=== PATIENT | female | born 1975 | race Caucasian/White ===

== ENCOUNTER 2017-11-24 06:43 | Inpatient (IN) | payer BC, SELFPAY ==
[2017-11-24] MEDS ORDERED: Sodium Chloride 0.9% 10 ML Syringe FLUSH PRN (07:05)
[2017-11-24] MEDS ORDERED: HYDROmorphone 0.5 MG/0.5 ML SYRINGE IVPUSH ONE ×4 (07:07→11:04)
[2017-11-24] MEDS ORDERED: Ondansetron 4 MG/2 ML SDV IVPUSH ONE ×2 (07:07→10:43)
[2017-11-24] MEDS ORDERED: Sodium Chloride 0.9% 1,000 ML IV SCH ×2 (07:15→08:45)
--- NOTE | 2017-11-24 08:14 | EDM.PDOC ---
ED HPI GENERAL MEDICAL PROBLEM - General Chief Complaint: Back Pain or Injury Stated Complaint: VOMITING Time Seen by Provider: 11/24/17 06:57 Source of Information: Reports: Patient, Family (Spouse), RN Notes Reviewed - History of Present Illness INITIAL COMMENTS - FREE TEXT/NARRATIVE: 6-year-old female comes in with abdominal pain nausea vomiting low back discomfort. She states she had onset is severe repetitive vomiting during the night quite a few hours ago. Continues to have severe nausea vomiting on arrival to ED. Was having bilateral low back discomfort. There has been voiding dysuria for "10 days". No diarrhea. She does feel mildly short of breath. Chest pain at this time. She does not give history of fever or chills. Also denies cough sore throat, nasal or sinus congestion. Left Lower Back Pain Score (Numeric/FACES): 10 - Related Data Allergies Allergy/AdvReac Type Severity Reaction Status Date / Time Penicillins Allergy Cannot Verified 11/24/17 07:12 Remember Past Medical History - Past Health History Medical/Surgical History: Denies Medical/Surgical History - Past Surgical History GI Surgical History: Reports: Cholecystectomy Social & Family History - Family History Family Medical History: Noncontributory - Tobacco Use Smoking Status *Q: Current Every Day Smoker Years of Tobacco use: 3 Packs/Tins Daily: 0.2 - Recreational Drug Use Recreational Drug Use: No ED ROS GENERAL - Review of Systems Review Of Systems: See Below Constitutional: Reports: Diaphoresis (This morning). Denies: Fever, Chills HEENT: Denies: Sinus Problem, Throat Pain Respiratory: Reports: Shortness of Breath (Mild). Denies: Cough Cardiovascular: Denies: Chest Pain GI/Abdominal: Reports: Abdominal Pain (Generalized achiness with intermittent cramping), Decreased Appetite, Nausea, Vomiting. Denies: Diarrhea (Repetitive) Musculoskeletal: Reports: Back Pain (Bilateral low back) Skin: Denies: Rash Neurological: Reports: Dizziness Psychiatric: Reports: Anxiety ED EXAM, GI/ABD - Physical Exam Exam: See Below General Appearance: Alert, Anxious, Moderate Distress Eyes: Bilateral: Normal Appearance Ears: Normal External Exam Nose: Normal Inspection Throat/Mouth: Normal Inspection Head: Atraumatic. No: Facial Swelling Neck: Supple, Full Range of Motion Respiratory/Chest: Lungs Clear, Respiratory Distress (Moderate tachypnea at time of initial exam) Cardiovascular: Regular Rate, Rhythm GI/Abdominal Exam: Tender (Mild diffuse tenderness) Back Exam: Paraspinal Tenderness. No: CVA Tenderness (L), CVA Tenderness (R) Extremities: Normal Inspection, Normal Range of Motion. No: Pedal Edema, Leg Pain EKG INTERPRETATION EKG Date: 11/24/17 Rhythm: Other (sinus courtney) Rate (Beats/Min): 55 [place]: Normal P-Wave: Present QRS: Other (borderline q waves V2 and V3.) Course - Vital Signs Last Recorded V/S: Last Vital Signs Temp 95.5 F 11/24/17 06:55 Pulse 76 11/24/17 06:55 Resp 24 H 11/24/17 06:55 BP 136/107 H 11/24/17 06:55 Pulse Ox 55 L 11/24/17 08:23 - Orders/Labs/Meds Orders: Active Orders 24 hr Category Date Time Status EKG 12 Lead [EKG Documentation Completion] [RC] STAT Care 11/24/17 11:34 Active CULTURE BLOOD [BC] Stat Lab 11/24/17 07:24 Received Levofloxacin/Dextrose 5%-Water [Levaquin in D5W 750 MG/ Med 11/24/17 12:09 Active 150 ML] 750 mg Premix Bag 1 bag IV ONETIME Sodium Chloride 0.9% [Normal Saline] 1,000 ml Med 11/24/17 07:15 Active IV ONETIME Sodium Chloride 0.9% [Normal Saline] 1,000 ml Med 11/24/17 08:45 Active IV ONETIME Sodium Chloride 0.9% [Saline Flush] Med 11/24/17 07:05 Active 10 ml FLUSH ASDIRECTED PRN Sodium Chloride 0.9% [Saline Flush] Med 11/24/17 09:12 Active 10 ml FLUSH ONETIME PRN Peripheral IV Insertion Adult [OM.PC] Stat Oth 11/24/17 07:06 Ordered Medication Orders Sodium Chloride (Normal Saline) 1,000 mls @ 999 mls/hr IV ONETIME JOHN Last Admin: 11/24/17 07:14 Dose: 999 mls/hr Sodium Chloride (Normal Saline) 1,000 mls @ 999 mls/hr IV ONETIME JOHN Last Admin: 11/24/17 08:48 Dose: 999 mls/hr Levofloxacin/Dextrose 750 mg/ (Premix) 150 mls @ 100 mls/hr IV ONETIME ONE Stop: 11/24/17 13:38 Last Admin: 11/24/17 12:18 Dose: 100 mls/hr Sodium Chloride (Saline Flush) 10 ml FLUSH ASDIRECTED PRN PRN Reason: Keep Vein Open Last Admin: 11/24/17 07:41 Dose: 10 ml Sodium Chloride (Saline Flush) 10 ml FLUSH ONETIME PRN PRN Reason: IV FLUSH Last Admin: 11/24/17 09:48 Dose: 10 ml Labs: Laboratory Tests 11/24/17 11/24/17 11/24/17 Range/Units 07:24 07:24 07:24 WBC 8.32 (3.98-10.04) K/mm3 RBC 4.99 (3.98-5.22) M/mm3 Hgb 15.1 (11.2-15.7) gm/L Hct 45.0 H (34.1-44.9) % MCV 90.2 (79.4-94.8) fl MCH 30.3 (25.6-32.2) pg MCHC 33.6 (32.2-35.5) g/dl RDW Std Deviation 40.2 (36.4-46.3) fL Plt Count 238 (182-369) K/mm3 MPV 10.7 (9.4-12.3) fl Neutrophils % (Manual) 63 H (40-60) % Band Neutrophils % 0 (0-10) % Lymphocytes % (Manual) 28 (20-40) % Atypical Lymphs % 0 % Monocytes % (Manual) 4 (2-10) % Eosinophils % (Manual) 5 (0.7-5.8) % Basophils % (Manual) 0 L (0.1-1.2) Platelet Estimate Adequate RBC Morph Comment Normal Sodium 139 (136-145) mEq/L Potassium 3.5 (3.5-5.1) mEq/L Chloride 105 (98-107) mEq/L Carbon Dioxide 22 (21-32) mEq/L Anion Gap 15.5 H (5-15) BUN 14 (7-18) mg/dL Creatinine 1.0 (0.55-1.02) mg/dL Est Cr Clr Drug Dosing 83.58 mL/min Estimated GFR (MDRD) > 60 (>60) mL/min BUN/Creatinine Ratio 14.0 (14-18) Glucose 118 H (74-106) mg/dL Lactic Acid (0.4-2.0) mmol/L Calcium 9.3 (8.5-10.1) mg/dL Total Bilirubin 0.5 (0.2-1.0) mg/dL AST 21 (15-37) U/L ALT 55 (14-59) U/L Alkaline Phosphatase 58 (46-116) U/L C-Reactive Protein < 0.2 (<1.0) mg/dL Total Protein 7.3 (6.4-8.2) g/dl Albumin 4.2 (3.4-5.0) g/dl Globulin 3.1 gm/dL Albumin/Globulin Ratio 1.4 (1-2) Lipase 1706 H (73-393) U/L Urine Color (Yellow) Urine Appearance (Clear) Urine pH (5.0-8.0) Ur Specific [place] (1.005-1.030) Urine Protein (Negative) Urine Glucose (UA) (Negative) Urine Ketones (Negative) Urine Occult Blood (Negative) Urine Nitrite (Negative) Urine Bilirubin (Negative) Urine Urobilinogen (0.2-1.0) Ur Leukocyte Esterase (Negative) Urine RBC (0-5) /hpf Urine WBC (0-5) /hpf Ur Epithelial Cells (0-5) /hpf Amorphous Sediment (NOT SEEN) /hpf Urine Bacteria (FEW) /hpf Urine Mucus (FEW) /hpf Urine Opiates Screen (NEGATIVE) Ur Buprenorphine Scrn (NEGATIVE) Ur Oxycodone Screen (NEGATIVE) Urine Methadone Screen (NEGATIVE) Ur Propoxyphene Screen (NEGATIVE) Ur Barbiturates Screen (NEGATIVE) Ur Tricyclics Screen (NEGATIVE) Ur Phencyclidine Scrn (NEGATIVE) Ur Amphetamine Screen (NEGATIVE) U Methamphetamines Scrn (NEGATIVE) U Benzodiazepines Scrn (NEGATIVE) U Cocaine Metab Screen (NEGATIVE) U Marijuana (THC) Screen (NEGATIVE) Ethyl Alcohol (0.00) gm% 11/24/17 11/24/17 11/24/17 Range/Units 07:24 07:24 08:40 WBC (3.98-10.04) K/mm3 RBC (3.98-5.22) M/mm3 Hgb (11.2-15.7) gm/L Hct (34.1-44.9) % MCV (79.4-94.8) fl MCH (25.6-32.2) pg MCHC (32.2-35.5) g/dl RDW Std Deviation (36.4-46.3) fL Plt Count (182-369) K/mm3 MPV (9.4-12.3) fl Neutrophils % (Manual) (40-60) % Band Neutrophils % (0-10) % Lymphocytes % (Manual) (20-40) % Atypical Lymphs % % Monocytes % (Manual) (2-10) % Eosinophils % (Manual) (0.7-5.8) % Basophils % (Manual) (0.1-1.2) Platelet Estimate RBC Morph Comment Sodium (136-145) mEq/L Potassium (3.5-5.1) mEq/L Chloride (98-107) mEq/L Carbon Dioxide (21-32) mEq/L Anion Gap (5-15) BUN (7-18) mg/dL Creatinine (0.55-1.02) mg/dL Est Cr Clr Drug Dosing mL/min Estimated GFR (MDRD) (>60) mL/min BUN/Creatinine Ratio (14-18) Glucose (74-106) mg/dL Lactic Acid 2.8 H (0.4-2.0) mmol/L Calcium (8.5-10.1) mg/dL Total Bilirubin (0.2-1.0) mg/dL AST (15-37) U/L ALT (14-59) U/L Alkaline Phosphatase (46-116) U/L C-Reactive Protein (<1.0) mg/dL Total Protein (6.4-8.2) g/dl Albumin (3.4-5.0) g/dl Globulin gm/dL Albumin/Globulin Ratio (1-2) Lipase (73-393) U/L Urine Color Yellow (Yellow) Urine Appearance Slt cloudy H (Clear) Urine pH 8.5 H (5.0-8.0) Ur Specific [place] 1.020 (1.005-1.030) Urine Protein Trace H (Negative) Urine Glucose (UA) Negative (Negative) Urine Ketones 1+ H (Negative) Urine Occult Blood Negative (Negative) Urine Nitrite Negative (Negative) Urine Bilirubin Negative (Negative) Urine Urobilinogen 0.2 (0.2-1.0) Ur Leukocyte Esterase Trace H (Negative) Urine RBC Not seen (0-5) /hpf Urine WBC 0-5 (0-5) /hpf Ur Epithelial Cells 0-5 (0-5) /hpf Amorphous Sediment Few H (NOT SEEN) /hpf Urine Bacteria Rare (FEW) /hpf Urine Mucus Few (FEW) /hpf Urine Opiates Screen (NEGATIVE) Ur Buprenorphine Scrn (NEGATIVE) Ur Oxycodone Screen (NEGATIVE) Urine Methadone Screen (NEGATIVE) Ur Propoxyphene Screen (NEGATIVE) Ur Barbiturates Screen (NEGATIVE) Ur Tricyclics Screen (NEGATIVE) Ur Phencyclidine Scrn (NEGATIVE) Ur Amphetamine Screen (NEGATIVE) U Methamphetamines Scrn (NEGATIVE) U Benzodiazepines Scrn (NEGATIVE) U Cocaine Metab Screen (NEGATIVE) U Marijuana (THC) Screen (NEGATIVE) Ethyl Alcohol 0.00 (0.00) gm% 11/24/17 Range/Units 08:42 WBC (3.98-10.04) K/mm3 RBC (3.98-5.22) M/mm3 Hgb (11.2-15.7) gm/L Hct (34.1-44.9) % MCV (79.4-94.8) fl MCH (25.6-32.2) pg MCHC (32.2-35.5) g/dl RDW Std Deviation (36.4-46.3) fL Plt Count (182-369) K/mm3 MPV (9.4-12.3) fl Neutrophils % (Manual) (40-60) % Band Neutrophils % (0-10) % Lymphocytes % (Manual) (20-40) % Atypical Lymphs % % Monocytes % (Manual) (2-10) % Eosinophils % (Manual) (0.7-5.8) % Basophils % (Manual) (0.1-1.2) Platelet Estimate RBC Morph Comment Sodium (136-145) mEq/L Potassium (3.5-5.1) mEq/L Chloride (98-107) mEq/L Carbon Dioxide (21-32) mEq/L Anion Gap (5-15) BUN (7-18) mg/dL Creatinine (0.55-1.02) mg/dL Est Cr Clr Drug Dosing mL/min Estimated GFR (MDRD) (>60) mL/min BUN/Creatinine Ratio (14-18) Glucose (74-106) mg/dL Lactic Acid (0.4-2.0) mmol/L Calcium (8.5-10.1) mg/dL Total Bilirubin (0.2-1.0) mg/dL AST (15-37) U/L ALT (14-59) U/L Alkaline Phosphatase (46-116) U/L C-Reactive Protein (<1.0) mg/dL Total Protein (6.4-8.2) g/dl Albumin (3.4-5.0) g/dl Globulin gm/dL Albumin/Globulin Ratio (1-2) Lipase (73-393) U/L Urine Color (Yellow) Urine Appearance (Clear) Urine pH (5.0-8.0) Ur Specific [place] (1.005-1.030) Urine Protein (Negative) Urine Glucose (UA) (Negative) Urine Ketones (Negative) Urine Occult Blood (Negative) Urine Nitrite (Negative) Urine Bilirubin (Negative) Urine Urobilinogen (0.2-1.0) Ur Leukocyte Esterase (Negative) Urine RBC (0-5) /hpf Urine WBC (0-5) /hpf Ur Epithelial Cells (0-5) /hpf Amorphous Sediment (NOT SEEN) /hpf Urine Bacteria (FEW) /hpf Urine Mucus (FEW) /hpf Urine Opiates Screen Negative (NEGATIVE) Ur Buprenorphine Scrn Negative (NEGATIVE) Ur Oxycodone Screen Negative (NEGATIVE) Urine Methadone Screen Negative (NEGATIVE) Ur Propoxyphene Screen Negative (NEGATIVE) Ur Barbiturates Screen Negative (NEGATIVE) Ur Tricyclics Screen Negative (NEGATIVE) Ur Phencyclidine Scrn Negative (NEGATIVE) Ur Amphetamine Screen Negative (NEGATIVE) U Methamphetamines Scrn Negative (NEGATIVE) U Benzodiazepines Scrn Negative (NEGATIVE) U Cocaine Metab Screen Negative (NEGATIVE) U Marijuana (THC) Screen Presumptive positive H (NEGATIVE) Ethyl Alcohol (0.00) gm% Meds: Medications Generic Name Dose Route Start Last Admin Trade Name Freq PRN Reason Stop Dose Admin Sodium Chloride 1,000 mls @ 999 mls/hr 11/24/17 07:15 11/24/17 07:14 Normal Saline IV 999 mls/hr ONETIME JOHN Administration Sodium Chloride 1,000 mls @ 999 mls/hr 11/24/17 08:45 11/24/17 08:48 Normal Saline IV 999 mls/hr ONETIME JOHN Administration Levofloxacin/Dextrose 750 mg/ 150 mls @ 100 mls/hr 11/24/17 12:09 11/24/17 12 :18 Premix IV 11/24/17 13:38 100 mls/hr ONETIME ONE Administration Sodium Chloride 10 ml 11/24/17 07:05 11/24/17 07:41 Saline Flush FLUSH 10 ml ASDIRECTED PRN Administration Keep Vein Open Sodium Chloride 10 ml 11/24/17 09:12 11/24/17 09:48 Saline Flush FLUSH 10 ml ONETIME PRN Administration IV FLUSH Discontinued Medications Generic Name Dose Route Start Last Admin Trade Name Freq PRN Reason Stop Dose Admin Diatrizoate Meglum/Diatrizoate Sod 120 ml 11/24/17 09:12 11/24/17 09:49 Gastrografin 37% PO 11/24/17 09:13 90 ml ONETIME ONE Administration Hydromorphone HCl 0.5 mg 11/24/17 07:07 11/24/17 07:15 Dilaudid IVPUSH 11/24/17 07:08 0.5 mg ONETIME ONE Administration Hydromorphone HCl 0.5 mg 11/24/17 07:51 11/24/17 08:07 Dilaudid IVPUSH 11/24/17 07:52 0.5 mg ONETIME ONE Administration Hydromorphone HCl 0.5 mg 11/24/17 09:22 11/24/17 09:23 Dilaudid IVPUSH 11/24/17 09:23 0.5 mg ONETIME ONE Administration Hydromorphone HCl Confirm 11/24/17 09:20 11/24/17 09:35 Dilaudid Administered 11/24/17 09:21 Not Given Dose 0.5 mg .ROUTE .STK-MED ONE Hydromorphone HCl 0.5 mg 11/24/17 11:04 11/24/17 11:05 Dilaudid IVPUSH 11/24/17 11:05 0.5 mg ONETIME ONE Administration Sodium Chloride 1,000 mls @ 999 mls/hr 11/24/17 12:01 11/24/17 12:13 Normal Saline IV 11/24/17 13:01 999 mls/hr ONETIME ONE Administration Iopamidol 100 ml 09/24/18 09:12 11/24/17 09:48 Isovue-300 (61%) IVPUSH 11/24/17 09:13 100 ml ONETIME ONE Administration Ketorolac Tromethamine 30 mg 11/24/17 12:01 11/24/17 12:12 Toradol IVPUSH 11/24/17 12:02 30 mg ONETIME ONE Administration Metoclopramide HCl 5 mg 11/24/17 08:44 11/24/17 08:48 Reglan IVPUSH 11/24/17 08:45 5 mg ONETIME ONE Administration Ondansetron HCl 4 mg 11/24/17 07:07 11/24/17 07:14 Zofran IVPUSH 11/24/17 07:08 4 mg ONETIME ONE Administration Ondansetron HCl 4 mg 11/24/17 10:43 11/24/17 11:00 Zofran IVPUSH 11/24/17 10:44 4 mg ONETIME ONE Administration - Re-Assessments/Exams Free Text/Narrative Re-Assessment/Exam: 11/24/17 10:44. Lipase did come back elevated, CT of abdomen and pelvis ordered , currently giving second liter of normal saline given Zofran 5 mg IV and also Reglan 5 mg IV. She is still nauseated but no longer vomiting. Have also given multiple doses of Dilaudid 0.5 mg IV for pain. 11/24/17 11:33. CT of abdomen did show mild intrahepatic biliary duct dilatation with common bile duct considered normal, see Radiology report for details. Radiologist did comment about patchy parenchymal density right lung base. Her chest x-ray has been done. There is slight parenchymal density left midlung, possible pneumonia. Patient will be admitted for further treatment. 11/24/17 11;40. Dr Orona did ask for surgical consult due to patient still looking very ill, diaphoretic when she went ot see patient which she has had all morning. Dr Fuentes has seen patient, does believe she has a surgical abdomen at this time. Departure - Departure Time of Disposition: 11:30 Disposition: Admitted As Inpatient 68 Condition: Serious Clinical Impression: Pancreatitis Qualifiers: Chronicity: acute Pancreatitis type: unspecified pancreatitis type Acute pancreatitis complication: unspecified Qualified Code(s): K85.90 - Acute pancreatitis without necrosis or infection, unspecified Pneumonia Qualifiers: Pneumonia type: due to unspecified organism Laterality: left Lung location: unspecified part of lung Qualified Code(s): J18.9 - Pneumonia, unspecified organism - Discharge Information ED Communication - Discussed Case With (1) Discussed Case With (1): Admitting Provider (Dr. Orona, decision to admit at about 11:30.) - My Orders Last 24 Hours: My Active Orders 11/24/17 07:05 Sodium Chloride 0.9% [Saline Flush] 10 ml FLUSH ASDIRECTED PRN 11/24/17 07:06 Peripheral IV Insertion Adult [OM.PC] Stat 11/24/17 07:15 Sodium Chloride 0.9% [Normal Saline] 1,000 ml IV ONETIME 11/24/17 07:24 CULTURE BLOOD [BC] Stat 11/24/17 08:45 Sodium Chloride 0.9% [Normal Saline] 1,000 ml IV ONETIME 11/24/17 09:12 Sodium Chloride 0.9% [Saline Flush] 10 ml FLUSH ONETIME PRN 11/24/17 11:34 EKG 12 Lead [EKG Documentation Completion] [RC] STAT 11/24/17 12:09 Levofloxacin/Dextrose 5%-Water [Levaquin in D5W 750 MG/150 ML] 750 mg Premix Bag 1 bag IV ONETIME - Assessment/Plan Last 24 Hours: My Active Orders 11/24/17 07:05 Sodium Chloride 0.9% [Saline Flush] 10 ml FLUSH ASDIRECTED PRN 11/24/17 07:06 Peripheral IV Insertion Adult [OM.PC] Stat 11/24/17 07:15 Sodium Chloride 0.9% [Normal Saline] 1,000 ml IV ONETIME 11/24/17 07:24 CULTURE BLOOD [BC] Stat 11/24/17 08:45 Sodium Chloride 0.9% [Normal Saline] 1,000 ml IV ONETIME 11/24/17 09:12 Sodium Chloride 0.9% [Saline Flush] 10 ml FLUSH ONETIME PRN 11/24/17 11:34 EKG 12 Lead [EKG Documentation Completion] [RC] STAT 11/24/17 12:09 Levofloxacin/Dextrose 5%-Water [Levaquin in D5W 750 MG/150 ML] 750 mg Premix Bag 1 bag IV ONETIME
[2017-11-24] MEDS ORDERED: Metoclopramide 10 MG/2 ML SDV IVPUSH ONE (08:44)
[2017-11-24] MEDS ORDERED: Diatrizoate Meglumine/Diatrizoate Sodium 37% 120 ML Bottle PO ONE (09:12)
[2017-11-24] MEDS ORDERED: Iopamidol 612 MG/ML 100 ML Bottle IVPUSH ONE (09:12)
[2017-11-24] MEDS ORDERED: HYDROmorphone 0.5 MG/0.5 ML SYRINGE ONE (09:20)
[2017-11-24] MEDS: Sodium Chloride 0.9% 10 ML Syringe FLUSH PRN (09:48)
--- NOTE | 2017-11-24 10:30 | CT ---
Addendum: Common bile duct measurement in the body of the report is given as 6.3 cm which is incorrect. The correct measurement is 6.3 mm. --- Addendum1 above dictated on [11/24/2017 20:57] by [Kenneth Sauceda, Jayy Nascimento] --- --- Addendum1 above signed on [11/24/2017 20:58] by [Kenneth Sauceda, Jayy Nascimento] --- --- Original report below dictated on [11/24/2017 10:25] by [Kenneth Sauceda, Jayy Nascimento] --- --- Original report below signed on [11/24/2017 10:26] by [Kenneth Sauceda, Jayy Nascimento] --- CT abdomen and pelvis Technique: Multiple axial sections were obtained from above the dome of the diaphragm inferiorly through the pubic symphysis. Intravenous contrast is seen. Oral contrast is seen which remains mostly within the stomach and proximal bowel. Comparison: Prior CT abdomen and pelvis exam of 07/29/12. Patchy parenchymal density seen within the right lung base. Difficult to exclude pneumonia. Left lung base is clear. Small hiatal hernia is seen with gastroesophageal reflux of contrast. Intrahepatic biliary duct dilatation seen within the liver. Previous cholecystectomy is noted. Common bile duct at the level of the pancreatic head measures about 6.3 cm. Spleen appears within normal limits. Adrenal glands show no nodule. No abnormality is seen within the pancreas. Small low density finding measuring 1 cm is noted within the left kidney which is compatible with a cyst. Kidneys otherwise are unremarkable. Aorta shows no aneurysm. No retroperitoneal adenopathy is seen. No free fluid is seen. Mild increased stool is noted throughout the colon. Appendix is felt to be visualized and appears within normal limits in size. Bone window settings were reviewed which shows degenerative change scattered within the spine. Anterior wedge deformity noted of L1 which appears old. Impression: 1. Patchy parenchymal densities within the right lung base. Pneumonia is possible if patient has infectious symptoms. 2. Mild intrahepatic biliary duct dilatation with normal size of CBD at the level of the pancreatic head. This most likely is residual from prior cholecystectomy. 3. Mild increased stool throughout the colon and other incidental findings. Diagnostic code #3 --- Addendum1 signed ---
--- NOTE | 2017-11-24 11:43 | CR ---
Chest: Frontal view of the chest was obtained. Comparison: Prior chest x-ray of 07/04/13. Heart size and mediastinum are normal. Slight parenchymal density noted within left mid lung. Lungs otherwise are clear. Bony structures are unremarkable. Impression: 1. Slight parenchymal density within the left mid lung. Findings could represent ill-defined mass versus pneumonia. Recommend treatment as a pneumonia with follow-up chest x-ray to make sure finding resolves. Diagnostic code #9
[2017-11-24] MEDS ORDERED: Sodium Chloride 0.9% 1,000 ML IV ONE (12:01)
[2017-11-24] MEDS ORDERED: Ketorolac 30 MG/ML SDV IVPUSH ONE (12:01)
[2017-11-24] MEDS ORDERED: Levofloxacin/Dextrose 5%-Water 750 MG in Premix Bag 1 BAG IV ONE (12:09)
[2017-11-24] MEDS ORDERED: Lactated Ringers 1,000 ML IV ONE (13:36)
[2017-11-24] MEDS ORDERED: Ondansetron 4 MG/2 ML SDV IVPUSH PRN (13:41)
[2017-11-24] MEDS ORDERED: Promethazine 25 MG/ML SDV ONE (13:48)
[2017-11-24] MEDS: HYDROmorphone 1 MG/ML Syringe IVPUSH PRN ×2 (13:51→17:54)
[2017-11-24] MEDS: Ketorolac 60 MG/2 ML SDV IVPUSH SCH ×2 (14:53→23:36)
[2017-11-24] MEDS: Lactated Ringers 2,000 ML IV ONE ×2 (14:55→15:54)
[2017-11-24] MEDS: Promethazine 25 MG in Sodium Chloride 0.9% 50 ML IV SCH ×2 (14:55→20:27)
[2017-11-24] MEDS: Pantoprazole 40 MG Vial IVPUSH SCH (15:37)
--- NOTE | 2017-11-24 16:19 | PCM.HP ---
H&P History of Present Illness - General Date of Service: 11/24/17 Admit Problem/Dx: Admission Diagnosis/Problem Admission Diagnosis/Problem Pancreatitis Source of Information: Patient, Old Records, Provider History Limitations: Reports: No Limitations - History of Present Illness Initial Comments - Free Text/Narative: HPI: This is a 42 yo female with past medical hx/o HTN, fibroids, ETOH abuse and SA who comes in for PNA and mild pancreatitis. Pt c/o abdominal pain, N/V, diaphoresis, low back pain, dysuria x 10 days, chest pain, SOB. Patient denies any F/C, cough, Diarrhea, CP, heartburn, bloody urine or stool, or any other / GI complaints. Her symptoms improved after receiving IVF, Dilaudid, antiemetics and Levaquin in the ED. Her initial workup in the ED showed a CBC remarkable for Hct 45, Neut 63%. Her chemistry is remarkable for Anion Gap 15.5, Glucose 118, Lactic Acid 2.8, Lipase 1706. EKG shows sinus bradycardia, borderline Q waves in V2 and V3. CXR shows L mid lung parenchymal density. CT Ab/Pelvis shows mild intrahepatic biliary duct dilatation with normal size of CBD at the level of the pancreatic head, likely residual from prior cholecystectomy. U/A shows slightly cloudy, pH 8.5, trace protein, 1+ ketones, trace leuk esterase, few amorphous sediment. Drug screen positive for THC. ETOH 0. Blood culture pending. She is subsequently admitted to the medical floor. She is a Full Code. Her PCP is Harper Duarte PA-C. Left Lower Back Pain Score (Numeric/FACES): 10 - Related Data Allergies/Adverse Reactions: Allergies Allergy/AdvReac Type Severity Reaction Status Date / Time Penicillins Allergy Cannot Verified 11/24/17 13:25 Remember Home Medications: Home Meds . [No Known Home Meds] 11/24/17 [History] Past Medical History - Past Health History Medical/Surgical History: Denies Medical/Surgical History - Past Surgical History GI Surgical History: Reports: Cholecystectomy Social & Family History - Family History Family Medical History: Noncontributory - Tobacco Use Smoking Status *Q: Current Some Day Smoker Years of Tobacco use: 3 Packs/Tins Daily: 0 Second Hand Smoke Exposure: No - Caffeine Use Caffeine Use: Reports: Coffee, Energy Drinks, Soda - Recreational Drug Use Recreational Drug Use: Yes H&P Review of Systems - Review of Systems: Review Of Systems: See Below General: Reports: Chills, Diaphoresis, Decreased Appetite HEENT: Reports: No Symptoms Pulmonary: Reports: Shortness of Breath. Denies: Wheezing, Cough Cardiovascular: Reports: Blood Pressure Problem. Denies: Chest Pain, Palpitations, Orthopnea, Edema, Lightheadedness Gastrointestinal: Reports: Abdominal Pain, Nausea. Denies: Bloody Stool, Constipation, Diarrhea, Distension, Vomiting Genitourinary: Reports: Dysuria. Denies: Frequency, Burning, Pain, Urgency, Incontinence, Hematuria, Flank Pain Musculoskeletal: Reports: Back Pain (lower back pain, started yesterday per pt) Skin: Reports: Diaphoresis Psychiatric: Reports: Mood Lability, Other (tends to exaggerate symptoms and asks for more pain medication/water, but then can fall asleep without them) Exam - Exam Exam: See Below - Vital Signs Vital Signs: Last Vital Signs Temp 97.7 F 11/24/17 13:10 Pulse 58 L 11/24/17 13:10 Resp 18 11/24/17 13:10 BP 134/70 11/24/17 13:10 Pulse Ox 100 11/24/17 13:10 Weight: 185 lb - Exam Quality Assessment: DVT Prophylaxis General: Alert, Oriented, Moderate Distress, Other (tends to exaggerate symptoms and asks for more pain medication/water, but then can fall asleep without them) HEENT: PERRLA, Hearing Intact, Mucosa Moist & [place], Nares Patent, Normal Nasal Septum, Posterior Pharynx Clear, Conjunctiva Clear, EOMI, EACs Clear, TMs Clear Neck: Supple, Trachea Midline, 2 Lungs: Clear to Auscultation, Normal Respiratory Effort Cardiovascular: Regular Rate, Regular Rhythm GI/Abdominal Exam: Soft, Non-Tender, No Organomegaly, No Distention, No Abnormal Bruit, No Mass, Pelvis Stable, Abnormal Bowel Sounds (hypoactive) (Female) Exam: Deferred Rectal (Female) Exam: Deferred Back Exam: Normal Inspection, Full Range of Motion. No: CVA Tenderness (L), CVA Tenderness (R), Paraspinal Tenderness, Vertebral Tenderness Extremities: Normal Inspection, Normal Range of Motion, Non-Tender, No Pedal Edema, Normal Capillary Refill Peripheral Pulses: 3+: Posterior Tibial (L), Posterior Tibial (R), Dorsalis Pedis (L), Dorsalis Pedis (R) Skin: Warm, Dry, Intact Neurological: Cranial Nerves Intact (grossly) Neuro Extensive - Mental Status: Alert, Oriented x3, Normal Cognition, Memory Intact. No: Normal Mood/Affect (tends to exaggerate symptoms and asks for more pain medication/water, but then can fall asleep without them) Psychiatric: Alert, Labile Mood, Other (tends to exaggerate symptoms and asks for more pain medication/water, but then can fall asleep without them) - Patient Data Lab Results Last 24 hrs: Laboratory Results - last 24 hr 11/24/17 11/24/17 11/24/17 Range/Units 07:24 07:24 07:24 WBC 8.32 (3.98-10.04) K/mm3 RBC 4.99 (3.98-5.22) M/mm3 Hgb 15.1 (11.2-15.7) gm/L Hct 45.0 H (34.1-44.9) % MCV 90.2 (79.4-94.8) fl MCH 30.3 (25.6-32.2) pg MCHC 33.6 (32.2-35.5) g/dl RDW Std Deviation 40.2 (36.4-46.3) fL Plt Count 238 (182-369) K/mm3 MPV 10.7 (9.4-12.3) fl Neutrophils % (Manual) 63 H (40-60) % Band Neutrophils % 0 (0-10) % Lymphocytes % (Manual) 28 (20-40) % Atypical Lymphs % 0 % Monocytes % (Manual) 4 (2-10) % Eosinophils % (Manual) 5 (0.7-5.8) % Basophils % (Manual) 0 L (0.1-1.2) Platelet Estimate Adequate RBC Morph Comment Normal Sodium 139 (136-145) mEq/L Potassium 3.5 (3.5-5.1) mEq/L Chloride 105 (98-107) mEq/L Carbon Dioxide 22 (21-32) mEq/L Anion Gap 15.5 H (5-15) BUN 14 (7-18) mg/dL Creatinine 1.0 (0.55-1.02) mg/dL Est Cr Clr Drug Dosing 83.58 mL/min Estimated GFR (MDRD) > 60 (>60) mL/min BUN/Creatinine Ratio 14.0 (14-18) Glucose 118 H (74-106) mg/dL Lactic Acid (0.4-2.0) mmol/L Calcium 9.3 (8.5-10.1) mg/dL Total Bilirubin 0.5 (0.2-1.0) mg/dL AST 21 (15-37) U/L ALT 55 (14-59) U/L Alkaline Phosphatase 58 (46-116) U/L C-Reactive Protein < 0.2 (<1.0) mg/dL Total Protein 7.3 (6.4-8.2) g/dl Albumin 4.2 (3.4-5.0) g/dl Globulin 3.1 gm/dL Albumin/Globulin Ratio 1.4 (1-2) Lipase 1706 H (73-393) U/L Urine Color (Yellow) Urine Appearance (Clear) Urine pH (5.0-8.0) Ur Specific [place] (1.005-1.030) Urine Protein (Negative) Urine Glucose (UA) (Negative) Urine Ketones (Negative) Urine Occult Blood (Negative) Urine Nitrite (Negative) Urine Bilirubin (Negative) Urine Urobilinogen (0.2-1.0) Ur Leukocyte Esterase (Negative) Urine RBC (0-5) /hpf Urine WBC (0-5) /hpf Ur Epithelial Cells (0-5) /hpf Amorphous Sediment (NOT SEEN) /hpf Urine Bacteria (FEW) /hpf Urine Mucus (FEW) /hpf Urine Opiates Screen (NEGATIVE) Ur Buprenorphine Scrn (NEGATIVE) Ur Oxycodone Screen (NEGATIVE) Urine Methadone Screen (NEGATIVE) Ur Propoxyphene Screen (NEGATIVE) Ur Barbiturates Screen (NEGATIVE) Ur Tricyclics Screen (NEGATIVE) Ur Phencyclidine Scrn (NEGATIVE) Ur Amphetamine Screen (NEGATIVE) U Methamphetamines Scrn (NEGATIVE) U Benzodiazepines Scrn (NEGATIVE) U Cocaine Metab Screen (NEGATIVE) U Marijuana (THC) Screen (NEGATIVE) Ethyl Alcohol (0.00) gm% 11/24/17 11/24/17 11/24/17 Range/Units 07:24 07:24 08:40 WBC (3.98-10.04) K/mm3 RBC (3.98-5.22) M/mm3 Hgb (11.2-15.7) gm/L Hct (34.1-44.9) % MCV (79.4-94.8) fl MCH (25.6-32.2) pg MCHC (32.2-35.5) g/dl RDW Std Deviation (36.4-46.3) fL Plt Count (182-369) K/mm3 MPV (9.4-12.3) fl Neutrophils % (Manual) (40-60) % Band Neutrophils % (0-10) % Lymphocytes % (Manual) (20-40) % Atypical Lymphs % % Monocytes % (Manual) (2-10) % Eosinophils % (Manual) (0.7-5.8) % Basophils % (Manual) (0.1-1.2) Platelet Estimate RBC Morph Comment Sodium (136-145) mEq/L Potassium (3.5-5.1) mEq/L Chloride (98-107) mEq/L Carbon Dioxide (21-32) mEq/L Anion Gap (5-15) BUN (7-18) mg/dL Creatinine (0.55-1.02) mg/dL Est Cr Clr Drug Dosing mL/min Estimated GFR (MDRD) (>60) mL/min BUN/Creatinine Ratio (14-18) Glucose (74-106) mg/dL Lactic Acid 2.8 H (0.4-2.0) mmol/L Calcium (8.5-10.1) mg/dL Total Bilirubin (0.2-1.0) mg/dL AST (15-37) U/L ALT (14-59) U/L Alkaline Phosphatase (46-116) U/L C-Reactive Protein (<1.0) mg/dL Total Protein (6.4-8.2) g/dl Albumin (3.4-5.0) g/dl Globulin gm/dL Albumin/Globulin Ratio (1-2) Lipase (73-393) U/L Urine Color Yellow (Yellow) Urine Appearance Slt cloudy H (Clear) Urine pH 8.5 H (5.0-8.0) Ur Specific [place] 1.020 (1.005-1.030) Urine Protein Trace H (Negative) Urine Glucose (UA) Negative (Negative) Urine Ketones 1+ H (Negative) Urine Occult Blood Negative (Negative) Urine Nitrite Negative (Negative) Urine Bilirubin Negative (Negative) Urine Urobilinogen 0.2 (0.2-1.0) Ur Leukocyte Esterase Trace H (Negative) Urine RBC Not seen (0-5) /hpf Urine WBC 0-5 (0-5) /hpf Ur Epithelial Cells 0-5 (0-5) /hpf Amorphous Sediment Few H (NOT SEEN) /hpf Urine Bacteria Rare (FEW) /hpf Urine Mucus Few (FEW) /hpf Urine Opiates Screen (NEGATIVE) Ur Buprenorphine Scrn (NEGATIVE) Ur Oxycodone Screen (NEGATIVE) Urine Methadone Screen (NEGATIVE) Ur Propoxyphene Screen (NEGATIVE) Ur Barbiturates Screen (NEGATIVE) Ur Tricyclics Screen (NEGATIVE) Ur Phencyclidine Scrn (NEGATIVE) Ur Amphetamine Screen (NEGATIVE) U Methamphetamines Scrn (NEGATIVE) U Benzodiazepines Scrn (NEGATIVE) U Cocaine Metab Screen (NEGATIVE) U Marijuana (THC) Screen (NEGATIVE) Ethyl Alcohol 0.00 (0.00) gm% 11/24/17 Range/Units 08:42 WBC (3.98-10.04) K/mm3 RBC (3.98-5.22) M/mm3 Hgb (11.2-15.7) gm/L Hct (34.1-44.9) % MCV (79.4-94.8) fl MCH (25.6-32.2) pg MCHC (32.2-35.5) g/dl RDW Std Deviation (36.4-46.3) fL Plt Count (182-369) K/mm3 MPV (9.4-12.3) fl Neutrophils % (Manual) (40-60) % Band Neutrophils % (0-10) % Lymphocytes % (Manual) (20-40) % Atypical Lymphs % % Monocytes % (Manual) (2-10) % Eosinophils % (Manual) (0.7-5.8) % Basophils % (Manual) (0.1-1.2) Platelet Estimate RBC Morph Comment Sodium (136-145) mEq/L Potassium (3.5-5.1) mEq/L Chloride (98-107) mEq/L Carbon Dioxide (21-32) mEq/L Anion Gap (5-15) BUN (7-18) mg/dL Creatinine (0.55-1.02) mg/dL Est Cr Clr Drug Dosing mL/min Estimated GFR (MDRD) (>60) mL/min BUN/Creatinine Ratio (14-18) Glucose (74-106) mg/dL Lactic Acid (0.4-2.0) mmol/L Calcium (8.5-10.1) mg/dL Total Bilirubin (0.2-1.0) mg/dL AST (15-37) U/L ALT (14-59) U/L Alkaline Phosphatase (46-116) U/L C-Reactive Protein (<1.0) mg/dL Total Protein (6.4-8.2) g/dl Albumin (3.4-5.0) g/dl Globulin gm/dL Albumin/Globulin Ratio (1-2) Lipase (73-393) U/L Urine Color (Yellow) Urine Appearance (Clear) Urine pH (5.0-8.0) Ur Specific [place] (1.005-1.030) Urine Protein (Negative) Urine Glucose (UA) (Negative) Urine Ketones (Negative) Urine Occult Blood (Negative) Urine Nitrite (Negative) Urine Bilirubin (Negative) Urine Urobilinogen (0.2-1.0) Ur Leukocyte Esterase (Negative) Urine RBC (0-5) /hpf Urine WBC (0-5) /hpf Ur Epithelial Cells (0-5) /hpf Amorphous Sediment (NOT SEEN) /hpf Urine Bacteria (FEW) /hpf Urine Mucus (FEW) /hpf Urine Opiates Screen Negative (NEGATIVE) Ur Buprenorphine Scrn Negative (NEGATIVE) Ur Oxycodone Screen Negative (NEGATIVE) Urine Methadone Screen Negative (NEGATIVE) Ur Propoxyphene Screen Negative (NEGATIVE) Ur Barbiturates Screen Negative (NEGATIVE) Ur Tricyclics Screen Negative (NEGATIVE) Ur Phencyclidine Scrn Negative (NEGATIVE) Ur Amphetamine Screen Negative (NEGATIVE) U Methamphetamines Scrn Negative (NEGATIVE) U Benzodiazepines Scrn Negative (NEGATIVE) U Cocaine Metab Screen Negative (NEGATIVE) U Marijuana (THC) Screen Presumptive positive H (NEGATIVE) Ethyl Alcohol (0.00) gm% Result Diagrams: 11/24/17 07:24 11/24/17 07:24 - Problem List (1) Pancreatitis SNOMED Code(s): 03420204 ICD Code: K85.90 - ACUTE PANCREATITIS WITHOUT NECROSIS OR INFECTION, UNSP Status: Acute Priority: High Current Visit: Yes Qualifiers: Chronicity: acute Pancreatitis type: unspecified pancreatitis type Acute pancreatitis complication: unspecified Qualified Code(s): K85.90 - Acute pancreatitis without necrosis or infection, unspecified (2) Pneumonia SNOMED Code(s): 025546001 ICD Code: J18.9 - PNEUMONIA, UNSPECIFIED ORGANISM Status: Acute Priority : High Current Visit: Yes Qualifiers: Pneumonia type: due to unspecified organism Laterality: left Lung location: unspecified part of lung Qualified Code(s): J18.9 - Pneumonia, unspecified organism (3) Alcohol abuse SNOMED Code(s): 26659560 ICD Code: F10.10 - ALCOHOL ABUSE, UNCOMPLICATED Status: Chronic Priority : Low Current Visit: No (4) Back pain SNOMED Code(s): 509907378 ICD Code: M54.9 - DORSALGIA, UNSPECIFIED Status: Chronic Priority: Medium Current Visit: Yes Qualifiers: Back pain location: low back pain Chronicity: chronic Back pain laterality: unspecified Sciatica presence: unspecified whether sciatica present Qualified Code(s): M54.5 - Low back pain; G89.29 - Other chronic pain Problem List Initiated/Reviewed/Updated: Yes Orders Last 24hrs: Active Orders 24 hr Category Date Time Status Admission Status [Patient Status] [ADT] Routine ADT 11/24/17 12:30 Active EKG 12 Lead [EKG Documentation Completion] [RC] STAT Care 11/24/17 11:34 Active NPO [Nothing Per Oral Diet] [DIET] Diet 11/24/17 Dinner Active CXR [Chest 2V] [CR] DAILY Exams 11/25/17 07:00 Ordered CXR [Chest 2V] [CR] DAILY Exams 11/26/17 07:00 Ordered BASIC METABOLIC PANEL,BMP [CHEM] DAILY Lab 11/25/17 05:00 Ordered BASIC METABOLIC PANEL,BMP [CHEM] DAILY Lab 11/26/17 05:00 Ordered BASIC METABOLIC PANEL,BMP [CHEM] DAILY Lab 11/27/17 05:00 Ordered BASIC METABOLIC PANEL,BMP [CHEM] DAILY Lab 11/28/17 05:00 Ordered CBC WITH AUTO DIFF [HEME] DAILY Lab 11/25/17 05:00 Ordered CBC WITH AUTO DIFF [HEME] DAILY Lab 11/26/17 05:00 Ordered CBC WITH AUTO DIFF [HEME] DAILY Lab 11/27/17 05:00 Ordered CBC WITH AUTO DIFF [HEME] DAILY Lab 11/28/17 05:00 Ordered CULTURE BLOOD [BC] Stat Lab 11/24/17 07:24 Received CULTURE URINE [RM] Routine Lab 11/24/17 08:40 Received MAGNESIUM [CHEM] DAILY Lab 11/25/17 05:00 Ordered MAGNESIUM [CHEM] DAILY Lab 11/26/17 05:00 Ordered MAGNESIUM [CHEM] DAILY Lab 11/27/17 05:00 Ordered MAGNESIUM [CHEM] DAILY Lab 11/28/17 05:00 Ordered MYCOPLASMA PNEUMONIAE IGM AB [CHEM] Routine Lab 11/24/17 16:00 Ordered RESPIRATORY PANEL Routine Lab 11/24/17 16:00 Ordered HYDROmorphone [Dilaudid] Med 11/24/17 13:39 Active 1 mg IVPUSH Q4H PRN Ketorolac [Toradol] Med 11/24/17 14:00 Active 30 mg IVPUSH Q8H Lactated Ringers [Ringers, Lactated] 1,000 ml Med 11/24/17 14:00 Active IV ASDIRECTED Levofloxacin/Dextrose 5%-Water [Levaquin in D5W 750 MG/ Med 11/25/17 12:00 Active 150 ML] 750 mg Premix Bag 1 bag IV Q24H Ondansetron [Zofran] Med 11/24/17 13:41 Active 4 mg IVPUSH Q8H PRN Pantoprazole [ProTONIX IV] Med 11/24/17 15:00 Active 40 mg IVPUSH Q12H Promethazine [Phenergan] 25 mg Med 11/24/17 14:00 Active Sodium Chloride 0.9% [Normal Saline] 50 ml IV Q6H Sodium Chloride 0.9% [Saline Flush] Med 11/24/17 07:05 Active 10 ml FLUSH ASDIRECTED PRN Sodium Chloride 0.9% [Saline Flush] Med 11/24/17 09:12 Active 10 ml FLUSH ONETIME PRN Isolation [COMM] Routine Oth 11/24/17 13:43 Ordered Peripheral IV Insertion Adult [OM.PC] Stat Oth 11/24/17 07:06 Ordered Medication Orders Hydromorphone HCl (Dilaudid) 1 mg IVPUSH Q4H PRN PRN Reason: Pain (moderate 4-6) Last Admin: 11/24/17 13:51 Dose: 1 mg Promethazine HCl 25 mg/ Sodium (Chloride) 51 mls @ 100 mls/hr IV Q6H [facility] Last Admin: 11/24/17 14:55 Dose: 100 mls/hr Levofloxacin/Dextrose 750 mg/ (Premix) 150 mls @ 100 mls/hr IV Q24H [facility] Lactated Ringer's (Ringers, Lactated) 1,000 mls @ 150 mls/hr IV ASDIRECTED [facility] Ketorolac Tromethamine (Toradol) 30 mg IVPUSH Q8H [facility] Stop: 11/26/17 06:01 Last Admin: 11/24/17 14:53 Dose: 30 mg Ondansetron HCl (Zofran) 4 mg IVPUSH Q8H PRN PRN Reason: Nausea/Vomiting Pantoprazole Sodium (Protonix Iv) 40 mg IVPUSH Q12H [facility] Last Admin: 11/24/17 15:37 Dose: 40 mg Sodium Chloride (Saline Flush) 10 ml FLUSH ASDIRECTED PRN PRN Reason: Keep Vein Open Last Admin: 11/24/17 07:41 Dose: 10 ml Sodium Chloride (Saline Flush) 10 ml FLUSH ONETIME PRN PRN Reason: IV FLUSH Last Admin: 11/24/17 09:48 Dose: 10 ml Assessment/Plan Comment:: I/P: Acute: Mild Pancreatitis * Abdominal pain * Lipase elevated at 1706 * h/o of Marijuana use--> query Marijuana precipitated Pancreatitis * CT Ab/Pelvis: * 1. Patchy parenchymal densities within the right lung base. Pneumonia is possible if patient has infectious symptoms. * 2. Mild intrahepatic biliary duct dilatation with normal size of CBD at the level of the pancreatic head. This most likely is residual from prior cholecystectomy. * 3. Mild increased stool throughout the colon and other incidental findings. * IVF, pain management PRN Pneumonia, L mid lung * SOB, Chills/diaphoresis, no cough, no fever * CXR: * 1. Slight parenchymal density within the left mid lung. Findings could represent ill-defined mass versus pneumonia. Recommend treatment as a pneumonia with follow-up chest x-ray to make sure finding resolves. * Repeat CXR * Levaquin started in ED--> continue * RT/Duonebs/IS/Acapella * Sputum culture pending * RVP, Strep pneumo, Mycoplasma pending * Robitussin DM, Tessjacob Perles PRN Dysuria * x 10 days per pt * U/A shows: slightly cloudy, pH 8.5, trace protein, 1+ ketones, trace leuk esterase, few amorphous sediment * Urine culture pending Low back pain * No recent trauma per pt, likely 2/2 above and may have chronic component per * Physical exam unremarkable * Pain management PRN, heating pad PRN * May want to consider MRI in future if pain does not get better Chronic: HTN Fibroids h/o Substance Abuse * THC positive on drug screen in ED * tends to exaggerate symptoms and asks for more pain medication/water, but then can fall asleep without them * Limit amount of opioids given Tobacco Addiction * Current some day smoker; pt's states 1 cigarette every 3-4 days * Smoking cessation counseling given * Nicotine patches offered, does not feel she needs h/o ETOH abuse Plan: Admitted to medical floor Droplet Isolation Precaution She remains stable Other orders as indicated above Routine AM labs NPO DVT Prophylaxis: Lovenox GI Prophylaxis: Protonix Code Status: Full Code; PCP: Harper Duarte PA-C
[2017-11-24] MEDS ORDERED: guaiFENesin/Dextromethorphan 100-10 MG/5 ML Soln 5 ML Cup PO PRN (16:31)
[2017-11-24] MEDS ORDERED: Benzonatate 100 MG Cap PO PRN (16:31)
[2017-11-24] MEDS ORDERED: Aluminum Hydroxide/Magnesium Hydroxide/Simethicone Susp 30 ML Cup PO PRN (16:44)
--- NOTE | 2017-11-24 17:14 | PCM.CONSN ---
- General Info Date of Service: 11/24/17 - Patient Data Vitals - Most Recent: Last Vital Signs Temp 97.7 F 11/24/17 16:17 Pulse 72 11/24/17 16:17 Resp 19 11/24/17 16:17 BP 114/72 11/24/17 16:17 Pulse Ox 100 11/24/17 16:17 Weight - Most Recent: 83.915 kg Lab Results Last 24 Hours: Laboratory Results - last 24 hr 11/24/17 11/24/17 11/24/17 Range/Units 07:24 07:24 07:24 WBC 8.32 (3.98-10.04) K/mm3 RBC 4.99 (3.98-5.22) M/mm3 Hgb 15.1 (11.2-15.7) gm/L Hct 45.0 H (34.1-44.9) % MCV 90.2 (79.4-94.8) fl MCH 30.3 (25.6-32.2) pg MCHC 33.6 (32.2-35.5) g/dl RDW Std Deviation 40.2 (36.4-46.3) fL Plt Count 238 (182-369) K/mm3 MPV 10.7 (9.4-12.3) fl Neutrophils % (Manual) 63 H (40-60) % Band Neutrophils % 0 (0-10) % Lymphocytes % (Manual) 28 (20-40) % Atypical Lymphs % 0 % Monocytes % (Manual) 4 (2-10) % Eosinophils % (Manual) 5 (0.7-5.8) % Basophils % (Manual) 0 L (0.1-1.2) Platelet Estimate Adequate RBC Morph Comment Normal Sodium 139 (136-145) mEq/L Potassium 3.5 (3.5-5.1) mEq/L Chloride 105 (98-107) mEq/L Carbon Dioxide 22 (21-32) mEq/L Anion Gap 15.5 H (5-15) BUN 14 (7-18) mg/dL Creatinine 1.0 (0.55-1.02) mg/dL Est Cr Clr Drug Dosing 83.58 mL/min Estimated GFR (MDRD) > 60 (>60) mL/min BUN/Creatinine Ratio 14.0 (14-18) Glucose 118 H (74-106) mg/dL Lactic Acid (0.4-2.0) mmol/L Calcium 9.3 (8.5-10.1) mg/dL Total Bilirubin 0.5 (0.2-1.0) mg/dL AST 21 (15-37) U/L ALT 55 (14-59) U/L Alkaline Phosphatase 58 (46-116) U/L C-Reactive Protein < 0.2 (<1.0) mg/dL Total Protein 7.3 (6.4-8.2) g/dl Albumin 4.2 (3.4-5.0) g/dl Globulin 3.1 gm/dL Albumin/Globulin Ratio 1.4 (1-2) Lipase 1706 H (73-393) U/L Urine Color (Yellow) Urine Appearance (Clear) Urine pH (5.0-8.0) Ur Specific [place] (1.005-1.030) Urine Protein (Negative) Urine Glucose (UA) (Negative) Urine Ketones (Negative) Urine Occult Blood (Negative) Urine Nitrite (Negative) Urine Bilirubin (Negative) Urine Urobilinogen (0.2-1.0) Ur Leukocyte Esterase (Negative) Urine RBC (0-5) /hpf Urine WBC (0-5) /hpf Ur Epithelial Cells (0-5) /hpf Amorphous Sediment (NOT SEEN) /hpf Urine Bacteria (FEW) /hpf Urine Mucus (FEW) /hpf Urine Opiates Screen (NEGATIVE) Ur Buprenorphine Scrn (NEGATIVE) Ur Oxycodone Screen (NEGATIVE) Urine Methadone Screen (NEGATIVE) Ur Propoxyphene Screen (NEGATIVE) Ur Barbiturates Screen (NEGATIVE) Ur Tricyclics Screen (NEGATIVE) Ur Phencyclidine Scrn (NEGATIVE) Ur Amphetamine Screen (NEGATIVE) U Methamphetamines Scrn (NEGATIVE) U Benzodiazepines Scrn (NEGATIVE) U Cocaine Metab Screen (NEGATIVE) U Marijuana (THC) Screen (NEGATIVE) Ethyl Alcohol (0.00) gm% 11/24/17 11/24/17 11/24/17 Range/Units 07:24 07:24 08:40 WBC (3.98-10.04) K/mm3 RBC (3.98-5.22) M/mm3 Hgb (11.2-15.7) gm/L Hct (34.1-44.9) % MCV (79.4-94.8) fl MCH (25.6-32.2) pg MCHC (32.2-35.5) g/dl RDW Std Deviation (36.4-46.3) fL Plt Count (182-369) K/mm3 MPV (9.4-12.3) fl Neutrophils % (Manual) (40-60) % Band Neutrophils % (0-10) % Lymphocytes % (Manual) (20-40) % Atypical Lymphs % % Monocytes % (Manual) (2-10) % Eosinophils % (Manual) (0.7-5.8) % Basophils % (Manual) (0.1-1.2) Platelet Estimate RBC Morph Comment Sodium (136-145) mEq/L Potassium (3.5-5.1) mEq/L Chloride (98-107) mEq/L Carbon Dioxide (21-32) mEq/L Anion Gap (5-15) BUN (7-18) mg/dL Creatinine (0.55-1.02) mg/dL Est Cr Clr Drug Dosing mL/min Estimated GFR (MDRD) (>60) mL/min BUN/Creatinine Ratio (14-18) Glucose (74-106) mg/dL Lactic Acid 2.8 H (0.4-2.0) mmol/L Calcium (8.5-10.1) mg/dL Total Bilirubin (0.2-1.0) mg/dL AST (15-37) U/L ALT (14-59) U/L Alkaline Phosphatase (46-116) U/L C-Reactive Protein (<1.0) mg/dL Total Protein (6.4-8.2) g/dl Albumin (3.4-5.0) g/dl Globulin gm/dL Albumin/Globulin Ratio (1-2) Lipase (73-393) U/L Urine Color Yellow (Yellow) Urine Appearance Slt cloudy H (Clear) Urine pH 8.5 H (5.0-8.0) Ur Specific [place] 1.020 (1.005-1.030) Urine Protein Trace H (Negative) Urine Glucose (UA) Negative (Negative) Urine Ketones 1+ H (Negative) Urine Occult Blood Negative (Negative) Urine Nitrite Negative (Negative) Urine Bilirubin Negative (Negative) Urine Urobilinogen 0.2 (0.2-1.0) Ur Leukocyte Esterase Trace H (Negative) Urine RBC Not seen (0-5) /hpf Urine WBC 0-5 (0-5) /hpf Ur Epithelial Cells 0-5 (0-5) /hpf Amorphous Sediment Few H (NOT SEEN) /hpf Urine Bacteria Rare (FEW) /hpf Urine Mucus Few (FEW) /hpf Urine Opiates Screen (NEGATIVE) Ur Buprenorphine Scrn (NEGATIVE) Ur Oxycodone Screen (NEGATIVE) Urine Methadone Screen (NEGATIVE) Ur Propoxyphene Screen (NEGATIVE) Ur Barbiturates Screen (NEGATIVE) Ur Tricyclics Screen (NEGATIVE) Ur Phencyclidine Scrn (NEGATIVE) Ur Amphetamine Screen (NEGATIVE) U Methamphetamines Scrn (NEGATIVE) U Benzodiazepines Scrn (NEGATIVE) U Cocaine Metab Screen (NEGATIVE) U Marijuana (THC) Screen (NEGATIVE) Ethyl Alcohol 0.00 (0.00) gm% 11/24/17 Range/Units 08:42 WBC (3.98-10.04) K/mm3 RBC (3.98-5.22) M/mm3 Hgb (11.2-15.7) gm/L Hct (34.1-44.9) % MCV (79.4-94.8) fl MCH (25.6-32.2) pg MCHC (32.2-35.5) g/dl RDW Std Deviation (36.4-46.3) fL Plt Count (182-369) K/mm3 MPV (9.4-12.3) fl Neutrophils % (Manual) (40-60) % Band Neutrophils % (0-10) % Lymphocytes % (Manual) (20-40) % Atypical Lymphs % % Monocytes % (Manual) (2-10) % Eosinophils % (Manual) (0.7-5.8) % Basophils % (Manual) (0.1-1.2) Platelet Estimate RBC Morph Comment Sodium (136-145) mEq/L Potassium (3.5-5.1) mEq/L Chloride (98-107) mEq/L Carbon Dioxide (21-32) mEq/L Anion Gap (5-15) BUN (7-18) mg/dL Creatinine (0.55-1.02) mg/dL Est Cr Clr Drug Dosing mL/min Estimated GFR (MDRD) (>60) mL/min BUN/Creatinine Ratio (14-18) Glucose (74-106) mg/dL Lactic Acid (0.4-2.0) mmol/L Calcium (8.5-10.1) mg/dL Total Bilirubin (0.2-1.0) mg/dL AST (15-37) U/L ALT (14-59) U/L Alkaline Phosphatase (46-116) U/L C-Reactive Protein (<1.0) mg/dL Total Protein (6.4-8.2) g/dl Albumin (3.4-5.0) g/dl Globulin gm/dL Albumin/Globulin Ratio (1-2) Lipase (73-393) U/L Urine Color (Yellow) Urine Appearance (Clear) Urine pH (5.0-8.0) Ur Specific [place] (1.005-1.030) Urine Protein (Negative) Urine Glucose (UA) (Negative) Urine Ketones (Negative) Urine Occult Blood (Negative) Urine Nitrite (Negative) Urine Bilirubin (Negative) Urine Urobilinogen (0.2-1.0) Ur Leukocyte Esterase (Negative) Urine RBC (0-5) /hpf Urine WBC (0-5) /hpf Ur Epithelial Cells (0-5) /hpf Amorphous Sediment (NOT SEEN) /hpf Urine Bacteria (FEW) /hpf Urine Mucus (FEW) /hpf Urine Opiates Screen Negative (NEGATIVE) Ur Buprenorphine Scrn Negative (NEGATIVE) Ur Oxycodone Screen Negative (NEGATIVE) Urine Methadone Screen Negative (NEGATIVE) Ur Propoxyphene Screen Negative (NEGATIVE) Ur Barbiturates Screen Negative (NEGATIVE) Ur Tricyclics Screen Negative (NEGATIVE) Ur Phencyclidine Scrn Negative (NEGATIVE) Ur Amphetamine Screen Negative (NEGATIVE) U Methamphetamines Scrn Negative (NEGATIVE) U Benzodiazepines Scrn Negative (NEGATIVE) U Cocaine Metab Screen Negative (NEGATIVE) U Marijuana (THC) Screen Presumptive positive H (NEGATIVE) Ethyl Alcohol (0.00) gm% Med Orders - Current: Current Medications Al Hydroxide/Mg Hydroxide (Mag-Al Plus) 30 ml PO Q4H PRN PRN Reason: Heartburn Benzonatate (Tessalon Perles) 100 mg PO TID PRN PRN Reason: Cough Guaifenesin/Phenylephrine HCl (Robitussin Dm) 5 ml PO Q4H PRN PRN Reason: Cough Hydromorphone HCl (Dilaudid) 1 mg IVPUSH Q4H PRN PRN Reason: Pain (moderate 4-6) Last Admin: 11/24/17 13:51 Dose: 1 mg Promethazine HCl 25 mg/ Sodium (Chloride) 51 mls @ 100 mls/hr IV Q6H [facility] Last Admin: 11/24/17 14:55 Dose: 100 mls/hr Levofloxacin/Dextrose 750 mg/ (Premix) 150 mls @ 100 mls/hr IV Q24H [facility] Lactated Ringer's (Ringers, Lactated) 1,000 mls @ 150 mls/hr IV ASDIRECTED [facility] Ketorolac Tromethamine (Toradol) 30 mg IVPUSH Q8H [facility] Stop: 11/26/17 06:01 Last Admin: 11/24/17 14:53 Dose: 30 mg Ondansetron HCl (Zofran) 4 mg IVPUSH Q8H PRN PRN Reason: Nausea/Vomiting Pantoprazole Sodium (Protonix Iv) 40 mg IVPUSH Q12H [facility] Last Admin: 11/24/17 15:37 Dose: 40 mg Saccharomyces Boulardii (Florastor) 250 mg PO BID [facility] Sodium Chloride (Saline Flush) 10 ml FLUSH ASDIRECTED PRN PRN Reason: Keep Vein Open Last Admin: 11/24/17 07:41 Dose: 10 ml Sodium Chloride (Saline Flush) 10 ml FLUSH ONETIME PRN PRN Reason: IV FLUSH Last Admin: 11/24/17 09:48 Dose: 10 ml Discontinued Medications Diatrizoate Meglum/Diatrizoate Sod (Gastrografin 37%) 120 ml PO ONETIME ONE Stop: 11/24/17 09:13 Last Admin: 11/24/17 09:49 Dose: 90 ml Hydromorphone HCl (Dilaudid) 0.5 mg IVPUSH ONETIME ONE Stop: 11/24/17 07:08 Last Admin: 11/24/17 07:15 Dose: 0.5 mg Hydromorphone HCl (Dilaudid) 0.5 mg IVPUSH ONETIME ONE Stop: 11/24/17 07:52 Last Admin: 11/24/17 08:07 Dose: 0.5 mg Hydromorphone HCl (Dilaudid) 0.5 mg IVPUSH ONETIME ONE Stop: 11/24/17 09:23 Last Admin: 11/24/17 09:23 Dose: 0.5 mg Hydromorphone HCl (Dilaudid) Confirm Administered Dose 0.5 mg .ROUTE .STK-MED ONE Stop: 11/24/17 09:21 Last Admin: 11/24/17 09:35 Dose: Not Given Hydromorphone HCl (Dilaudid) 0.5 mg IVPUSH ONETIME ONE Stop: 11/24/17 11:05 Last Admin: 11/24/17 11:05 Dose: 0.5 mg Sodium Chloride (Normal Saline) 1,000 mls @ 999 mls/hr IV ONETIME JOHN Last Admin: 11/24/17 07:14 Dose: 999 mls/hr Sodium Chloride (Normal Saline) 1,000 mls @ 999 mls/hr IV ONETIME JOHN Last Admin: 11/24/17 08:48 Dose: 999 mls/hr Sodium Chloride (Normal Saline) 1,000 mls @ 999 mls/hr IV ONETIME ONE Stop: 11/24/17 13:01 Last Admin: 11/24/17 12:13 Dose: 999 mls/hr Levofloxacin/Dextrose 750 mg/ (Premix) 150 mls @ 100 mls/hr IV ONETIME ONE Stop: 11/24/17 13:38 Last Admin: 11/24/17 12:18 Dose: 100 mls/hr Lactated Ringer's (Ringers, Lactated) 1,000 mls @ 999 mls/hr IV .BOLUS ONE Stop: 11/24/17 14:36 Last Admin: 11/24/17 13:54 Dose: 999 mls/hr Lactated Ringer's (Ringers, Lactated) 2,000 mls @ 999 mls/hr IV BOLUS ONE Stop: 11/24/17 16:00 Last Admin: 11/24/17 15:54 Dose: 999 mls/hr Iopamidol (Isovue-300 (61%)) 100 ml IVPUSH ONETIME ONE Stop: 11/24/17 09:13 Last Admin: 11/24/17 09:48 Dose: 100 ml Ketorolac Tromethamine (Toradol) 30 mg IVPUSH ONETIME ONE Stop: 11/24/17 12:02 Last Admin: 11/24/17 12:12 Dose: 30 mg Metoclopramide HCl (Reglan) 5 mg IVPUSH ONETIME ONE Stop: 11/24/17 08:45 Last Admin: 11/24/17 08:48 Dose: 5 mg Ondansetron HCl (Zofran) 4 mg IVPUSH ONETIME ONE Stop: 11/24/17 07:08 Last Admin: 11/24/17 07:14 Dose: 4 mg Ondansetron HCl (Zofran) 4 mg IVPUSH ONETIME ONE Stop: 11/24/17 10:44 Last Admin: 11/24/17 11:00 Dose: 4 mg Promethazine HCl (Phenergan) Confirm Administered Dose 25 mg .ROUTE .STK-MED ONE Stop: 11/24/17 13:49 Last Admin: 11/24/17 15:04 Dose: Not Given Consult PN Assessment/Plan Procedures: Procedures APPLY FOREARM SPLINT (10/16/14) ASSAY OF ETHANOL (07/04/13) ASSAY THYROID STIM HORMONE (08/24/13) BLOOD TYPING SEROLOGIC ABO (08/24/13) BLOOD TYPING SEROLOGIC RH(D) (08/24/13) CHEST X-RAY 1 VIEW FRONTAL (07/04/13) CHORIONIC GONADOTROPIN ASSAY (07/14/15) CHYLMD TRACH DNA AMP PROBE (08/24/13) COMPLETE CBC AUTOMATED (07/04/13) COMPLETE CBC W/AUTO DIFF WBC (07/14/15) COMPREHEN METABOLIC PANEL (07/14/15) CT HEAD/BRAIN W/O DYE (07/04/13) CT NECK SPINE W/O DYE (10/16/14) CULTURE AEROBIC IDENTIFY (11/03/13) ELECTROCARDIOGRAM TRACING (07/04/13) EMERGENCY DEPT VISIT (07/14/15) EMERGENCY DEPT VISIT (07/04/13) EXTREMITY STUDY (09/30/13) NON-STRESS TEST (03/07/14) GLUCOSE TEST (01/06/14) HEMOGLOBIN (01/06/14) HEPATITIS B SURFACE AG IA (08/24/13) HYDRATE IV INFUSION ADD-ON (07/14/15) MEASURE BLOOD OXYGEN LEVEL (07/04/13) MICROBE SUSCEPTIBLE [place] (11/03/13) N.GONORRHOEAE DNA AMP PROB (08/24/13) OB US < 14 WKS SINGLE FETUS (08/24/13) OB US >/= 14 WKS SNGL FETUS (10/22/13) OB US LIMITED FETUS(S) (12/24/13) RBC ANTIBODY SCREEN (08/24/13) ROUTINE VENIPUNCTURE (07/14/15) RUBELLA ANTIBODY (08/24/13) STREP B DNA AMP PROBE (02/02/14) SYPHILIS TEST NON-TREP QUAL (08/24/13) THER/PROPH/DIAG INJ IV PUSH (07/14/15) TX/PRO/DX INJ NEW DRUG ADDON (07/14/15) URINALYSIS AUTO W/O SCOPE (03/08/14) URINALYSIS AUTO W/SCOPE (07/14/15) URINE BACTERIA CULTURE (11/03/13) US EXAM ABDO BACK WALL COMP (11/03/13) X-RAY EXAM OF WRIST (10/16/14) Problem List Initiated/Reviewed/Updated: Yes Plan: surgical consult dictated JARETT
[2017-11-24] MEDS: Lactated Ringers 1,000 ML IV SCH ×2 (17:54→22:30)
[2017-11-24] MEDS ORDERED: Docusate Sodium 100 MG Cap PO PRN (18:28)
[2017-11-24] MEDS ORDERED: Polyethylene Glycol 3350 Powder 17 GM Packet PO PRN (18:28)
[2017-11-24] MEDS ORDERED: Magnesium Hydroxide 400 MG/5 ML Susp 30 ML Cup PO PRN (18:28)
[2017-11-24] MEDS ORDERED: Albuterol/Ipratropium 3.0-0.5 MG/3 ML Neb Soln NEB PRN (18:28)
[2017-11-24] MEDS ORDERED: Bisacodyl 5 MG Tab PO PRN (18:28)
[2017-11-24] MEDS ORDERED: Albuterol 0.083% 2.5 MG/3 ML Neb Soln NEB PRN (18:28)
[2017-11-24] MEDS: Saccharomyces Boulardii (Probiotic) 250 MG Cap PO SCH (20:31)
[2017-11-24] MEDS: LORazepam 2 MG/ML SDV IVPUSH SCH (20:32)
[2017-11-24] MEDS ORDERED: Ketorolac 30 MG/ML SDV IVPUSH SCH (22:15)
[2017-11-24] MEDS: Ketorolac 30 MG/ML SDV IVPUSH SCH (22:30)
[2017-11-25] MEDS: Promethazine 25 MG in Sodium Chloride 0.9% 50 ML IV SCH ×5 (03:05→18:21)
[2017-11-25] MEDS: Pantoprazole 40 MG Vial IVPUSH SCH ×2 (03:25→14:17)
[2017-11-25] MEDS: Ketorolac 30 MG/ML SDV IVPUSH SCH ×3 (06:36→21:36)
[2017-11-25] MEDS: Lactated Ringers 1,000 ML IV SCH ×2 (06:36→16:31)
[2017-11-25] MEDS ORDERED: Promethazine 25 MG/ML SDV ONE (08:15)
[2017-11-25] MEDS: LORazepam 2 MG/ML SDV IVPUSH SCH ×2 (08:26→21:32)
[2017-11-25] MEDS: Enoxaparin 40 MG/0.4 ML Syringe SUBCUT SCH (08:26)
[2017-11-25] MEDS: Saccharomyces Boulardii (Probiotic) 250 MG Cap PO SCH ×2 (08:26→21:31)
--- NOTE | 2017-11-25 09:15 | CONS ---
CONSULTING PHYSICIAN: Christopher Fuentes MD DATE OF CONSULTATION: 11/24/2017 SURGICAL CONSULTATION HISTORY OF PRESENT ILLNESS: A 42-year-old female, who comes in with abdominal pain, nausea and vomiting, and lower back discomfort. This is quite severe and vomiting during the night. The pain started yesterday, and has been gradually increasing in intensity. The states that for the last year she has had about 5 episodes of similar abdominal pain that resolved on their own. She has had a cholecystectomy in the past. Other than drug screen being positive for THC, she denies any alcohol or drug use. PAST MEDICAL HISTORY: Has been relatively good other than use of some narcotics in the past, history of cholecystectomy. FAMILY HISTORY: Negative. SOCIAL HISTORY: She is an everyday smoker. REVIEW OF SYSTEMS: The patient has such pain she cannot give a clear review of systems. LABORATORY DATA: Show a white count of 18,000 and liver enzymes are normal. Creatinine is normal, BUN is normal at 15, CO2 is 22. Lactic acid is 2.8. Her lipase is 1400. A CT scan was done, did not show any perforated viscus or any evidence of small bowel obstruction. There was, however, some absence of the gallbladder as confirmed by history. Small hiatal hernia. Intraductal biliary duct dilatation is consistent with her cholecystectomy. Low-density findings noted in the left kidney. Aorta was normal. No fluid in the abdomen. Bone windows were unremarkable. Some mild increase in stool throughout the colon now and a patchy infiltrate noted in the lung base on the right. MEDICATIONS: Per medication reconciliation form. PHYSICAL EXAMINATION: VITAL SIGNS: Reveal the patient with a temperature of 95, pulse 76, respirations 24, blood pressure 136/107, the pulse oximeter is not decipherable. GENERAL: Reveals the patient in acute pain, diaphoretic. She is complaining of back pain on touching, especially to the lower back. ABDOMEN: Soft, but seems to be tender, most in the epigastrium rather than the lower abdomen. HEART: Tones regular rate. LUNGS: Clear on both sides. EXTREMITIES: Upper and lower extremities; no angulation or deformities; no sensorineural deficit. ASSESSMENT AND PLAN: Acute abdomen with elevated lipase to about 1400 suggesting pancreatitis although the causes of this such as penetrating ulcers, liver disease, and ischemic bowel disease. Currently, a rare possibility of pancreatitis due to marijuana use. At the moment, there is not a need for surgical intervention, but we will follow with you. Possibility of pneumonia is there per workup. MMODAL /[id number]
--- NOTE | 2017-11-25 10:11 | CR ---
Chest: Two views of the chest were obtained. Comparison: Prior chest x-ray of 11/24/17. Continuing small parenchymal density is noted within the left mid to upper lung. Lungs otherwise are clear. Heart size and mediastinum are normal. Bony structures are unremarkable. Impression: 1. Small parenchymal density within the upper left chest. Recommendation as on prior report. Diagnostic code #3
[2017-11-25] MEDS: HYDROmorphone 1 MG/ML Syringe IVPUSH PRN (10:23)
[2017-11-25] MEDS ORDERED: Magnesium Sulfate/Water 4 GM in Premix Bag 1 BAG IV ONE (10:58)
[2017-11-25] MEDS ORDERED: Potassium Chloride 20 MEQ Tab.ER PO SCH (11:00)
[2017-11-25] MEDS: Levofloxacin/Dextrose 5%-Water 750 MG in Premix Bag 1 BAG IV SCH (12:31)
[2017-11-25] MEDS ORDERED: Magnesium Sulfate/Water 2 GM in Premix Bag 1 BAG IV ONE (13:27)
[2017-11-25] MEDS: Potassium Chloride 20 MEQ Tab.ER PO SCH ×2 (14:25→21:29)
--- NOTE | 2017-11-25 14:54 | PCM.CONSN ---
- General Info Date of Service: 11/25/17 Functional Status: Reports: Pain Controlled - Review of Systems General: Reports: Fatigue, Malaise Pulmonary: Reports: No Symptoms Gastrointestinal: Reports: No Symptoms - Patient Data Vitals - Most Recent: Last Vital Signs Temp 98.2 F 11/25/17 08:55 Pulse 68 11/25/17 08:55 Resp 22 H 11/25/17 08:55 BP 124/79 11/25/17 08:55 Pulse Ox 98 11/25/17 08:55 Weight - Most Recent: 83.915 kg I&O - Last 24 Hours: Intake & Output 11/24/17 11/25/17 11/25/17 23:59 07:59 15:59 Intake Total 2200 1108 Output Total 600 1100 Balance 1600 8 Lab Results Last 24 Hours: Laboratory Results - last 24 hr 11/24/17 11/25/17 11/25/17 Range/Units 15:58 05:04 05:04 WBC 6.84 (3.98-10.04) K/mm3 RBC 3.85 L (3.98-5.22) M/mm3 Hgb 12.1 (11.2-15.7) gm/L Hct 35.4 (34.1-44.9) % MCV 91.9 (79.4-94.8) fl MCH 31.4 (25.6-32.2) pg MCHC 34.2 (32.2-35.5) g/dl RDW Std Deviation 40.0 (36.4-46.3) fL Plt Count 210 (182-369) K/mm3 MPV 11.0 (9.4-12.3) fl Neut % (Auto) 67.7 (34.0-71.1) % Lymph % (Auto) 22.4 (19.3-51.7) % [facility] % (Auto) 9.5 (4.7-12.5) % Eos % (Auto) 0.3 L (0.7-5.8) Baso % (Auto) 0.1 (0.1-1.2) % Neut # (Auto) 4.63 (1.56-6.13) K/mm3 Lymph # (Auto) 1.53 (1.18-3.74) K/mm3 [facility] # (Auto) 0.65 H (0.24-0.36) K/mm3 Eos # (Auto) 0.02 L (0.04-0.36) K/mm3 Baso # (Auto) 0.01 (0.01-0.08) K/mm3 Sodium 143 (136-145) mEq/L Potassium 3.2 L (3.5-5.1) mEq/L Chloride 111 H (98-107) mEq/L Carbon Dioxide 25 (21-32) mEq/L Anion Gap 10.2 (5-15) BUN 9 (7-18) mg/dL Creatinine 0.7 (0.55-1.02) mg/dL Est Cr Clr Drug Dosing 119.40 mL/min Estimated GFR (MDRD) > 60 (>60) mL/min BUN/Creatinine Ratio 12.9 L (14-18) Glucose 98 (74-106) mg/dL Lactic Acid (0.4-2.0) mmol/L Calcium 8.0 L (8.5-10.1) mg/dL Magnesium 1.6 L (1.8-2.4) mg/dl Lipase (73-393) U/L Mycoplasma pneumon IgM Negative (NEGATIVE) 11/25/17 11/25/17 Range/Units 05:04 07:00 WBC (3.98-10.04) K/mm3 RBC (3.98-5.22) M/mm3 Hgb (11.2-15.7) gm/L Hct (34.1-44.9) % MCV (79.4-94.8) fl MCH (25.6-32.2) pg MCHC (32.2-35.5) g/dl RDW Std Deviation (36.4-46.3) fL Plt Count (182-369) K/mm3 MPV (9.4-12.3) fl Neut % (Auto) (34.0-71.1) % Lymph % (Auto) (19.3-51.7) % [facility] % (Auto) (4.7-12.5) % Eos % (Auto) (0.7-5.8) Baso % (Auto) (0.1-1.2) % Neut # (Auto) (1.56-6.13) K/mm3 Lymph # (Auto) (1.18-3.74) K/mm3 [facility] # (Auto) (0.24-0.36) K/mm3 Eos # (Auto) (0.04-0.36) K/mm3 Baso # (Auto) (0.01-0.08) K/mm3 Sodium (136-145) mEq/L Potassium (3.5-5.1) mEq/L Chloride (98-107) mEq/L Carbon Dioxide (21-32) mEq/L Anion Gap (5-15) BUN (7-18) mg/dL Creatinine (0.55-1.02) mg/dL Est Cr Clr Drug Dosing mL/min Estimated GFR (MDRD) (>60) mL/min BUN/Creatinine Ratio (14-18) Glucose (74-106) mg/dL Lactic Acid 0.8 (0.4-2.0) mmol/L Calcium (8.5-10.1) mg/dL Magnesium (1.8-2.4) mg/dl Lipase 175 (73-393) U/L Mycoplasma pneumon IgM (NEGATIVE) Anmol Results Last 24 Hours: Microbiology 11/24/17 08:40 Urine Culture - Preliminary Urine, Clean Catch NO GROWTH AFTER 1 DAY 11/24/17 07:24 Aerobic Blood Culture - Preliminary Blood NO GROWTH AFTER 1 DAY Anaerobic Blood Culture - Preliminary NO GROWTH AFTER 1 DAY Med Orders - Current: Current Medications Al Hydroxide/Mg Hydroxide (Mag-Al Plus) 30 ml PO Q4H PRN PRN Reason: Heartburn Last Admin: 11/24/17 17:17 Dose: 30 ml Albuterol (Proventil Neb Soln) 2.5 mg NEB Q2H PRN PRN Reason: Shortness Of Breath/wheezing Albuterol/Ipratropium (Duoneb 3.0-0.5 Mg/3 Ml) 3 ml NEB Q4H PRN PRN Reason: Shortness Of Breath/wheezing Benzonatate (Tessalon Perles) 100 mg PO TID PRN PRN Reason: Cough Bisacodyl (Dulcolax) 5 mg PO DAILY PRN PRN Reason: Constipation Docusate Sodium (Colace) 100 mg PO BID PRN PRN Reason: Constipation Enoxaparin Sodium (Lovenox) 40 mg SUBCUT DAILY JOHN Last Admin: 11/25/17 08:26 Dose: 40 mg Guaifenesin/Phenylephrine HCl (Robitussin Dm) 5 ml PO Q4H PRN PRN Reason: Cough Hydromorphone HCl (Dilaudid) 0.5 mg IVPUSH Q4H PRN PRN Reason: Pain (moderate 4-6) Levofloxacin/Dextrose 750 mg/ (Premix) 150 mls @ 100 mls/hr IV Q24H [facility] Last Admin: 11/25/17 12:31 Dose: 100 mls/hr Lactated Ringer's (Ringers, Lactated) 1,000 mls @ 150 mls/hr IV ASDIRECTED [facility] Last Admin: 11/25/17 06:36 Dose: 150 mls/hr Magnesium Sulfate 2 gm/ Premix 50 mls @ 25 mls/hr IV ONETIME ONE Stop: 11/25/17 15:26 Last Admin: 11/25/17 14:23 Dose: 25 mls/hr Promethazine HCl 25 mg/ Sodium (Chloride) 51 mls @ 100 mls/hr IV Q6H [facility] Ketorolac Tromethamine (Toradol) 30 mg IVPUSH Q8H [facility] Stop: 11/26/17 06:31 Last Admin: 11/25/17 14:19 Dose: 30 mg Lorazepam (Ativan) 0.5 mg IVPUSH BID [facility] Stop: 11/25/17 21:01 Last Admin: 11/25/17 08:26 Dose: 0.5 mg Magnesium Hydroxide (Milk Of Magnesia) 30 ml PO Q12H PRN PRN Reason: Constipation Ondansetron HCl (Zofran) 4 mg IVPUSH Q8H PRN PRN Reason: Nausea/Vomiting Pantoprazole Sodium (Protonix Iv) 40 mg IVPUSH Q12H [facility] Last Admin: 11/25/17 14:17 Dose: 40 mg Polyethylene Glycol (Miralax) 17 gm PO DAILY PRN PRN Reason: Constipation Potassium Chloride (Klor-Con M20) 60 meq PO TID [facility] Last Admin: 11/25/17 14:25 Dose: 60 meq Saccharomyces Boulardii (Florastor) 250 mg PO BID [facility] Last Admin: 11/25/17 08:26 Dose: 250 mg Senna/Docusate Sodium (Senna Plus) 1 tab PO BID PRN PRN Reason: Constipation Sodium Chloride (Saline Flush) 10 ml FLUSH ASDIRECTED PRN PRN Reason: Keep Vein Open Last Admin: 11/24/17 07:41 Dose: 10 ml Sodium Chloride (Saline Flush) 10 ml FLUSH ONETIME PRN PRN Reason: IV FLUSH Last Admin: 11/24/17 09:48 Dose: 10 ml Discontinued Medications Diatrizoate Meglum/Diatrizoate Sod (Gastrografin 37%) 120 ml PO ONETIME ONE Stop: 11/24/17 09:13 Last Admin: 11/24/17 09:49 Dose: 90 ml Hydromorphone HCl (Dilaudid) 0.5 mg IVPUSH ONETIME ONE Stop: 11/24/17 07:08 Last Admin: 11/24/17 07:15 Dose: 0.5 mg Hydromorphone HCl (Dilaudid) 0.5 mg IVPUSH ONETIME ONE Stop: 11/24/17 07:52 Last Admin: 11/24/17 08:07 Dose: 0.5 mg Hydromorphone HCl (Dilaudid) 0.5 mg IVPUSH ONETIME ONE Stop: 11/24/17 09:23 Last Admin: 11/24/17 09:23 Dose: 0.5 mg Hydromorphone HCl (Dilaudid) Confirm Administered Dose 0.5 mg .ROUTE .STK-MED ONE Stop: 11/24/17 09:21 Last Admin: 11/24/17 09:35 Dose: Not Given Hydromorphone HCl (Dilaudid) 0.5 mg IVPUSH ONETIME ONE Stop: 11/24/17 11:05 Last Admin: 11/24/17 11:05 Dose: 0.5 mg Hydromorphone HCl (Dilaudid) 1 mg IVPUSH Q4H PRN PRN Reason: Pain (moderate 4-6) Last Admin: 11/25/17 10:23 Dose: 1 mg Sodium Chloride (Normal Saline) 1,000 mls @ 999 mls/hr IV ONETIME JOHN Last Admin: 11/24/17 07:14 Dose: 999 mls/hr Sodium Chloride (Normal Saline) 1,000 mls @ 999 mls/hr IV ONETIME JOHN Last Admin: 11/24/17 08:48 Dose: 999 mls/hr Sodium Chloride (Normal Saline) 1,000 mls @ 999 mls/hr IV ONETIME ONE Stop: 11/24/17 13:01 Last Admin: 11/24/17 12:13 Dose: 999 mls/hr Levofloxacin/Dextrose 750 mg/ (Premix) 150 mls @ 100 mls/hr IV ONETIME ONE Stop: 11/24/17 13:38 Last Admin: 11/24/17 12:18 Dose: 100 mls/hr Promethazine HCl 25 mg/ Sodium (Chloride) 51 mls @ 100 mls/hr IV Q6H [facility] Last Admin: 11/25/17 12:35 Dose: 100 mls/hr Lactated Ringer's (Ringers, Lactated) 1,000 mls @ 999 mls/hr IV .BOLUS ONE Stop: 11/24/17 14:36 Last Admin: 11/24/17 13:54 Dose: 999 mls/hr Lactated Ringer's (Ringers, Lactated) 2,000 mls @ 999 mls/hr IV BOLUS ONE Stop: 11/24/17 16:00 Last Admin: 11/24/17 15:54 Dose: 999 mls/hr Magnesium Sulfate 4 gm/ Premix 100 mls @ 25 mls/hr IV ONETIME ONE Stop: 11/25/17 10:59 Last Admin: 11/25/17 13:36 Dose: Not Given Iopamidol (Isovue-300 (61%)) 100 ml IVPUSH ONETIME ONE Stop: 11/24/17 09:13 Last Admin: 11/24/17 09:48 Dose: 100 ml Ketorolac Tromethamine (Toradol) 30 mg IVPUSH ONETIME ONE Stop: 11/24/17 12:02 Last Admin: 11/24/17 12:12 Dose: 30 mg Ketorolac Tromethamine (Toradol) 30 mg IVPUSH Q8H [facility] Stop: 11/26/17 06:01 Last Admin: 11/24/17 23:36 Dose: Not Given Metoclopramide HCl (Reglan) 5 mg IVPUSH ONETIME ONE Stop: 11/24/17 08:45 Last Admin: 11/24/17 08:48 Dose: 5 mg Ondansetron HCl (Zofran) 4 mg IVPUSH ONETIME ONE Stop: 11/24/17 07:08 Last Admin: 11/24/17 07:14 Dose: 4 mg Ondansetron HCl (Zofran) 4 mg IVPUSH ONETIME ONE Stop: 11/24/17 10:44 Last Admin: 11/24/17 11:00 Dose: 4 mg Potassium Chloride (Klor-Con M20) 40 meq PO BID JOHN Stop: 11/25/17 21:01 Last Admin: 11/25/17 12:32 Dose: 40 meq Promethazine HCl (Phenergan) Confirm Administered Dose 25 mg .ROUTE .STK-MED ONE Stop: 11/24/17 13:49 Last Admin: 11/24/17 15:04 Dose: Not Given Promethazine HCl (Phenergan) Confirm Administered Dose 25 mg .ROUTE .STK-MED ONE Stop: 11/25/17 08:16 Last Admin: 11/25/17 08:27 Dose: Not Given - Exam General: Alert, Oriented GI/Abdominal Exam: Normal Bowel Sounds, Soft, Non-Tender, No Organomegaly, No Distention, No Abnormal Bruit, No Mass, Pelvis Stable Consult PN Assessment/Plan Procedures: Procedures APPLY FOREARM SPLINT (10/16/14) ASSAY OF ETHANOL (07/04/13) ASSAY THYROID STIM HORMONE (08/24/13) BLOOD TYPING SEROLOGIC ABO (08/24/13) BLOOD TYPING SEROLOGIC RH(D) (08/24/13) CHEST X-RAY 1 VIEW FRONTAL (07/04/13) CHORIONIC GONADOTROPIN ASSAY (07/14/15) CHYLMD TRACH DNA AMP PROBE (08/24/13) COMPLETE CBC AUTOMATED (07/04/13) COMPLETE CBC W/AUTO DIFF WBC (07/14/15) COMPREHEN METABOLIC PANEL (07/14/15) CT HEAD/BRAIN W/O DYE (07/04/13) CT NECK SPINE W/O DYE (10/16/14) CULTURE AEROBIC IDENTIFY (11/03/13) ELECTROCARDIOGRAM TRACING (07/04/13) EMERGENCY DEPT VISIT (07/14/15) EMERGENCY DEPT VISIT (07/04/13) EXTREMITY STUDY (09/30/13) NON-STRESS TEST (03/07/14) GLUCOSE TEST (01/06/14) HEMOGLOBIN (01/06/14) HEPATITIS B SURFACE AG IA (08/24/13) HYDRATE IV INFUSION ADD-ON (07/14/15) MEASURE BLOOD OXYGEN LEVEL (07/04/13) MICROBE SUSCEPTIBLE ANMOL (11/03/13) N.GONORRHOEAE DNA AMP PROB (08/24/13) OB US < 14 WKS SINGLE FETUS (08/24/13) OB US >/= 14 WKS SNGL FETUS (10/22/13) OB US LIMITED FETUS(S) (12/24/13) RBC ANTIBODY SCREEN (08/24/13) ROUTINE VENIPUNCTURE (07/14/15) RUBELLA ANTIBODY (08/24/13) STREP B DNA AMP PROBE (02/02/14) SYPHILIS TEST NON-TREP QUAL (08/24/13) THER/PROPH/DIAG INJ IV PUSH (07/14/15) TX/PRO/DX INJ NEW DRUG ADDON (07/14/15) URINALYSIS AUTO W/O SCOPE (03/08/14) URINALYSIS AUTO W/SCOPE (07/14/15) URINE BACTERIA CULTURE (11/03/13) US EXAM ABDO BACK WALL COMP (11/03/13) X-RAY EXAM OF WRIST (10/16/14) Problem List Initiated/Reviewed/Updated: Yes My Orders Last 24 Hours: ass pt sx improved. lab reviewed ass abdominal crisis resolved plan start diet JARETT
--- NOTE | 2017-11-25 16:40 | PCM.PN ---
- General Info Date of Service: 11/25/17 Admission Dx/Problem (Free Text): Admission Diagnosis/Problem Admission Diagnosis/Problem Pancreatitis Subjective Update: In to see Kishan. She is sitting up in bed visiting with a friend. She is doing much better today, she looks more lively and is no longer in pain. She states she feels much better. She no longer has pain and she denies any F/C, N/V/D or any other symptoms at this time, except for a mild headache. Her appetite is returning. She states she wants to walk, which I encourage. I went over her labs with her, explaining that the pancreatitis has mostly resolved and that we are waiting for the PNA labs to come back. I updated her on her CXR and that it is currently stable, but would like to repeat CXR in 2 days. Also explained we will test H Pylori to r/o stomach ulcer and recommend outpt GI appointment. All questions were answered. No concerns from nursing. Functional Status: Reports: Pain Controlled, Tolerating Diet, Ambulating, Urinating - Review of Systems General: Reports: No Symptoms. Denies: Fever, Chills HEENT: Reports: No Symptoms Pulmonary: Reports: No Symptoms. Denies: Shortness of Breath Cardiovascular: Reports: No Symptoms. Denies: Chest Pain Gastrointestinal: Reports: No Symptoms. Denies: Abdominal Pain, Diarrhea, Nausea, Vomiting Genitourinary: Reports: No Symptoms. Denies: Dysuria, Frequency, Burning, Pain , Urgency Musculoskeletal: Reports: No Symptoms Skin: Reports: No Symptoms Neurological: Reports: No Symptoms Psychiatric: Reports: No Symptoms - Patient Data Vitals - Most Recent: Last Vital Signs Temp 98.2 F 11/25/17 08:55 Pulse 68 11/25/17 08:55 Resp 22 H 11/25/17 08:55 BP 124/79 11/25/17 08:55 Pulse Ox 98 11/25/17 08:55 Weight - Most Recent: 185 lb I&O - Last 24 Hours: Intake & Output 11/25/17 11/25/17 11/25/17 06:59 14:59 22:59 Intake Total 1108 Output Total 1100 Balance 8 Lab Results Last 24 Hours: Laboratory Results - last 24 hr 11/24/17 11/25/17 11/25/17 Range/Units 15:58 05:04 05:04 WBC 6.84 (3.98-10.04) K/mm3 RBC 3.85 L (3.98-5.22) M/mm3 Hgb 12.1 (11.2-15.7) gm/L Hct 35.4 (34.1-44.9) % MCV 91.9 (79.4-94.8) fl MCH 31.4 (25.6-32.2) pg MCHC 34.2 (32.2-35.5) g/dl RDW Std Deviation 40.0 (36.4-46.3) fL Plt Count 210 (182-369) K/mm3 MPV 11.0 (9.4-12.3) fl Neut % (Auto) 67.7 (34.0-71.1) % Lymph % (Auto) 22.4 (19.3-51.7) % [place] % (Auto) 9.5 (4.7-12.5) % Eos % (Auto) 0.3 L (0.7-5.8) Baso % (Auto) 0.1 (0.1-1.2) % Neut # (Auto) 4.63 (1.56-6.13) K/mm3 Lymph # (Auto) 1.53 (1.18-3.74) K/mm3 [place] # (Auto) 0.65 H (0.24-0.36) K/mm3 Eos # (Auto) 0.02 L (0.04-0.36) K/mm3 Baso # (Auto) 0.01 (0.01-0.08) K/mm3 Sodium 143 (136-145) mEq/L Potassium 3.2 L (3.5-5.1) mEq/L Chloride 111 H (98-107) mEq/L Carbon Dioxide 25 (21-32) mEq/L Anion Gap 10.2 (5-15) BUN 9 (7-18) mg/dL Creatinine 0.7 (0.55-1.02) mg/dL Est Cr Clr Drug Dosing 119.40 mL/min Estimated GFR (MDRD) > 60 (>60) mL/min BUN/Creatinine Ratio 12.9 L (14-18) Glucose 98 (74-106) mg/dL Lactic Acid (0.4-2.0) mmol/L Calcium 8.0 L (8.5-10.1) mg/dL Magnesium 1.6 L (1.8-2.4) mg/dl Lipase (73-393) U/L Mycoplasma pneumon IgM Negative (NEGATIVE) 11/25/17 11/25/17 Range/Units 05:04 07:00 WBC (3.98-10.04) K/mm3 RBC (3.98-5.22) M/mm3 Hgb (11.2-15.7) gm/L Hct (34.1-44.9) % MCV (79.4-94.8) fl MCH (25.6-32.2) pg MCHC (32.2-35.5) g/dl RDW Std Deviation (36.4-46.3) fL Plt Count (182-369) K/mm3 MPV (9.4-12.3) fl Neut % (Auto) (34.0-71.1) % Lymph % (Auto) (19.3-51.7) % [place] % (Auto) (4.7-12.5) % Eos % (Auto) (0.7-5.8) Baso % (Auto) (0.1-1.2) % Neut # (Auto) (1.56-6.13) K/mm3 Lymph # (Auto) (1.18-3.74) K/mm3 [place] # (Auto) (0.24-0.36) K/mm3 Eos # (Auto) (0.04-0.36) K/mm3 Baso # (Auto) (0.01-0.08) K/mm3 Sodium (136-145) mEq/L Potassium (3.5-5.1) mEq/L Chloride (98-107) mEq/L Carbon Dioxide (21-32) mEq/L Anion Gap (5-15) BUN (7-18) mg/dL Creatinine (0.55-1.02) mg/dL Est Cr Clr Drug Dosing mL/min Estimated GFR (MDRD) (>60) mL/min BUN/Creatinine Ratio (14-18) Glucose (74-106) mg/dL Lactic Acid 0.8 (0.4-2.0) mmol/L Calcium (8.5-10.1) mg/dL Magnesium (1.8-2.4) mg/dl Lipase 175 (73-393) U/L Mycoplasma pneumon IgM (NEGATIVE) Anmol Results Last 24 Hours: Microbiology 11/24/17 08:40 Urine Culture - Preliminary Urine, Clean Catch NO GROWTH AFTER 1 DAY 11/24/17 07:24 Aerobic Blood Culture - Preliminary Blood NO GROWTH AFTER 1 DAY Anaerobic Blood Culture - Preliminary NO GROWTH AFTER 1 DAY Med Orders - Current: Current Medications Al Hydroxide/Mg Hydroxide (Mag-Al Plus) 30 ml PO Q4H PRN PRN Reason: Heartburn Last Admin: 11/24/17 17:17 Dose: 30 ml Albuterol (Proventil Neb Soln) 2.5 mg NEB Q2H PRN PRN Reason: Shortness Of Breath/wheezing Albuterol/Ipratropium (Duoneb 3.0-0.5 Mg/3 Ml) 3 ml NEB Q4H PRN PRN Reason: Shortness Of Breath/wheezing Benzonatate (Tessalon Perles) 100 mg PO TID PRN PRN Reason: Cough Bisacodyl (Dulcolax) 5 mg PO DAILY PRN PRN Reason: Constipation Docusate Sodium (Colace) 100 mg PO BID PRN PRN Reason: Constipation Enoxaparin Sodium (Lovenox) 40 mg SUBCUT DAILY [facility] Last Admin: 11/25/17 08:26 Dose: 40 mg Guaifenesin/Phenylephrine HCl (Robitussin Dm) 5 ml PO Q4H PRN PRN Reason: Cough Hydromorphone HCl (Dilaudid) 0.5 mg IVPUSH Q4H PRN PRN Reason: Pain (moderate 4-6) Levofloxacin/Dextrose 750 mg/ (Premix) 150 mls @ 100 mls/hr IV Q24H [facility] Last Admin: 11/25/17 12:31 Dose: 100 mls/hr Lactated Ringer's (Ringers, Lactated) 1,000 mls @ 150 mls/hr IV ASDIRECTED [facility] Last Admin: 11/25/17 06:36 Dose: 150 mls/hr Promethazine HCl 25 mg/ Sodium (Chloride) 51 mls @ 100 mls/hr IV Q6H [facility] Ketorolac Tromethamine (Toradol) 30 mg IVPUSH Q8H [facility] Stop: 11/26/17 06:31 Last Admin: 11/25/17 14:19 Dose: 30 mg Lorazepam (Ativan) 0.5 mg IVPUSH BID [facility] Stop: 11/25/17 21:01 Last Admin: 11/25/17 08:26 Dose: 0.5 mg Magnesium Hydroxide (Milk Of Magnesia) 30 ml PO Q12H PRN PRN Reason: Constipation Ondansetron HCl (Zofran) 4 mg IVPUSH Q8H PRN PRN Reason: Nausea/Vomiting Pantoprazole Sodium (Protonix Iv) 40 mg IVPUSH Q12H [facility] Last Admin: 11/25/17 14:17 Dose: 40 mg Polyethylene Glycol (Miralax) 17 gm PO DAILY PRN PRN Reason: Constipation Potassium Chloride (Klor-Con M20) 60 meq PO TID [facility] Last Admin: 11/25/17 14:25 Dose: 60 meq Saccharomyces Boulardii (Florastor) 250 mg PO BID [facility] Last Admin: 11/25/17 08:26 Dose: 250 mg Senna/Docusate Sodium (Senna Plus) 1 tab PO BID PRN PRN Reason: Constipation Sodium Chloride (Saline Flush) 10 ml FLUSH ASDIRECTED PRN PRN Reason: Keep Vein Open Last Admin: 11/24/17 07:41 Dose: 10 ml Sodium Chloride (Saline Flush) 10 ml FLUSH ONETIME PRN PRN Reason: IV FLUSH Last Admin: 11/24/17 09:48 Dose: 10 ml Discontinued Medications Diatrizoate Meglum/Diatrizoate Sod (Gastrografin 37%) 120 ml PO ONETIME ONE Stop: 11/24/17 09:13 Last Admin: 11/24/17 09:49 Dose: 90 ml Hydromorphone HCl (Dilaudid) 0.5 mg IVPUSH ONETIME ONE Stop: 11/24/17 07:08 Last Admin: 11/24/17 07:15 Dose: 0.5 mg Hydromorphone HCl (Dilaudid) 0.5 mg IVPUSH ONETIME ONE Stop: 11/24/17 07:52 Last Admin: 11/24/17 08:07 Dose: 0.5 mg Hydromorphone HCl (Dilaudid) 0.5 mg IVPUSH ONETIME ONE Stop: 11/24/17 09:23 Last Admin: 11/24/17 09:23 Dose: 0.5 mg Hydromorphone HCl (Dilaudid) Confirm Administered Dose 0.5 mg .ROUTE .STK-MED ONE Stop: 11/24/17 09:21 Last Admin: 11/24/17 09:35 Dose: Not Given Hydromorphone HCl (Dilaudid) 0.5 mg IVPUSH ONETIME ONE Stop: 11/24/17 11:05 Last Admin: 11/24/17 11:05 Dose: 0.5 mg Hydromorphone HCl (Dilaudid) 1 mg IVPUSH Q4H PRN PRN Reason: Pain (moderate 4-6) Last Admin: 11/25/17 10:23 Dose: 1 mg Sodium Chloride (Normal Saline) 1,000 mls @ 999 mls/hr IV ONETIME [facility] Last Admin: 11/24/17 07:14 Dose: 999 mls/hr Sodium Chloride (Normal Saline) 1,000 mls @ 999 mls/hr IV ONETIME [facility] Last Admin: 11/24/17 08:48 Dose: 999 mls/hr Sodium Chloride (Normal Saline) 1,000 mls @ 999 mls/hr IV ONETIME ONE Stop: 11/24/17 13:01 Last Admin: 11/24/17 12:13 Dose: 999 mls/hr Levofloxacin/Dextrose 750 mg/ (Premix) 150 mls @ 100 mls/hr IV ONETIME ONE Stop: 11/24/17 13:38 Last Admin: 11/24/17 12:18 Dose: 100 mls/hr Promethazine HCl 25 mg/ Sodium (Chloride) 51 mls @ 100 mls/hr IV Q6H [facility] Last Admin: 11/25/17 12:35 Dose: 100 mls/hr Lactated Ringer's (Ringers, Lactated) 1,000 mls @ 999 mls/hr IV .BOLUS ONE Stop: 11/24/17 14:36 Last Admin: 11/24/17 13:54 Dose: 999 mls/hr Lactated Ringer's (Ringers, Lactated) 2,000 mls @ 999 mls/hr IV BOLUS ONE Stop: 11/24/17 16:00 Last Admin: 11/24/17 15:54 Dose: 999 mls/hr Magnesium Sulfate 4 gm/ Premix 100 mls @ 25 mls/hr IV ONETIME ONE Stop: 11/25/17 10:59 Last Admin: 11/25/17 13:36 Dose: Not Given Magnesium Sulfate 2 gm/ Premix 50 mls @ 25 mls/hr IV ONETIME ONE Stop: 11/25/17 15:26 Last Admin: 11/25/17 14:23 Dose: 25 mls/hr Iopamidol (Isovue-300 (61%)) 100 ml IVPUSH ONETIME ONE Stop: 11/24/17 09:13 Last Admin: 11/24/17 09:48 Dose: 100 ml Ketorolac Tromethamine (Toradol) 30 mg IVPUSH ONETIME ONE Stop: 11/24/17 12:02 Last Admin: 11/24/17 12:12 Dose: 30 mg Ketorolac Tromethamine (Toradol) 30 mg IVPUSH Q8H [facility] Stop: 11/26/17 06:01 Last Admin: 11/24/17 23:36 Dose: Not Given Metoclopramide HCl (Reglan) 5 mg IVPUSH ONETIME ONE Stop: 11/24/17 08:45 Last Admin: 11/24/17 08:48 Dose: 5 mg Ondansetron HCl (Zofran) 4 mg IVPUSH ONETIME ONE Stop: 11/24/17 07:08 Last Admin: 11/24/17 07:14 Dose: 4 mg Ondansetron HCl (Zofran) 4 mg IVPUSH ONETIME ONE Stop: 11/24/17 10:44 Last Admin: 11/24/17 11:00 Dose: 4 mg Potassium Chloride (Klor-Con M20) 40 meq PO BID [facility] Stop: 11/25/17 21:01 Last Admin: 11/25/17 12:32 Dose: 40 meq Promethazine HCl (Phenergan) Confirm Administered Dose 25 mg .ROUTE .STK-MED ONE Stop: 11/24/17 13:49 Last Admin: 11/24/17 15:04 Dose: Not Given Promethazine HCl (Phenergan) Confirm Administered Dose 25 mg .ROUTE .STK-MED ONE Stop: 11/25/17 08:16 Last Admin: 11/25/17 08:27 Dose: Not Given - Exam Quality Assessment: DVT Prophylaxis General: Alert, Oriented, Cooperative, No Acute Distress HEENT: Pupils Equal, Pupils Reactive, EOMI, Mucous Membr. Moist/[place] Neck: Supple Lungs: Clear to Auscultation, Normal Respiratory Effort Cardiovascular: Regular Rate, Regular Rhythm GI/Abdominal Exam: Normal Bowel Sounds, Soft, Non-Tender, No Organomegaly, No Distention, No Abnormal Bruit, No Mass, Pelvis Stable (Female) Exam: Deferred Back Exam: Normal Inspection, Full Range of Motion Extremities: Normal Inspection, Normal Range of Motion, Non-Tender, No Pedal Edema, Normal Capillary Refill Peripheral Pulses: 3+: Posterior Tibial (L), Posterior Tibial (R), Dorsalis Pedis (L), Dorsalis Pedis (R) Skin: Warm, Dry, Intact Neurological: No New Focal Deficit Psy/Mental Status: Alert, Normal Affect, Normal Mood - Problem List & Annotations (1) Pancreatitis SNOMED Code(s): 85473843 Code(s): K85.90 - ACUTE PANCREATITIS WITHOUT NECROSIS OR INFECTION, UNSP Status: Acute Priority: High Current Visit: Yes Qualifiers: Chronicity: acute Pancreatitis type: unspecified pancreatitis type Acute pancreatitis complication: unspecified Qualified Code(s): K85.90 - Acute pancreatitis without necrosis or infection, unspecified (2) Pneumonia SNOMED Code(s): 867110829 Code(s): J18.9 - PNEUMONIA, UNSPECIFIED ORGANISM Status: Acute Priority: High Current Visit: Yes Qualifiers: Pneumonia type: due to unspecified organism Laterality: left Lung location: unspecified part of lung Qualified Code(s): J18.9 - Pneumonia, unspecified organism (3) Alcohol abuse SNOMED Code(s): 66572673 Code(s): F10.10 - ALCOHOL ABUSE, UNCOMPLICATED Status: Chronic Priority: Low Current Visit: No (4) Back pain SNOMED Code(s): 169909811 Code(s): M54.9 - DORSALGIA, UNSPECIFIED Status: Chronic Priority: Medium Current Visit: Yes Qualifiers: Back pain location: low back pain Chronicity: chronic Back pain laterality: unspecified Sciatica presence: unspecified whether sciatica present Qualified Code(s): M54.5 - Low back pain; G89.29 - Other chronic pain - Problem List Review Problem List Initiated/Reviewed/Updated: Yes - My Orders Last 24 Hours: My Active Orders 11/24/17 16:31 RT Chest Physiotherapy [RC] ASDIRECTED RT Incentive Spirometry [RC] Q2HWA Respiratory Care Assess and Treatment [CONS] Routine CULTURE SPUTUM + SMEAR [RM] Routine Benzonatate [Tessalon Perles] 100 mg PO TID PRN Dextromethorphan/guaiFENesin [Robitussin DM] 5 ml PO Q4H PRN 11/24/17 16:43 Code Status [Resuscitation Status] Routine 11/24/17 16:44 Alum Hydrox/Mag Hydrox/Simeth [Mag-Al Plus] 30 ml PO Q4H PRN 11/24/17 18:26 Heat Therapy [OM.PC] Routine 11/24/17 18:28 Height and Weight [RC] 04 Intake and Output [RC] 04,16 Oxygen Therapy [RC] PRN Up ad Seda [RC] BID VTE/DVT Education [RC] DAILY Vital Signs [RC] 03,09,15,21 Albuterol [Proventil Neb Soln] 2.5 mg NEB Q2H PRN Albuterol/Ipratropium [DuoNeb 3.0-0.5 MG/3 ML] 3 ml NEB Q4H PRN Bisacodyl [Dulcolax] 5 mg PO DAILY PRN Docusate Sodium [Colace] 100 mg PO BID PRN Docusate Sodium/Sennosides [Senna Plus] 1 tab PO BID PRN Magnesium Hydroxide [Milk of Magnesia] 30 ml PO Q12H PRN Polyethylene Glycol 3350 [MiraLAX] 17 gm PO DAILY PRN 11/24/17 18:29 Cardiac Monitoring [RC] INTERMITTENT Pulse Oximetry [RC] PRN 11/24/17 18:30 RT Aerosol Therapy [RC] ASDIRECTED 11/24/17 21:00 LORazepam [Ativan] 0.5 mg IVPUSH BID Saccharomyces Boulardii [Florastor] 250 mg PO BID 11/25/17 09:00 Enoxaparin [Lovenox] 40 mg SUBCUT DAILY 11/26/17 05:11 LIPASE [CHEM] AM 11/27/17 05:11 LIPASE [CHEM] AM 11/28/17 05:11 LIPASE [CHEM] AM 11/29/17 05:11 LIPASE [CHEM] AM - Plan Plan:: I/P: Acute: Mild Pancreatitis, Improving * Abdominal pain * Lipase elevated at 1706--> 175 * h/o of Marijuana use--> query Marijuana precipitated Pancreatitis * CT Ab/Pelvis: * 1. Patchy parenchymal densities within the right lung base. Pneumonia is possible if patient has infectious symptoms. * 2. Mild intrahepatic biliary duct dilatation with normal size of CBD at the level of the pancreatic head. This most likely is residual from prior cholecystectomy. * 3. Mild increased stool throughout the colon and other incidental findings. * Consult General Surgeon Dr. Fuentes * Recommend GI consult outpt after D/C; suspect possible ulcer d/t pain--> H pylori pending * NPO; advance diet as tolerated * IVF, pain management PRN Pneumonia, L mid lung * SOB, Chills/diaphoresis, no cough, no fever * CXR: * 1. Slight parenchymal density within the left mid lung. Findings could represent ill-defined mass versus pneumonia. Recommend treatment as a pneumonia with follow-up chest x-ray to make sure finding resolves. * Repeat CXR 11/25/17: * Continuing small parenchymal density is noted within the left mid to upper lung. Lungs otherwise are clear. * Repeat CXR 11/27/17 * Levaquin started in ED--> continue * RT/Duonebs/IS/Acapella * Sputum culture pending collection * RVP, Strep pneumo pending * Mycoplasma negative * Robitussin DM, Feliciano Fabian PRN Resolved: Dysuria, Resolved * x 10 days per pt * U/A shows: slightly cloudy, pH 8.5, trace protein, 1+ ketones, trace leuk esterase, few amorphous sediment * Urine culture--> no growth Low back pain, Resolved * No recent trauma per pt, likely 2/2 above and may have chronic component per * Physical exam unremarkable * Pain management PRN, heating pad PRN * May want to consider MRI in future if pain does not get better Chronic: HTN Fibroids h/o Substance Abuse * THC positive on drug screen in ED * tends to exaggerate symptoms and asks for more pain medication/water, but then can fall asleep without them * Limit amount of opioids given Tobacco Addiction * Current some day smoker; pt's states 1 cigarette every 3-4 days * Smoking cessation counseling given * Nicotine patches offered, does not feel she needs h/o ETOH abuse h/o Peptic Ulcer (about 14 years ago per pt) Plan: Admitted to medical floor Droplet Isolation Precaution She remains stable Other orders as indicated above Routine AM labs NPO--> clear liquid diet DVT Prophylaxis: Lovenox GI Prophylaxis: Protonix Code Status: Full Code; PCP: Harper Duarte PA-C D/C Plan: * Recommend outpt GI consult; Dr. Fuentes suspects possible ulcer d/t pain, pt has h/o ulcer * Continue Protonix outpt 2/2 above suspicion
[2017-11-25] MEDS ORDERED: Acetaminophen 325 MG Tab PO PRN (17:14)
[2017-11-25] MEDS ORDERED: Temazepam 15 MG Cap PO PRN (18:07)
[2017-11-25] MEDS: HYDROmorphone 0.5 MG/0.5 ML Syringe IVPUSH PRN (18:32)
[2017-11-26] MEDS: Promethazine 25 MG in Sodium Chloride 0.9% 50 ML IV SCH ×4 (00:16→19:19)
[2017-11-26] MEDS: Lactated Ringers 1,000 ML IV SCH ×2 (00:18→08:46)
[2017-11-26] MEDS: HYDROmorphone 0.5 MG/0.5 ML Syringe IVPUSH PRN ×3 (01:36→13:19)
[2017-11-26] MEDS: Pantoprazole 40 MG Vial IVPUSH SCH ×2 (03:16→15:49)
[2017-11-26] MEDS: Ketorolac 30 MG/ML SDV IVPUSH SCH (05:39)
[2017-11-26] MEDS ORDERED: Sodium Chloride 0.9% 10 ML Syringe FLUSH PRN (07:49)
[2017-11-26] MEDS ORDERED: Iopamidol 612 MG/ML 150 ML Bottle IVPUSH ONE (07:49)
--- NOTE | 2017-11-26 08:20 | PCM.PN ---
- General Info Date of Service: 11/26/17 Admission Dx/Problem (Free Text): Admission Diagnosis/Problem Admission Diagnosis/Problem Pancreatitis Subjective Update: In to see Kishan. She is sitting up in bed visiting with . She states she is feeling better, but when she tried to eat last night she states she got nausea but no vomiting. Anti-emetics helped. Due to her constant abdominal pain , I explained we will be getting a CT of the abdomen and Dr. Fuentes will do an endoscopy this afternoon to r/o peptic ulcer. She understands and agrees with this plan. I also explained that her Respiratory Viral panel for PNA was negative and her CXR had also not shown improvement, so we ordered CT of the chest as well. Due to lack of improvement, we will stop Levaquin and start Doxycline to cover atypicals and other possible causes. All questions were answered and the pt understands the workup and treatment plan. No concerns from nursing. Will send home today if she can tolerate diet. CT chest came back abnormal. There is new nodule and densities are now bilateral. Will start Doxycline today. Recommend f/u outpt with pulmonology and repeat CT chest in 2 weeks. Functional Status: Reports: Pain Controlled, Ambulating, Urinating. Denies: Tolerating Diet (Currently NPO d/t pain caused when trying to drink clear fluids ) - Review of Systems General: Reports: Fatigue (says she has been feeling fatigued lately, like she just "can't keep up" lately energy-newsome). Denies: Fever, Chills, Appetite HEENT: Reports: No Symptoms Pulmonary: Reports: Cough (improving). Denies: Shortness of Breath Cardiovascular: Reports: No Symptoms. Denies: Chest Pain Gastrointestinal: Reports: Abdominal Pain (pain is now in the LLQ ), Decreased Appetite. Denies: Diarrhea, Nausea, Vomiting Genitourinary: Reports: Other (states urine is "orange" past few days). Denies : Dysuria, Frequency, Burning, Pain, Urgency Musculoskeletal: Reports: No Symptoms Skin: Reports: No Symptoms Neurological: Reports: No Symptoms Psychiatric: Reports: No Symptoms - Patient Data Vitals - Most Recent: Last Vital Signs Temp 98.6 F 11/26/17 07:42 Pulse 62 11/26/17 07:42 Resp 15 11/26/17 07:42 BP 104/60 11/26/17 07:42 Pulse Ox 99 11/26/17 07:42 Weight - Most Recent: 184 lb 2 oz I&O - Last 24 Hours: Intake & Output 11/25/17 11/26/17 11/26/17 22:59 06:59 14:59 Intake Total 2257 1747 Output Total 600 3650 Balance 1657 -1903 Lab Results Last 24 Hours: Laboratory Results - last 24 hr 11/24/17 11/25/17 11/25/17 Range/Units 14:50 05:04 07:00 WBC (3.98-10.04) K/mm3 RBC (3.98-5.22) M/mm3 Hgb (11.2-15.7) gm/L Hct (34.1-44.9) % MCV (79.4-94.8) fl MCH (25.6-32.2) pg MCHC (32.2-35.5) g/dl RDW Std Deviation (36.4-46.3) fL Plt Count (182-369) K/mm3 MPV (9.4-12.3) fl Neut % (Auto) (34.0-71.1) % Lymph % (Auto) (19.3-51.7) % Carter % (Auto) (4.7-12.5) % Eos % (Auto) (0.7-5.8) Baso % (Auto) (0.1-1.2) % Neut # (Auto) (1.56-6.13) K/mm3 Lymph # (Auto) (1.18-3.74) K/mm3 Carter # (Auto) (0.24-0.36) K/mm3 Eos # (Auto) (0.04-0.36) K/mm3 Baso # (Auto) (0.01-0.08) K/mm3 Sodium (136-145) mEq/L Potassium (3.5-5.1) mEq/L Chloride (98-107) mEq/L Carbon Dioxide (21-32) mEq/L Anion Gap (5-15) BUN (7-18) mg/dL Creatinine (0.55-1.02) mg/dL Est Cr Clr Drug Dosing mL/min Estimated GFR (MDRD) (>60) mL/min BUN/Creatinine Ratio (14-18) Glucose (74-106) mg/dL Calcium (8.5-10.1) mg/dL Magnesium (1.8-2.4) mg/dl Lipase 175 (73-393) U/L Adenovirus (PCR) Not detected (Not Detected) B. pertussis DNA (PCR) Not detected (Not Detected) B.parapertussis DNA PCR Not detected (Not Detected) C. pneumoniae DNA (PCR) Not detected (Not Detected) Coronavirus (PCR) Not detected (Not Detected) H. pylori IgG Antibody Negative (NEGATIVE) Human Metapneumovir PCR Not detected (Not Detected) Influenza A (RT-PCR) Not detected (Not Detected) Influenza B (RT-PCR) Not detected (Not Detected) M. pneumoniae (PCR) Not detected (Not Detected) Parainfluen 1,2,3,4 PCR Not detected (Not Detected) RSV (PCR) Not detected (Not Detected) Entero/Rhino (PCR) Not detected (Not Detected) 11/26/17 11/26/17 11/26/17 Range/Units 05:34 05:34 05:36 WBC 4.31 (3.98-10.04) K/mm3 RBC 3.93 L (3.98-5.22) M/mm3 Hgb 11.9 (11.2-15.7) gm/L Hct 36.4 (34.1-44.9) % MCV 92.6 (79.4-94.8) fl MCH 30.3 (25.6-32.2) pg MCHC 32.7 (32.2-35.5) g/dl RDW Std Deviation 40.2 (36.4-46.3) fL Plt Count 208 (182-369) K/mm3 MPV 10.8 (9.4-12.3) fl Neut % (Auto) 42.9 (34.0-71.1) % Lymph % (Auto) 45.9 (19.3-51.7) % Carter % (Auto) 8.4 (4.7-12.5) % Eos % (Auto) 1.9 (0.7-5.8) Baso % (Auto) 0.7 (0.1-1.2) % Neut # (Auto) 1.85 (1.56-6.13) K/mm3 Lymph # (Auto) 1.98 (1.18-3.74) K/mm3 Carter # (Auto) 0.36 (0.24-0.36) K/mm3 Eos # (Auto) 0.08 (0.04-0.36) K/mm3 Baso # (Auto) 0.03 (0.01-0.08) K/mm3 Sodium 139 (136-145) mEq/L Potassium 4.4 (3.5-5.1) mEq/L Chloride 110 H (98-107) mEq/L Carbon Dioxide 25 (21-32) mEq/L Anion Gap 8.4 (5-15) BUN 8 (7-18) mg/dL Creatinine 0.8 (0.55-1.02) mg/dL Est Cr Clr Drug Dosing 104.48 mL/min Estimated GFR (MDRD) > 60 (>60) mL/min BUN/Creatinine Ratio 10.0 L (14-18) Glucose 89 (74-106) mg/dL Calcium 8.1 L (8.5-10.1) mg/dL Magnesium 2.0 (1.8-2.4) mg/dl Lipase 114 (73-393) U/L Adenovirus (PCR) (Not Detected) B. pertussis DNA (PCR) (Not Detected) B.parapertussis DNA PCR (Not Detected) C. pneumoniae DNA (PCR) (Not Detected) Coronavirus (PCR) (Not Detected) H. pylori IgG Antibody (NEGATIVE) Human Metapneumovir PCR (Not Detected) Influenza A (RT-PCR) (Not Detected) Influenza B (RT-PCR) (Not Detected) M. pneumoniae (PCR) (Not Detected) Parainfluen 1,2,3,4 PCR (Not Detected) RSV (PCR) (Not Detected) Entero/Rhino (PCR) (Not Detected) Anmol Results Last 24 Hours: Microbiology 11/24/17 08:40 Streptococcus pneumoniae Antigen (M - Final Urine 11/24/17 07:24 Aerobic Blood Culture - Preliminary Blood NO GROWTH AFTER 2 DAYS Anaerobic Blood Culture - Preliminary NO GROWTH AFTER 2 DAYS 11/24/17 08:40 Urine Culture - Preliminary Urine, Clean Catch NO GROWTH AFTER 1 DAY Med Orders - Current: Current Medications Acetaminophen (Tylenol) 650 mg PO Q4H PRN PRN Reason: Pain (Mild 1-3)/fever Al Hydroxide/Mg Hydroxide (Mag-Al Plus) 30 ml PO Q4H PRN PRN Reason: Heartburn Last Admin: 11/24/17 17:17 Dose: 30 ml Albuterol (Proventil Neb Soln) 2.5 mg NEB Q2H PRN PRN Reason: Shortness Of Breath/wheezing Albuterol/Ipratropium (Duoneb 3.0-0.5 Mg/3 Ml) 3 ml NEB Q4H PRN PRN Reason: Shortness Of Breath/wheezing Benzonatate (Tessalon Perles) 100 mg PO TID PRN PRN Reason: Cough Bisacodyl (Dulcolax) 5 mg PO DAILY PRN PRN Reason: Constipation Docusate Sodium (Colace) 100 mg PO BID PRN PRN Reason: Constipation Enoxaparin Sodium (Lovenox) 40 mg SUBCUT DAILY [facility] Last Admin: 11/25/17 08:26 Dose: 40 mg Guaifenesin/Phenylephrine HCl (Robitussin Dm) 5 ml PO Q4H PRN PRN Reason: Cough Hydromorphone HCl (Dilaudid) 0.5 mg IVPUSH Q4H PRN PRN Reason: Pain (moderate 4-6) Last Admin: 11/26/17 01:36 Dose: 0.5 mg Levofloxacin/Dextrose 750 mg/ (Premix) 150 mls @ 100 mls/hr IV Q24H [facility] Last Admin: 11/25/17 12:31 Dose: 100 mls/hr Lactated Ringer's (Ringers, Lactated) 1,000 mls @ 150 mls/hr IV ASDIRECTED [facility] Last Admin: 11/26/17 00:18 Dose: 150 mls/hr Promethazine HCl 25 mg/ Sodium (Chloride) 51 mls @ 100 mls/hr IV Q6H [facility] Last Admin: 11/26/17 05:38 Dose: 100 mls/hr Magnesium Hydroxide (Milk Of Magnesia) 30 ml PO Q12H PRN PRN Reason: Constipation Ondansetron HCl (Zofran) 4 mg IVPUSH Q8H PRN PRN Reason: Nausea/Vomiting Pantoprazole Sodium (Protonix Iv) 40 mg IVPUSH Q12H [facility] Last Admin: 11/26/17 03:16 Dose: 40 mg Polyethylene Glycol (Miralax) 17 gm PO DAILY PRN PRN Reason: Constipation Potassium Chloride (Klor-Con M20) 60 meq PO TID JOHN Last Admin: 11/25/17 21:29 Dose: 60 meq Saccharomyces Boulardii (Florastor) 250 mg PO BID [facility] Last Admin: 11/25/17 21:31 Dose: 250 mg Senna/Docusate Sodium (Senna Plus) 1 tab PO BID PRN PRN Reason: Constipation Sodium Chloride (Saline Flush) 10 ml FLUSH ASDIRECTED PRN PRN Reason: Keep Vein Open Last Admin: 11/24/17 07:41 Dose: 10 ml Sodium Chloride (Saline Flush) 10 ml FLUSH ONETIME PRN PRN Reason: IV FLUSH Last Admin: 11/24/17 09:48 Dose: 10 ml Sodium Chloride (Saline Flush) 10 ml FLUSH ONETIME PRN PRN Reason: IV FLUSH Stop: 11/26/17 10:00 Temazepam (Restoril) 15 mg PO BEDTIME PRN PRN Reason: Insomnia Last Admin: 11/25/17 21:50 Dose: 15 mg Discontinued Medications Diatrizoate Meglum/Diatrizoate Sod (Gastrografin 37%) 120 ml PO ONETIME ONE Stop: 11/24/17 09:13 Last Admin: 11/24/17 09:49 Dose: 90 ml Hydromorphone HCl (Dilaudid) 0.5 mg IVPUSH ONETIME ONE Stop: 11/24/17 07:08 Last Admin: 11/24/17 07:15 Dose: 0.5 mg Hydromorphone HCl (Dilaudid) 0.5 mg IVPUSH ONETIME ONE Stop: 11/24/17 07:52 Last Admin: 11/24/17 08:07 Dose: 0.5 mg Hydromorphone HCl (Dilaudid) 0.5 mg IVPUSH ONETIME ONE Stop: 11/24/17 09:23 Last Admin: 11/24/17 09:23 Dose: 0.5 mg Hydromorphone HCl (Dilaudid) Confirm Administered Dose 0.5 mg .ROUTE .STK-MED ONE Stop: 11/24/17 09:21 Last Admin: 11/24/17 09:35 Dose: Not Given Hydromorphone HCl (Dilaudid) 0.5 mg IVPUSH ONETIME ONE Stop: 11/24/17 11:05 Last Admin: 11/24/17 11:05 Dose: 0.5 mg Hydromorphone HCl (Dilaudid) 1 mg IVPUSH Q4H PRN PRN Reason: Pain (moderate 4-6) Last Admin: 11/25/17 10:23 Dose: 1 mg Sodium Chloride (Normal Saline) 1,000 mls @ 999 mls/hr IV ONETIME JOHN Last Admin: 11/24/17 07:14 Dose: 999 mls/hr Sodium Chloride (Normal Saline) 1,000 mls @ 999 mls/hr IV ONETIME JOHN Last Admin: 11/24/17 08:48 Dose: 999 mls/hr Sodium Chloride (Normal Saline) 1,000 mls @ 999 mls/hr IV ONETIME ONE Stop: 11/24/17 13:01 Last Admin: 11/24/17 12:13 Dose: 999 mls/hr Levofloxacin/Dextrose 750 mg/ (Premix) 150 mls @ 100 mls/hr IV ONETIME ONE Stop: 11/24/17 13:38 Last Admin: 11/24/17 12:18 Dose: 100 mls/hr Promethazine HCl 25 mg/ Sodium (Chloride) 51 mls @ 100 mls/hr IV Q6H JOHN Last Admin: 11/25/17 17:46 Dose: Not Given Lactated Ringer's (Ringers, Lactated) 1,000 mls @ 999 mls/hr IV .BOLUS ONE Stop: 11/24/17 14:36 Last Admin: 11/24/17 13:54 Dose: 999 mls/hr Lactated Ringer's (Ringers, Lactated) 2,000 mls @ 999 mls/hr IV BOLUS ONE Stop: 11/24/17 16:00 Last Admin: 11/24/17 15:54 Dose: 999 mls/hr Magnesium Sulfate 4 gm/ Premix 100 mls @ 25 mls/hr IV ONETIME ONE Stop: 11/25/17 10:59 Last Admin: 11/25/17 13:36 Dose: Not Given Magnesium Sulfate 2 gm/ Premix 50 mls @ 25 mls/hr IV ONETIME ONE Stop: 11/25/17 15:26 Last Admin: 11/25/17 14:23 Dose: 25 mls/hr Iopamidol (Isovue-300 (61%)) 100 ml IVPUSH ONETIME ONE Stop: 11/24/17 09:13 Last Admin: 11/24/17 09:48 Dose: 100 ml Iopamidol (Isovue-300 (61%)) 150 ml IVPUSH ONETIME ONE Stop: 11/26/17 07:50 Ketorolac Tromethamine (Toradol) 30 mg IVPUSH ONETIME ONE Stop: 11/24/17 12:02 Last Admin: 11/24/17 12:12 Dose: 30 mg Ketorolac Tromethamine (Toradol) 30 mg IVPUSH Q8H [facility] Stop: 11/26/17 06:01 Last Admin: 11/24/17 23:36 Dose: Not Given Ketorolac Tromethamine (Toradol) 30 mg IVPUSH Q8H [facility] Stop: 11/26/17 06:31 Last Admin: 11/26/17 05:39 Dose: 30 mg Lorazepam (Ativan) 0.5 mg IVPUSH BID [facility] Stop: 11/25/17 21:01 Last Admin: 11/25/17 21:32 Dose: 0.5 mg Metoclopramide HCl (Reglan) 5 mg IVPUSH ONETIME ONE Stop: 11/24/17 08:45 Last Admin: 11/24/17 08:48 Dose: 5 mg Ondansetron HCl (Zofran) 4 mg IVPUSH ONETIME ONE Stop: 11/24/17 07:08 Last Admin: 11/24/17 07:14 Dose: 4 mg Ondansetron HCl (Zofran) 4 mg IVPUSH ONETIME ONE Stop: 11/24/17 10:44 Last Admin: 11/24/17 11:00 Dose: 4 mg Potassium Chloride (Klor-Con M20) 40 meq PO BID [facility] Stop: 11/25/17 21:01 Last Admin: 11/25/17 12:32 Dose: 40 meq Promethazine HCl (Phenergan) Confirm Administered Dose 25 mg .ROUTE .STK-MED ONE Stop: 11/24/17 13:49 Last Admin: 11/24/17 15:04 Dose: Not Given Promethazine HCl (Phenergan) Confirm Administered Dose 25 mg .ROUTE .STK-MED ONE Stop: 11/25/17 08:16 Last Admin: 11/25/17 08:27 Dose: Not Given - Exam Quality Assessment: DVT Prophylaxis General: Alert, Oriented, Cooperative, No Acute Distress HEENT: Pupils Equal, Pupils Reactive, EOMI, Mucous Membr. Moist/[place]: Supple Lungs: Clear to Auscultation, Normal Respiratory Effort Cardiovascular: Regular Rate, Regular Rhythm GI/Abdominal Exam: Normal Bowel Sounds, Soft, Non-Tender, No Organomegaly, No Distention, No Abnormal Bruit, No Mass, Pelvis Stable (Female) Exam: Deferred Back Exam: Normal Inspection, Full Range of Motion Extremities: Normal Inspection, Normal Range of Motion, Non-Tender, No Pedal Edema, Normal Capillary Refill Peripheral Pulses: 3+: Posterior Tibial (L), Posterior Tibial (R), Dorsalis Pedis (L), Dorsalis Pedis (R) Skin: Warm, Dry, Intact Neurological: No New Focal Deficit Psy/Mental Status: Alert, Normal Affect, Normal Mood - Problem List & Annotations (1) Pancreatitis SNOMED Code(s): 60810624 Code(s): K85.90 - ACUTE PANCREATITIS WITHOUT NECROSIS OR INFECTION, UNSP Status: Acute Priority: High Current Visit: Yes Qualifiers: Chronicity: acute Pancreatitis type: unspecified pancreatitis type Acute pancreatitis complication: unspecified Qualified Code(s): K85.90 - Acute pancreatitis without necrosis or infection, unspecified (2) Pneumonia SNOMED Code(s): 367202326 Code(s): J18.9 - PNEUMONIA, UNSPECIFIED ORGANISM Status: Acute Priority: High Current Visit: Yes Qualifiers: Pneumonia type: due to unspecified organism Laterality: left Lung location: unspecified part of lung Qualified Code(s): J18.9 - Pneumonia, unspecified organism (3) Alcohol abuse SNOMED Code(s): 52678105 Code(s): F10.10 - ALCOHOL ABUSE, UNCOMPLICATED Status: Chronic Priority: Low Current Visit: No (4) Back pain SNOMED Code(s): 410718956 Code(s): M54.9 - DORSALGIA, UNSPECIFIED Status: Chronic Priority: Medium Current Visit: Yes Qualifiers: Back pain location: low back pain Chronicity: chronic Back pain laterality: unspecified Sciatica presence: unspecified whether sciatica present Qualified Code(s): M54.5 - Low back pain; G89.29 - Other chronic pain - Problem List Review Problem List Initiated/Reviewed/Updated: Yes - My Orders Last 24 Hours: My Active Orders 11/25/17 09:00 Enoxaparin [Lovenox] 40 mg SUBCUT DAILY 11/25/17 16:44 H.PYLORI ANTIGEN, STOOL [OP] Routine 11/25/17 17:14 Acetaminophen [Tylenol] 650 mg PO Q4H PRN 11/25/17 18:07 Temazepam [Restoril] 15 mg PO BEDTIME PRN 11/26/17 07:00 Abdomen Pelvis w Cont [CT] Routine 11/27/17 05:11 Chest 2V [CR] AM LIPASE [CHEM] AM 11/28/17 05:11 LIPASE [CHEM] AM 11/29/17 05:11 LIPASE [CHEM] AM - Plan Plan:: I/P: Acute: Persistent Abdominal pain * R/O peptic ulcer * Risk factor: h/o peptic ulcer * H pylori negative * Repeat CT Ab/Pelvis 11/26/17 --> no acute findings * Consult General Surgeon Dr. Fuentes--> suspects ulcer * EGD this afternoon * NPO; advance diet as tolerated Density bilateral lungs with new nodule in R lung * Risk factor: Current some day smoker; 1 cigarette every 3-4 days per * SOB, Chills/diaphoresis, cough, no fever * CXR: * 1. Slight parenchymal density within the left mid lung. Findings could represent ill-defined mass versus pneumonia. Recommend treatment as a pneumonia with follow-up chest x-ray to make sure finding resolves. * Repeat CXR 11/25/17: * Continuing small parenchymal density is noted within the left mid to upper lung. Lungs otherwise are clear. * CT Chest 11/26/17: * 1. Peripheral densities on both sides of the chest. Findings could represent fibrosis but recommend treatment as a pneumonia to see if findings improve. This finding is an interval change from prior CT study. * 2. 1.0 cm nodule which is pleural-based within the right lung base. Recommend follow-up noncontrast chest CT study in one month. * 3. No additional abnormality is seen on CT study of the chest. * Levaquin started in ED--> D/C d/t lack of response; Start Doxycycline to cover atypicals * PNA workup negative: * RVP, Strep pneumo, Mycoplasma negative * Sputum culture unable to collect * R/O other causes: * Lyme pending * Br 125 pending * Robitussin DM, Feliciano Fabian PRN * RT/Duonebs/IS/Acapella * Recommend f/u with pulmonology outpt with repeat CT chest Resolved: Mild Pancreatitis, Resolved * Abdominal pain * Lipase elevated at 1706--> 175--> 114 * h/o of Marijuana use--> query Marijuana precipitated Pancreatitis * CT Ab/Pelvis: * 1. Patchy parenchymal densities within the right lung base. Pneumonia is possible if patient has infectious symptoms. * 2. Mild intrahepatic biliary duct dilatation with normal size of CBD at the level of the pancreatic head. This most likely is residual from prior cholecystectomy. * 3. Mild increased stool throughout the colon and other incidental findings. * Repeat CT Ab/Pelvis 11/26/17 --> no acute findings * Consult General Surgeon Dr. Fuentes * IVF, pain management PRN * NPO; advance diet as tolerated Dysuria, Resolved * x 10 days per pt * "orange urine" * U/A shows: slightly cloudy, pH 8.5, trace protein, 1+ ketones, trace leuk esterase, few amorphous sediment * Urine culture--> no growth Low back pain, Resolved * No recent trauma per pt, likely 2/2 above and may have chronic component per * Physical exam unremarkable * Pain management PRN, heating pad PRN * May want to consider MRI in future if pain does not get better Chronic: HTN Fibroids h/o Substance Abuse * THC positive on drug screen in ED * tends to exaggerate symptoms and asks for more pain medication/water, but then can fall asleep without them * Limit amount of opioids given Tobacco Addiction * Current some day smoker; pt's states 1 cigarette every 3-4 days * Smoking cessation counseling given * Nicotine patches offered, does not feel she needs h/o ETOH abuse h/o Peptic Ulcer (about 14 years ago per pt) Plan: Admitted to medical floor Droplet Isolation Precaution She remains stable Other orders as indicated above Routine AM labs NPO--> clear liquid diet DVT Prophylaxis: Lovenox GI Prophylaxis: Protonix Code Status: Full Code; PCP: Harper Duarte PA-C D/C pending toleration of diet D/C Plan: * Continue Protonix outpt if peptic ulcer found on EGD * Recommend outpt f/u Pulmonology for new nodule * Repeat CT chest in 2 weeks; please schedule at D/C
--- NOTE | 2017-11-26 09:31 | PCM.PREANE ---
Preanesthetic Assessment - Procedure Proposed Procedure: egd - Anesthesia/Transfusion/Family Hx Anesthesia History: Prior Anesthesia Without Reaction Family History of Anesthesia Reaction: No Transfusion History: No Prior Transfusion(s) - Review of Systems General: Fever (just 2 days), Chills Pulmonary: No Symptoms Cardiovascular: No Symptoms Gastrointestinal: Abdominal Pain (2 days and ended 3 pm last chavo) Neurological: No Symptoms - Physical Assessment NPO Status Date: 11/25/17 NPO Status Time: 19:00 Pulse: 62 O2 Sat by Pulse Oximetry: 99 Respiratory Rate: 15 Blood Pressure: 104/60 Temperature: 98.6 F Vital Signs: Last Vital Signs Temp 98.6 F 11/26/17 07:42 Pulse 62 11/26/17 07:42 Resp 15 11/26/17 07:42 BP 104/60 11/26/17 07:42 Pulse Ox 99 11/26/17 07:42 Height: 5 ft 11 in Weight: 83.518 kg ASA Class: 2 Mental Status: Alert & Oriented x3 Airway Class: Mallampati = 1 Dentition: Reports: Normal Dentition, Dentures, Missing Tooth/Teeth (flipper in front) Thyro-Mental Finger Breadths: 3 Mouth Opening Finger Breadths: 3 ROM/Head Extension: Full Lungs: Clear to Auscultation, Normal Respiratory Effort Cardiovascular: Regular Rate, Regular Rhythm - Lab Values: Laboratory Last Values WBC 4.31 K/mm3 (3.98-10.04) 11/26/17 05:34 RBC 3.93 M/mm3 (3.98-5.22) L 11/26/17 05:34 Hgb 11.9 gm/L (11.2-15.7) 11/26/17 05:34 Hct 36.4 % (34.1-44.9) 11/26/17 05:34 MCV 92.6 fl (79.4-94.8) 11/26/17 05:34 MCH 30.3 pg (25.6-32.2) 11/26/17 05:34 MCHC 32.7 g/dl (32.2-35.5) 11/26/17 05:34 RDW Std Deviation 40.2 fL (36.4-46.3) 11/26/17 05:34 Plt Count 208 K/mm3 (182-369) 11/26/17 05:34 MPV 10.8 fl (9.4-12.3) 11/26/17 05:34 Neut % (Auto) 42.9 % (34.0-71.1) 11/26/17 05:34 Lymph % (Auto) 45.9 % (19.3-51.7) 11/26/17 05:34 Harney % (Auto) 8.4 % (4.7-12.5) 11/26/17 05:34 Eos % (Auto) 1.9 (0.7-5.8) 11/26/17 05:34 Baso % (Auto) 0.7 % (0.1-1.2) 11/26/17 05:34 Neut # (Auto) 1.85 K/mm3 (1.56-6.13) 11/26/17 05:34 Lymph # (Auto) 1.98 K/mm3 (1.18-3.74) 11/26/17 05:34 Harney # (Auto) 0.36 K/mm3 (0.24-0.36) 11/26/17 05:34 Eos # (Auto) 0.08 K/mm3 (0.04-0.36) 11/26/17 05:34 Baso # (Auto) 0.03 K/mm3 (0.01-0.08) 11/26/17 05:34 Neutrophils % (Manual) 63 % (40-60) H 11/24/17 07:24 Band Neutrophils % 0 % (0-10) 11/24/17 07:24 Lymphocytes % (Manual) 28 % (20-40) 11/24/17 07:24 Atypical Lymphs % 0 % 11/24/17 07:24 Monocytes % (Manual) 4 % (2-10) 11/24/17 07:24 Eosinophils % (Manual) 5 % (0.7-5.8) 11/24/17 07:24 Basophils % (Manual) 0 (0.1-1.2) L 11/24/17 07:24 Platelet Estimate Adequate 11/24/17 07:24 RBC Morph Comment Normal 11/24/17 07:24 Sodium 139 mEq/L (136-145) 11/26/17 05:34 Potassium 4.4 mEq/L (3.5-5.1) 11/26/17 05:34 Chloride 110 mEq/L (98-107) H 11/26/17 05:34 Carbon Dioxide 25 mEq/L (21-32) 11/26/17 05:34 Anion Gap 8.4 (5-15) 11/26/17 05:34 BUN 8 mg/dL (7-18) 11/26/17 05:34 Creatinine 0.8 mg/dL (0.55-1.02) 11/26/17 05:34 Est Cr Clr Drug Dosing 104.48 mL/min 11/26/17 05:34 Estimated GFR (MDRD) > 60 mL/min (>60) 11/26/17 05:34 BUN/Creatinine Ratio 10.0 (14-18) L 11/26/17 05:34 Glucose 89 mg/dL (74-106) 11/26/17 05:34 Lactic Acid 0.8 mmol/L (0.4-2.0) 11/25/17 07:00 Calcium 8.1 mg/dL (8.5-10.1) L 11/26/17 05:34 Magnesium 2.0 mg/dl (1.8-2.4) 11/26/17 05:34 Total Bilirubin 0.5 mg/dL (0.2-1.0) 11/24/17 07:24 AST 21 U/L (15-37) 11/24/17 07:24 ALT 55 U/L (14-59) 11/24/17 07:24 Alkaline Phosphatase 58 U/L (46-116) 11/24/17 07:24 C-Reactive Protein < 0.2 mg/dL (<1.0) 11/24/17 07:24 Total Protein 7.3 g/dl (6.4-8.2) 11/24/17 07:24 Albumin 4.2 g/dl (3.4-5.0) 11/24/17 07:24 Globulin 3.1 gm/dL 11/24/17 07:24 Albumin/Globulin Ratio 1.4 (1-2) 11/24/17 07:24 Lipase 114 U/L (73-393) 11/26/17 05:36 Urine Color Yellow (Yellow) 11/24/17 08:40 Urine Appearance Slt cloudy (Clear) H 11/24/17 08:40 Urine pH 8.5 (5.0-8.0) H 11/24/17 08:40 Ur Specific Bowers 1.020 (1.005-1.030) 11/24/17 08:40 Urine Protein Trace (Negative) H 11/24/17 08:40 Urine Glucose (UA) Negative (Negative) 11/24/17 08:40 Urine Ketones 1+ (Negative) H 11/24/17 08:40 Urine Occult Blood Negative (Negative) 11/24/17 08:40 Urine Nitrite Negative (Negative) 11/24/17 08:40 Urine Bilirubin Negative (Negative) 11/24/17 08:40 Urine Urobilinogen 0.2 (0.2-1.0) 11/24/17 08:40 Ur Leukocyte Esterase Trace (Negative) H 11/24/17 08:40 Urine RBC Not seen /hpf (0-5) 11/24/17 08:40 Urine WBC 0-5 /hpf (0-5) 11/24/17 08:40 Ur Epithelial Cells 0-5 /hpf (0-5) 11/24/17 08:40 Amorphous Sediment Few /hpf (NOT SEEN) H 11/24/17 08:40 Urine Bacteria Rare /hpf (FEW) 11/24/17 08:40 Urine Mucus Few /hpf (FEW) 11/24/17 08:40 Urine Opiates Screen Negative (NEGATIVE) 11/24/17 08:42 Ur Buprenorphine Scrn Negative (NEGATIVE) 11/24/17 08:42 Ur Oxycodone Screen Negative (NEGATIVE) 11/24/17 08:42 Urine Methadone Screen Negative (NEGATIVE) 11/24/17 08:42 Ur Propoxyphene Screen Negative (NEGATIVE) 11/24/17 08:42 Ur Barbiturates Screen Negative (NEGATIVE) 11/24/17 08:42 Ur Tricyclics Screen Negative (NEGATIVE) 11/24/17 08:42 Ur Phencyclidine Scrn Negative (NEGATIVE) 11/24/17 08:42 Ur Amphetamine Screen Negative (NEGATIVE) 11/24/17 08:42 U Methamphetamines Scrn Negative (NEGATIVE) 11/24/17 08:42 U Benzodiazepines Scrn Negative (NEGATIVE) 11/24/17 08:42 U Cocaine Metab Screen Negative (NEGATIVE) 11/24/17 08:42 U Marijuana (THC) Screen Presumptive positive (NEGATIVE) H 11/24/17 08:42 Ethyl Alcohol 0.00 gm% (0.00) 11/24/17 07:24 Adenovirus (PCR) Not detected (Not Detected) 11/24/17 14:50 B. pertussis DNA (PCR) Not detected (Not Detected) 11/24/17 14:50 B.parapertussis DNA PCR Not detected (Not Detected) 11/24/17 14:50 C. pneumoniae DNA (PCR) Not detected (Not Detected) 11/24/17 14:50 Coronavirus (PCR) Not detected (Not Detected) 11/24/17 14:50 H. pylori IgG Antibody Negative (NEGATIVE) 11/25/17 07:00 Human Metapneumovir PCR Not detected (Not Detected) 11/24/17 14:50 Influenza A (RT-PCR) Not detected (Not Detected) 11/24/17 14:50 Influenza B (RT-PCR) Not detected (Not Detected) 11/24/17 14:50 Mycoplasma pneumon IgM Negative (NEGATIVE) 11/24/17 15:58 M. pneumoniae (PCR) Not detected (Not Detected) 11/24/17 14:50 Parainfluen 1,2,3,4 PCR Not detected (Not Detected) 11/24/17 14:50 RSV (PCR) Not detected (Not Detected) 11/24/17 14:50 Entero/Rhino (PCR) Not detected (Not Detected) 11/24/17 14:50 - Allergies Allergies/Adverse Reactions: Allergies Allergy/AdvReac Type Severity Reaction Status Date / Time Penicillins Allergy Cannot Verified 11/24/17 13:25 Remember - Blood Blood Available: No - Acknowledgements Anesthesia Type Planned: MAC Pt an Appropriate Candidate for the Planned Anesthesia: Yes Alternatives and Risks of Anesthesia Discussed w Pt/Guardian: Yes Pt/Guardian Understands and Agrees with Anesthesia Plan: Yes PreAnesthesia Questionnaire - Past Health History Medical/Surgical History: Denies Medical/Surgical History Cardiovascular History: Reports: None Respiratory History: Reports: None Endocrine/Metabolic History: Reports: Other (See Below) (pancreatitis) Oncologic (Cancer) History: Reports: None - Past Surgical History HEENT Surgical History: Reports: Oral Surgery GI Surgical History: Reports: Cholecystectomy - History Comment History Comment: add meds but not taking them routinely - SUBSTANCE USE Smoking Status *Q: Current Some Day Smoker Tobacco Use Within Last Twelve Months: Cigarettes Second Hand Smoke Exposure: Yes Days Per Week of Alcohol Use: 0 (none in 3 years) Recreational Drug Use History: Yes Recreational Drug Type: Reports: Other (see below) (patient denies) - HOME MEDS Home Medications: Home Meds . [No Known Home Meds] 11/24/17 [History] - CURRENT (IN HOUSE) MEDS Current Meds: Current Medications Acetaminophen (Tylenol) 650 mg PO Q4H PRN PRN Reason: Pain (Mild 1-3)/fever Al Hydroxide/Mg Hydroxide (Mag-Al Plus) 30 ml PO Q4H PRN PRN Reason: Heartburn Last Admin: 11/24/17 17:17 Dose: 30 ml Albuterol (Proventil Neb Soln) 2.5 mg NEB Q2H PRN PRN Reason: Shortness Of Breath/wheezing Albuterol/Ipratropium (Duoneb 3.0-0.5 Mg/3 Ml) 3 ml NEB Q4H PRN PRN Reason: Shortness Of Breath/wheezing Benzonatate (Tessalon Perles) 100 mg PO TID PRN PRN Reason: Cough Bisacodyl (Dulcolax) 5 mg PO DAILY PRN PRN Reason: Constipation Docusate Sodium (Colace) 100 mg PO BID PRN PRN Reason: Constipation Enoxaparin Sodium (Lovenox) 40 mg SUBCUT DAILY [facility] Last Admin: 11/25/17 08:26 Dose: 40 mg Guaifenesin/Phenylephrine HCl (Robitussin Dm) 5 ml PO Q4H PRN PRN Reason: Cough Hydromorphone HCl (Dilaudid) 0.5 mg IVPUSH Q4H PRN PRN Reason: Pain (moderate 4-6) Last Admin: 11/26/17 08:46 Dose: 0.5 mg Levofloxacin/Dextrose 750 mg/ (Premix) 150 mls @ 100 mls/hr IV Q24H [facility] Last Admin: 11/25/17 12:31 Dose: 100 mls/hr Lactated Ringer's (Ringers, Lactated) 1,000 mls @ 150 mls/hr IV ASDIRECTED [facility] Last Admin: 11/26/17 08:46 Dose: 150 mls/hr Promethazine HCl 25 mg/ Sodium (Chloride) 51 mls @ 100 mls/hr IV Q6H [facility] Last Admin: 11/26/17 05:38 Dose: 100 mls/hr Magnesium Hydroxide (Milk Of Magnesia) 30 ml PO Q12H PRN PRN Reason: Constipation Ondansetron HCl (Zofran) 4 mg IVPUSH Q8H PRN PRN Reason: Nausea/Vomiting Pantoprazole Sodium (Protonix Iv) 40 mg IVPUSH Q12H [facility] Last Admin: 11/26/17 03:16 Dose: 40 mg Polyethylene Glycol (Miralax) 17 gm PO DAILY PRN PRN Reason: Constipation Potassium Chloride (Klor-Con M20) 60 meq PO TID [facility] Last Admin: 11/25/17 21:29 Dose: 60 meq Saccharomyces Boulardii (Florastor) 250 mg PO BID [facility] Last Admin: 11/25/17 21:31 Dose: 250 mg Senna/Docusate Sodium (Senna Plus) 1 tab PO BID PRN PRN Reason: Constipation Sodium Chloride (Saline Flush) 10 ml FLUSH ASDIRECTED PRN PRN Reason: Keep Vein Open Last Admin: 11/24/17 07:41 Dose: 10 ml Sodium Chloride (Saline Flush) 10 ml FLUSH ONETIME PRN PRN Reason: IV FLUSH Last Admin: 11/24/17 09:48 Dose: 10 ml Sodium Chloride (Saline Flush) 10 ml FLUSH ONETIME PRN PRN Reason: IV FLUSH Stop: 11/26/17 10:00 Temazepam (Restoril) 15 mg PO BEDTIME PRN PRN Reason: Insomnia Last Admin: 11/25/17 21:50 Dose: 15 mg Discontinued Medications Diatrizoate Meglum/Diatrizoate Sod (Gastrografin 37%) 120 ml PO ONETIME ONE Stop: 11/24/17 09:13 Last Admin: 11/24/17 09:49 Dose: 90 ml Hydromorphone HCl (Dilaudid) 0.5 mg IVPUSH ONETIME ONE Stop: 11/24/17 07:08 Last Admin: 11/24/17 07:15 Dose: 0.5 mg Hydromorphone HCl (Dilaudid) 0.5 mg IVPUSH ONETIME ONE Stop: 11/24/17 07:52 Last Admin: 11/24/17 08:07 Dose: 0.5 mg Hydromorphone HCl (Dilaudid) 0.5 mg IVPUSH ONETIME ONE Stop: 11/24/17 09:23 Last Admin: 11/24/17 09:23 Dose: 0.5 mg Hydromorphone HCl (Dilaudid) Confirm Administered Dose 0.5 mg .ROUTE .STK-MED ONE Stop: 11/24/17 09:21 Last Admin: 11/24/17 09:35 Dose: Not Given Hydromorphone HCl (Dilaudid) 0.5 mg IVPUSH ONETIME ONE Stop: 11/24/17 11:05 Last Admin: 11/24/17 11:05 Dose: 0.5 mg Hydromorphone HCl (Dilaudid) 1 mg IVPUSH Q4H PRN PRN Reason: Pain (moderate 4-6) Last Admin: 11/25/17 10:23 Dose: 1 mg Sodium Chloride (Normal Saline) 1,000 mls @ 999 mls/hr IV ONETIME [facility] Last Admin: 11/24/17 07:14 Dose: 999 mls/hr Sodium Chloride (Normal Saline) 1,000 mls @ 999 mls/hr IV ONETIME [facility] Last Admin: 11/24/17 08:48 Dose: 999 mls/hr Sodium Chloride (Normal Saline) 1,000 mls @ 999 mls/hr IV ONETIME ONE Stop: 11/24/17 13:01 Last Admin: 11/24/17 12:13 Dose: 999 mls/hr Levofloxacin/Dextrose 750 mg/ (Premix) 150 mls @ 100 mls/hr IV ONETIME ONE Stop: 11/24/17 13:38 Last Admin: 11/24/17 12:18 Dose: 100 mls/hr Promethazine HCl 25 mg/ Sodium (Chloride) 51 mls @ 100 mls/hr IV Q6H [facility] Last Admin: 11/25/17 17:46 Dose: Not Given Lactated Ringer's (Ringers, Lactated) 1,000 mls @ 999 mls/hr IV .BOLUS ONE Stop: 11/24/17 14:36 Last Admin: 11/24/17 13:54 Dose: 999 mls/hr Lactated Ringer's (Ringers, Lactated) 2,000 mls @ 999 mls/hr IV BOLUS ONE Stop: 11/24/17 16:00 Last Admin: 11/24/17 15:54 Dose: 999 mls/hr Magnesium Sulfate 4 gm/ Premix 100 mls @ 25 mls/hr IV ONETIME ONE Stop: 11/25/17 10:59 Last Admin: 11/25/17 13:36 Dose: Not Given Magnesium Sulfate 2 gm/ Premix 50 mls @ 25 mls/hr IV ONETIME ONE Stop: 11/25/17 15:26 Last Admin: 11/25/17 14:23 Dose: 25 mls/hr Iopamidol (Isovue-300 (61%)) 100 ml IVPUSH ONETIME ONE Stop: 11/24/17 09:13 Last Admin: 11/24/17 09:48 Dose: 100 ml Iopamidol (Isovue-300 (61%)) 150 ml IVPUSH ONETIME ONE Stop: 11/26/17 07:50 Ketorolac Tromethamine (Toradol) 30 mg IVPUSH ONETIME ONE Stop: 11/24/17 12:02 Last Admin: 11/24/17 12:12 Dose: 30 mg Ketorolac Tromethamine (Toradol) 30 mg IVPUSH Q8H [facility] Stop: 11/26/17 06:01 Last Admin: 11/24/17 23:36 Dose: Not Given Ketorolac Tromethamine (Toradol) 30 mg IVPUSH Q8H [facility] Stop: 11/26/17 06:31 Last Admin: 11/26/17 05:39 Dose: 30 mg Lorazepam (Ativan) 0.5 mg IVPUSH BID [facility] Stop: 11/25/17 21:01 Last Admin: 11/25/17 21:32 Dose: 0.5 mg Metoclopramide HCl (Reglan) 5 mg IVPUSH ONETIME ONE Stop: 11/24/17 08:45 Last Admin: 11/24/17 08:48 Dose: 5 mg Ondansetron HCl (Zofran) 4 mg IVPUSH ONETIME ONE Stop: 11/24/17 07:08 Last Admin: 11/24/17 07:14 Dose: 4 mg Ondansetron HCl (Zofran) 4 mg IVPUSH ONETIME ONE Stop: 11/24/17 10:44 Last Admin: 11/24/17 11:00 Dose: 4 mg Potassium Chloride (Klor-Con M20) 40 meq PO BID [facility] Stop: 11/25/17 21:01 Last Admin: 11/25/17 12:32 Dose: 40 meq Promethazine HCl (Phenergan) Confirm Administered Dose 25 mg .ROUTE .STK-MED ONE Stop: 11/24/17 13:49 Last Admin: 11/24/17 15:04 Dose: Not Given Promethazine HCl (Phenergan) Confirm Administered Dose 25 mg .ROUTE .STK-MED ONE Stop: 11/25/17 08:16 Last Admin: 11/25/17 08:27 Dose: Not Given
[2017-11-26] MEDS ORDERED: Midazolam 1 MG/ML 2 ML SDV ONE (09:38)
[2017-11-26] MEDS ORDERED: Lidocaine 1% 4 ML ONE (09:38)
[2017-11-26] MEDS ORDERED: Propofol 200 MG/20 ML SDV ONE (09:38)
[2017-11-26] MEDS: Sodium Chloride 0.9% 10 ML Syringe FLUSH PRN (09:59)
[2017-11-26] MEDS: Enoxaparin 40 MG/0.4 ML Syringe SUBCUT SCH (10:40)
[2017-11-26] MEDS: Saccharomyces Boulardii (Probiotic) 250 MG Cap PO SCH (10:53)
[2017-11-26] MEDS: Potassium Chloride 20 MEQ Tab.ER PO SCH (10:53)
--- NOTE | 2017-11-26 10:54 | CT ---
CT chest Technique: Multiple axial sections through the chest are obtained from above the lung apices inferiorly through the lung bases. Intravenous contrast was utilized. Comparison: Prior chest CT study of 07/29/12. Findings: Mediastinum and hilar regions appear within normal limits. No axillary adenopathy is seen. No pericardial thickening is seen. Patchy peripheral parenchymal densities are noted within both upper lungs. Lesser peripheral densities are seen within the lung bases. Pleural-based nodule is noted within the lower right lung measuring about 1.0 cm. Lungs otherwise are clear. Impression: 1. Peripheral densities on both sides of the chest. Findings could represent fibrosis but recommend treatment as a pneumonia to see if findings improve. This finding is an interval change from prior CT study. 2. 1.0 cm nodule which is pleural-based within the right lung base. Recommend follow-up noncontrast chest CT study in one month. 3. No additional abnormality is seen on CT study of the chest. Diagnostic code #9 Executive Manager called and talked to Maria C Paris PA-C on 11/26/17 at 10:[address] abdomen and pelvis Technique: Multiple axial sections were obtained from above the dome of the diaphragm inferiorly through the pubic symphysis. Intravenous contrast was utilized. Small amount of oral contrast is seen within the colon residual from prior CT abdomen and pelvis exam. Comparison: Prior CT abdomen and pelvis exam of 11/24/17. Findings: Liver shows no focal parenchymal abnormality. Liver appears within normal limits. Adrenal glands show no nodule. Pancreas is within normal limits. Surgical clips are seen from prior cholecystectomy. Small hiatal hernia is noted. Aorta shows no aneurysm. No retroperitoneal adenopathy or mesenteric abnormalities are seen. Kidneys show symmetric contrast enhancement without hydronephrosis or mass. No retroperitoneal adenopathy or mesenteric abnormalities are seen. No pelvic mass or adenopathy is seen. Small amount of free fluid is seen within the pelvis most likely physiologic. Appendix is felt to be visualized and appears within normal limits. No inflammatory change is seen. Bone window settings were reviewed which show moderate anterior wedge deformity of L1 which appears old. Impression: 1. Incidental findings. Nothing acute is seen. Diagnostic code #2
[2017-11-26] MEDS ORDERED: Promethazine 25 MG/ML SDV ONE (11:02)
--- NOTE | 2017-11-26 11:51 | CR ---
Chest: Two views of the chest were obtained. Comparison: Prior chest x-ray of 11/25/17. Patchy peripheral densities are seen within both lungs. Findings are stable from previous exam. Heart size and mediastinum are normal. Bony structures are unremarkable. Impression: 1. Stable chest x-ray from prior exam. Diagnostic code #3
--- NOTE | 2017-11-26 12:28 | PCM.OPNOTE ---
- General Post-Op/Procedure Note Date of Surgery/Procedure: 11/26/17 Operative Procedure(s): egd with bx Findings: gastritis, duodenum fee of ulcers Pre Op Diagnosis: abdominal pain with elevate lipase Post-Op Diagnosis: Same Anesthesia Technique: MAC Primary Surgeon: Christopher Fuentes EBL in mLs: 0 Complications: None Condition: Good Free Text/Narrative:: Intake & Output 11/25/17 11/26/17 11/26/17 23:59 07:59 15:59 Intake Total 2257 1747 Output Total 600 3650 Balance 1657 -1909
--- NOTE | 2017-11-26 12:36 | PCM.POSTAN ---
POST ANESTHESIA ASSESSMENT - MENTAL STATUS Mental Status: Alert, Oriented - VITAL SIGNS Pulse Rate: 65 SaO2: 99 Resp Rate: 20 Blood Pressure: 138/93 Temperature: 99.1 F - RESPIRATORY Respiratory Status: Respiratory Rate WNL, Airway Patent, O2 Saturation Stable, Supplemental Oxygen - CARDIOVASCULAR CV Status: Pulse Rate WNL, Blood Pressure Stable - GASTROINTESTINAL GI Status: No Symptoms - PAIN Pain Score: 0 - POST OP HYDRATION Hydration Status: Adequate & Stable
--- NOTE | 2017-11-26 12:50 | PCM48HPAN ---
Post Anesthesia Note - EVALUATION WITHIN 48HRS OF ANESTHETIC Vital Signs in Normal Range: Yes Patient Participated in Evaluation: Yes Respiratory Function Stable: Yes Airway Patent: Yes Cardiovascular Function Stable: Yes Hydration Status Stable: Yes Pain Control Satisfactory: Yes (complains of back pain) Nausea and Vomiting Control Satisfactory: Yes Mental Status Recovered: Yes Pulse Rate: 65 Resp Rate: 18 Temperature: 99.1 F Blood Pressure: 138/93
[2017-11-26] MEDS: Levofloxacin/Dextrose 5%-Water 750 MG in Premix Bag 1 BAG IV SCH (13:12)
--- NOTE | 2017-11-26 15:58 | OR ---
DATE OF OPERATION: 11/26/2017 SURGEON: Christopher Fuentes MD PREOPERATIVE DIAGNOSIS: Abdominal pain, elevated lipase. POSTOPERATIVE DIAGNOSIS: Abdominal pain, elevated lipase. OPERATION PERFORMED: Esophagogastroduodenoscopy with biopsy. FINDINGS: Second portion of the duodenum, duodenal bulb, pyloric channel were unremarkable. Antrum showed chronic gastritis and some active gastritis in the body with some petechiae. There were no ulcerations noted. Biopsies of these 2 areas were done. J-maneuver showed intact hiatus, small sliding hiatal hernia noted. GE junction was located at 40 cm did not show any acute disease. Rest of the esophagus was free of any pathology. ANESTHESIA: IV sedation. DESCRIPTION OF PROCEDURE: The patient was taken to the operating room, placed in the supine position, connected to monitoring equipment, and given IV sedation. She was then placed in the left lateral position with bite block inserted and video Olympus gastroscope placed in the posterior oropharynx, under direct vision, threaded past the cricopharyngeus down the esophagus into the stomach. The stomach was insufflated, and the scope was passed through the pylorus to the second portion of the duodenum, slowly withdrawn showing no acute pathology in the 2nd portion of the duodenum, duodenal bulb over the pyloric channel. Antrum, however, showed some flattening of the mucosa and there were some petechiae in the body. These 2 areas were biopsied separately and sent. J-maneuver showed normal fundus and cardia. A small hiatal hernia was noted. The scope was withdrawn, the GE junction did not show acute pathology, it was located at 40 cm. Rest of the esophagus viewed as the scope withdrawn was normal. The patient tolerated the procedure, sent to recovery room in a stable condition, and specimen sent to pathology in a labeled container. ESTIMATED BLOOD LOSS: MMODAL /[id number]
[2017-11-26 16:23] VITALS: BP 124/79
--- NOTE | 2017-11-26 18:06 | PCM.DCSUM1 ---
Discharge Summary - Hospital Course Free Text/Narrative:: In to see Kishan. She is sitting up in bed visiting with . She states she is feeling better, but when she tried to eat last night she states she got nausea but no vomiting. Anti-emetics helped. Due to her constant abdominal pain , I explained we will be getting a CT of the abdomen and Dr. Fuentes will do an endoscopy this afternoon to r/o peptic ulcer. She understands and agrees with this plan. I also explained that her Respiratory Viral panel for PNA was negative and her CXR had also not shown improvement, so we ordered CT of the chest as well. Due to lack of improvement, we will stop Levaquin and start Doxycline to cover atypicals and other possible causes. All questions were answered and the pt understands the workup and treatment plan. No concerns from nursing. Will send home today if she can tolerate diet. CT chest came back abnormal. There is new nodule and densities are now bilateral. Will start Doxycline today. Recommend f/u outpt with pulmonology and repeat CT chest in 2 weeks. HPI Initial Comments: HPI: This is a 42 yo female with past medical hx/o HTN, fibroids, ETOH abuse and SA who comes in for PNA and mild pancreatitis. Pt c/o abdominal pain, N/V, diaphoresis, low back pain, dysuria x 10 days, chest pain, SOB. Patient denies any F/C, cough, Diarrhea, CP, heartburn, bloody urine or stool, or any other / GI complaints. Her symptoms improved after receiving IVF, Dilaudid, antiemetics and Levaquin in the ED. Her initial workup in the ED showed a CBC remarkable for Hct 45, Neut 63%. Her chemistry is remarkable for Anion Gap 15.5, Glucose 118, Lactic Acid 2.8, Lipase 1706. EKG shows sinus bradycardia, borderline Q waves in V2 and V3. CXR shows L mid lung parenchymal density. CT Ab/Pelvis shows mild intrahepatic biliary duct dilatation with normal size of CBD at the level of the pancreatic head, likely residual from prior cholecystectomy. U/A shows slightly cloudy, pH 8.5, trace protein, 1+ ketones, trace leuk esterase, few amorphous sediment. Drug screen positive for THC. ETOH 0. Blood culture pending. She is subsequently admitted to the medical floor. She is a Full Code. Her PCP is Harper Duarte PA-C. Diagnosis: Stroke: No - Discharge Data Discharge Date: 11/26/17 Discharge Disposition: Home, Self-Care 01 Condition: Good - Patient Summary/Data Operative Procedure(s) Performed: egd with bx Consults: Consultations 11/24/17 16:31 Respiratory Care Assess and Treatment [CONS] Routine - Patient Instructions Diet: Regular Diet as Tolerated Activity: As Tolerated Driving: May Drive Today Showering/Bathing: May Shower Notify Provider of: Fever, Increased Pain, Nausea and/or Vomiting - Discharge Plan *PRESCRIPTION DRUG MONITORING PROGRAM REVIEWED*: Not Applicable *COPY OF PRESCRIPTION DRUG MONITORING REPORT IN PATIENT [place]: Not Applicable Prescriptions/Med Rec: Doxycycline [Vibramycin] 100 mg PO BID #28 cap Saccharomyces Boulardii [Florastor] 250 mg PO BID #28 cap Home Medications: Home Meds Doxycycline [Vibramycin] 100 mg PO BID #28 cap 11/26/17 [Rx] Saccharomyces Boulardii [Florastor] 250 mg PO BID #28 cap 11/26/17 [Rx] Other Amb Orders: Chest wo Cont [CT] Time Frame: 12/12/17, Facility: [facility], Location: [facility] Patient Handouts: Acute Pancreatitis, [id number], Gastritis, Adult, Steps to Quit Smoking Referrals: Harper Duarte PA-C [Ordering Only Provider] - (Please call and schedule a follow-up appointment with your primary care doctor within 7 to 10 days of discharge. ) - Discharge Summary/Plan Comment DC Time >30 min.: No Discharge Summary/Plan Comment: I/P: Acute: Persistent Abdominal pain * R/O peptic ulcer * Risk factor: h/o peptic ulcer * H pylori negative * Repeat CT Ab/Pelvis 11/26/17 --> no acute findings * Consult General Surgeon Dr. Fuentes--> suspects ulcer * EGD this afternoon * NPO; advance diet as tolerated Density bilateral lungs with new nodule in R lung * Risk factor: Current some day smoker; 1 cigarette every 3-4 days per * SOB, Chills/diaphoresis, cough, no fever * CXR: * 1. Slight parenchymal density within the left mid lung. Findings could represent ill-defined mass versus pneumonia. Recommend treatment as a pneumonia with follow-up chest x-ray to make sure finding resolves. * Repeat CXR 11/25/17: * Continuing small parenchymal density is noted within the left mid to upper lung. Lungs otherwise are clear. * CT Chest 11/26/17: * 1. Peripheral densities on both sides of the chest. Findings could represent fibrosis but recommend treatment as a pneumonia to see if findings improve. This finding is an interval change from prior CT study. * 2. 1.0 cm nodule which is pleural-based within the right lung base. Recommend follow-up noncontrast chest CT study in one month. * 3. No additional abnormality is seen on CT study of the chest. * Levaquin started in ED--> D/C d/t lack of response; Start Doxycycline to cover atypicals * PNA workup negative: * RVP, Strep pneumo, Mycoplasma negative * Sputum culture unable to collect * R/O other causes: * Lyme pending * Br 125 pending * Robitussin DM, Tessloyanet [place] PRN * RT/Duonebs/IS/Acapella * Recommend f/u with pulmonology outpt with repeat CT chest Resolved: Mild Pancreatitis, Resolved * Abdominal pain * Lipase elevated at 1706--> 175--> 114 * h/o of Marijuana use--> query Marijuana precipitated Pancreatitis * CT Ab/Pelvis: * 1. Patchy parenchymal densities within the right lung base. Pneumonia is possible if patient has infectious symptoms. * 2. Mild intrahepatic biliary duct dilatation with normal size of CBD at the level of the pancreatic head. This most likely is residual from prior cholecystectomy. * 3. Mild increased stool throughout the colon and other incidental findings. * Repeat CT Ab/Pelvis 11/26/17 --> no acute findings * Consult General Surgeon Dr. Fuentes * IVF, pain management PRN * NPO; advance diet as tolerated Dysuria, Resolved * x 10 days per pt * "orange urine" * U/A shows: slightly cloudy, pH 8.5, trace protein, 1+ ketones, trace leuk esterase, few amorphous sediment * Urine culture--> no growth Low back pain, Resolved * No recent trauma per pt, likely 2/2 above and may have chronic component per * Physical exam unremarkable * Pain management PRN, heating pad PRN * May want to consider MRI in future if pain does not get better Chronic: HTN Fibroids h/o Substance Abuse * THC positive on drug screen in ED * tends to exaggerate symptoms and asks for more pain medication/water, but then can fall asleep without them * Limit amount of opioids given Tobacco Addiction * Current some day smoker; pt's states 1 cigarette every 3-4 days * Smoking cessation counseling given * Nicotine patches offered, does not feel she needs h/o ETOH abuse h/o Peptic Ulcer (about 14 years ago per pt) Plan: Admitted to medical floor Droplet Isolation Precaution She remains stable Other orders as indicated above Routine AM labs NPO--> clear liquid diet, tolerated soft at DC. DVT Prophylaxis: Lovenox GI Prophylaxis: Protonix Code Status: Full Code; PCP: Harper Duarte PA-C D/C pending toleration of diet D/C Plan: * Continue Protonix outpt if peptic ulcer found on EGD * Recommend outpt f/u Pulmonology for new nodule, to be determined after repeat CT of Chest w/o, 12/12 * PCP follow up in [address] * Doxy/Probiotic for 2 weeks. * Lab for atypical PNA, pending Additional CC's: Harper Duarte - General Info Date of Service: 11/24/17 Functional Status: Reports: Tolerating Diet, Ambulating, Urinating - Review of Systems General: Reports: No Symptoms HEENT: Reports: No Symptoms Pulmonary: Reports: No Symptoms Cardiovascular: Reports: No Symptoms Gastrointestinal: Reports: No Symptoms Genitourinary: Reports: No Symptoms Musculoskeletal: Reports: No Symptoms Skin: Reports: No Symptoms Neurological: Reports: No Symptoms Psychiatric: Reports: No Symptoms - Patient Data Vitals - Most Recent: Last Vital Signs Temp 37.3 C 11/26/17 15:20 Pulse 60 11/26/17 15:20 Resp 14 11/26/17 15:20 BP 124/79 11/26/17 15:20 Pulse Ox 99 11/26/17 15:20 Weight - Most Recent: 83.518 kg I&O - Last 24 hours: Intake & Output 11/26/17 11/26/17 11/26/17 06:59 14:59 22:59 Intake Total 1747 50 1821 Output Total 3650 400 1100 Balance -1903 -350 721 Lab Results - Last 24 hrs: Laboratory Results - last 24 hr 09/24/18 09/26/18 09/26/18 Range/Units 14:50 05:34 05:34 WBC 4.31 (3.98-10.04) K/mm3 RBC 3.93 L (3.98-5.22) M/mm3 Hgb 11.9 (11.2-15.7) gm/L Hct 36.4 (34.1-44.9) % MCV 92.6 (79.4-94.8) fl MCH 30.3 (25.6-32.2) pg MCHC 32.7 (32.2-35.5) g/dl RDW Std Deviation 40.2 (36.4-46.3) fL Plt Count 208 (182-369) K/mm3 MPV 10.8 (9.4-12.3) fl Neut % (Auto) 42.9 (34.0-71.1) % Lymph % (Auto) 45.9 (19.3-51.7) % [place] % (Auto) 8.4 (4.7-12.5) % Eos % (Auto) 1.9 (0.7-5.8) Baso % (Auto) 0.7 (0.1-1.2) % Neut # (Auto) 1.85 (1.56-6.13) K/mm3 Lymph # (Auto) 1.98 (1.18-3.74) K/mm3 [place] # (Auto) 0.36 (0.24-0.36) K/mm3 Eos # (Auto) 0.08 (0.04-0.36) K/mm3 Baso # (Auto) 0.03 (0.01-0.08) K/mm3 ESR (0-20) mm/hr Sodium 139 (136-145) mEq/L Potassium 4.4 (3.5-5.1) mEq/L Chloride 110 H (98-107) mEq/L Carbon Dioxide 25 (21-32) mEq/L Anion Gap 8.4 (5-15) BUN 8 (7-18) mg/dL Creatinine 0.8 (0.55-1.02) mg/dL Est Cr Clr Drug Dosing 104.48 mL/min Estimated GFR (MDRD) > 60 (>60) mL/min BUN/Creatinine Ratio 10.0 L (14-18) Glucose 89 (74-106) mg/dL Calcium 8.1 L (8.5-10.1) mg/dL Magnesium 2.0 (1.8-2.4) mg/dl Creatine Kinase (26-192) U/L Lipase (73-393) U/L Adenovirus (PCR) Not detected (Not Detected) B. pertussis DNA (PCR) Not detected (Not Detected) B.parapertussis DNA PCR Not detected (Not Detected) C. pneumoniae DNA (PCR) Not detected (Not Detected) Coronavirus (PCR) Not detected (Not Detected) Human Metapneumovir PCR Not detected (Not Detected) Influenza A (RT-PCR) Not detected (Not Detected) Influenza B (RT-PCR) Not detected (Not Detected) M. pneumoniae (PCR) Not detected (Not Detected) Parainfluen 1,2,3,4 PCR Not detected (Not Detected) RSV (PCR) Not detected (Not Detected) Entero/Rhino (PCR) Not detected (Not Detected) 11/26/17 11/26/17 11/26/17 Range/Units 05:34 05:34 05:36 WBC (3.98-10.04) K/mm3 RBC (3.98-5.22) M/mm3 Hgb (11.2-15.7) gm/L Hct (34.1-44.9) % MCV (79.4-94.8) fl MCH (25.6-32.2) pg MCHC (32.2-35.5) g/dl RDW Std Deviation (36.4-46.3) fL Plt Count (182-369) K/mm3 MPV (9.4-12.3) fl Neut % (Auto) (34.0-71.1) % Lymph % (Auto) (19.3-51.7) % [place] % (Auto) (4.7-12.5) % Eos % (Auto) (0.7-5.8) Baso % (Auto) (0.1-1.2) % Neut # (Auto) (1.56-6.13) K/mm3 Lymph # (Auto) (1.18-3.74) K/mm3 [place] # (Auto) (0.24-0.36) K/mm3 Eos # (Auto) (0.04-0.36) K/mm3 Baso # (Auto) (0.01-0.08) K/mm3 ESR 8 (0-20) mm/hr Sodium (136-145) mEq/L Potassium (3.5-5.1) mEq/L Chloride (98-107) mEq/L Carbon Dioxide (21-32) mEq/L Anion Gap (5-15) BUN (7-18) mg/dL Creatinine (0.55-1.02) mg/dL Est Cr Clr Drug Dosing mL/min Estimated GFR (MDRD) (>60) mL/min BUN/Creatinine Ratio (14-18) Glucose (74-106) mg/dL Calcium (8.5-10.1) mg/dL Magnesium (1.8-2.4) mg/dl Creatine Kinase 81 (26-192) U/L Lipase 114 (73-393) U/L Adenovirus (PCR) (Not Detected) B. pertussis DNA (PCR) (Not Detected) B.parapertussis DNA PCR (Not Detected) C. pneumoniae DNA (PCR) (Not Detected) Coronavirus (PCR) (Not Detected) Human Metapneumovir PCR (Not Detected) Influenza A (RT-PCR) (Not Detected) Influenza B (RT-PCR) (Not Detected) M. pneumoniae (PCR) (Not Detected) Parainfluen 1,2,3,4 PCR (Not Detected) RSV (PCR) (Not Detected) Entero/Rhino (PCR) (Not Detected) [place] Results - Last 24 hrs: Microbiology 11/25/17 13:25 Helicobacter pylori Antigen - Final Stool / Feces NEGATIVE H. PYLORI AG 11/26/17 10:22 Gram Stain - Final Sputum - Expectorated Sputum Culture - Final 11/24/17 08:40 Urine Culture - Final Urine, Clean Catch 11/24/17 08:40 Streptococcus pneumoniae Antigen (M - Final Urine 11/24/17 07:24 Aerobic Blood Culture - Preliminary Blood NO GROWTH AFTER 2 DAYS Anaerobic Blood Culture - Preliminary NO GROWTH AFTER 2 DAYS Med Orders - Current: Current Medications Acetaminophen (Tylenol) 650 mg PO Q4H PRN PRN Reason: Pain (Mild 1-3)/fever Al Hydroxide/Mg Hydroxide (Mag-Al Plus) 30 ml PO Q4H PRN PRN Reason: Heartburn Last Admin: 11/24/17 17:17 Dose: 30 ml Albuterol (Proventil Neb Soln) 2.5 mg NEB Q2H PRN PRN Reason: Shortness Of Breath/wheezing Albuterol/Ipratropium (Duoneb 3.0-0.5 Mg/3 Ml) 3 ml NEB Q4H PRN PRN Reason: Shortness Of Breath/wheezing Benzonatate (Tessalon Perles) 100 mg PO TID PRN PRN Reason: Cough Bisacodyl (Dulcolax) 5 mg PO DAILY PRN PRN Reason: Constipation Docusate Sodium (Colace) 100 mg PO BID PRN PRN Reason: Constipation Doxycycline Hyclate (Vibramycin) 100 mg PO BID [facility] Enoxaparin Sodium (Lovenox) 40 mg SUBCUT DAILY [facility] Last Admin: 11/26/17 10:40 Dose: 40 mg Guaifenesin/Phenylephrine HCl (Robitussin Dm) 5 ml PO Q4H PRN PRN Reason: Cough Hydromorphone HCl (Dilaudid) 0.5 mg IVPUSH Q4H PRN PRN Reason: Pain (moderate 4-6) Last Admin: 11/26/17 13:19 Dose: 0.5 mg Lactated Ringer's (Ringers, Lactated) 1,000 mls @ 150 mls/hr IV ASDIRECTED [facility] Last Admin: 11/26/17 08:46 Dose: 150 mls/hr Promethazine HCl 25 mg/ Sodium (Chloride) 51 mls @ 100 mls/hr IV Q6H [facility] Last Admin: 11/26/17 11:06 Dose: 100 mls/hr Magnesium Hydroxide (Milk Of Magnesia) 30 ml PO Q12H PRN PRN Reason: Constipation Ondansetron HCl (Zofran) 4 mg IVPUSH Q8H PRN PRN Reason: Nausea/Vomiting Pantoprazole Sodium (Protonix Iv) 40 mg IVPUSH Q12H [facility] Last Admin: 11/26/17 15:49 Dose: 40 mg Polyethylene Glycol (Miralax) 17 gm PO DAILY PRN PRN Reason: Constipation Saccharomyces Boulardii (Florastor) 250 mg PO BID [facility] Last Admin: 11/26/17 10:53 Dose: Not Given Senna/Docusate Sodium (Senna Plus) 1 tab PO BID PRN PRN Reason: Constipation Sodium Chloride (Saline Flush) 10 ml FLUSH ASDIRECTED PRN PRN Reason: Keep Vein Open Last Admin: 11/24/17 07:41 Dose: 10 ml Sodium Chloride (Saline Flush) 10 ml FLUSH ONETIME PRN PRN Reason: IV FLUSH Last Admin: 11/26/17 09:59 Dose: 10 ml Temazepam (Restoril) 15 mg PO BEDTIME PRN PRN Reason: Insomnia Last Admin: 11/25/17 21:50 Dose: 15 mg Discontinued Medications Diatrizoate Meglum/Diatrizoate Sod (Gastrografin 37%) 120 ml PO ONETIME ONE Stop: 11/24/17 09:13 Last Admin: 11/24/17 09:49 Dose: 90 ml Hydromorphone HCl (Dilaudid) 0.5 mg IVPUSH ONETIME ONE Stop: 11/24/17 07:08 Last Admin: 11/24/17 07:15 Dose: 0.5 mg Hydromorphone HCl (Dilaudid) 0.5 mg IVPUSH ONETIME ONE Stop: 11/24/17 07:52 Last Admin: 11/24/17 08:07 Dose: 0.5 mg Hydromorphone HCl (Dilaudid) 0.5 mg IVPUSH ONETIME ONE Stop: 11/24/17 09:23 Last Admin: 11/24/17 09:23 Dose: 0.5 mg Hydromorphone HCl (Dilaudid) Confirm Administered Dose 0.5 mg .ROUTE .STK-MED ONE Stop: 11/24/17 09:21 Last Admin: 11/24/17 09:35 Dose: Not Given Hydromorphone HCl (Dilaudid) 0.5 mg IVPUSH ONETIME ONE Stop: 11/24/17 11:05 Last Admin: 11/24/17 11:05 Dose: 0.5 mg Hydromorphone HCl (Dilaudid) 1 mg IVPUSH Q4H PRN PRN Reason: Pain (moderate 4-6) Last Admin: 11/25/17 10:23 Dose: 1 mg Sodium Chloride (Normal Saline) 1,000 mls @ 999 mls/hr IV ONETIME JOHN Last Admin: 11/24/17 07:14 Dose: 999 mls/hr Sodium Chloride (Normal Saline) 1,000 mls @ 999 mls/hr IV ONETIME JOHN Last Admin: 11/24/17 08:48 Dose: 999 mls/hr Sodium Chloride (Normal Saline) 1,000 mls @ 999 mls/hr IV ONETIME ONE Stop: 11/24/17 13:01 Last Admin: 11/24/17 12:13 Dose: 999 mls/hr Levofloxacin/Dextrose 750 mg/ (Premix) 150 mls @ 100 mls/hr IV ONETIME ONE Stop: 11/24/17 13:38 Last Admin: 11/24/17 12:18 Dose: 100 mls/hr Promethazine HCl 25 mg/ Sodium (Chloride) 51 mls @ 100 mls/hr IV Q6H JOHN Last Admin: 11/25/17 17:46 Dose: Not Given Lactated Ringer's (Ringers, Lactated) 1,000 mls @ 999 mls/hr IV .BOLUS ONE Stop: 11/24/17 14:36 Last Admin: 11/24/17 13:54 Dose: 999 mls/hr Levofloxacin/Dextrose 750 mg/ (Premix) 150 mls @ 100 mls/hr IV Q24H [facility] Last Admin: 11/26/17 13:12 Dose: Not Given Lactated Ringer's (Ringers, Lactated) 2,000 mls @ 999 mls/hr IV BOLUS ONE Stop: 11/24/17 16:00 Last Admin: 11/24/17 15:54 Dose: 999 mls/hr Magnesium Sulfate 4 gm/ Premix 100 mls @ 25 mls/hr IV ONETIME ONE Stop: 11/25/17 10:59 Last Admin: 11/25/17 13:36 Dose: Not Given Magnesium Sulfate 2 gm/ Premix 50 mls @ 25 mls/hr IV ONETIME ONE Stop: 11/25/17 15:26 Last Admin: 11/25/17 14:23 Dose: 25 mls/hr Lidocaine HCl (Xylocaine-Mpf 1%) Confirm Administered Dose 4 mls @ as directed .ROUTE .STK-MED ONE Stop: 11/26/17 09:39 Doxycycline Hyclate 100 mg/ (Sodium Chloride) 100 mls @ 100 mls/hr IV Q12HR JOHN Iopamidol (Isovue-300 (61%)) 100 ml IVPUSH ONETIME ONE Stop: 11/24/17 09:13 Last Admin: 11/24/17 09:48 Dose: 100 ml Iopamidol (Isovue-300 (61%)) 150 ml IVPUSH ONETIME ONE Stop: 11/26/17 07:50 Last Admin: 11/26/17 09:59 Dose: 125 ml Ketorolac Tromethamine (Toradol) 30 mg IVPUSH ONETIME ONE Stop: 11/24/17 12:02 Last Admin: 11/24/17 12:12 Dose: 30 mg Ketorolac Tromethamine (Toradol) 30 mg IVPUSH Q8H [facility] Stop: 11/26/17 06:01 Last Admin: 11/24/17 23:36 Dose: Not Given Ketorolac Tromethamine (Toradol) 30 mg IVPUSH Q8H [facility] Stop: 11/26/17 06:31 Last Admin: 11/26/17 05:39 Dose: 30 mg Lorazepam (Ativan) 0.5 mg IVPUSH BID [facility] Stop: 11/25/17 21:01 Last Admin: 11/25/17 21:32 Dose: 0.5 mg Metoclopramide HCl (Reglan) 5 mg IVPUSH ONETIME ONE Stop: 11/24/17 08:45 Last Admin: 11/24/17 08:48 Dose: 5 mg Midazolam HCl (Versed 1 Mg/Ml) Confirm Administered Dose 2 mg .ROUTE .STK-MED ONE Stop: 11/26/17 09:39 Ondansetron HCl (Zofran) 4 mg IVPUSH ONETIME ONE Stop: 11/24/17 07:08 Last Admin: 11/24/17 07:14 Dose: 4 mg Ondansetron HCl (Zofran) 4 mg IVPUSH ONETIME ONE Stop: 11/24/17 10:44 Last Admin: 11/24/17 11:00 Dose: 4 mg Potassium Chloride (Klor-Con M20) 40 meq PO BID [facility] Stop: 11/25/17 21:01 Last Admin: 11/25/17 12:32 Dose: 40 meq Potassium Chloride (Klor-Con M20) 60 meq PO TID [facility] Last Admin: 11/26/17 10:53 Dose: Not Given Promethazine HCl (Phenergan) Confirm Administered Dose 25 mg .ROUTE .STK-MED ONE Stop: 11/24/17 13:49 Last Admin: 11/24/17 15:04 Dose: Not Given Promethazine HCl (Phenergan) Confirm Administered Dose 25 mg .ROUTE .STK-MED ONE Stop: 11/25/17 08:16 Last Admin: 11/25/17 08:27 Dose: Not Given Promethazine HCl (Phenergan) Confirm Administered Dose 25 mg .ROUTE .STK-MED ONE Stop: 11/26/17 11:03 Last Admin: 11/26/17 12:36 Dose: Not Given Propofol (Diprivan 20 Ml) Confirm Administered Dose 400 mg .ROUTE .STK-MED ONE Stop: 11/26/17 09:39 Sodium Chloride (Saline Flush) 10 ml FLUSH ONETIME PRN PRN Reason: IV FLUSH Stop: 11/26/17 10:00 - Exam Quality Assessment: Reports: DVT Prophylaxis General: Reports: Alert, Oriented, Cooperative, No Acute Distress HEENT: Reports: Pupils Equal, Pupils Reactive, EOMI Neck: Reports: Trachea Midline, No JVD Lungs: Reports: Clear to Auscultation, Normal Respiratory Effort Cardiovascular: Reports: Regular Rate, Regular Rhythm GI/Abdominal Exam: Normal Bowel Sounds, Soft, Non-Tender, No Organomegaly, No Distention (Female) Exam: Deferred Rectal (Female) Exam: Deferred Back Exam: Reports: Normal Inspection Extremities: Normal Inspection, Normal Range of Motion, Non-Tender, No Pedal Edema, Normal Capillary Refill Skin: Reports: Warm, Dry, Intact Neurological: Reports: No New Focal Deficit, Normal Gait, Normal Speech Psy/Mental Status: Reports: Alert, Normal Affect, Normal Mood
[2017-11-26] MEDS ORDERED: Pneumococcal Polyvalent-23 Vaccine 0.5 ML SDV IM ONE (18:28)
[2017-11-26] MEDS ORDERED: Doxycycline 100 MG in Sodium Chloride 0.9% 100 ML IV SCH (21:00)
[2017-11-26] MEDS ORDERED: Doxycycline 100 MG Cap PO SCH (21:00)
== END 2017-11-26 17:00 | disposition home or self-care (01) | DRG 282 ==
LOC: JD.ED 06:43 → JD.MS 12:30
PROVIDERS: ADMIT Internal Medicine Cardiovascular Disease; ATTEND Internal Medicine Cardiovascular Disease
PROC: 0DB78ZX Excision of Stomach, Pylorus, Via Natural or Artificial Opening Endoscopic, Diagnostic (ICD-10-PCS; principal; 2017-11-26)
PROC: 3E0234Z Introduction of Serum, Toxoid and Vaccine into Muscle, Percutaneous Approach (ICD-10-PCS; 2017-11-26)
DX: K85.90 Acute pancreatitis without necrosis or infection, unspecified (principal); J18.9 Pneumonia, unspecified organism; E86.0 Dehydration; I10 Essential (primary) hypertension; F10.10 Alcohol abuse, uncomplicated; R91.1 Solitary pulmonary nodule; F17.210 Nicotine dependence, cigarettes, uncomplicated; R30.0 Dysuria; M54.5 Low back pain; G89.29 Other chronic pain; D21.9 Benign neoplasm of connective and other soft tissue, unspecified; F12.10 Cannabis abuse, uncomplicated; K29.50 Unspecified chronic gastritis without bleeding; K44.9 Diaphragmatic hernia without obstruction or gangrene; Z87.11 Personal history of peptic ulcer disease; Z88.0 Allergy status to penicillin; Z90.49 Acquired absence of other specified parts of digestive tract; Z23 Encounter for immunization
CPT/HCPCS: 36415; 71045; 71045-26; 71046; 71046-26; 71260; 71260-26; 74177; 74177-26; 80048; 80053; 80306; 81001; 82550; 83605; 83690; 83735; 85007; 85025; 85027; 85652; 86140; 86304; 86677; 86738; 87040; 87086; 87205; 87338; 87476; 87486; 87581; 87632; 87798; 87899; 90471; 90732; 93005; 93010; 94667; 94760; 96361; 96365; 96375; 96376; 99285-25; A9270-GY; C9113; G0480; J1170; J1650; J1885; J1956; J2001; J2060; J2250; J2405; J2550; J2704; J2765; J3475; J7040; J7050; J7120; Q9963; Q9967

== ENCOUNTER 2018-03-18 16:01 | Emergency (ER) | payer BC ==
[2018-03-18 16:08] VITALS: BP 116/80
[2018-03-18] MEDS ORDERED: Sodium Chloride 0.9% 10 ML Syringe FLUSH PRN (16:28)
[2018-03-18] MEDS ORDERED: Sodium Chloride 0.9% 1,000 ML IV STA (16:28)
[2018-03-18] MEDS ORDERED: HYDROmorphone 1 MG/ML Syringe IVPUSH ONE (17:13)
[2018-03-18] MEDS ORDERED: Metoclopramide 10 MG/2 ML SDV IVPUSH ONE (17:13)
--- NOTE | 2018-03-18 17:50 | EDM.PDOC ---
ED HPI GENERAL MEDICAL PROBLEM - General Chief Complaint: Abdominal Pain Stated Complaint: [facility] Time Seen by Provider: 03/18/18 16:05 Source of Information: Reports: Patient, EMS History Limitations: Reports: No Limitations - History of Present Illness INITIAL COMMENTS - FREE TEXT/NARRATIVE: The patient presents with severe abdominal pain nausea and vomiting. This started last night and it got worse today. She is about due for her period and she says it happens about that time. She has a history of pancreatitis and this feels similar. The pain does radiate into her back. She has chills. She needed to get in a hot shower today and she ran out of hot water. She does admit to smoking marijuana. She says she did have some after this all started. She has no diarrhea or dysuria. She had her gallbladder taken out but she still has an appendix. Onset: Gradual Duration: Day(s): (Last night) Location: Reports: Abdomen, Back Quality: Reports: Sharp Severity: Severe Improves with: Reports: None Worsens with: Reports: None Associated Symptoms: Reports: Fever/Chills, Nausea/Vomiting. Denies: Chest Pain , Cough, Headaches, Shortness of Breath Back Pain Score (Numeric/FACES): 7 - Related Data Allergies Allergy/AdvReac Type Severity Reaction Status Date / Time Penicillins Allergy Cannot Verified 03/18/18 16:08 Remember Home Meds: Home Meds Amphetamine Sulfate 20 mg PO DAILY 01/23/18 [History] Hydrocodone/Acetaminophen [Hydrocodon-Acetaminophen 5-325] 1 - 2 each PO Q6HR PRN #20 tablet 03/18/18 [Rx] Ondansetron [Zofran ODT] 4 mg PO Q6H PRN #20 tab.dis 03/18/18 [Rx] Past Medical History - Past Health History Medical/Surgical History: Denies Medical/Surgical History Cardiovascular History: Reports: None Respiratory History: Reports: None [employer] History: Reports: Psychiatric History: Reports: ADHD Endocrine/Metabolic History: Reports: Other (See Below) Oncologic (Cancer) History: Reports: None - Past Surgical History HEENT Surgical History: Reports: Oral Surgery GI Surgical History: Reports: Cholecystectomy - History Comment History Comment: add meds but not taking them routinely Social & Family History - Family History Family Medical History: Noncontributory Cardiac: Reports: [place] Neurological: Reports: CVA Oncologic: Reports: Lung, Lymphoma - Tobacco Use Smoking Status *Q: Current Every Day Smoker Years of Tobacco use: 4 Packs/Tins Daily: 0.2 - Caffeine Use Caffeine Use: Reports: Coffee, Energy Drinks - Recreational Drug Use Recreational Drug Use: No ED ROS GENERAL - Review of Systems Review Of Systems: See Below Constitutional: Reports: Chills HEENT: Reports: No Symptoms Respiratory: Reports: No Symptoms Cardiovascular: Reports: No Symptoms Endocrine: Reports: No Symptoms GI/Abdominal: Reports: Abdominal Pain, Nausea, Vomiting. Denies: Diarrhea : Reports: No Symptoms Musculoskeletal: Reports: Back Pain Skin: Reports: No Symptoms Neurological: Reports: No Symptoms ED EXAM, GI/ABD - Physical Exam Exam: See Below Exam Limited By: No Limitations General Appearance: Alert, No Apparent Distress Ears: Normal External Exam Nose: Normal Inspection Head: Atraumatic, Normocephalic Neck: Normal Inspection Respiratory/Chest: No Respiratory Distress, Lungs Clear, Normal Breath Sounds Cardiovascular: Regular Rate, Rhythm, No Edema, No Murmur GI/Abdominal Exam: Soft, No Organomegaly, No Mass, Tender (Mild to moderate generalized tenderness) Back Exam: Normal Inspection Extremities: Normal Inspection Course - Vital Signs Last Recorded V/S: Last Vital Signs Temp 99.3 F 03/18/18 16:05 Pulse 76 03/18/18 16:05 Resp 18 03/18/18 16:05 BP 116/80 03/18/18 16:05 Pulse Ox 100 03/18/18 16:05 - Orders/Labs/Meds Orders: Active Orders 24 hr Category Date Time Status Peripheral IV Care [RC] . DIRECTED Care 03/18/18 16:28 Active Sodium Chloride 0.9% [Saline Flush] Med 03/18/18 16:28 Active 10 ml FLUSH ASDIRECTED PRN Peripheral IV Insertion Adult [OM.PC] Stat Oth 03/18/18 16:28 Ordered Medication Orders Sodium Chloride (Saline Flush) 10 ml FLUSH ASDIRECTED PRN PRN Reason: Keep Vein Open Last Admin: 03/18/18 16:42 Dose: 10 ml Labs: Laboratory Tests 03/18/18 03/18/18 03/18/18 Range/Units 17:00 17:00 17:00 WBC 8.72 (3.98-10.04) K/mm3 RBC 4.39 (3.98-5.22) M/mm3 Hgb 13.5 (11.2-15.7) gm/L Hct 39.5 (34.1-44.9) % MCV 90.0 (79.4-94.8) fl MCH 30.8 (25.6-32.2) pg MCHC 34.2 (32.2-35.5) g/dl RDW Std Deviation 39.5 (36.4-46.3) fL Plt Count 273 (182-369) K/mm3 MPV 10.3 (9.4-12.3) fl Neut % (Auto) 85.1 H (34.0-71.1) % Lymph % (Auto) 8.3 L (19.3-51.7) % [place] % (Auto) 6.4 (4.7-12.5) % Eos % (Auto) 0.1 L (0.7-5.8) Baso % (Auto) 0.1 (0.1-1.2) % Neut # (Auto) 7.42 H (1.56-6.13) K/mm3 Lymph # (Auto) 0.72 L (1.18-3.74) K/mm3 [place] # (Auto) 0.56 H (0.24-0.36) K/mm3 Eos # (Auto) 0.01 L (0.04-0.36) K/mm3 Baso # (Auto) 0.01 (0.01-0.08) K/mm3 Manual Slide Review Abnormal smear Sodium 135 L (136-145) mEq/L Potassium 3.2 L (3.5-5.1) mEq/L Chloride 99 (98-107) mEq/L Carbon Dioxide 25 (21-32) mEq/L Anion Gap 14.2 (5-15) BUN 13 (7-18) mg/dL Creatinine 0.8 (0.55-1.02) mg/dL Est Cr Clr Drug Dosing 104.48 mL/min Estimated GFR (MDRD) > 60 (>60) mL/min BUN/Creatinine Ratio 16.3 (14-18) Glucose 111 H (74-106) mg/dL Calcium 9.5 (8.5-10.1) mg/dL Total Bilirubin 0.9 (0.2-1.0) mg/dL AST 25 (15-37) U/L ALT 41 (14-59) U/L Alkaline Phosphatase 56 (46-116) U/L Total Protein 7.0 (6.4-8.2) g/dl Albumin 3.9 (3.4-5.0) g/dl Globulin 3.1 gm/dL Albumin/Globulin Ratio 1.3 (1-2) Lipase 315 (73-393) U/L HCG, Qual Negative (NEGATIVE) Urine Color (Yellow) Urine Appearance (Clear) Urine pH (5.0-8.0) Ur Specific [place] (1.005-1.030) Urine Protein (Negative) Urine Glucose (UA) (Negative) Urine Ketones (Negative) Urine Occult Blood (Negative) Urine Nitrite (Negative) Urine Bilirubin (Negative) Urine Urobilinogen (0.2-1.0) Ur Leukocyte Esterase (Negative) Urine RBC (0-5) /hpf Urine WBC (0-5) /hpf Ur Epithelial Cells (0-5) /hpf Urine Bacteria (FEW) /hpf Urine Mucus (FEW) /hpf 03/18/18 Range/Units 17:20 WBC (3.98-10.04) K/mm3 RBC (3.98-5.22) M/mm3 Hgb (11.2-15.7) gm/L Hct (34.1-44.9) % MCV (79.4-94.8) fl MCH (25.6-32.2) pg MCHC (32.2-35.5) g/dl RDW Std Deviation (36.4-46.3) fL Plt Count (182-369) K/mm3 MPV (9.4-12.3) fl Neut % (Auto) (34.0-71.1) % Lymph % (Auto) (19.3-51.7) % [place] % (Auto) (4.7-12.5) % Eos % (Auto) (0.7-5.8) Baso % (Auto) (0.1-1.2) % Neut # (Auto) (1.56-6.13) K/mm3 Lymph # (Auto) (1.18-3.74) K/mm3 [place] # (Auto) (0.24-0.36) K/mm3 Eos # (Auto) (0.04-0.36) K/mm3 Baso # (Auto) (0.01-0.08) K/mm3 Manual Slide Review Sodium (136-145) mEq/L Potassium (3.5-5.1) mEq/L Chloride (98-107) mEq/L Carbon Dioxide (21-32) mEq/L Anion Gap (5-15) BUN (7-18) mg/dL Creatinine (0.55-1.02) mg/dL Est Cr Clr Drug Dosing mL/min Estimated GFR (MDRD) (>60) mL/min BUN/Creatinine Ratio (14-18) Glucose (74-106) mg/dL Calcium (8.5-10.1) mg/dL Total Bilirubin (0.2-1.0) mg/dL AST (15-37) U/L ALT (14-59) U/L Alkaline Phosphatase (46-116) U/L Total Protein (6.4-8.2) g/dl Albumin (3.4-5.0) g/dl Globulin gm/dL Albumin/Globulin Ratio (1-2) Lipase (73-393) U/L HCG, Qual (NEGATIVE) Urine Color Yellow (Yellow) Urine Appearance Clear (Clear) Urine pH 6.5 (5.0-8.0) Ur Specific [place] 1.015 (1.005-1.030) Urine Protein Negative (Negative) Urine Glucose (UA) Negative (Negative) Urine Ketones Negative (Negative) Urine Occult Blood 1+ H (Negative) Urine Nitrite Negative (Negative) Urine Bilirubin Negative (Negative) Urine Urobilinogen 0.2 (0.2-1.0) Ur Leukocyte Esterase Trace H (Negative) Urine RBC 0-5 (0-5) /hpf Urine WBC 0-5 (0-5) /hpf Ur Epithelial Cells 0-5 (0-5) /hpf Urine Bacteria Few (FEW) /hpf Urine Mucus Not seen (FEW) /hpf Meds: Medications Generic Name Dose Route Start Last Admin Trade Name Freq PRN Reason Stop Dose Admin Sodium Chloride 10 ml 03/18/18 16:28 03/18/18 16:42 Saline Flush FLUSH 10 ml ASDIRECTED PRN Administration Keep Vein Open Discontinued Medications Generic Name Dose Route Start Last Admin Trade Name Freq PRN Reason Stop Dose Admin Hydromorphone HCl 1 mg 03/18/18 17:13 03/18/18 17:23 Dilaudid IVPUSH 03/18/18 17:14 1 mg ONETIME ONE Administration Sodium Chloride 1,000 mls @ 1,000 mls/hr 03/18/18 16:28 03/18/18 16:42 Normal Saline IV 03/18/18 17:27 1,000 mls/hr .BOLUS STA Administration Sodium Chloride 1,000 mls @ 1,000 mls/hr 03/18/18 18:07 03/18/18 18:25 Normal Saline IV 03/18/18 19:06 1,000 mls/hr ONETIME ONE Administration Metoclopramide HCl 10 mg 03/18/18 17:13 03/18/18 17:23 Reglan IVPUSH 03/18/18 17:14 10 mg ONETIME ONE Administration - Re-Assessments/Exams Free Text/Narrative Re-Assessment/Exam: 03/18/18 17:53 I ordered an IV NS 1L bolus, labs, and UA. She was given fentanyl and zofran by EMS. Her CBC looks good. Her K was a little low at 3.2. Her lipase was normal. She had more pain and nausea so I gave her reglan 10mg IV and dilaudid. 03/18/18 19:43 Her US shows pelvic varicosities. These are an interval change from prior pelvic US. Pelvic US is otherwise unremarkable. She is feeling better. This could be the cause of some of her pain but it does not explain everything. I will give her something for pain and nausea and have her follow up with Dr Vazquez in the clinic. I want her to stop using the marijuana. I do not think that is helping her. Departure - Departure Time of Disposition: 19:50 Disposition: Home, Self-Care 01 Condition: Good Clinical Impression: Pelvic varices Abdominal pain Qualifiers: Abdominal location: left lower quadrant Qualified Code(s): R10.32 - Left lower quadrant pain Vomiting Qualifiers: Vomiting type: unspecified Vomiting Intractability: non-intractable Nausea presence: with nausea Qualified Code(s): R11.2 - Nausea with vomiting, unspecified - Discharge Information *PRESCRIPTION DRUG MONITORING PROGRAM REVIEWED*: No *COPY OF PRESCRIPTION DRUG MONITORING REPORT IN PATIENT [place]: No Prescriptions: Hydrocodone/Acetaminophen [Hydrocodon-Acetaminophen 5-325] 1 - 2 each PO Q6HR PRN #20 tablet PRN Reason: Pain Ondansetron [Zofran ODT] 4 mg PO Q6H PRN #20 tab.dis PRN Reason: Nausea\vomiting Referrals: Harper Duarte PA-C [Primary Care Provider] - Luzmaria Vazquez MD [Physician] - 1 Week Forms: ED Department Discharge Additional Instructions: Drink plenty of fluids. Take zofran as needed for nausea and vomiting. Take the hydrocodone for pain. Follow up with Dr Vazquez within a week. Please return if you are worse. Try to stop the marijuana use. I do not think it is helping you and I feel it is making your feel worse. - My Orders Last 24 Hours: My Active Orders 03/18/18 16:28 Peripheral IV Care [RC] . DIRECTED Sodium Chloride 0.9% [Saline Flush] 10 ml FLUSH ASDIRECTED PRN Peripheral IV Insertion Adult [OM.PC] Stat - Assessment/Plan Last 24 Hours: My Active Orders 03/18/18 16:28 Peripheral IV Care [RC] . DIRECTED Sodium Chloride 0.9% [Saline Flush] 10 ml FLUSH ASDIRECTED PRN Peripheral IV Insertion Adult [OM.PC] Stat
[2018-03-18] MEDS ORDERED: Sodium Chloride 0.9% 1,000 ML IV ONE (18:07)
--- NOTE | 2018-03-18 19:34 | US ---
Pelvic ultrasound: Multiple real-time images were obtained transvaginally. Comparison: Prior pelvic ultrasound study of 07/13/12. Findings: Uterus is anteverted. No myometrial abnormality is seen. Pelvic varicosities are noted. Endometrial thickness is normal at 5 mm. Minimal fluid is seen within the endometrial cavity which is felt to be incidental. No free fluid is seen. Ovaries are unremarkable. Measurements: Uterus: Length 8.9 cm, AP height 5.1 cm, transverse with 5.7 cm Right ovary: 2.8 x 1.5 x 1.9 cm Left ovary: 2.8 x 1.4 x 1.7 cm Impression: 1. Pelvic varicosities. These are an interval change from prior pelvic ultrasound. 2. Pelvic ultrasound is otherwise unremarkable. Diagnostic code #3
== END 2018-03-18 20:00 | disposition home or self-care (01) ==
LOC: JD.ED 16:01
DX: I86.2 Pelvic varices (principal); R11.2 Nausea with vomiting, unspecified; F90.9 Attention-deficit hyperactivity disorder, unspecified type; F17.200 Nicotine dependence, unspecified, uncomplicated; Z79.899 Other long term (current) drug therapy; Z90.49 Acquired absence of other specified parts of digestive tract; Z98.890 Other specified postprocedural states; Z88.0 Allergy status to penicillin
CPT/HCPCS: 36415; 76830; 80053; 81001; 83690; 84703; 85025; 96361; 96374; 96375; 99285; J1170; J2765; J7040

== ENCOUNTER 2018-03-19 12:16 | Observation (INO) | payer BC ==
[2018-03-19] MEDS ORDERED: Ondansetron 4 MG/2 ML SDV IVPUSH ONE (12:35)
[2018-03-19] MEDS ORDERED: LORazepam 2 MG/ML SDV IVPUSH ONE ×2 (12:35→21:37)
[2018-03-19] MEDS ORDERED: HYDROmorphone 1 MG/ML Syringe IVPUSH ONE ×4 (12:35→20:22)
[2018-03-19] MEDS ORDERED: Sodium Chloride 0.9% 10 ML Syringe FLUSH PRN ×2 (12:35→14:57)
--- NOTE | 2018-03-19 12:40 | EDM.PDOC ---
ED HPI GENERAL MEDICAL PROBLEM - General Chief Complaint: Abdominal Pain Stated Complaint: [facility] Time Seen by Provider: 03/19/18 12:28 Source of Information: Reports: Patient, RN Notes Reviewed - History of Present Illness INITIAL COMMENTS - FREE TEXT/NARRATIVE: 6-year-old female comes in with abdominal pain, nausea, vomiting, hyperventilating. States her pain started several hours ago this morning but also was here to the ED yesterday afternoon with the same type of symptoms. Please see that record for details. She did have a pelvic ultrasound yesterday which is stated to have seen some varicosities "around her uterus". She's been vomiting this morning. There's been no diarrhea fever chills. She did admit to marijuana use yesterday. Urinalysis yesterday was normal, labs were all relatively normal. Abdominal Pain Score (Numeric/FACES): 10 - Related Data Allergies Allergy/AdvReac Type Severity Reaction Status Date / Time Penicillins Allergy Cannot Verified 03/18/18 16:08 Remember Home Meds: Home Meds Amphetamine Sulfate 20 mg PO DAILY 01/23/18 [History] Hydrocodone/Acetaminophen [Hydrocodon-Acetaminophen 5-325] 1 - 2 each PO Q6HR PRN #20 tablet 03/18/18 [Rx] Ondansetron [Zofran ODT] 4 mg PO Q6H PRN #20 tab.dis 03/18/18 [Rx] Past Medical History - Past Health History Medical/Surgical History: Denies Medical/Surgical History Cardiovascular History: Reports: None Respiratory History: Reports: None [employer] History: Reports: Psychiatric History: Reports: ADHD Endocrine/Metabolic History: Reports: Other (See Below) Oncologic (Cancer) History: Reports: None - Past Surgical History HEENT Surgical History: Reports: Oral Surgery GI Surgical History: Reports: Cholecystectomy - History Comment History Comment: add meds but not taking them routinely Social & Family History - Family History Family Medical History: Noncontributory Cardiac: Reports: [place] Neurological: Reports: CVA Oncologic: Reports: Lung, Lymphoma - Caffeine Use Caffeine Use: Reports: Coffee, Energy Drinks ED ROS GENERAL - Review of Systems Review Of Systems: See Below Constitutional: Denies: Fever, Chills, Diaphoresis HEENT: Denies: Throat Pain, Vertigo Respiratory: Reports: Shortness of Breath (Patient hyperventilating at scene and upon arrival to ED) Cardiovascular: Denies: Chest Pain GI/Abdominal: Reports: Abdominal Pain, Nausea (Upper and lower abdomen), Vomiting. Denies: Diarrhea Musculoskeletal: Reports: Back Pain (There is been some radiation of discomfort to her left back) Skin: Denies: Rash Neurological: Reports: Numbness (She arrives with mild numbness of both hands) ED EXAM, GI/ABD - Physical Exam Exam: See Below General Appearance: Alert, Anxious, Other (Hyperventilating upon arrival to ED) Eyes: Bilateral: Normal Appearance Ears: Normal External Exam Throat/Mouth: Normal Inspection, Normal Oropharynx Head: Atraumatic. No: Facial Swelling Neck: Supple Respiratory/Chest: No Respiratory Distress, Lungs Clear, Normal Breath Sounds. No: Rhonchi, Wheezing Cardiovascular: Regular Rate, Rhythm GI/Abdominal Exam: Tender (Upper mid and lower abdomen). No: Rebound Back Exam: CVA Tenderness (L), CVA Tenderness (R) Extremities: Normal Inspection Neurological: Alert, Oriented, No Motor/Sensory Deficits Skin Exam: Warm, Dry, Normal Color, No Rash Course - Vital Signs Last Recorded V/S: Last Vital Signs Temp 97.0 F 03/19/18 12:22 Pulse 69 03/19/18 12:22 Resp 16 03/19/18 12:22 BP 155/101 H 03/19/18 12:22 Pulse Ox 100 03/19/18 12:22 - Orders/Labs/Meds Orders: Active Orders 24 hr Category Date Time Status Peripheral IV Care [RC] . DIRECTED Care 03/19/18 12:36 Active Sodium Chloride 0.9% [Normal Saline] 1,000 ml Med 03/19/18 12:45 Active IV ONETIME Sodium Chloride 0.9% [Normal Saline] 1,000 ml Med 03/19/18 17:45 Active IV ONETIME Sodium Chloride 0.9% [Saline Flush] Med 03/19/18 12:35 Active 10 ml FLUSH ASDIRECTED PRN Sodium Chloride 0.9% [Saline Flush] Med 03/19/18 14:57 Active 10 ml FLUSH ONETIME PRN Peripheral IV Insertion Adult [OM.PC] Stat Oth 03/19/18 12:35 Ordered Medication Orders Sodium Chloride (Normal Saline) 1,000 mls @ 999 mls/hr IV ONETIME JOHN Last Admin: 03/19/18 12:44 Dose: 999 mls/hr Sodium Chloride (Normal Saline) 1,000 mls @ 999 mls/hr IV ONETIME JOHN Last Admin: 03/19/18 17:49 Dose: 999 mls/hr Sodium Chloride (Saline Flush) 10 ml FLUSH ASDIRECTED PRN PRN Reason: Keep Vein Open Last Admin: 03/19/18 12:46 Dose: 10 ml Sodium Chloride (Saline Flush) 10 ml FLUSH ONETIME PRN PRN Reason: KEEP VEIN OPEN Last Admin: 03/19/18 16:24 Dose: 10 ml Labs: Laboratory Tests 03/19/18 03/19/18 03/19/18 Range/Units 12:25 12:25 12:25 WBC 6.55 (3.98-10.04) K/mm3 RBC 4.58 (3.98-5.22) M/mm3 Hgb 14.1 (11.2-15.7) gm/L Hct 41.4 (34.1-44.9) % MCV 90.4 (79.4-94.8) fl MCH 30.8 (25.6-32.2) pg MCHC 34.1 (32.2-35.5) g/dl RDW Std Deviation 39.8 (36.4-46.3) fL Plt Count 283 (182-369) K/mm3 MPV 10.6 (9.4-12.3) fl Neut % (Auto) 73.9 H (34.0-71.1) % Lymph % (Auto) 16.9 L (19.3-51.7) % [place] % (Auto) 8.2 (4.7-12.5) % Eos % (Auto) 0.6 L (0.7-5.8) Baso % (Auto) 0.2 (0.1-1.2) % Neut # (Auto) 4.84 (1.56-6.13) K/mm3 Lymph # (Auto) 1.11 L (1.18-3.74) K/mm3 [place] # (Auto) 0.54 H (0.24-0.36) K/mm3 Eos # (Auto) 0.04 (0.04-0.36) K/mm3 Baso # (Auto) 0.01 (0.01-0.08) K/mm3 Puncture Site ABG pH (7.35-7.45) ABG pCO2 (35.0-45.0) mmHg ABG pO2 (80.0-100.0) mmHg ABG HCO3 (22.0-26.0) meq/L ABG O2 Saturation (96.0-97.0) % ABG Base Excess (-2-2.0) Eddie Test A-a Gradient mmHg O2 Delivery Device FiO2 (21.00-100.00) % Sodium 135 L (136-145) mEq/L Potassium 3.0 L (3.5-5.1) mEq/L Chloride 96 L (98-107) mEq/L Carbon Dioxide 22 (21-32) mEq/L Anion Gap 20.0 H (5-15) BUN 12 (7-18) mg/dL Creatinine 0.9 (0.55-1.02) mg/dL Est Cr Clr Drug Dosing 86.84 mL/min Estimated GFR (MDRD) > 60 (>60) mL/min BUN/Creatinine Ratio 13.3 L (14-18) Glucose 107 H (74-106) mg/dL Calcium 9.2 (8.5-10.1) mg/dL Total Bilirubin 0.9 (0.2-1.0) mg/dL GGT (5-55) U/L AST 39 H (15-37) U/L ALT 62 H (14-59) U/L Alkaline Phosphatase 58 (46-116) U/L Total Protein 7.4 (6.4-8.2) g/dl Albumin 4.2 (3.4-5.0) g/dl Globulin 3.2 gm/dL Albumin/Globulin Ratio 1.3 (1-2) Lipase 627 H (73-393) U/L Ethyl Alcohol 0.00 (0.00) gm% 03/19/18 03/19/18 Range/Units 12:25 13:04 WBC (3.98-10.04) K/mm3 RBC (3.98-5.22) M/mm3 Hgb (11.2-15.7) gm/L Hct (34.1-44.9) % MCV (79.4-94.8) fl MCH (25.6-32.2) pg MCHC (32.2-35.5) g/dl RDW Std Deviation (36.4-46.3) fL Plt Count (182-369) K/mm3 MPV (9.4-12.3) fl Neut % (Auto) (34.0-71.1) % Lymph % (Auto) (19.3-51.7) % [place] % (Auto) (4.7-12.5) % Eos % (Auto) (0.7-5.8) Baso % (Auto) (0.1-1.2) % Neut # (Auto) (1.56-6.13) K/mm3 Lymph # (Auto) (1.18-3.74) K/mm3 [place] # (Auto) (0.24-0.36) K/mm3 Eos # (Auto) (0.04-0.36) K/mm3 Baso # (Auto) (0.01-0.08) K/mm3 Puncture Site Rt radial ABG pH 7.41 (7.35-7.45) ABG pCO2 38.1 (35.0-45.0) mmHg ABG pO2 54.0 L (80.0-100.0) mmHg ABG HCO3 23.9 (22.0-26.0) meq/L ABG O2 Saturation 78.5 L (96.0-97.0) % ABG Base Excess 0.1 (-2-2.0) Eddie Test Positive A-a Gradient 32 mmHg O2 Delivery Device Room air FiO2 21.00 (21.00-100.00) % Sodium (136-145) mEq/L Potassium (3.5-5.1) mEq/L Chloride (98-107) mEq/L Carbon Dioxide (21-32) mEq/L Anion Gap (5-15) BUN (7-18) mg/dL Creatinine (0.55-1.02) mg/dL Est Cr Clr Drug Dosing mL/min Estimated GFR (MDRD) (>60) mL/min BUN/Creatinine Ratio (14-18) Glucose (74-106) mg/dL Calcium (8.5-10.1) mg/dL Total Bilirubin (0.2-1.0) mg/dL GGT 18 (5-55) U/L AST (15-37) U/L ALT (14-59) U/L Alkaline Phosphatase (46-116) U/L Total Protein (6.4-8.2) g/dl Albumin (3.4-5.0) g/dl Globulin gm/dL Albumin/Globulin Ratio (1-2) Lipase (73-393) U/L Ethyl Alcohol (0.00) gm% Meds: Medications Generic Name Dose Route Start Last Admin Trade Name Freq PRN Reason Stop Dose Admin Sodium Chloride 1,000 mls @ 999 mls/hr 03/19/18 12:45 03/19/18 12:44 Normal Saline IV 999 mls/hr ONETIME JOHN Administration Sodium Chloride 1,000 mls @ 999 mls/hr 03/19/18 17:45 03/19/18 17:49 Normal Saline IV 999 mls/hr ONETIME JOHN Administration Sodium Chloride 10 ml 03/19/18 12:35 03/19/18 12:46 Saline Flush FLUSH 10 ml ASDIRECTED PRN Administration Keep Vein Open Sodium Chloride 10 ml 03/19/18 14:57 03/19/18 16:24 Saline Flush FLUSH 10 ml ONETIME PRN Administration KEEP VEIN OPEN Discontinued Medications Generic Name Dose Route Start Last Admin Trade Name Freq PRN Reason Stop Dose Admin Diatrizoate Meglum/Diatrizoate Sod 60 ml 03/19/18 14:57 03/19/18 16:25 Gastrografin 37% PO 03/19/18 14:58 60 ml ONETIME ONE Administration Hydromorphone HCl 1 mg 03/19/18 12:35 03/19/18 12:46 Dilaudid IVPUSH 03/19/18 12:36 1 mg ONETIME ONE Administration Hydromorphone HCl 1 mg 03/19/18 14:13 03/19/18 14:20 Dilaudid IVPUSH 03/19/18 14:14 1 mg ONETIME ONE Administration Hydromorphone HCl 1 mg 03/19/18 17:36 03/19/18 17:45 Dilaudid IVPUSH 03/19/18 17:37 1 mg ONETIME ONE Administration Iopamidol 100 ml 03/19/18 14:57 03/19/18 16:25 Isovue-300 (61%) IVPUSH 03/19/18 14:58 100 ml ONETIME ONE Administration Lorazepam 1 mg 03/19/18 12:35 03/19/18 12:44 Ativan IVPUSH 03/19/18 12:36 1 mg ONETIME ONE Administration Metoclopramide HCl 5 mg 03/19/18 13:55 03/19/18 14:00 Reglan IVPUSH 03/19/18 13:56 5 mg ONETIME ONE Administration Ondansetron HCl 4 mg 03/19/18 12:35 03/19/18 12:43 Zofran IVPUSH 03/19/18 12:36 4 mg ONETIME ONE Administration - Re-Assessments/Exams Free Text/Narrative Re-Assessment/Exam: 03/19/18 17:30. I did discuss with our hospitalist, Dr. Guy regarding benefit of hospital admission several hours ago after initial lab work. He did ask that we do get abdominal CT first with her lipase elevated, apparent pancreatitis. CT results no are back and do not show inflammation of the pancreas on CT. There is no pseudocyst. There is some dilatation of the biliary system compatible with prior cholecystectomy. See radiology report for details. I did check a GGT as well and that did come back normal. Bilirubin and alkaline phosphatase also normal. Patient has been feeling better after treatment was Dilaudid, lorazepam IV as well as Zofran and Reglan. However the pain was starting to come back short time ago. Departure - Departure Time of Disposition: 18:17 Disposition: Admitted As Inpatient 68 Condition: Fair Clinical Impression: Pancreatitis Qualifiers: Chronicity: acute Pancreatitis type: unspecified pancreatitis type Acute pancreatitis complication: unspecified Qualified Code(s): K85.90 - Acute pancreatitis without necrosis or infection, unspecified - Discharge Information ED Communication - Discussed Case With (1) Discussed Case With (1): Admitting Provider (Dr Guy, decision to admit at about 17:30) - My Orders Last 24 Hours: My Active Orders 03/19/18 12:35 Sodium Chloride 0.9% [Saline Flush] 10 ml FLUSH ASDIRECTED PRN Peripheral IV Insertion Adult [OM.PC] Stat 03/19/18 12:36 Peripheral IV Care [RC] . DIRECTED 03/19/18 12:45 Sodium Chloride 0.9% [Normal Saline] 1,000 ml IV ONETIME 03/19/18 14:57 Sodium Chloride 0.9% [Saline Flush] 10 ml FLUSH ONETIME PRN 03/19/18 17:45 Sodium Chloride 0.9% [Normal Saline] 1,000 ml IV ONETIME - Assessment/Plan Last 24 Hours: My Active Orders 03/19/18 12:35 Sodium Chloride 0.9% [Saline Flush] 10 ml FLUSH ASDIRECTED PRN Peripheral IV Insertion Adult [OM.PC] Stat 03/19/18 12:36 Peripheral IV Care [RC] . DIRECTED 03/19/18 12:45 Sodium Chloride 0.9% [Normal Saline] 1,000 ml IV ONETIME 03/19/18 14:57 Sodium Chloride 0.9% [Saline Flush] 10 ml FLUSH ONETIME PRN 03/19/18 17:45 Sodium Chloride 0.9% [Normal Saline] 1,000 ml IV ONETIME
[2018-03-19] MEDS ORDERED: Sodium Chloride 0.9% 1,000 ML IV SCH ×2 (12:45→17:45)
[2018-03-19] MEDS ORDERED: Metoclopramide 10 MG/2 ML SDV IVPUSH ONE (13:55)
[2018-03-19] MEDS ORDERED: Iopamidol 612 MG/ML 100 ML Bottle IVPUSH ONE (14:57)
[2018-03-19] MEDS ORDERED: Diatrizoate Meglumine/Diatrizoate Sodium 37% 120 ML Bottle PO ONE (14:57)
--- NOTE | 2018-03-19 16:58 | CT ---
CT abdomen and pelvis Technique: Multiple axial sections were obtained from above the dome of the diaphragm inferiorly through the pubic symphysis. Intravenous and oral contrast was utilized. Comparison: Prior CT abdomen and pelvis exam of 01/22/18 which is a noncontrast exam renal stone protocol CT. Findings: Nodular subpleural densities are seen within the right lung base. These are felt to be fairly stable from previous exam. Liver shows mild intrahepatic biliary duct dilatation with evidence of prior cholecystectomy. Spleen size is normal. Adrenal glands show no nodule. Kidneys show symmetric contrast enhancement. Small cyst is noted within the mid left kidney measuring approximately 1.2 cm in size. Delayed images were obtained from above the kidneys inferiorly to the pubic symphysis which shows contrast excretion from both kidneys and ureters down to the bladder without evidence of obstruction. Pancreas appears within normal limits. Aorta shows no aneurysm. No retroperitoneal adenopathy or mesenteric abnormalities are seen. Appendix is seen which is normal. No pelvic mass or adenopathy is seen. No free fluid or inflammatory change is seen. No bowel dilatation is seen. Impression: 1. Mild intrahepatic biliary duct dilatation which is likely from previous cholecystectomy. 2. Incidental left renal cyst. 3. Stable subpleural nodularity within the right lung base from recent CT study of 01/22/18. 4. No additional abnormality is appreciated on CT study of the abdomen and pelvis. Diagnostic code #2
[2018-03-19] MEDS ORDERED: Scopolamine 1.5 MG Transdermal Patch TRDERM PRN (19:07)
[2018-03-19] MEDS: Sodium Chloride 0.9% 1,000 ML IV SCH (19:22)
[2018-03-19] MEDS ORDERED: REMOVE SCOPALAMINE TRDERM PRN (19:47)
--- NOTE | 2018-03-19 20:03 | PCM.HP ---
H&P History of Present Illness - General Date of Service: 03/19/18 Admit Problem/Dx: Admission Diagnosis/Problem Admission Diagnosis/Problem Pancreatitis Source of Information: Patient, Family, Provider History Limitations: Reports: No Limitations - History of Present Illness Initial Comments - Free Text/Narative: HPI: This is a 42 yo female with past medical hx/o HTN, fibroids, ETOH abuse and SA who comes in for LLQ pain that radiates to the lower back, N/V. She was seen in the ED yesterday with same symptoms. Patient denies any F/C, chest pain, SOB, CP , cough, heartburn, Diarrhea, bloody urine or stool, or any other /GI complaints. She has had recurring lower abdominal pain for 3.5 years now, after the of her son, accompanied by N/V and is usually around the time of her period. She states her period started Friday. Per pt, she has 3 periods per month, each lasting 3-7 days, with heavy flow. She has not seen [facility] for at least 1 year. Her symptoms slightly improved after receiving IVF, Dilaudid, Ativan, Reglan, antiemetics in the ED. Her initial workup in the ED showed a CBC remarkable for Neut 73.9%, Lymph 16.9%, Eos 0.6%. Her chemistry is remarkable for Na 135, K 3, Cl 96, AGap 20, Glucose 107, AST 39, ALT 62, Lipase 627. EtOH negative. CT Ab/ Pelvis shows nothing acute. Pelvic U/S on 03/18/18 shows pelvic varicosities. She is subsequently admitted to the medical floor for observation. She is a Full Code. Her PCP is Harper Duarte PA-C. Abdominal Pain Score (Numeric/FACES): 10 - Related Data Allergies/Adverse Reactions: Allergies Allergy/AdvReac Type Severity Reaction Status Date / Time Penicillins Allergy Cannot Verified 03/18/18 16:08 Remember Home Medications: Home Meds Amphetamine Sulfate 20 mg PO DAILY 01/23/18 [History] Hydrocodone/Acetaminophen [Hydrocodon-Acetaminophen 5-325] 1 - 2 each PO Q6HR PRN #20 tablet 03/18/18 [Rx] Ondansetron [Zofran ODT] 4 mg PO Q6H PRN #20 tab.dis 03/18/18 [Rx] Past Medical History - Past Health History Medical/Surgical History: Denies Medical/Surgical History HEENT History: Reports: Impaired Vision Cardiovascular History: Reports: None Respiratory History: Reports: None RELATIONS LIAISON History: Reports: Psychiatric History: Reports: ADHD Endocrine/Metabolic History: Reports: Other (See Below) Oncologic (Cancer) History: Reports: None - Past Surgical History HEENT Surgical History: Reports: Oral Surgery GI Surgical History: Reports: Cholecystectomy - History Comment History Comment: add meds but not taking them routinely Social & Family History - Family History Family Medical History: Noncontributory Cardiac: Reports: NV Neurological: Reports: CVA Oncologic: Reports: Lung, Lymphoma - Tobacco Use Smoking Status *Q: Current Every Day Smoker Years of Tobacco use: 4 Packs/Tins Daily: 0.3 Second Hand Smoke Exposure: Yes - Caffeine Use Caffeine Use: Reports: Energy Drinks - Recreational Drug Use Recreational Drug Use: Yes Recreational Drug Type: Reports: Marijuana/Hashish Recreational Drug Use Frequency: Monthly H&P Review of Systems - Review of Systems: Review Of Systems: See Below General: Reports: No Symptoms. Denies: Fever, Chills HEENT: Reports: No Symptoms Pulmonary: Reports: No Symptoms. Denies: Shortness of Breath, Cough Cardiovascular: Reports: Blood Pressure Problem. Denies: Chest Pain Gastrointestinal: Reports: Abdominal Pain (LLQ radiating to left flank), Nausea , Vomiting. Denies: Diarrhea Genitourinary: Reports: No Symptoms. Denies: Dysuria, Frequency, Burning, Pain , Urgency, Hematuria Musculoskeletal: Reports: Back Pain (left flank pain) Skin: Reports: No Symptoms Psychiatric: Reports: No Symptoms Neurological: Reports: No Symptoms Hematologic/Lymphatic: Reports: No Symptoms Immunologic: Reports: No Symptoms Exam - Exam Exam: See Below - Vital Signs Vital Signs: Last Vital Signs Temp 97.0 F 03/19/18 12:22 Pulse 69 03/19/18 12:22 Resp 16 03/19/18 12:22 BP 155/101 H 03/19/18 12:22 Pulse Ox 100 03/19/18 12:22 Weight: 175 lb - Exam Quality Assessment: DVT Prophylaxis General: Alert, Oriented, Cooperative, Mild Distress HEENT: PERRLA, Hearing Intact, Mucosa Moist & Deep Water, Nares Patent, Normal Nasal Septum, Posterior Pharynx Clear, Conjunctiva Clear, EOMI, EACs Clear, TMs Clear Neck: Supple, Trachea Midline, 2 Lungs: Clear to Auscultation, Normal Respiratory Effort Cardiovascular: Regular Rate, Regular Rhythm GI/Abdominal Exam: Soft, No Organomegaly, No Distention, No Abnormal Bruit, No Mass, Pelvis Stable, Guarding, Tender (LLQ), Abnormal Bowel Sounds (hypoactive) (Female) Exam: Deferred Rectal (Female) Exam: Deferred Back Exam: Normal Inspection Extremities: Normal Inspection, Normal Range of Motion, Non-Tender, No Pedal Edema, Normal Capillary Refill Peripheral Pulses: 3+: Posterior Tibial (L), Posterior Tibial (R), Dorsalis Pedis (L), Dorsalis Pedis (R) Skin: Warm, Dry, Intact Neurological: Cranial Nerves Intact (grossly) Neuro Extensive - Mental Status: Alert, Oriented x3, Normal Mood/Affect, Normal Cognition, Memory Intact Psychiatric: Alert, Anxious - Patient Data Lab Results Last 24 hrs: Laboratory Results - last 24 hr 03/19/18 03/19/18 03/19/18 Range/Units 12:25 12:25 12:25 WBC 6.55 (3.98-10.04) K/mm3 RBC 4.58 (3.98-5.22) M/mm3 Hgb 14.1 (11.2-15.7) gm/L Hct 41.4 (34.1-44.9) % MCV 90.4 (79.4-94.8) fl MCH 30.8 (25.6-32.2) pg MCHC 34.1 (32.2-35.5) g/dl RDW Std Deviation 39.8 (36.4-46.3) fL Plt Count 283 (182-369) K/mm3 MPV 10.6 (9.4-12.3) fl Neut % (Auto) 73.9 H (34.0-71.1) % Lymph % (Auto) 16.9 L (19.3-51.7) % Parmer % (Auto) 8.2 (4.7-12.5) % Eos % (Auto) 0.6 L (0.7-5.8) Baso % (Auto) 0.2 (0.1-1.2) % Neut # (Auto) 4.84 (1.56-6.13) K/mm3 Lymph # (Auto) 1.11 L (1.18-3.74) K/mm3 Parmer # (Auto) 0.54 H (0.24-0.36) K/mm3 Eos # (Auto) 0.04 (0.04-0.36) K/mm3 Baso # (Auto) 0.01 (0.01-0.08) K/mm3 Puncture Site ABG pH (7.35-7.45) ABG pCO2 (35.0-45.0) mmHg ABG pO2 (80.0-100.0) mmHg ABG HCO3 (22.0-26.0) meq/L ABG O2 Saturation (96.0-97.0) % ABG Base Excess (-2-2.0) Eddie Test A-a Gradient mmHg O2 Delivery Device FiO2 (21.00-100.00) % Sodium 135 L (136-145) mEq/L Potassium 3.0 L (3.5-5.1) mEq/L Chloride 96 L (98-107) mEq/L Carbon Dioxide 22 (21-32) mEq/L Anion Gap 20.0 H (5-15) BUN 12 (7-18) mg/dL Creatinine 0.9 (0.55-1.02) mg/dL Est Cr Clr Drug Dosing 86.84 mL/min Estimated GFR (MDRD) > 60 (>60) mL/min BUN/Creatinine Ratio 13.3 L (14-18) Glucose 107 H (74-106) mg/dL Calcium 9.2 (8.5-10.1) mg/dL Total Bilirubin 0.9 (0.2-1.0) mg/dL GGT (5-55) U/L AST 39 H (15-37) U/L ALT 62 H (14-59) U/L Alkaline Phosphatase 58 (46-116) U/L Total Protein 7.4 (6.4-8.2) g/dl Albumin 4.2 (3.4-5.0) g/dl Globulin 3.2 gm/dL Albumin/Globulin Ratio 1.3 (1-2) Lipase 627 H (73-393) U/L Ethyl Alcohol 0.00 (0.00) gm% 03/19/18 03/19/18 Range/Units 12:25 13:04 WBC (3.98-10.04) K/mm3 RBC (3.98-5.22) M/mm3 Hgb (11.2-15.7) gm/L Hct (34.1-44.9) % MCV (79.4-94.8) fl MCH (25.6-32.2) pg MCHC (32.2-35.5) g/dl RDW Std Deviation (36.4-46.3) fL Plt Count (182-369) K/mm3 MPV (9.4-12.3) fl Neut % (Auto) (34.0-71.1) % Lymph % (Auto) (19.3-51.7) % Parmer % (Auto) (4.7-12.5) % Eos % (Auto) (0.7-5.8) Baso % (Auto) (0.1-1.2) % Neut # (Auto) (1.56-6.13) K/mm3 Lymph # (Auto) (1.18-3.74) K/mm3 Parmer # (Auto) (0.24-0.36) K/mm3 Eos # (Auto) (0.04-0.36) K/mm3 Baso # (Auto) (0.01-0.08) K/mm3 Puncture Site Rt radial ABG pH 7.41 (7.35-7.45) ABG pCO2 38.1 (35.0-45.0) mmHg ABG pO2 54.0 L (80.0-100.0) mmHg ABG HCO3 23.9 (22.0-26.0) meq/L ABG O2 Saturation 78.5 L (96.0-97.0) % ABG Base Excess 0.1 (-2-2.0) Eddie Test Positive A-a Gradient 32 mmHg O2 Delivery Device Room air FiO2 21.00 (21.00-100.00) % Sodium (136-145) mEq/L Potassium (3.5-5.1) mEq/L Chloride (98-107) mEq/L Carbon Dioxide (21-32) mEq/L Anion Gap (5-15) BUN (7-18) mg/dL Creatinine (0.55-1.02) mg/dL Est Cr Clr Drug Dosing mL/min Estimated GFR (MDRD) (>60) mL/min BUN/Creatinine Ratio (14-18) Glucose (74-106) mg/dL Calcium (8.5-10.1) mg/dL Total Bilirubin (0.2-1.0) mg/dL GGT 18 (5-55) U/L AST (15-37) U/L ALT (14-59) U/L Alkaline Phosphatase (46-116) U/L Total Protein (6.4-8.2) g/dl Albumin (3.4-5.0) g/dl Globulin gm/dL Albumin/Globulin Ratio (1-2) Lipase (73-393) U/L Ethyl Alcohol (0.00) gm% Result Diagrams: 03/19/18 12:25 03/19/18 12:25 - Problem List (1) Hypokalemia SNOMED Code(s): 44898100 ICD Code: E87.6 - HYPOKALEMIA Status: Acute Priority: High Current Visit: Yes (2) Left lower quadrant abdominal pain of unknown etiology SNOMED Code(s): 304007706, 258411508 ICD Code: R10.32 - LEFT LOWER QUADRANT PAIN Status: Acute Priority: High Current Visit: Yes (3) Nausea & vomiting SNOMED Code(s): 84689227 ICD Code: R11.2 - NAUSEA WITH VOMITING, UNSPECIFIED Status: Acute Priority: High Current Visit: Yes Qualifiers: Vomiting type: unspecified Vomiting Intractability: unspecified Qualified Code(s): R11.2 - Nausea with vomiting, unspecified Problem List Initiated/Reviewed/Updated: Yes Orders Last 24hrs: Active Orders 24 hr Category Date Time Status Admission Status [Patient Status] [ADT] Routine ADT 03/19/18 18:28 Active Peripheral IV Care [RC] Q2HR Care 03/19/18 12:36 Active Transvaginal Non OB [US] Stat Exams 03/19/18 19:42 Ordered HCG QUANTITATIVE [CHEM] Stat Lab 03/19/18 19:39 Ordered TYPE AND SCREEN [BBK] Routine Lab 03/19/18 19:42 Ordered Remove Patch Med 03/19/18 19:47 Active 1 ea TRDERM Q72H PRN Scopolamine [Transderm-Scop] Med 03/19/18 19:07 Active 1.5 mg TRDERM Q72H PRN Sodium Chloride 0.9% [Normal Saline] 1,000 ml Med 03/19/18 19:15 Active IV ASDIRECTED Sodium Chloride 0.9% [Saline Flush] Med 03/19/18 12:35 Active 10 ml FLUSH ASDIRECTED PRN Sodium Chloride 0.9% [Saline Flush] Med 03/19/18 14:57 Active 10 ml FLUSH ONETIME PRN Peripheral IV Insertion Adult [OM.PC] Stat Oth 03/19/18 12:35 Ordered Medication Orders Sodium Chloride (Normal Saline) 1,000 mls @ 125 mls/hr IV ASDIRECTED JOHN Last Admin: 03/19/18 19:22 Dose: 125 mls/hr Miscellaneous Information (Remove Patch) 1 ea TRDERM Q72H PRN PRN Reason: IF SCOPE PATCH USED Scopolamine (Transderm-Scop) 1.5 mg TRDERM Q72H PRN PRN Reason: Nausea/Vomiting Sodium Chloride (Saline Flush) 10 ml FLUSH ASDIRECTED PRN PRN Reason: Keep Vein Open Last Admin: 03/19/18 12:46 Dose: 10 ml Sodium Chloride (Saline Flush) 10 ml FLUSH ONETIME PRN PRN Reason: KEEP VEIN OPEN Last Admin: 03/19/18 16:24 Dose: 10 ml Assessment/Plan Comment:: I/P: Acute: LLQ Abdominal pain w/ left flank pain * Acute on chronic per pt (has had this type of pain intermittently for 3.5 years, since after the of her son) * Was seen in ED yesterday for similar symptoms * Risk factor: Pelvic U/S on 03/18/18 shows pelvic varicosities, currently on menses (h/o heavy menses 3x per month; pain tends to occur with menses) * Physical exam unremarkable * R/O Pancreatitis: * Risk factor: h/o pancreatitis * Lipase slightly elevated at 627 * Repeat lipase in AM * CT Ab/Pelvis: -1. Mild intrahepatic biliary duct dilatation which is likely from previous cholecystectomy. -2. Incidental left renal cyst. -3. Stable subpleural nodularity within the right lung base from recent CT study of 01/22/18. -4. No additional abnormality is appreciated on CT study of the abdomen and pelvis. * R/O kidney stones: * Risk factor: h/o kidney stones * CT and U/S do not show kidney stones * There is 3+ RBC in clean catch U/A, but she is currently on her menses * Repeat U/A in AM via catheter * Urine culture pending * R/O Possible drug-seeking behavior: * Risk factor: h/o substance abuse * Clinical exam/appearance and reported pain do not match * Is asking for pain medication by name and increased frequency * Consult Bo[employer] Work[employer] Dr. Maldonado r/o ovarian torsion or ectopic : * HCG negative * Pelvic exam unremarkable * Recommend transvaginal U/S--> nothing acute appreciated * Consult General Surgeon Dr. Reynoso * IVF, pain management PRN, heating pad PRN * Recommend f/u [facility] outpt Nausea and Vomiting * 2/2 above * R/O Cannabinoid hyperemesis syndrome * Antiemetics PRN * IVF, NPO Transaminitis * AST 39, ALT 62 * Avoid Tylenol * IV fluids Hypokalemia * K 3 * 2/2 Inadequate intake * Replete and monitor Chronic: HTN Fibroids h/o Substance Abuse Tobacco Addiction * Current some day smoker; pt's states 1 cigarette every 3-4 days * Smoking cessation counseling given * Nicotine patches offered, does not feel she needs h/o ETOH abuse h/o renal stones per pt h/o cholecystectomy ADHD Plan: Admitted to observation She remains stable Other orders as indicated above Routine AM labs NPO DVT Prophylaxis/GI Prophylaxis Code Status: Full Code; PCP: Harper Duarte PA-C
--- NOTE | 2018-03-19 21:37 | PCM.CONS ---
H&P History of Present Illness - General Date of Service: 03/19/18 Admit Problem/Dx: Admission Diagnosis/Problem Admission Diagnosis/Problem Pancreatitis Source of Information: Patient History Limitations: Reports: No Limitations - History of Present Illness Initial Comments - Free Text/Narative: 42-year-old on menstrual period now. Patient has a history of approximately 2 months of left flank and left lower abdominal pain associated with nausea and vomiting. Patient does have a history of hypertension and alcohol abuse and substance abuse. She is also been told she has had fibroids of the uterus. Also history of marijuana use with severe menstrual cramps. Patient's most recent episode started approximately 2000 hrs. on 03/18/18 she was seen in the ER yesterday. Patient returned to the ER today with recurrence of the left lower quadrant and left flank pain. Patient states the onset was sudden and waxed and waned and no particular position makes it worse or better. No history of kidney stones. No dysuria or frequency or urgency. She's had normal bowel movements. Patient does state she's had history of periods every 2 weeks for several months. Pelvic ultrasound yesterday reveals suggested venous congestion. No evidence of torsion of either ovary. Repeat ultrasound vaginal probe and lower abdominal pelvic ultrasound obtained today. The uterus appeared normal size no fibroids were seen on exam today. Both ovaries appear within normal size with several cysts noted but no large cyst. Both ovaries demonstrated blood flow no evidence of torsion of the ovary. There were engorged veins in the broad ligament consistent with "pelvic congestion syndrome " the bladder ultrasound was normal and ureteral jetting of urine was noted bilaterally. Quantitative beta hCG negative today. Patient status was also negative yesterday. Patient does state that when she tries to each she does vomit and has had severe nausea as well. Patient will be seen by general surgery consultation. Reviewing labs showed low potassium patient be supplemented with potassium IV. Magnesium has been requested and is pending. More morning planning repeat CBC, also draw a TSH and free T4, repeat potassium and lipase and magnesium if low. Patient has been afebrile. Urine will be strained for stones. Urine culture has also been requested with urinalysis from catheterized specimen because patient having menstrual period some blood was noted in the urine on clean catch but not able to be determine if this was from menstrual bleeding. Patient states she had bowel movement today no blood with bowel movement. Onset of Symptoms: Reports: Sudden (Approximately 2000 hrs. on 03/18/18 symptoms eased off during the night and recurred today patient returned to the emergency room again today.) Symptom Onset Date: 03/18/18 (On and off for the past 2 months) Symptom Onset Time: 20:00 Duration of Symptoms: Reports: Hour(s): (24), Colic, Intermittent, Recurring, Waxing/Waning Location: Reports: Abdomen (Left side and left lower abdomen), Pelvis (Some pain in the left pelvic region but not as severe as the abdomen and left flank) , Radiates to (Left side and left lower abdomen from the left flank), Other ( Left flank radiating to the left abdomen) Quality: Reports: Same as Previous Episode, Sharp Severity: Severe (Patient states pain is severe but patient was seen laughing and visiting the family just as I entered her room.) Improves with: Reports: None Worsens with: Reports: None Associated Symptoms: Reports: Nausea/Vomiting Abdominal Pain Score (Numeric/FACES): 10 - Related Data Allergies/Adverse Reactions: Allergies Allergy/AdvReac Type Severity Reaction Status Date / Time Penicillins Allergy Cannot Verified 03/18/18 16:08 Remember Home Medications: Home Meds Amphetamine Sulfate 20 mg PO DAILY 01/23/18 [History] Hydrocodone/Acetaminophen [Hydrocodon-Acetaminophen 5-325] 1 - 2 each PO Q6HR PRN #20 tablet 03/18/18 [Rx] Ondansetron [Zofran ODT] 4 mg PO Q6H PRN #20 tab.dis 03/18/18 [Rx] Past Medical History - Past Health History Medical/Surgical History: Denies Medical/Surgical History HEENT History: Reports: Impaired Vision Cardiovascular History: Reports: None Respiratory History: Reports: None INK BLENDER History: Reports: Psychiatric History: Reports: ADHD Endocrine/Metabolic History: Reports: Other (See Below) Oncologic (Cancer) History: Reports: None - Past Surgical History HEENT Surgical History: Reports: Oral Surgery GI Surgical History: Reports: Cholecystectomy - History Comment History Comment: add meds but not taking them routinely Social & Family History - Family History Family Medical History: Noncontributory Cardiac: Reports: CA Neurological: Reports: CVA Oncologic: Reports: Lung, Lymphoma - Tobacco Use Smoking Status *Q: Current Every Day Smoker Years of Tobacco use: 4 Packs/Tins Daily: 0.3 Second Hand Smoke Exposure: Yes - Caffeine Use Caffeine Use: Reports: Energy Drinks - Recreational Drug Use Recreational Drug Use: Yes Recreational Drug Type: Reports: Marijuana/Hashish Recreational Drug Use Frequency: Monthly H&P Review of Systems - Review of Systems: Review Of Systems: See Below General: Reports: No Symptoms HEENT: Reports: No Symptoms Pulmonary: Reports: No Symptoms Cardiovascular: Reports: No Symptoms Gastrointestinal: Reports: Abdominal Pain (Left lower quadrant and left side and left flank), Nausea (Nausea and vomiting with bleeding), Vomiting (Nausea and vomiting with eating) Exam - Exam Exam: See Below - Vital Signs Vital Signs: Last Vital Signs Temp 98.6 F 03/19/18 18:51 Pulse 51 L 03/19/18 18:51 Resp 12 03/19/18 18:51 BP 128/104 H 03/19/18 18:51 Pulse Ox 96 03/19/18 18:51 Weight: 175 lb - Exam General: Alert, Oriented HEENT: Conjunctiva Clear, Mucosa Moist & [place] GI/Abdominal Exam: Normal Bowel Sounds, Soft, Non-Tender (A she complains of tenderness with exam but no rebound or referred pain no rigidity the abdomen), No Organomegaly, No Distention, No Abnormal Bruit, No Mass (Female) Exam: Normal External Exam, Adnexal Tenderness (She complains of left adnexal tenderness on pelvic examination but no masses are palpated normal ovaries by ultrasound), Vaginal Bleeding (And on menses) Back Exam: CVA Tenderness (L) (2/3) Extremities: Normal Inspection, Non-Tender, No Pedal Edema Neuro Extensive - Mental Status: Alert, Oriented x3, Normal Mood/Affect, Normal Cognition Psychiatric: Alert, Normal Affect, Normal Mood - Patient Data Lab Results Last 24 hrs: Laboratory Results - last 24 hr 03/19/18 03/19/18 03/19/18 Range/Units 12:25 12:25 12:25 WBC 6.55 (3.98-10.04) K/mm3 RBC 4.58 (3.98-5.22) M/mm3 Hgb 14.1 (11.2-15.7) gm/L Hct 41.4 (34.1-44.9) % MCV 90.4 (79.4-94.8) fl MCH 30.8 (25.6-32.2) pg MCHC 34.1 (32.2-35.5) g/dl RDW Std Deviation 39.8 (36.4-46.3) fL Plt Count 283 (182-369) K/mm3 MPV 10.6 (9.4-12.3) fl Neut % (Auto) 73.9 H (34.0-71.1) % Lymph % (Auto) 16.9 L (19.3-51.7) % [place] % (Auto) 8.2 (4.7-12.5) % Eos % (Auto) 0.6 L (0.7-5.8) Baso % (Auto) 0.2 (0.1-1.2) % Neut # (Auto) 4.84 (1.56-6.13) K/mm3 Lymph # (Auto) 1.11 L (1.18-3.74) K/mm3 [place] # (Auto) 0.54 H (0.24-0.36) K/mm3 Eos # (Auto) 0.04 (0.04-0.36) K/mm3 Baso # (Auto) 0.01 (0.01-0.08) K/mm3 Puncture Site ABG pH (7.35-7.45) ABG pCO2 (35.0-45.0) mmHg ABG pO2 (80.0-100.0) mmHg ABG HCO3 (22.0-26.0) meq/L ABG O2 Saturation (96.0-97.0) % ABG Base Excess (-2-2.0) Eddie Test A-a Gradient mmHg O2 Delivery Device FiO2 (21.00-100.00) % Sodium 135 L (136-145) mEq/L Potassium 3.0 L (3.5-5.1) mEq/L Chloride 96 L (98-107) mEq/L Carbon Dioxide 22 (21-32) mEq/L Anion Gap 20.0 H (5-15) BUN 12 (7-18) mg/dL Creatinine 0.9 (0.55-1.02) mg/dL Est Cr Clr Drug Dosing 86.84 mL/min Estimated GFR (MDRD) > 60 (>60) mL/min BUN/Creatinine Ratio 13.3 L (14-18) Glucose 107 H (74-106) mg/dL Calcium 9.2 (8.5-10.1) mg/dL Total Bilirubin 0.9 (0.2-1.0) mg/dL GGT (5-55) U/L AST 39 H (15-37) U/L ALT 62 H (14-59) U/L Alkaline Phosphatase 58 (46-116) U/L Total Protein 7.4 (6.4-8.2) g/dl Albumin 4.2 (3.4-5.0) g/dl Globulin 3.2 gm/dL Albumin/Globulin Ratio 1.3 (1-2) Lipase 627 H (73-393) U/L HCG, Quant mIU/mL Urine Color (Yellow) Urine Appearance (Clear) Urine pH (5.0-8.0) Ur Specific [place] (1.005-1.030) Urine Protein (Negative) Urine Glucose (UA) (Negative) Urine Ketones (Negative) Urine Occult Blood (Negative) Urine Nitrite (Negative) Urine Bilirubin (Negative) Urine Urobilinogen (0.2-1.0) Ur Leukocyte Esterase (Negative) Ethyl Alcohol 0.00 (0.00) gm% 03/19/18 03/19/18 03/19/18 Range/Units 12:25 12:25 13:04 WBC (3.98-10.04) K/mm3 RBC (3.98-5.22) M/mm3 Hgb (11.2-15.7) gm/L Hct (34.1-44.9) % MCV (79.4-94.8) fl MCH (25.6-32.2) pg MCHC (32.2-35.5) g/dl RDW Std Deviation (36.4-46.3) fL Plt Count (182-369) K/mm3 MPV (9.4-12.3) fl Neut % (Auto) (34.0-71.1) % Lymph % (Auto) (19.3-51.7) % [place] % (Auto) (4.7-12.5) % Eos % (Auto) (0.7-5.8) Baso % (Auto) (0.1-1.2) % Neut # (Auto) (1.56-6.13) K/mm3 Lymph # (Auto) (1.18-3.74) K/mm3 [place] # (Auto) (0.24-0.36) K/mm3 Eos # (Auto) (0.04-0.36) K/mm3 Baso # (Auto) (0.01-0.08) K/mm3 Puncture Site Rt radial ABG pH 7.41 (7.35-7.45) ABG pCO2 38.1 (35.0-45.0) mmHg ABG pO2 54.0 L (80.0-100.0) mmHg ABG HCO3 23.9 (22.0-26.0) meq/L ABG O2 Saturation 78.5 L (96.0-97.0) % ABG Base Excess 0.1 (-2-2.0) Eddie Test Positive A-a Gradient 32 mmHg O2 Delivery Device Room air FiO2 21.00 (21.00-100.00) % Sodium (136-145) mEq/L Potassium (3.5-5.1) mEq/L Chloride (98-107) mEq/L Carbon Dioxide (21-32) mEq/L Anion Gap (5-15) BUN (7-18) mg/dL Creatinine (0.55-1.02) mg/dL Est Cr Clr Drug Dosing mL/min Estimated GFR (MDRD) (>60) mL/min BUN/Creatinine Ratio (14-18) Glucose (74-106) mg/dL Calcium (8.5-10.1) mg/dL Total Bilirubin (0.2-1.0) mg/dL GGT 18 (5-55) U/L AST (15-37) U/L ALT (14-59) U/L Alkaline Phosphatase (46-116) U/L Total Protein (6.4-8.2) g/dl Albumin (3.4-5.0) g/dl Globulin gm/dL Albumin/Globulin Ratio (1-2) Lipase (73-393) U/L HCG, Quant < 1.0 mIU/mL Urine Color (Yellow) Urine Appearance (Clear) Urine pH (5.0-8.0) Ur Specific [place] (1.005-1.030) Urine Protein (Negative) Urine Glucose (UA) (Negative) Urine Ketones (Negative) Urine Occult Blood (Negative) Urine Nitrite (Negative) Urine Bilirubin (Negative) Urine Urobilinogen (0.2-1.0) Ur Leukocyte Esterase (Negative) Ethyl Alcohol (0.00) gm% 03/19/18 Range/Units 20:35 WBC (3.98-10.04) K/mm3 RBC (3.98-5.22) M/mm3 Hgb (11.2-15.7) gm/L Hct (34.1-44.9) % MCV (79.4-94.8) fl MCH (25.6-32.2) pg MCHC (32.2-35.5) g/dl RDW Std Deviation (36.4-46.3) fL Plt Count (182-369) K/mm3 MPV (9.4-12.3) fl Neut % (Auto) (34.0-71.1) % Lymph % (Auto) (19.3-51.7) % [place] % (Auto) (4.7-12.5) % Eos % (Auto) (0.7-5.8) Baso % (Auto) (0.1-1.2) % Neut # (Auto) (1.56-6.13) K/mm3 Lymph # (Auto) (1.18-3.74) K/mm3 [place] # (Auto) (0.24-0.36) K/mm3 Eos # (Auto) (0.04-0.36) K/mm3 Baso # (Auto) (0.01-0.08) K/mm3 Puncture Site ABG pH (7.35-7.45) ABG pCO2 (35.0-45.0) mmHg ABG pO2 (80.0-100.0) mmHg ABG HCO3 (22.0-26.0) meq/L ABG O2 Saturation (96.0-97.0) % ABG Base Excess (-2-2.0) Eddie Test A-a Gradient mmHg O2 Delivery Device FiO2 (21.00-100.00) % Sodium (136-145) mEq/L Potassium (3.5-5.1) mEq/L Chloride (98-107) mEq/L Carbon Dioxide (21-32) mEq/L Anion Gap (5-15) BUN (7-18) mg/dL Creatinine (0.55-1.02) mg/dL Est Cr Clr Drug Dosing mL/min Estimated GFR (MDRD) (>60) mL/min BUN/Creatinine Ratio (14-18) Glucose (74-106) mg/dL Calcium (8.5-10.1) mg/dL Total Bilirubin (0.2-1.0) mg/dL GGT (5-55) U/L AST (15-37) U/L ALT (14-59) U/L Alkaline Phosphatase (46-116) U/L Total Protein (6.4-8.2) g/dl Albumin (3.4-5.0) g/dl Globulin gm/dL Albumin/Globulin Ratio (1-2) Lipase (73-393) U/L HCG, Quant mIU/mL Urine Color Yellow (Yellow) Urine Appearance Slt cloudy H (Clear) Urine pH 6.0 (5.0-8.0) Ur Specific [place] 1.020 (1.005-1.030) Urine Protein Negative (Negative) Urine Glucose (UA) Negative (Negative) Urine Ketones Negative (Negative) Urine Occult Blood 3+ H (Negative) Urine Nitrite Negative (Negative) Urine Bilirubin Negative (Negative) Urine Urobilinogen 0.2 (0.2-1.0) Ur Leukocyte Esterase Negative (Negative) Ethyl Alcohol (0.00) gm% Result Diagrams: 03/19/18 12:25 03/19/18 12:25 Consult PN Assessment/Plan Procedures: Procedures APPLY FOREARM SPLINT (10/16/14) ASSAY OF AMYLASE (01/22/18) ASSAY OF ETHANOL (07/04/13) ASSAY OF LIPASE (01/23/18) ASSAY OF MAGNESIUM (01/23/18) ASSAY THYROID STIM HORMONE (08/24/13) BL SMEAR W/DIFF WBC COUNT (01/23/18) BLOOD TYPING SEROLOGIC ABO (08/24/13) BLOOD TYPING SEROLOGIC RH(D) (08/24/13) C-REACTIVE PROTEIN (01/23/18) CHEST X-RAY 1 VIEW FRONTAL (07/04/13) CHORIONIC GONADOTROPIN ASSAY (01/22/18) CHYLMD TRACH DNA AMP PROBE (08/24/13) COMPLETE CBC AUTOMATED (01/23/18) COMPLETE CBC W/AUTO DIFF WBC (01/23/18) COMPREHEN METABOLIC PANEL (01/23/18) CT ABD & PELVIS W/O CONTRAST (01/22/18) CT HEAD/BRAIN W/O DYE (07/04/13) CT NECK SPINE W/O DYE (10/16/14) CULTURE AEROBIC IDENTIFY (11/03/13) DRUG TEST PRSMV INSTRMNT (01/22/18) ECHO EXAM OF ABDOMEN (01/23/18) ELECTROCARDIOGRAM TRACING (07/04/13) EMERGENCY DEPT VISIT (01/23/18) EMERGENCY DEPT VISIT (07/14/15) EMERGENCY DEPT VISIT (07/04/13) EXTREMITY STUDY (09/30/13) NON-STRESS TEST (03/07/14) GLUCOSE TEST (01/06/14) HELICOBACTER PYLORI ANTIBODY (01/23/18) HEMOGLOBIN (01/06/14) HEPATITIS B SURFACE AG IA (08/24/13) HYDRATE IV INFUSION ADD-ON (01/23/18) MEASURE BLOOD OXYGEN LEVEL (01/22/18) MICROBE SUSCEPTIBLE [place] (11/03/13) N.GONORRHOEAE DNA AMP PROB (08/24/13) OB US < 14 WKS SINGLE FETUS (08/24/13) OB US >/= 14 WKS SNGL FETUS (10/22/13) OB US LIMITED FETUS(S) (12/24/13) RBC ANTIBODY SCREEN (08/24/13) ROUTINE VENIPUNCTURE (01/23/18) RUBELLA ANTIBODY (08/24/13) STREP B DNA AMP PROBE (02/02/14) SYPHILIS TEST NON-TREP QUAL (08/24/13) THER/PROPH/DIAG INJ IV PUSH (07/14/15) THER/PROPH/DIAG INJ SC/IM (01/23/18) THER/PROPH/DIAG IV INF ADDON (01/23/18) THER/PROPH/DIAG IV INF INIT (01/23/18) TRANSVAGINAL US NON-OB (01/23/18) TX/PRO/DX INJ NEW DRUG ADDON (01/23/18) TX/PRO/DX INJ SAME DRUG DISPLAY CARVER (01/23/18) TX/PROPH/DG ADDL SEQ IV INF (01/23/18) URINALYSIS AUTO W/O SCOPE (03/08/14) URINALYSIS AUTO W/SCOPE (01/23/18) URINE BACTERIA CULTURE (11/03/13) US EXAM ABDO BACK WALL COMP (11/03/13) X-RAY EXAM ABDOMEN 1 VIEW (01/23/18) X-RAY EXAM OF WRIST (10/16/14) (1) Hypokalemia SNOMED Code(s): 48265569 Code(s): E87.6 - HYPOKALEMIA Current Visit: Yes (2) Left flank pain SNOMED Code(s): 509383292 Code(s): R10.9 - UNSPECIFIED ABDOMINAL PAIN Current Visit: Yes (3) Left lower quadrant abdominal pain of unknown etiology SNOMED Code(s): 854293266, 831398558 Code(s): R10.32 - LEFT LOWER QUADRANT PAIN Current Visit: Yes (4) Nausea & vomiting SNOMED Code(s): 44563515 Code(s): R11.2 - NAUSEA WITH VOMITING, UNSPECIFIED Current Visit: Yes (5) Abdominal pain SNOMED Code(s): 19776787 Code(s): R10.9 - UNSPECIFIED ABDOMINAL PAIN Current Visit: No Qualifiers: Abdominal location: left lower quadrant Qualified Code(s): R10.32 - Left lower quadrant pain Problem List Initiated/Reviewed/Updated: No Plan: #1. Recommend surgical consultation with general surgeon. #2. Dictated beta-hCG was negative tonight and yesterday. Pelvic ultrasound did not show any evidence of torsion of the ovary no free fluid in the abdomen seen behind the uterus. Magnesium level now #3. CBC, TSH, free T4, CMP, magnesium, lipase in a.m. #4. Patient does have a history of alcohol abuse and substance abuse possible early pancreatitis #5. Patient's examination tonight does not indicate an acute surgical abdomen or need for immediate intervention in my opinion. Patient is afebrile white count is normal. #6. I will see patient again tomorrow morning. #7. Strain urine for stone, and cath UA, micro and culture recommended. #8. Possible drug seeking (stated pain level higher than appeared on exam and evaluation) Thank you for this consult.
[2018-03-19] MEDS ORDERED: HYDROmorphone 1 MG/ML Syringe IVPUSH PRN (21:48)
[2018-03-19] MEDS ORDERED: Ibuprofen 200 MG Tab PO PRN (21:48)
[2018-03-19] MEDS ORDERED: Ondansetron 4 MG Tab.DIS PO PRN (21:48)
[2018-03-19] MEDS ORDERED: hydrALAZINE 20 MG/ML SDV IVPUSH PRN (21:59)
[2018-03-19] MEDS ORDERED: Metoprolol Tartrate 5 MG/5 ML SDV IVPUSH PRN (21:59)
[2018-03-19] MEDS: Potassium Chloride 10 MEQ in Premix Bag 1 BAG IV SCH ×2 (22:25→23:36)
[2018-03-19] MEDS: Ketorolac 30 MG/ML SDV IV PRN (22:26)
[2018-03-19] MEDS ORDERED: LORazepam 0.5 MG Tab PO PRN (22:47)
[2018-03-20] MEDS: Potassium Chloride 10 MEQ in Premix Bag 1 BAG IV SCH ×4 (00:34→03:37)
[2018-03-20] MEDS: Sodium Chloride 0.9% 1,000 ML IV SCH (03:40)
[2018-03-20] MEDS: Ondansetron 4 MG/2 ML SDV IV PRN ×2 (03:54→09:46)
[2018-03-20] MEDS ORDERED: hydrOXYzine HCl 25 MG/ML SDV IM ONE (04:02)
[2018-03-20] MEDS: Ketorolac 30 MG/ML SDV IV PRN (04:09)
--- NOTE | 2018-03-20 07:05 | US ---
Pelvic ultrasound: Multiple real-time images were obtained transvaginally. Comparison: Prior pelvic ultrasound of 03/18/18. Uterus is anteverted. No myometrial abnormality is seen. 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 Follicles are seen within both ovaries. Endometrial thickness is normal at 4 mm. No free fluid is seen. Measurements: Uterus: Length 9.7 cm, AP height 5.4 cm, transverse width 6.4 cm Right ovary: 3.4 x 1.6 x 2.7 cm Left ovary: 4.0 x 1.8 x 2.3 cm Impression: 1. Pelvic varicosities are again noted and appear similar to previous study. 2. Pelvic ultrasound is otherwise unremarkable. Diagnostic code #3 I agree with preliminary report from [facility], finalized on 03/19/18, 10:25 PM Central Time
[2018-03-20] MEDS ORDERED: Famotidine 20 MG/2 ML SDV IVPUSH SCH (09:00)
--- NOTE | 2018-03-20 09:03 | PCM.CONSN ---
- General Info Date of Service: 03/20/18 Admission Dx/Problem (Free Text): Admission Diagnosis/Problem Admission Diagnosis/Problem Pancreatitis Functional Status: Reports: Pain Controlled - Review of Systems General: Reports: No Symptoms HEENT: Reports: No Symptoms Pulmonary: Reports: No Symptoms Cardiovascular: Reports: No Symptoms Gastrointestinal: Reports: Abdominal Pain (Improved this morning, the flank pain has improved minimal CVA tenderness on the left. Abdomen is soft no rebound or referred pain bowel sounds are normal.) Genitourinary: Reports: Flank Pain (Much improved over exam from last night minimal left CVA tenderness abdomen is soft bowel sounds are normal) Musculoskeletal: Reports: No Symptoms Skin: Reports: No Symptoms Neurological: Reports: No Symptoms Psychiatric: Reports: No Symptoms - Patient Data Vitals - Most Recent: Last Vital Signs Temp 99.0 F 03/19/18 23:51 Pulse 54 L 03/19/18 23:51 Resp 16 03/19/18 20:13 BP 97/62 03/19/18 23:51 Pulse Ox 96 03/19/18 23:51 Weight - Most Recent: 176 lb 8 oz I&O - Last 24 Hours: Intake & Output 03/19/18 03/20/18 03/20/18 22:59 06:59 14:59 Intake Total 498 Balance 498 Lab Results Last 24 Hours: Laboratory Results - last 24 hr 03/19/18 03/19/18 03/19/18 Range/Units 12:25 12:25 12:25 WBC 6.55 (3.98-10.04) K/mm3 RBC 4.58 (3.98-5.22) M/mm3 Hgb 14.1 (11.2-15.7) gm/L Hct 41.4 (34.1-44.9) % MCV 90.4 (79.4-94.8) fl MCH 30.8 (25.6-32.2) pg MCHC 34.1 (32.2-35.5) g/dl RDW Std Deviation 39.8 (36.4-46.3) fL Plt Count 283 (182-369) K/mm3 MPV 10.6 (9.4-12.3) fl Neut % (Auto) 73.9 H (34.0-71.1) % Lymph % (Auto) 16.9 L (19.3-51.7) % Carlton % (Auto) 8.2 (4.7-12.5) % Eos % (Auto) 0.6 L (0.7-5.8) Baso % (Auto) 0.2 (0.1-1.2) % Neut # (Auto) 4.84 (1.56-6.13) K/mm3 Lymph # (Auto) 1.11 L (1.18-3.74) K/mm3 Carlton # (Auto) 0.54 H (0.24-0.36) K/mm3 Eos # (Auto) 0.04 (0.04-0.36) K/mm3 Baso # (Auto) 0.01 (0.01-0.08) K/mm3 Puncture Site ABG pH (7.35-7.45) ABG pCO2 (35.0-45.0) mmHg ABG pO2 (80.0-100.0) mmHg ABG HCO3 (22.0-26.0) meq/L ABG O2 Saturation (96.0-97.0) % ABG Base Excess (-2-2.0) Eddie Test A-a Gradient mmHg O2 Delivery Device FiO2 (21.00-100.00) % Sodium 135 L (136-145) mEq/L Potassium 3.0 L (3.5-5.1) mEq/L Chloride 96 L (98-107) mEq/L Carbon Dioxide 22 (21-32) mEq/L Anion Gap 20.0 H (5-15) BUN 12 (7-18) mg/dL Creatinine 0.9 (0.55-1.02) mg/dL Est Cr Clr Drug Dosing 86.84 mL/min Estimated GFR (MDRD) > 60 (>60) mL/min BUN/Creatinine Ratio 13.3 L (14-18) Glucose 107 H (74-106) mg/dL Calcium 9.2 (8.5-10.1) mg/dL Magnesium (1.8-2.4) mg/dl Total Bilirubin 0.9 (0.2-1.0) mg/dL GGT (5-55) U/L AST 39 H (15-37) U/L ALT 62 H (14-59) U/L Alkaline Phosphatase 58 (46-116) U/L C-Reactive Protein (<1.0) mg/dL Total Protein 7.4 (6.4-8.2) g/dl Albumin 4.2 (3.4-5.0) g/dl Globulin 3.2 gm/dL Albumin/Globulin Ratio 1.3 (1-2) Lipase 627 H (73-393) U/L Free T4 (0.76-1.46) ng/dL TSH 3rd Generation (0.358-3.74) uIU/mL HCG, Quant mIU/mL Urine Color (Yellow) Urine Appearance (Clear) Urine pH (5.0-8.0) Ur Specific [place] (1.005-1.030) Urine Protein (Negative) Urine Glucose (UA) (Negative) Urine Ketones (Negative) Urine Occult Blood (Negative) Urine Nitrite (Negative) Urine Bilirubin (Negative) Urine Urobilinogen (0.2-1.0) Ur Leukocyte Esterase (Negative) Urine RBC (0-5) /hpf Urine WBC (0-5) /hpf Ur Epithelial Cells (0-5) /hpf Urine Bacteria (FEW) /hpf Urine Mucus (FEW) /hpf Urine Other Urine Opiates Screen (FWDUJG=259) Ur Buprenorphine Scrn (CUTOFF=10) Ur Oxycodone Screen (NOG6AJ=432) Urine Methadone Screen (IROOYQ=365) Ur Propoxyphene Screen (KILXLD=393) Ur Barbiturates Screen (UURAOE=048) Ur Tricyclics Screen (ZDKXLY=478) Ur Phencyclidine Scrn (CUTOFF=25) Ur Amphetamine Screen (TMGPLH=323) U Methamphetamines Scrn (HYARCR=888) U Benzodiazepines Scrn (FTLQTO=237) U Cocaine Metab Screen (SNOQBJ=590) U Marijuana (THC) Screen (CUTOFF=50) Ethyl Alcohol 0.00 (0.00) gm% Blood Type Gel Antibody Screen 03/19/18 03/19/18 03/19/18 Range/Units 12:25 12:25 12:25 WBC (3.98-10.04) K/mm3 RBC (3.98-5.22) M/mm3 Hgb (11.2-15.7) gm/L Hct (34.1-44.9) % MCV (79.4-94.8) fl MCH (25.6-32.2) pg MCHC (32.2-35.5) g/dl RDW Std Deviation (36.4-46.3) fL Plt Count (182-369) K/mm3 MPV (9.4-12.3) fl Neut % (Auto) (34.0-71.1) % Lymph % (Auto) (19.3-51.7) % Carlton % (Auto) (4.7-12.5) % Eos % (Auto) (0.7-5.8) Baso % (Auto) (0.1-1.2) % Neut # (Auto) (1.56-6.13) K/mm3 Lymph # (Auto) (1.18-3.74) K/mm3 Carlton # (Auto) (0.24-0.36) K/mm3 Eos # (Auto) (0.04-0.36) K/mm3 Baso # (Auto) (0.01-0.08) K/mm3 Puncture Site ABG pH (7.35-7.45) ABG pCO2 (35.0-45.0) mmHg ABG pO2 (80.0-100.0) mmHg ABG HCO3 (22.0-26.0) meq/L ABG O2 Saturation (96.0-97.0) % ABG Base Excess (-2-2.0) Eddie Test A-a Gradient mmHg O2 Delivery Device FiO2 (21.00-100.00) % Sodium (136-145) mEq/L Potassium (3.5-5.1) mEq/L Chloride (98-107) mEq/L Carbon Dioxide (21-32) mEq/L Anion Gap (5-15) BUN (7-18) mg/dL Creatinine (0.55-1.02) mg/dL Est Cr Clr Drug Dosing mL/min Estimated GFR (MDRD) (>60) mL/min BUN/Creatinine Ratio (14-18) Glucose (74-106) mg/dL Calcium (8.5-10.1) mg/dL Magnesium (1.8-2.4) mg/dl Total Bilirubin (0.2-1.0) mg/dL GGT 18 (5-55) U/L AST (15-37) U/L ALT (14-59) U/L Alkaline Phosphatase (46-116) U/L C-Reactive Protein (<1.0) mg/dL Total Protein (6.4-8.2) g/dl Albumin (3.4-5.0) g/dl Globulin gm/dL Albumin/Globulin Ratio (1-2) Lipase (73-393) U/L Free T4 (0.76-1.46) ng/dL TSH 3rd Generation (0.358-3.74) uIU/mL HCG, Quant < 1.0 mIU/mL Urine Color (Yellow) Urine Appearance (Clear) Urine pH (5.0-8.0) Ur Specific [place] (1.005-1.030) Urine Protein (Negative) Urine Glucose (UA) (Negative) Urine Ketones (Negative) Urine Occult Blood (Negative) Urine Nitrite (Negative) Urine Bilirubin (Negative) Urine Urobilinogen (0.2-1.0) Ur Leukocyte Esterase (Negative) Urine RBC (0-5) /hpf Urine WBC (0-5) /hpf Ur Epithelial Cells (0-5) /hpf Urine Bacteria (FEW) /hpf Urine Mucus (FEW) /hpf Urine Other Urine Opiates Screen (SODIET=159) Ur Buprenorphine Scrn (CUTOFF=10) Ur Oxycodone Screen (QAW5CS=169) Urine Methadone Screen (MQUHMC=482) Ur Propoxyphene Screen (BJBAOP=163) Ur Barbiturates Screen (VUZJIL=161) Ur Tricyclics Screen (WTLCFK=541) Ur Phencyclidine Scrn (CUTOFF=25) Ur Amphetamine Screen (FCJWVX=902) U Methamphetamines Scrn (QIDVMH=906) U Benzodiazepines Scrn (EJDYYP=126) U Cocaine Metab Screen (YMBOOL=301) U Marijuana (THC) Screen (CUTOFF=50) Ethyl Alcohol (0.00) gm% Blood Type AB POSITIVE Gel Antibody Screen Negative 03/19/18 03/19/18 03/19/18 Range/Units 12:25 12:25 13:04 WBC (3.98-10.04) K/mm3 RBC (3.98-5.22) M/mm3 Hgb (11.2-15.7) gm/L Hct (34.1-44.9) % MCV (79.4-94.8) fl MCH (25.6-32.2) pg MCHC (32.2-35.5) g/dl RDW Std Deviation (36.4-46.3) fL Plt Count (182-369) K/mm3 MPV (9.4-12.3) fl Neut % (Auto) (34.0-71.1) % Lymph % (Auto) (19.3-51.7) % Carlton % (Auto) (4.7-12.5) % Eos % (Auto) (0.7-5.8) Baso % (Auto) (0.1-1.2) % Neut # (Auto) (1.56-6.13) K/mm3 Lymph # (Auto) (1.18-3.74) K/mm3 Carlton # (Auto) (0.24-0.36) K/mm3 Eos # (Auto) (0.04-0.36) K/mm3 Baso # (Auto) (0.01-0.08) K/mm3 Puncture Site Rt radial ABG pH 7.41 (7.35-7.45) ABG pCO2 38.1 (35.0-45.0) mmHg ABG pO2 54.0 L (80.0-100.0) mmHg ABG HCO3 23.9 (22.0-26.0) meq/L ABG O2 Saturation 78.5 L (96.0-97.0) % ABG Base Excess 0.1 (-2-2.0) Eddie Test Positive A-a Gradient 32 mmHg O2 Delivery Device Room air FiO2 21.00 (21.00-100.00) % Sodium (136-145) mEq/L Potassium (3.5-5.1) mEq/L Chloride (98-107) mEq/L Carbon Dioxide (21-32) mEq/L Anion Gap (5-15) BUN (7-18) mg/dL Creatinine (0.55-1.02) mg/dL Est Cr Clr Drug Dosing mL/min Estimated GFR (MDRD) (>60) mL/min BUN/Creatinine Ratio (14-18) Glucose (74-106) mg/dL Calcium (8.5-10.1) mg/dL Magnesium 1.8 (1.8-2.4) mg/dl Total Bilirubin (0.2-1.0) mg/dL GGT (5-55) U/L AST (15-37) U/L ALT (14-59) U/L Alkaline Phosphatase (46-116) U/L C-Reactive Protein (<1.0) mg/dL Total Protein (6.4-8.2) g/dl Albumin (3.4-5.0) g/dl Globulin gm/dL Albumin/Globulin Ratio (1-2) Lipase (73-393) U/L Free T4 1.29 (0.76-1.46) ng/dL TSH 3rd Generation 1.531 (0.358-3.74) uIU/mL HCG, Quant mIU/mL Urine Color (Yellow) Urine Appearance (Clear) Urine pH (5.0-8.0) Ur Specific [place] (1.005-1.030) Urine Protein (Negative) Urine Glucose (UA) (Negative) Urine Ketones (Negative) Urine Occult Blood (Negative) Urine Nitrite (Negative) Urine Bilirubin (Negative) Urine Urobilinogen (0.2-1.0) Ur Leukocyte Esterase (Negative) Urine RBC (0-5) /hpf Urine WBC (0-5) /hpf Ur Epithelial Cells (0-5) /hpf Urine Bacteria (FEW) /hpf Urine Mucus (FEW) /hpf Urine Other Urine Opiates Screen (RREAGA=968) Ur Buprenorphine Scrn (CUTOFF=10) Ur Oxycodone Screen (WBJ7FE=009) Urine Methadone Screen (HCSZFD=314) Ur Propoxyphene Screen (ELZYSV=669) Ur Barbiturates Screen (FHKRSG=187) Ur Tricyclics Screen (XQLNYX=249) Ur Phencyclidine Scrn (CUTOFF=25) Ur Amphetamine Screen (IMTFPY=254) U Methamphetamines Scrn (WMPWCU=822) U Benzodiazepines Scrn (DKAFKG=297) U Cocaine Metab Screen (WQBOHK=609) U Marijuana (THC) Screen (CUTOFF=50) Ethyl Alcohol (0.00) gm% Blood Type Gel Antibody Screen 03/19/18 03/19/18 03/20/18 Range/Units 20:35 20:35 06:15 WBC (3.98-10.04) K/mm3 RBC (3.98-5.22) M/mm3 Hgb (11.2-15.7) gm/L Hct (34.1-44.9) % MCV (79.4-94.8) fl MCH (25.6-32.2) pg MCHC (32.2-35.5) g/dl RDW Std Deviation (36.4-46.3) fL Plt Count (182-369) K/mm3 MPV (9.4-12.3) fl Neut % (Auto) (34.0-71.1) % Lymph % (Auto) (19.3-51.7) % Carlton % (Auto) (4.7-12.5) % Eos % (Auto) (0.7-5.8) Baso % (Auto) (0.1-1.2) % Neut # (Auto) (1.56-6.13) K/mm3 Lymph # (Auto) (1.18-3.74) K/mm3 Carlton # (Auto) (0.24-0.36) K/mm3 Eos # (Auto) (0.04-0.36) K/mm3 Baso # (Auto) (0.01-0.08) K/mm3 Puncture Site ABG pH (7.35-7.45) ABG pCO2 (35.0-45.0) mmHg ABG pO2 (80.0-100.0) mmHg ABG HCO3 (22.0-26.0) meq/L ABG O2 Saturation (96.0-97.0) % ABG Base Excess (-2-2.0) Eddie Test A-a Gradient mmHg O2 Delivery Device FiO2 (21.00-100.00) % Sodium 138 (136-145) mEq/L Potassium 3.5 (3.5-5.1) mEq/L Chloride 105 (98-107) mEq/L Carbon Dioxide 25 (21-32) mEq/L Anion Gap 11.5 (5-15) BUN 9 (7-18) mg/dL Creatinine 0.7 (0.55-1.02) mg/dL Est Cr Clr Drug Dosing 111.65 mL/min Estimated GFR (MDRD) > 60 (>60) mL/min BUN/Creatinine Ratio 12.9 L (14-18) Glucose 95 (74-106) mg/dL Calcium 7.7 L (8.5-10.1) mg/dL Magnesium 1.9 (1.8-2.4) mg/dl Total Bilirubin 0.7 (0.2-1.0) mg/dL GGT (5-55) U/L AST 85 H (15-37) U/L ALT 137 H (14-59) U/L Alkaline Phosphatase 49 (46-116) U/L C-Reactive Protein < 0.2 (<1.0) mg/dL Total Protein 5.3 L (6.4-8.2) g/dl Albumin 3.0 L (3.4-5.0) g/dl Globulin 2.3 gm/dL Albumin/Globulin Ratio 1.3 (1-2) Lipase 169 (73-393) U/L Free T4 (0.76-1.46) ng/dL TSH 3rd Generation (0.358-3.74) uIU/mL HCG, Quant mIU/mL Urine Color Yellow (Yellow) Urine Appearance Slt cloudy H (Clear) Urine pH 6.0 (5.0-8.0) Ur Specific [place] 1.020 (1.005-1.030) Urine Protein Negative (Negative) Urine Glucose (UA) Negative (Negative) Urine Ketones Negative (Negative) Urine Occult Blood 3+ H (Negative) Urine Nitrite Negative (Negative) Urine Bilirubin Negative (Negative) Urine Urobilinogen 0.2 (0.2-1.0) Ur Leukocyte Esterase Negative (Negative) Urine RBC 0-5 (0-5) /hpf Urine WBC 0-5 (0-5) /hpf Ur Epithelial Cells 0-5 (0-5) /hpf Urine Bacteria Few (FEW) /hpf Urine Mucus Few (FEW) /hpf Urine Other See note Urine Opiates Screen Presumptive positive H (IFOVWV=687) Ur Buprenorphine Scrn Negative (CUTOFF=10) Ur Oxycodone Screen Negative (PXS7XA=776) Urine Methadone Screen Negative (AGPBKZ=671) Ur Propoxyphene Screen Negative (ABBWUU=414) Ur Barbiturates Screen Negative (FHBHFS=833) Ur Tricyclics Screen Negative (LYSRYV=343) Ur Phencyclidine Scrn Negative (CUTOFF=25) Ur Amphetamine Screen Negative (BVQZWK=880) U Methamphetamines Scrn Negative (IIBGWX=702) U Benzodiazepines Scrn Presumptive positive H (CWJQNC=191) U Cocaine Metab Screen Negative (DHGNEL=857) U Marijuana (THC) Screen Presumptive positive H (CUTOFF=50) Ethyl Alcohol (0.00) gm% Blood Type Gel Antibody Screen 03/20/18 Range/Units 06:15 WBC 4.16 (3.98-10.04) K/mm3 RBC 3.71 L (3.98-5.22) M/mm3 Hgb 11.3 (11.2-15.7) gm/L Hct 34.6 (34.1-44.9) % MCV 93.3 (79.4-94.8) fl MCH 30.5 (25.6-32.2) pg MCHC 32.7 (32.2-35.5) g/dl RDW Std Deviation 40.0 (36.4-46.3) fL Plt Count 214 (182-369) K/mm3 MPV 10.5 (9.4-12.3) fl Neut % (Auto) 55.8 (34.0-71.1) % Lymph % (Auto) 32.9 (19.3-51.7) % Carlton % (Auto) 9.4 (4.7-12.5) % Eos % (Auto) 1.4 (0.7-5.8) Baso % (Auto) 0.5 (0.1-1.2) % Neut # (Auto) 2.32 (1.56-6.13) K/mm3 Lymph # (Auto) 1.37 (1.18-3.74) K/mm3 Carlton # (Auto) 0.39 H (0.24-0.36) K/mm3 Eos # (Auto) 0.06 (0.04-0.36) K/mm3 Baso # (Auto) 0.02 (0.01-0.08) K/mm3 Puncture Site ABG pH (7.35-7.45) ABG pCO2 (35.0-45.0) mmHg ABG pO2 (80.0-100.0) mmHg ABG HCO3 (22.0-26.0) meq/L ABG O2 Saturation (96.0-97.0) % ABG Base Excess (-2-2.0) Eddie Test A-a Gradient mmHg O2 Delivery Device FiO2 (21.00-100.00) % Sodium (136-145) mEq/L Potassium (3.5-5.1) mEq/L Chloride (98-107) mEq/L Carbon Dioxide (21-32) mEq/L Anion Gap (5-15) BUN (7-18) mg/dL Creatinine (0.55-1.02) mg/dL Est Cr Clr Drug Dosing mL/min Estimated GFR (MDRD) (>60) mL/min BUN/Creatinine Ratio (14-18) Glucose (74-106) mg/dL Calcium (8.5-10.1) mg/dL Magnesium (1.8-2.4) mg/dl Total Bilirubin (0.2-1.0) mg/dL GGT (5-55) U/L AST (15-37) U/L ALT (14-59) U/L Alkaline Phosphatase (46-116) U/L C-Reactive Protein (<1.0) mg/dL Total Protein (6.4-8.2) g/dl Albumin (3.4-5.0) g/dl Globulin gm/dL Albumin/Globulin Ratio (1-2) Lipase (73-393) U/L Free T4 (0.76-1.46) ng/dL TSH 3rd Generation (0.358-3.74) uIU/mL HCG, Quant mIU/mL Urine Color (Yellow) Urine Appearance (Clear) Urine pH (5.0-8.0) Ur Specific [place] (1.005-1.030) Urine Protein (Negative) Urine Glucose (UA) (Negative) Urine Ketones (Negative) Urine Occult Blood (Negative) Urine Nitrite (Negative) Urine Bilirubin (Negative) Urine Urobilinogen (0.2-1.0) Ur Leukocyte Esterase (Negative) Urine RBC (0-5) /hpf Urine WBC (0-5) /hpf Ur Epithelial Cells (0-5) /hpf Urine Bacteria (FEW) /hpf Urine Mucus (FEW) /hpf Urine Other Urine Opiates Screen (LJUAIL=568) Ur Buprenorphine Scrn (CUTOFF=10) Ur Oxycodone Screen (DKJ8FF=217) Urine Methadone Screen (JQQLPC=516) Ur Propoxyphene Screen (IYLCAG=757) Ur Barbiturates Screen (BWENFG=494) Ur Tricyclics Screen (KNWQYF=574) Ur Phencyclidine Scrn (CUTOFF=25) Ur Amphetamine Screen (ENWWSO=752) U Methamphetamines Scrn (AQCRFN=576) U Benzodiazepines Scrn (WJXIIN=410) U Cocaine Metab Screen (JVWXLS=348) U Marijuana (THC) Screen (CUTOFF=50) Ethyl Alcohol (0.00) gm% Blood Type Gel Antibody Screen Med Orders - Current: Current Medications Famotidine (Pepcid) 20 mg IVPUSH DAILY JOHN Hydralazine HCl (Apresoline) 10 mg IVPUSH Q4H PRN PRN Reason: Hypertension Hydromorphone HCl (Dilaudid) 0.5 mg IVPUSH Q2H PRN PRN Reason: Pain (severe 7-10) Hydroxyzine HCl (Vistaril) 25 mg IM BEDTIME JOHN Sodium Chloride (Normal Saline) 1,000 mls @ 125 mls/hr IV ASDIRECTED JOHN Last Admin: 03/20/18 03:40 Dose: 125 mls/hr Ibuprofen (Motrin) 200 mg PO Q6H PRN PRN Reason: Pain (mild 1-3) Ketorolac Tromethamine (Toradol) 30 mg IV Q6H PRN PRN Reason: Pain (moderate 4-6) Last Admin: 03/20/18 04:09 Dose: 30 mg Lorazepam (Ativan) 0.5 mg PO Q4H PRN PRN Reason: Anxiety Magnesium Sulfate (Pharmacy To Dose - Magnesium Replacement) 1 dose .XX ASDIRECTED PRN PRN Reason: RX TO WATCH MAG LEVELS Metoprolol Tartrate (Lopressor) 5 mg IVPUSH Q4H PRN PRN Reason: Tachycardia Miscellaneous Information (Remove Patch) 1 ea TRDERM Q72H PRN PRN Reason: IF SCOPE PATCH USED Miscellaneous Information (Remove Patch) 1 ea TRDERM DAILY [facility] Nicotine (Habitrol) 7 mg TRDERM DAILY [facility] Ondansetron HCl (Zofran Odt) 4 mg PO Q4H PRN PRN Reason: nausea, able to take PO Ondansetron HCl (Zofran) 4 mg IV Q4H PRN PRN Reason: Nausea/Vomiting Last Admin: 03/20/18 03:54 Dose: 4 mg Potassium Chloride (Pharmacy To Dose - Potassium Replacement) 1 dose .XX ASDIRECTED PRN PRN Reason: RX TO WATCH K LEVELS Scopolamine (Transderm-Scop) 1.5 mg TRDERM Q72H PRN PRN Reason: Nausea/Vomiting Last Admin: 03/19/18 21:08 Dose: 1.5 mg Sodium Chloride (Saline Flush) 10 ml FLUSH ASDIRECTED PRN PRN Reason: Keep Vein Open Last Admin: 03/19/18 12:46 Dose: 10 ml Sodium Chloride (Saline Flush) 10 ml FLUSH ONETIME PRN PRN Reason: KEEP VEIN OPEN Last Admin: 03/19/18 16:24 Dose: 10 ml Discontinued Medications Diatrizoate Meglum/Diatrizoate Sod (Gastrografin 37%) 60 ml PO ONETIME ONE Stop: 03/19/18 14:58 Last Admin: 03/19/18 16:25 Dose: 60 ml Hydromorphone HCl (Dilaudid) 1 mg IVPUSH ONETIME ONE Stop: 03/19/18 12:36 Last Admin: 03/19/18 12:46 Dose: 1 mg Hydromorphone HCl (Dilaudid) 1 mg IVPUSH ONETIME ONE Stop: 03/19/18 14:14 Last Admin: 03/19/18 14:20 Dose: 1 mg Hydromorphone HCl (Dilaudid) 1 mg IVPUSH ONETIME ONE Stop: 03/19/18 17:37 Last Admin: 03/19/18 17:45 Dose: 1 mg Hydromorphone HCl (Dilaudid) 1 mg IVPUSH ONETIME ONE Stop: 03/19/18 20:23 Last Admin: 03/19/18 20:30 Dose: 1 mg Hydroxyzine HCl (Vistaril) 25 mg IM ONETIME ONE Stop: 03/20/18 04:03 Last Admin: 03/20/18 04:14 Dose: 25 mg Sodium Chloride (Normal Saline) 1,000 mls @ 999 mls/hr IV ONETIME JOHN Last Admin: 03/19/18 12:44 Dose: 999 mls/hr Sodium Chloride (Normal Saline) 1,000 mls @ 999 mls/hr IV ONETIME JOHN Last Admin: 03/19/18 17:49 Dose: 999 mls/hr Potassium Chloride 10 meq/ (Premix) 100 mls @ 100 mls/hr IV Q1H JOHN Stop: 03/20/18 03:59 Last Admin: 03/20/18 03:37 Dose: 100 mls/hr Iopamidol (Isovue-300 (61%)) 100 ml IVPUSH ONETIME ONE Stop: 03/19/18 14:58 Last Admin: 03/19/18 16:25 Dose: 100 ml Lorazepam (Ativan) 1 mg IVPUSH ONETIME ONE Stop: 03/19/18 12:36 Last Admin: 03/19/18 12:44 Dose: 1 mg Lorazepam (Ativan) 1 mg IVPUSH ONETIME ONE Stop: 03/19/18 21:38 Last Admin: 03/19/18 21:52 Dose: 1 mg Metoclopramide HCl (Reglan) 5 mg IVPUSH ONETIME ONE Stop: 03/19/18 13:56 Last Admin: 03/19/18 14:00 Dose: 5 mg Ondansetron HCl (Zofran) 4 mg IVPUSH ONETIME ONE Stop: 03/19/18 12:36 Last Admin: 03/19/18 12:43 Dose: 4 mg - Exam General: Alert, Oriented GI/Abdominal Exam: Normal Bowel Sounds, Soft, Non-Tender, No Organomegaly, No Distention, No Mass, Tender (Tenderness in the lower abdomen noted last evening has resolved) Extremities: Normal Inspection, Non-Tender Skin: Warm, Dry, Intact Psy/Mental Status: Alert, Normal Affect, Normal Mood Consult PN Assessment/Plan Procedures: Procedures APPLY FOREARM SPLINT (10/16/14) ASSAY OF AMYLASE (01/22/18) ASSAY OF ETHANOL (07/04/13) ASSAY OF LIPASE (01/23/18) ASSAY OF MAGNESIUM (01/23/18) ASSAY THYROID STIM HORMONE (08/24/13) BL SMEAR W/DIFF WBC COUNT (01/23/18) BLOOD TYPING SEROLOGIC ABO (08/24/13) BLOOD TYPING SEROLOGIC RH(D) (08/24/13) C-REACTIVE PROTEIN (01/23/18) CHEST X-RAY 1 VIEW FRONTAL (07/04/13) CHORIONIC GONADOTROPIN ASSAY (01/22/18) CHYLMD TRACH DNA AMP PROBE (08/24/13) COMPLETE CBC AUTOMATED (01/23/18) COMPLETE CBC W/AUTO DIFF WBC (01/23/18) COMPREHEN METABOLIC PANEL (01/23/18) CT ABD & PELVIS W/O CONTRAST (01/22/18) CT HEAD/BRAIN W/O DYE (07/04/13) CT NECK SPINE W/O DYE (10/16/14) CULTURE AEROBIC IDENTIFY (11/03/13) DRUG TEST PRSMV INSTRMNT (01/22/18) ECHO EXAM OF ABDOMEN (01/23/18) ELECTROCARDIOGRAM TRACING (07/04/13) EMERGENCY DEPT VISIT (01/23/18) EMERGENCY DEPT VISIT (07/14/15) EMERGENCY DEPT VISIT (07/04/13) EXTREMITY STUDY (09/30/13) NON-STRESS TEST (03/07/14) GLUCOSE TEST (01/06/14) HELICOBACTER PYLORI ANTIBODY (01/23/18) HEMOGLOBIN (01/06/14) HEPATITIS B SURFACE AG IA (08/24/13) HYDRATE IV INFUSION ADD-ON (01/23/18) MEASURE BLOOD OXYGEN LEVEL (01/22/18) MICROBE SUSCEPTIBLE [place] (11/03/13) N.GONORRHOEAE DNA AMP PROB (08/24/13) OB US < 14 WKS SINGLE FETUS (08/24/13) OB US >/= 14 WKS SNGL FETUS (10/22/13) OB US LIMITED FETUS(S) (12/24/13) RBC ANTIBODY SCREEN (08/24/13) ROUTINE VENIPUNCTURE (01/23/18) RUBELLA ANTIBODY (08/24/13) STREP B DNA AMP PROBE (02/02/14) SYPHILIS TEST NON-TREP QUAL (08/24/13) THER/PROPH/DIAG INJ IV PUSH (07/14/15) THER/PROPH/DIAG INJ SC/IM (01/23/18) THER/PROPH/DIAG IV INF ADDON (01/23/18) THER/PROPH/DIAG IV INF INIT (01/23/18) TRANSVAGINAL US NON-OB (01/23/18) TX/PRO/DX INJ NEW DRUG ADDON (01/23/18) TX/PRO/DX INJ SAME DRUG REMITTANCE CLERK (01/23/18) TX/PROPH/DG ADDL SEQ IV INF (01/23/18) URINALYSIS AUTO W/O SCOPE (03/08/14) URINALYSIS AUTO W/SCOPE (01/23/18) URINE BACTERIA CULTURE (11/03/13) US EXAM ABDO BACK WALL COMP (11/03/13) X-RAY EXAM ABDOMEN 1 VIEW (01/23/18) X-RAY EXAM OF WRIST (10/16/14) (1) Hypokalemia SNOMED Code(s): 15871312 Code(s): E87.6 - HYPOKALEMIA Priority: High Current Visit: Yes (2) Left flank pain SNOMED Code(s): 814538674 Code(s): R10.9 - UNSPECIFIED ABDOMINAL PAIN Current Visit: Yes (3) Left lower quadrant abdominal pain of unknown etiology SNOMED Code(s): 491407548, 693573637 Code(s): R10.32 - LEFT LOWER QUADRANT PAIN Priority: High Current Visit: Yes (4) Nausea & vomiting SNOMED Code(s): 01751513 Code(s): R11.2 - NAUSEA WITH VOMITING, UNSPECIFIED Priority: High Current Visit: Yes Qualifiers: Vomiting type: unspecified Vomiting Intractability: unspecified Qualified Code(s): R11.2 - Nausea with vomiting, unspecified (5) Abdominal pain SNOMED Code(s): 79823603 Code(s): R10.9 - UNSPECIFIED ABDOMINAL PAIN Current Visit: No Qualifiers: Abdominal location: left lower quadrant Qualified Code(s): R10.32 - Left lower quadrant pain Problem List Initiated/Reviewed/Updated: No Plan: As far as concerned 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 Please let me know finding to see patient in the future. Patient will make an appointment to see me in the clinic if any ZINC PLATE GRAINER problems. Patient is to be seen by general surgery today. Patient will also be seen by hospitalist today If you need me to see patient again please let me know.
[2018-03-20] MEDS: Nicotine 7 MG/24 Hr Patch TRDERM SCH ×2 (09:19→09:36)
--- NOTE | 2018-03-20 10:48 | PCM.CONSN ---
- General Info Date of Service: 03/20/18 - Patient Data Vitals - Most Recent: Last Vital Signs Temp 37.0 C 03/20/18 08:59 Pulse 56 L 03/20/18 08:59 Resp 16 03/20/18 08:59 BP 118/67 03/20/18 08:59 Pulse Ox 96 03/20/18 08:59 Weight - Most Recent: 80.059 kg I&O - Last 24 Hours: Intake & Output 03/19/18 03/20/18 03/20/18 22:59 06:59 14:59 Intake Total 498 Balance 498 Lab Results Last 24 Hours: Laboratory Results - last 24 hr 03/19/18 03/19/18 03/19/18 Range/Units 12:25 12:25 12:25 WBC 6.55 (3.98-10.04) K/mm3 RBC 4.58 (3.98-5.22) M/mm3 Hgb 14.1 (11.2-15.7) gm/L Hct 41.4 (34.1-44.9) % MCV 90.4 (79.4-94.8) fl MCH 30.8 (25.6-32.2) pg MCHC 34.1 (32.2-35.5) g/dl RDW Std Deviation 39.8 (36.4-46.3) fL Plt Count 283 (182-369) K/mm3 MPV 10.6 (9.4-12.3) fl Neut % (Auto) 73.9 H (34.0-71.1) % Lymph % (Auto) 16.9 L (19.3-51.7) % [place] % (Auto) 8.2 (4.7-12.5) % Eos % (Auto) 0.6 L (0.7-5.8) Baso % (Auto) 0.2 (0.1-1.2) % Neut # (Auto) 4.84 (1.56-6.13) K/mm3 Lymph # (Auto) 1.11 L (1.18-3.74) K/mm3 [place] # (Auto) 0.54 H (0.24-0.36) K/mm3 Eos # (Auto) 0.04 (0.04-0.36) K/mm3 Baso # (Auto) 0.01 (0.01-0.08) K/mm3 Puncture Site ABG pH (7.35-7.45) ABG pCO2 (35.0-45.0) mmHg ABG pO2 (80.0-100.0) mmHg ABG HCO3 (22.0-26.0) meq/L ABG O2 Saturation (96.0-97.0) % ABG Base Excess (-2-2.0) Eddie Test A-a Gradient mmHg O2 Delivery Device FiO2 (21.00-100.00) % Sodium 135 L (136-145) mEq/L Potassium 3.0 L (3.5-5.1) mEq/L Chloride 96 L (98-107) mEq/L Carbon Dioxide 22 (21-32) mEq/L Anion Gap 20.0 H (5-15) BUN 12 (7-18) mg/dL Creatinine 0.9 (0.55-1.02) mg/dL Est Cr Clr Drug Dosing 86.84 mL/min Estimated GFR (MDRD) > 60 (>60) mL/min BUN/Creatinine Ratio 13.3 L (14-18) Glucose 107 H (74-106) mg/dL Calcium 9.2 (8.5-10.1) mg/dL Magnesium (1.8-2.4) mg/dl Total Bilirubin 0.9 (0.2-1.0) mg/dL GGT (5-55) U/L AST 39 H (15-37) U/L ALT 62 H (14-59) U/L Alkaline Phosphatase 58 (46-116) U/L C-Reactive Protein (<1.0) mg/dL Total Protein 7.4 (6.4-8.2) g/dl Albumin 4.2 (3.4-5.0) g/dl Globulin 3.2 gm/dL Albumin/Globulin Ratio 1.3 (1-2) Lipase 627 H (73-393) U/L Free T4 (0.76-1.46) ng/dL TSH 3rd Generation (0.358-3.74) uIU/mL HCG, Quant mIU/mL Urine Color (Yellow) Urine Appearance (Clear) Urine pH (5.0-8.0) Ur Specific [place] (1.005-1.030) Urine Protein (Negative) Urine Glucose (UA) (Negative) Urine Ketones (Negative) Urine Occult Blood (Negative) Urine Nitrite (Negative) Urine Bilirubin (Negative) Urine Urobilinogen (0.2-1.0) Ur Leukocyte Esterase (Negative) Urine RBC (0-5) /hpf Urine WBC (0-5) /hpf Ur Epithelial Cells (0-5) /hpf Urine Bacteria (FEW) /hpf Urine Mucus (FEW) /hpf Urine Other Urine Opiates Screen (UITELM=358) Ur Buprenorphine Scrn (CUTOFF=10) Ur Oxycodone Screen (ATA5HF=982) Urine Methadone Screen (TBMNFB=986) Ur Propoxyphene Screen (HBGBCM=130) Ur Barbiturates Screen (XBKDPZ=214) Ur Tricyclics Screen (ERVECH=417) Ur Phencyclidine Scrn (CUTOFF=25) Ur Amphetamine Screen (HOERFB=056) U Methamphetamines Scrn (PLWHFH=225) U Benzodiazepines Scrn (QGSOYM=705) U Cocaine Metab Screen (MFUYBA=768) U Marijuana (THC) Screen (CUTOFF=50) Ethyl Alcohol 0.00 (0.00) gm% Blood Type Gel Antibody Screen 03/19/18 03/19/18 03/19/18 Range/Units 12:25 12:25 12:25 WBC (3.98-10.04) K/mm3 RBC (3.98-5.22) M/mm3 Hgb (11.2-15.7) gm/L Hct (34.1-44.9) % MCV (79.4-94.8) fl MCH (25.6-32.2) pg MCHC (32.2-35.5) g/dl RDW Std Deviation (36.4-46.3) fL Plt Count (182-369) K/mm3 MPV (9.4-12.3) fl Neut % (Auto) (34.0-71.1) % Lymph % (Auto) (19.3-51.7) % [place] % (Auto) (4.7-12.5) % Eos % (Auto) (0.7-5.8) Baso % (Auto) (0.1-1.2) % Neut # (Auto) (1.56-6.13) K/mm3 Lymph # (Auto) (1.18-3.74) K/mm3 [place] # (Auto) (0.24-0.36) K/mm3 Eos # (Auto) (0.04-0.36) K/mm3 Baso # (Auto) (0.01-0.08) K/mm3 Puncture Site ABG pH (7.35-7.45) ABG pCO2 (35.0-45.0) mmHg ABG pO2 (80.0-100.0) mmHg ABG HCO3 (22.0-26.0) meq/L ABG O2 Saturation (96.0-97.0) % ABG Base Excess (-2-2.0) Eddie Test A-a Gradient mmHg O2 Delivery Device FiO2 (21.00-100.00) % Sodium (136-145) mEq/L Potassium (3.5-5.1) mEq/L Chloride (98-107) mEq/L Carbon Dioxide (21-32) mEq/L Anion Gap (5-15) BUN (7-18) mg/dL Creatinine (0.55-1.02) mg/dL Est Cr Clr Drug Dosing mL/min Estimated GFR (MDRD) (>60) mL/min BUN/Creatinine Ratio (14-18) Glucose (74-106) mg/dL Calcium (8.5-10.1) mg/dL Magnesium (1.8-2.4) mg/dl Total Bilirubin (0.2-1.0) mg/dL GGT 18 (5-55) U/L AST (15-37) U/L ALT (14-59) U/L Alkaline Phosphatase (46-116) U/L C-Reactive Protein (<1.0) mg/dL Total Protein (6.4-8.2) g/dl Albumin (3.4-5.0) g/dl Globulin gm/dL Albumin/Globulin Ratio (1-2) Lipase (73-393) U/L Free T4 (0.76-1.46) ng/dL TSH 3rd Generation (0.358-3.74) uIU/mL HCG, Quant < 1.0 mIU/mL Urine Color (Yellow) Urine Appearance (Clear) Urine pH (5.0-8.0) Ur Specific [place] (1.005-1.030) Urine Protein (Negative) Urine Glucose (UA) (Negative) Urine Ketones (Negative) Urine Occult Blood (Negative) Urine Nitrite (Negative) Urine Bilirubin (Negative) Urine Urobilinogen (0.2-1.0) Ur Leukocyte Esterase (Negative) Urine RBC (0-5) /hpf Urine WBC (0-5) /hpf Ur Epithelial Cells (0-5) /hpf Urine Bacteria (FEW) /hpf Urine Mucus (FEW) /hpf Urine Other Urine Opiates Screen (BEYGYY=803) Ur Buprenorphine Scrn (CUTOFF=10) Ur Oxycodone Screen (HIT2OT=490) Urine Methadone Screen (OVSHXE=795) Ur Propoxyphene Screen (SMDIAW=590) Ur Barbiturates Screen (FSRFHZ=343) Ur Tricyclics Screen (JQZRUM=496) Ur Phencyclidine Scrn (CUTOFF=25) Ur Amphetamine Screen (KALHLY=779) U Methamphetamines Scrn (PAENNF=117) U Benzodiazepines Scrn (LIUFSK=783) U Cocaine Metab Screen (YDUDWD=339) U Marijuana (THC) Screen (CUTOFF=50) Ethyl Alcohol (0.00) gm% Blood Type AB POSITIVE Gel Antibody Screen Negative 03/19/18 03/19/18 03/19/18 Range/Units 12:25 12:25 13:04 WBC (3.98-10.04) K/mm3 RBC (3.98-5.22) M/mm3 Hgb (11.2-15.7) gm/L Hct (34.1-44.9) % MCV (79.4-94.8) fl MCH (25.6-32.2) pg MCHC (32.2-35.5) g/dl RDW Std Deviation (36.4-46.3) fL Plt Count (182-369) K/mm3 MPV (9.4-12.3) fl Neut % (Auto) (34.0-71.1) % Lymph % (Auto) (19.3-51.7) % [place] % (Auto) (4.7-12.5) % Eos % (Auto) (0.7-5.8) Baso % (Auto) (0.1-1.2) % Neut # (Auto) (1.56-6.13) K/mm3 Lymph # (Auto) (1.18-3.74) K/mm3 [place] # (Auto) (0.24-0.36) K/mm3 Eos # (Auto) (0.04-0.36) K/mm3 Baso # (Auto) (0.01-0.08) K/mm3 Puncture Site Rt radial ABG pH 7.41 (7.35-7.45) ABG pCO2 38.1 (35.0-45.0) mmHg ABG pO2 54.0 L (80.0-100.0) mmHg ABG HCO3 23.9 (22.0-26.0) meq/L ABG O2 Saturation 78.5 L (96.0-97.0) % ABG Base Excess 0.1 (-2-2.0) Eddie Test Positive A-a Gradient 32 mmHg O2 Delivery Device Room air FiO2 21.00 (21.00-100.00) % Sodium (136-145) mEq/L Potassium (3.5-5.1) mEq/L Chloride (98-107) mEq/L Carbon Dioxide (21-32) mEq/L Anion Gap (5-15) BUN (7-18) mg/dL Creatinine (0.55-1.02) mg/dL Est Cr Clr Drug Dosing mL/min Estimated GFR (MDRD) (>60) mL/min BUN/Creatinine Ratio (14-18) Glucose (74-106) mg/dL Calcium (8.5-10.1) mg/dL Magnesium 1.8 (1.8-2.4) mg/dl Total Bilirubin (0.2-1.0) mg/dL GGT (5-55) U/L AST (15-37) U/L ALT (14-59) U/L Alkaline Phosphatase (46-116) U/L C-Reactive Protein (<1.0) mg/dL Total Protein (6.4-8.2) g/dl Albumin (3.4-5.0) g/dl Globulin gm/dL Albumin/Globulin Ratio (1-2) Lipase (73-393) U/L Free T4 1.29 (0.76-1.46) ng/dL TSH 3rd Generation 1.531 (0.358-3.74) uIU/mL HCG, Quant mIU/mL Urine Color (Yellow) Urine Appearance (Clear) Urine pH (5.0-8.0) Ur Specific [place] (1.005-1.030) Urine Protein (Negative) Urine Glucose (UA) (Negative) Urine Ketones (Negative) Urine Occult Blood (Negative) Urine Nitrite (Negative) Urine Bilirubin (Negative) Urine Urobilinogen (0.2-1.0) Ur Leukocyte Esterase (Negative) Urine RBC (0-5) /hpf Urine WBC (0-5) /hpf Ur Epithelial Cells (0-5) /hpf Urine Bacteria (FEW) /hpf Urine Mucus (FEW) /hpf Urine Other Urine Opiates Screen (USYYVN=377) Ur Buprenorphine Scrn (CUTOFF=10) Ur Oxycodone Screen (VBH3CA=691) Urine Methadone Screen (FFTZYR=909) Ur Propoxyphene Screen (YAEILQ=661) Ur Barbiturates Screen (LIZDPN=629) Ur Tricyclics Screen (RPSQAD=395) Ur Phencyclidine Scrn (CUTOFF=25) Ur Amphetamine Screen (ILNUVK=958) U Methamphetamines Scrn (BPXPDY=320) U Benzodiazepines Scrn (NKGOII=850) U Cocaine Metab Screen (WUJGTT=933) U Marijuana (THC) Screen (CUTOFF=50) Ethyl Alcohol (0.00) gm% Blood Type Gel Antibody Screen 03/19/18 03/19/18 03/20/18 Range/Units 20:35 20:35 06:15 WBC (3.98-10.04) K/mm3 RBC (3.98-5.22) M/mm3 Hgb (11.2-15.7) gm/L Hct (34.1-44.9) % MCV (79.4-94.8) fl MCH (25.6-32.2) pg MCHC (32.2-35.5) g/dl RDW Std Deviation (36.4-46.3) fL Plt Count (182-369) K/mm3 MPV (9.4-12.3) fl Neut % (Auto) (34.0-71.1) % Lymph % (Auto) (19.3-51.7) % [place] % (Auto) (4.7-12.5) % Eos % (Auto) (0.7-5.8) Baso % (Auto) (0.1-1.2) % Neut # (Auto) (1.56-6.13) K/mm3 Lymph # (Auto) (1.18-3.74) K/mm3 [place] # (Auto) (0.24-0.36) K/mm3 Eos # (Auto) (0.04-0.36) K/mm3 Baso # (Auto) (0.01-0.08) K/mm3 Puncture Site ABG pH (7.35-7.45) ABG pCO2 (35.0-45.0) mmHg ABG pO2 (80.0-100.0) mmHg ABG HCO3 (22.0-26.0) meq/L ABG O2 Saturation (96.0-97.0) % ABG Base Excess (-2-2.0) Eddie Test A-a Gradient mmHg O2 Delivery Device FiO2 (21.00-100.00) % Sodium 138 (136-145) mEq/L Potassium 3.5 (3.5-5.1) mEq/L Chloride 105 (98-107) mEq/L Carbon Dioxide 25 (21-32) mEq/L Anion Gap 11.5 (5-15) BUN 9 (7-18) mg/dL Creatinine 0.7 (0.55-1.02) mg/dL Est Cr Clr Drug Dosing 111.65 mL/min Estimated GFR (MDRD) > 60 (>60) mL/min BUN/Creatinine Ratio 12.9 L (14-18) Glucose 95 (74-106) mg/dL Calcium 7.7 L (8.5-10.1) mg/dL Magnesium 1.9 (1.8-2.4) mg/dl Total Bilirubin 0.7 (0.2-1.0) mg/dL GGT (5-55) U/L AST 85 H (15-37) U/L ALT 137 H (14-59) U/L Alkaline Phosphatase 49 (46-116) U/L C-Reactive Protein < 0.2 (<1.0) mg/dL Total Protein 5.3 L (6.4-8.2) g/dl Albumin 3.0 L (3.4-5.0) g/dl Globulin 2.3 gm/dL Albumin/Globulin Ratio 1.3 (1-2) Lipase 169 (73-393) U/L Free T4 (0.76-1.46) ng/dL TSH 3rd Generation (0.358-3.74) uIU/mL HCG, Quant mIU/mL Urine Color Yellow (Yellow) Urine Appearance Slt cloudy H (Clear) Urine pH 6.0 (5.0-8.0) Ur Specific [place] 1.020 (1.005-1.030) Urine Protein Negative (Negative) Urine Glucose (UA) Negative (Negative) Urine Ketones Negative (Negative) Urine Occult Blood 3+ H (Negative) Urine Nitrite Negative (Negative) Urine Bilirubin Negative (Negative) Urine Urobilinogen 0.2 (0.2-1.0) Ur Leukocyte Esterase Negative (Negative) Urine RBC 0-5 (0-5) /hpf Urine WBC 0-5 (0-5) /hpf Ur Epithelial Cells 0-5 (0-5) /hpf Urine Bacteria Few (FEW) /hpf Urine Mucus Few (FEW) /hpf Urine Other See note Urine Opiates Screen Presumptive positive H (BVCQYT=875) Ur Buprenorphine Scrn Negative (CUTOFF=10) Ur Oxycodone Screen Negative (LWJ5OB=022) Urine Methadone Screen Negative (XFRJZU=268) Ur Propoxyphene Screen Negative (RXUJUB=357) Ur Barbiturates Screen Negative (UKHMRF=617) Ur Tricyclics Screen Negative (DGXUDW=606) Ur Phencyclidine Scrn Negative (CUTOFF=25) Ur Amphetamine Screen Negative (DJQBXF=434) U Methamphetamines Scrn Negative (FAWQCR=678) U Benzodiazepines Scrn Presumptive positive H (LBGVQK=253) U Cocaine Metab Screen Negative (LKCJUG=452) U Marijuana (THC) Screen Presumptive positive H (CUTOFF=50) Ethyl Alcohol (0.00) gm% Blood Type Gel Antibody Screen 03/20/18 03/20/18 Range/Units 06:15 09:15 WBC 4.16 (3.98-10.04) K/mm3 RBC 3.71 L (3.98-5.22) M/mm3 Hgb 11.3 (11.2-15.7) gm/L Hct 34.6 (34.1-44.9) % MCV 93.3 (79.4-94.8) fl MCH 30.5 (25.6-32.2) pg MCHC 32.7 (32.2-35.5) g/dl RDW Std Deviation 40.0 (36.4-46.3) fL Plt Count 214 (182-369) K/mm3 MPV 10.5 (9.4-12.3) fl Neut % (Auto) 55.8 (34.0-71.1) % Lymph % (Auto) 32.9 (19.3-51.7) % [place] % (Auto) 9.4 (4.7-12.5) % Eos % (Auto) 1.4 (0.7-5.8) Baso % (Auto) 0.5 (0.1-1.2) % Neut # (Auto) 2.32 (1.56-6.13) K/mm3 Lymph # (Auto) 1.37 (1.18-3.74) K/mm3 [place] # (Auto) 0.39 H (0.24-0.36) K/mm3 Eos # (Auto) 0.06 (0.04-0.36) K/mm3 Baso # (Auto) 0.02 (0.01-0.08) K/mm3 Puncture Site ABG pH (7.35-7.45) ABG pCO2 (35.0-45.0) mmHg ABG pO2 (80.0-100.0) mmHg ABG HCO3 (22.0-26.0) meq/L ABG O2 Saturation (96.0-97.0) % ABG Base Excess (-2-2.0) Eddie Test A-a Gradient mmHg O2 Delivery Device FiO2 (21.00-100.00) % Sodium (136-145) mEq/L Potassium (3.5-5.1) mEq/L Chloride (98-107) mEq/L Carbon Dioxide (21-32) mEq/L Anion Gap (5-15) BUN (7-18) mg/dL Creatinine (0.55-1.02) mg/dL Est Cr Clr Drug Dosing mL/min Estimated GFR (MDRD) (>60) mL/min BUN/Creatinine Ratio (14-18) Glucose (74-106) mg/dL Calcium (8.5-10.1) mg/dL Magnesium (1.8-2.4) mg/dl Total Bilirubin (0.2-1.0) mg/dL GGT (5-55) U/L AST (15-37) U/L ALT (14-59) U/L Alkaline Phosphatase (46-116) U/L C-Reactive Protein (<1.0) mg/dL Total Protein (6.4-8.2) g/dl Albumin (3.4-5.0) g/dl Globulin gm/dL Albumin/Globulin Ratio (1-2) Lipase (73-393) U/L Free T4 (0.76-1.46) ng/dL TSH 3rd Generation (0.358-3.74) uIU/mL HCG, Quant mIU/mL Urine Color Yellow (Yellow) Urine Appearance Clear (Clear) Urine pH 6.0 (5.0-8.0) Ur Specific [place] 1.025 (1.005-1.030) Urine Protein Trace H (Negative) Urine Glucose (UA) Negative (Negative) Urine Ketones Trace H (Negative) Urine Occult Blood Negative (Negative) Urine Nitrite Negative (Negative) Urine Bilirubin 1+ H (Negative) Urine Urobilinogen 1.0 (0.2-1.0) Ur Leukocyte Esterase Negative (Negative) Urine RBC 0-5 (0-5) /hpf Urine WBC 0-5 (0-5) /hpf Ur Epithelial Cells 0-5 (0-5) /hpf Urine Bacteria Few (FEW) /hpf Urine Mucus Many H (FEW) /hpf Urine Other Urine Opiates Screen (NHQAMS=828) Ur Buprenorphine Scrn (CUTOFF=10) Ur Oxycodone Screen (WKD1FO=552) Urine Methadone Screen (KSJUWG=496) Ur Propoxyphene Screen (SECBDN=018) Ur Barbiturates Screen (XDZGWX=118) Ur Tricyclics Screen (MZAZJY=594) Ur Phencyclidine Scrn (CUTOFF=25) Ur Amphetamine Screen (FKBVKD=741) U Methamphetamines Scrn (LTXSEA=988) U Benzodiazepines Scrn (SSXWMM=396) U Cocaine Metab Screen (HLDAXF=826) U Marijuana (THC) Screen (CUTOFF=50) Ethyl Alcohol (0.00) gm% Blood Type Gel Antibody Screen Med Orders - Current: Current Medications Famotidine (Pepcid) 20 mg IVPUSH DAILY [facility] Last Admin: 03/20/18 09:18 Dose: 20 mg Hydralazine HCl (Apresoline) 10 mg IVPUSH Q4H PRN PRN Reason: Hypertension Hydromorphone HCl (Dilaudid) 0.5 mg IVPUSH Q2H PRN PRN Reason: Pain (severe 7-10) Hydroxyzine HCl (Vistaril) 25 mg IM BEDTIME [facility] Sodium Chloride (Normal Saline) 1,000 mls @ 125 mls/hr IV ASDIRECTED [facility] Last Admin: 03/20/18 03:40 Dose: 125 mls/hr Ibuprofen (Motrin) 200 mg PO Q6H PRN PRN Reason: Pain (mild 1-3) Ketorolac Tromethamine (Toradol) 30 mg IV Q6H PRN PRN Reason: Pain (moderate 4-6) Last Admin: 03/20/18 04:09 Dose: 30 mg Lorazepam (Ativan) 0.5 mg PO Q4H PRN PRN Reason: Anxiety Magnesium Sulfate (Pharmacy To Dose - Magnesium Replacement) 1 dose .XX ASDIRECTED PRN PRN Reason: RX TO WATCH MAG LEVELS Metoprolol Tartrate (Lopressor) 5 mg IVPUSH Q4H PRN PRN Reason: Tachycardia Miscellaneous Information (Remove Patch) 1 ea TRDERM Q72H PRN PRN Reason: IF SCOPE PATCH USED Miscellaneous Information (Remove Patch) 1 ea TRDERM DAILY [facility] Last Admin: 03/20/18 09:19 Dose: Not Given Nicotine (Habitrol) 7 mg TRDERM DAILY [facility] Last Admin: 03/20/18 09:36 Dose: Not Given Ondansetron HCl (Zofran Odt) 4 mg PO Q4H PRN PRN Reason: nausea, able to take PO Ondansetron HCl (Zofran) 4 mg IV Q4H PRN PRN Reason: Nausea/Vomiting Last Admin: 03/20/18 09:46 Dose: 4 mg Potassium Chloride (Pharmacy To Dose - Potassium Replacement) 1 dose .XX ASDIRECTED PRN PRN Reason: RX TO WATCH K LEVELS Scopolamine (Transderm-Scop) 1.5 mg TRDERM Q72H PRN PRN Reason: Nausea/Vomiting Last Admin: 03/19/18 21:08 Dose: 1.5 mg Sodium Chloride (Saline Flush) 10 ml FLUSH ASDIRECTED PRN PRN Reason: Keep Vein Open Last Admin: 03/19/18 12:46 Dose: 10 ml Sodium Chloride (Saline Flush) 10 ml FLUSH ONETIME PRN PRN Reason: KEEP VEIN OPEN Last Admin: 03/19/18 16:24 Dose: 10 ml Discontinued Medications Diatrizoate Meglum/Diatrizoate Sod (Gastrografin 37%) 60 ml PO ONETIME ONE Stop: 03/19/18 14:58 Last Admin: 03/19/18 16:25 Dose: 60 ml Hydromorphone HCl (Dilaudid) 1 mg IVPUSH ONETIME ONE Stop: 03/19/18 12:36 Last Admin: 03/19/18 12:46 Dose: 1 mg Hydromorphone HCl (Dilaudid) 1 mg IVPUSH ONETIME ONE Stop: 03/19/18 14:14 Last Admin: 03/19/18 14:20 Dose: 1 mg Hydromorphone HCl (Dilaudid) 1 mg IVPUSH ONETIME ONE Stop: 03/19/18 17:37 Last Admin: 03/19/18 17:45 Dose: 1 mg Hydromorphone HCl (Dilaudid) 1 mg IVPUSH ONETIME ONE Stop: 03/19/18 20:23 Last Admin: 03/19/18 20:30 Dose: 1 mg Hydroxyzine HCl (Vistaril) 25 mg IM ONETIME ONE Stop: 03/20/18 04:03 Last Admin: 03/20/18 04:14 Dose: 25 mg Sodium Chloride (Normal Saline) 1,000 mls @ 999 mls/hr IV ONETIME JOHN Last Admin: 03/19/18 12:44 Dose: 999 mls/hr Sodium Chloride (Normal Saline) 1,000 mls @ 999 mls/hr IV ONETIME JOHN Last Admin: 03/19/18 17:49 Dose: 999 mls/hr Potassium Chloride 10 meq/ (Premix) 100 mls @ 100 mls/hr IV Q1H JOHN Stop: 03/20/18 03:59 Last Admin: 03/20/18 03:37 Dose: 100 mls/hr Iopamidol (Isovue-300 (61%)) 100 ml IVPUSH ONETIME ONE Stop: 03/19/18 14:58 Last Admin: 03/19/18 16:25 Dose: 100 ml Lorazepam (Ativan) 1 mg IVPUSH ONETIME ONE Stop: 03/19/18 12:36 Last Admin: 03/19/18 12:44 Dose: 1 mg Lorazepam (Ativan) 1 mg IVPUSH ONETIME ONE Stop: 03/19/18 21:38 Last Admin: 03/19/18 21:52 Dose: 1 mg Metoclopramide HCl (Reglan) 5 mg IVPUSH ONETIME ONE Stop: 03/19/18 13:56 Last Admin: 03/19/18 14:00 Dose: 5 mg Ondansetron HCl (Zofran) 4 mg IVPUSH ONETIME ONE Stop: 03/19/18 12:36 Last Admin: 03/19/18 12:43 Dose: 4 mg Consult PN Assessment/Plan Procedures: Procedures APPLY FOREARM SPLINT (10/16/14) ASSAY OF AMYLASE (01/22/18) ASSAY OF ETHANOL (07/04/13) ASSAY OF LIPASE (01/23/18) ASSAY OF MAGNESIUM (01/23/18) ASSAY THYROID STIM HORMONE (08/24/13) BL SMEAR W/DIFF WBC COUNT (01/23/18) BLOOD TYPING SEROLOGIC ABO (08/24/13) BLOOD TYPING SEROLOGIC RH(D) (08/24/13) C-REACTIVE PROTEIN (01/23/18) CHEST X-RAY 1 VIEW FRONTAL (07/04/13) CHORIONIC GONADOTROPIN ASSAY (01/22/18) CHYLMD TRACH DNA AMP PROBE (08/24/13) COMPLETE CBC AUTOMATED (01/23/18) COMPLETE CBC W/AUTO DIFF WBC (01/23/18) COMPREHEN METABOLIC PANEL (01/23/18) CT ABD & PELVIS W/O CONTRAST (01/22/18) CT HEAD/BRAIN W/O DYE (07/04/13) CT NECK SPINE W/O DYE (10/16/14) CULTURE AEROBIC IDENTIFY (11/03/13) DRUG TEST PRSMV INSTRMNT (01/22/18) ECHO EXAM OF ABDOMEN (01/23/18) ELECTROCARDIOGRAM TRACING (07/04/13) EMERGENCY DEPT VISIT (01/23/18) EMERGENCY DEPT VISIT (07/14/15) EMERGENCY DEPT VISIT (07/04/13) EXTREMITY STUDY (09/30/13) NON-STRESS TEST (03/07/14) GLUCOSE TEST (01/06/14) HELICOBACTER PYLORI ANTIBODY (01/23/18) HEMOGLOBIN (01/06/14) HEPATITIS B SURFACE AG IA (08/24/13) HYDRATE IV INFUSION ADD-ON (01/23/18) MEASURE BLOOD OXYGEN LEVEL (01/22/18) MICROBE SUSCEPTIBLE [place] (11/03/13) N.GONORRHOEAE DNA AMP PROB (08/24/13) OB US < 14 WKS SINGLE FETUS (08/24/13) OB US >/= 14 WKS SNGL FETUS (10/22/13) OB US LIMITED FETUS(S) (12/24/13) RBC ANTIBODY SCREEN (08/24/13) ROUTINE VENIPUNCTURE (01/23/18) RUBELLA ANTIBODY (08/24/13) STREP B DNA AMP PROBE (02/02/14) SYPHILIS TEST NON-TREP QUAL (08/24/13) THER/PROPH/DIAG INJ IV PUSH (07/14/15) THER/PROPH/DIAG INJ SC/IM (01/23/18) THER/PROPH/DIAG IV INF ADDON (01/23/18) THER/PROPH/DIAG IV INF INIT (01/23/18) TRANSVAGINAL US NON-OB (01/23/18) TX/PRO/DX INJ NEW DRUG ADDON (01/23/18) TX/PRO/DX INJ SAME DRUG SAP BODS DEVELOPER (01/23/18) TX/PROPH/DG ADDL SEQ IV INF (01/23/18) URINALYSIS AUTO W/O SCOPE (03/08/14) URINALYSIS AUTO W/SCOPE (01/23/18) URINE BACTERIA CULTURE (11/03/13) US EXAM ABDO BACK WALL COMP (11/03/13) X-RAY EXAM ABDOMEN 1 VIEW (01/23/18) X-RAY EXAM OF WRIST (10/16/14)
--- NOTE | 2018-03-20 12:41 | PCM.CONS ---
H&P History of Present Illness - General Date of Service: 03/20/18 Admit Problem/Dx: Admission Diagnosis/Problem Admission Diagnosis/Problem Abdominal pain Source of Information: Patient History Limitations: Reports: No Limitations - History of Present Illness Initial Comments - Free Text/Narative: 42 yo female, admitted on the hospitalist service since yesterday, for abdominal pain. Pain has been located in the LLQ, as well as the LEFT back. Pain started about 1.5 days prior to presenting to the ER. Pain got worse, but improved today compared to yesterday. She had associated nausea, without emesis. Labs on admission was only remarkable for mild elevation in lipase to 627 (today is down to normal at 169). She had a prior lap cholecystectomy, performed several years ago due to "low functioning" gallbladder. She was admitted for similar symptoms in Jan 2018, relieved with GI cocktail, and was discharged home. She had seen Dr. Rivera, General Surgeon, in the hospital at that time. She was supposed to have follow-up for EGD, which she never followed-up for, since her symptoms resolved and she had to go out of town for work. She did not have pancreatitis at that time. She has a history of kidney stones about 2 years ago. I was consulted to ensure her symptoms were not related to a surgical disease process. Abdominal Pain Score (Numeric/FACES): 10 - Related Data Allergies/Adverse Reactions: Allergies Allergy/AdvReac Type Severity Reaction Status Date / Time Penicillins Allergy Cannot Verified 03/18/18 16:08 Remember Home Medications: Home Meds Amphetamine Sulfate 20 mg PO DAILY 01/23/18 [History] Hydrocodone/Acetaminophen [Hydrocodon-Acetaminophen 5-325] 1 - 2 each PO Q6HR PRN #20 tablet 03/18/18 [Rx] Ondansetron [Zofran ODT] 4 mg PO Q6H PRN #20 tab.dis 03/18/18 [Rx] Past Medical History HEENT History: Reports: Impaired Vision Cardiovascular History: Reports: None Respiratory History: Reports: None Genitourinary History: Reports: Renal Calculus 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: Psychiatric History: Reports: ADHD Endocrine/Metabolic History: Reports: Other (See Below) Oncologic (Cancer) History: Reports: None - Past Surgical History HEENT Surgical History: Reports: Oral Surgery GI Surgical History: Reports: Cholecystectomy (laparoscopic (about 3 years ago)) - History Comment History Comment: add meds but not taking them routinely Social & Family History - Family History Family Medical History: Noncontributory Cardiac: Reports: DE Neurological: Reports: CVA Oncologic: Reports: Lung, Lymphoma - Tobacco Use Smoking Status *Q: Current Every Day Smoker Years of Tobacco use: 4 Packs/Tins Daily: 0.3 Second Hand Smoke Exposure: Yes - Caffeine Use Caffeine Use: Reports: Energy Drinks - Alcohol Use Alcohol Use History: No - Recreational Drug Use Recreational Drug Use: Yes Recreational Drug Type: Reports: Marijuana/Hashish Recreational Drug Use Frequency: Monthly - Living Situation & Occupation Living situation: Reports: , with Family (Lives with and children.) H&P Review of Systems - Review of Systems: Review Of Systems: ROS reveals no pertinent complaints other than HPI. Exam - Exam Exam: See Below - Vital Signs Vital Signs: Last Vital Signs Temp 37.0 C 03/20/18 08:59 Pulse 56 L 03/20/18 08:59 Resp 16 03/20/18 08:59 BP 118/67 03/20/18 08:59 Pulse Ox 96 03/20/18 08:59 Weight: 80.059 kg - Exam General: Alert, Oriented, Cooperative HEENT: Conjunctiva Clear Neck: Supple, Trachea Midline Lungs: Clear to Auscultation, Normal Respiratory Effort Cardiovascular: Regular Rate, Regular Rhythm GI/Abdominal Exam: Soft, Tender (mildly tender to the LLQ) Back Exam: CVA Tenderness (L) Extremities: Normal Inspection Skin: Warm, Dry, Intact Neuro Extensive - Mental Status: Alert, Normal Mood/Affect, Normal Cognition, Memory Intact Psychiatric: Alert, Normal Affect, Normal Mood - Patient Data Lab Results Last 24 hrs: Laboratory Results - last 24 hr 03/19/18 03/19/18 03/19/18 Range/Units 12:25 12:25 12:25 WBC 6.55 (3.98-10.04) K/mm3 RBC 4.58 (3.98-5.22) M/mm3 Hgb 14.1 (11.2-15.7) gm/L Hct 41.4 (34.1-44.9) % MCV 90.4 (79.4-94.8) fl MCH 30.8 (25.6-32.2) pg MCHC 34.1 (32.2-35.5) g/dl RDW Std Deviation 39.8 (36.4-46.3) fL Plt Count 283 (182-369) K/mm3 MPV 10.6 (9.4-12.3) fl Neut % (Auto) 73.9 H (34.0-71.1) % Lymph % (Auto) 16.9 L (19.3-51.7) % Bertie % (Auto) 8.2 (4.7-12.5) % Eos % (Auto) 0.6 L (0.7-5.8) Baso % (Auto) 0.2 (0.1-1.2) % Neut # (Auto) 4.84 (1.56-6.13) K/mm3 Lymph # (Auto) 1.11 L (1.18-3.74) K/mm3 Bertie # (Auto) 0.54 H (0.24-0.36) K/mm3 Eos # (Auto) 0.04 (0.04-0.36) K/mm3 Baso # (Auto) 0.01 (0.01-0.08) K/mm3 Puncture Site ABG pH (7.35-7.45) ABG pCO2 (35.0-45.0) mmHg ABG pO2 (80.0-100.0) mmHg ABG HCO3 (22.0-26.0) meq/L ABG O2 Saturation (96.0-97.0) % ABG Base Excess (-2-2.0) Eddie Test A-a Gradient mmHg O2 Delivery Device FiO2 (21.00-100.00) % Sodium 135 L (136-145) mEq/L Potassium 3.0 L (3.5-5.1) mEq/L Chloride 96 L (98-107) mEq/L Carbon Dioxide 22 (21-32) mEq/L Anion Gap 20.0 H (5-15) BUN 12 (7-18) mg/dL Creatinine 0.9 (0.55-1.02) mg/dL Est Cr Clr Drug Dosing 86.84 mL/min Estimated GFR (MDRD) > 60 (>60) mL/min BUN/Creatinine Ratio 13.3 L (14-18) Glucose 107 H (74-106) mg/dL Calcium 9.2 (8.5-10.1) mg/dL Magnesium (1.8-2.4) mg/dl Total Bilirubin 0.9 (0.2-1.0) mg/dL GGT (5-55) U/L AST 39 H (15-37) U/L ALT 62 H (14-59) U/L Alkaline Phosphatase 58 (46-116) U/L C-Reactive Protein (<1.0) mg/dL Total Protein 7.4 (6.4-8.2) g/dl Albumin 4.2 (3.4-5.0) g/dl Globulin 3.2 gm/dL Albumin/Globulin Ratio 1.3 (1-2) Lipase 627 H (73-393) U/L Free T4 (0.76-1.46) ng/dL TSH 3rd Generation (0.358-3.74) uIU/mL HCG, Quant mIU/mL Urine Color (Yellow) Urine Appearance (Clear) Urine pH (5.0-8.0) Ur Specific [place] (1.005-1.030) Urine Protein (Negative) Urine Glucose (UA) (Negative) Urine Ketones (Negative) Urine Occult Blood (Negative) Urine Nitrite (Negative) Urine Bilirubin (Negative) Urine Urobilinogen (0.2-1.0) Ur Leukocyte Esterase (Negative) Urine RBC (0-5) /hpf Urine WBC (0-5) /hpf Ur Epithelial Cells (0-5) /hpf Urine Bacteria (FEW) /hpf Urine Mucus (FEW) /hpf Urine Other Urine Opiates Screen (AXZFMN=540) Ur Buprenorphine Scrn (CUTOFF=10) Ur Oxycodone Screen (PAG6KL=477) Urine Methadone Screen (VVCNEH=602) Ur Propoxyphene Screen (BQLKPF=418) Ur Barbiturates Screen (HIQYNS=804) Ur Tricyclics Screen (OHVSYM=732) Ur Phencyclidine Scrn (CUTOFF=25) Ur Amphetamine Screen (UXXICR=004) U Methamphetamines Scrn (RCUSSP=688) U Benzodiazepines Scrn (LBOFEJ=614) U Cocaine Metab Screen (VQNEPW=913) U Marijuana (THC) Screen (CUTOFF=50) Ethyl Alcohol 0.00 (0.00) gm% Blood Type Gel Antibody Screen 03/19/18 03/19/18 03/19/18 Range/Units 12:25 12:25 12:25 WBC (3.98-10.04) K/mm3 RBC (3.98-5.22) M/mm3 Hgb (11.2-15.7) gm/L Hct (34.1-44.9) % MCV (79.4-94.8) fl MCH (25.6-32.2) pg MCHC (32.2-35.5) g/dl RDW Std Deviation (36.4-46.3) fL Plt Count (182-369) K/mm3 MPV (9.4-12.3) fl Neut % (Auto) (34.0-71.1) % Lymph % (Auto) (19.3-51.7) % Bertie % (Auto) (4.7-12.5) % Eos % (Auto) (0.7-5.8) Baso % (Auto) (0.1-1.2) % Neut # (Auto) (1.56-6.13) K/mm3 Lymph # (Auto) (1.18-3.74) K/mm3 Bertie # (Auto) (0.24-0.36) K/mm3 Eos # (Auto) (0.04-0.36) K/mm3 Baso # (Auto) (0.01-0.08) K/mm3 Puncture Site ABG pH (7.35-7.45) ABG pCO2 (35.0-45.0) mmHg ABG pO2 (80.0-100.0) mmHg ABG HCO3 (22.0-26.0) meq/L ABG O2 Saturation (96.0-97.0) % ABG Base Excess (-2-2.0) Eddie Test A-a Gradient mmHg O2 Delivery Device FiO2 (21.00-100.00) % Sodium (136-145) mEq/L Potassium (3.5-5.1) mEq/L Chloride (98-107) mEq/L Carbon Dioxide (21-32) mEq/L Anion Gap (5-15) BUN (7-18) mg/dL Creatinine (0.55-1.02) mg/dL Est Cr Clr Drug Dosing mL/min Estimated GFR (MDRD) (>60) mL/min BUN/Creatinine Ratio (14-18) Glucose (74-106) mg/dL Calcium (8.5-10.1) mg/dL Magnesium (1.8-2.4) mg/dl Total Bilirubin (0.2-1.0) mg/dL GGT 18 (5-55) U/L AST (15-37) U/L ALT (14-59) U/L Alkaline Phosphatase (46-116) U/L C-Reactive Protein (<1.0) mg/dL Total Protein (6.4-8.2) g/dl Albumin (3.4-5.0) g/dl Globulin gm/dL Albumin/Globulin Ratio (1-2) Lipase (73-393) U/L Free T4 (0.76-1.46) ng/dL TSH 3rd Generation (0.358-3.74) uIU/mL HCG, Quant < 1.0 mIU/mL Urine Color (Yellow) Urine Appearance (Clear) Urine pH (5.0-8.0) Ur Specific [place] (1.005-1.030) Urine Protein (Negative) Urine Glucose (UA) (Negative) Urine Ketones (Negative) Urine Occult Blood (Negative) Urine Nitrite (Negative) Urine Bilirubin (Negative) Urine Urobilinogen (0.2-1.0) Ur Leukocyte Esterase (Negative) Urine RBC (0-5) /hpf Urine WBC (0-5) /hpf Ur Epithelial Cells (0-5) /hpf Urine Bacteria (FEW) /hpf Urine Mucus (FEW) /hpf Urine Other Urine Opiates Screen (LJJQVQ=281) Ur Buprenorphine Scrn (CUTOFF=10) Ur Oxycodone Screen (SAL4WJ=655) Urine Methadone Screen (QDHIWJ=535) Ur Propoxyphene Screen (SGQUXA=512) Ur Barbiturates Screen (PMFEJV=490) Ur Tricyclics Screen (HLDFUJ=626) Ur Phencyclidine Scrn (CUTOFF=25) Ur Amphetamine Screen (WZETWT=931) U Methamphetamines Scrn (XEEPOX=611) U Benzodiazepines Scrn (IOVLGR=011) U Cocaine Metab Screen (AIYIEJ=837) U Marijuana (THC) Screen (CUTOFF=50) Ethyl Alcohol (0.00) gm% Blood Type AB POSITIVE Gel Antibody Screen Negative 03/19/18 03/19/18 03/19/18 Range/Units 12:25 12:25 13:04 WBC (3.98-10.04) K/mm3 RBC (3.98-5.22) M/mm3 Hgb (11.2-15.7) gm/L Hct (34.1-44.9) % MCV (79.4-94.8) fl MCH (25.6-32.2) pg MCHC (32.2-35.5) g/dl RDW Std Deviation (36.4-46.3) fL Plt Count (182-369) K/mm3 MPV (9.4-12.3) fl Neut % (Auto) (34.0-71.1) % Lymph % (Auto) (19.3-51.7) % Bertie % (Auto) (4.7-12.5) % Eos % (Auto) (0.7-5.8) Baso % (Auto) (0.1-1.2) % Neut # (Auto) (1.56-6.13) K/mm3 Lymph # (Auto) (1.18-3.74) K/mm3 Bertie # (Auto) (0.24-0.36) K/mm3 Eos # (Auto) (0.04-0.36) K/mm3 Baso # (Auto) (0.01-0.08) K/mm3 Puncture Site Rt radial ABG pH 7.41 (7.35-7.45) ABG pCO2 38.1 (35.0-45.0) mmHg ABG pO2 54.0 L (80.0-100.0) mmHg ABG HCO3 23.9 (22.0-26.0) meq/L ABG O2 Saturation 78.5 L (96.0-97.0) % ABG Base Excess 0.1 (-2-2.0) Eddie Test Positive A-a Gradient 32 mmHg O2 Delivery Device Room air FiO2 21.00 (21.00-100.00) % Sodium (136-145) mEq/L Potassium (3.5-5.1) mEq/L Chloride (98-107) mEq/L Carbon Dioxide (21-32) mEq/L Anion Gap (5-15) BUN (7-18) mg/dL Creatinine (0.55-1.02) mg/dL Est Cr Clr Drug Dosing mL/min Estimated GFR (MDRD) (>60) mL/min BUN/Creatinine Ratio (14-18) Glucose (74-106) mg/dL Calcium (8.5-10.1) mg/dL Magnesium 1.8 (1.8-2.4) mg/dl Total Bilirubin (0.2-1.0) mg/dL GGT (5-55) U/L AST (15-37) U/L ALT (14-59) U/L Alkaline Phosphatase (46-116) U/L C-Reactive Protein (<1.0) mg/dL Total Protein (6.4-8.2) g/dl Albumin (3.4-5.0) g/dl Globulin gm/dL Albumin/Globulin Ratio (1-2) Lipase (73-393) U/L Free T4 1.29 (0.76-1.46) ng/dL TSH 3rd Generation 1.531 (0.358-3.74) uIU/mL HCG, Quant mIU/mL Urine Color (Yellow) Urine Appearance (Clear) Urine pH (5.0-8.0) Ur Specific [place] (1.005-1.030) Urine Protein (Negative) Urine Glucose (UA) (Negative) Urine Ketones (Negative) Urine Occult Blood (Negative) Urine Nitrite (Negative) Urine Bilirubin (Negative) Urine Urobilinogen (0.2-1.0) Ur Leukocyte Esterase (Negative) Urine RBC (0-5) /hpf Urine WBC (0-5) /hpf Ur Epithelial Cells (0-5) /hpf Urine Bacteria (FEW) /hpf Urine Mucus (FEW) /hpf Urine Other Urine Opiates Screen (EUSGMB=827) Ur Buprenorphine Scrn (CUTOFF=10) Ur Oxycodone Screen (GXN0BN=308) Urine Methadone Screen (NIHFNS=585) Ur Propoxyphene Screen (CFHGLH=807) Ur Barbiturates Screen (QMDWMH=014) Ur Tricyclics Screen (KIOKJO=441) Ur Phencyclidine Scrn (CUTOFF=25) Ur Amphetamine Screen (SFTQOZ=014) U Methamphetamines Scrn (AXPRBC=379) U Benzodiazepines Scrn (RZVQET=806) U Cocaine Metab Screen (SNLTKA=462) U Marijuana (THC) Screen (CUTOFF=50) Ethyl Alcohol (0.00) gm% Blood Type Gel Antibody Screen 03/19/18 03/19/18 03/20/18 Range/Units 20:35 20:35 06:15 WBC (3.98-10.04) K/mm3 RBC (3.98-5.22) M/mm3 Hgb (11.2-15.7) gm/L Hct (34.1-44.9) % MCV (79.4-94.8) fl MCH (25.6-32.2) pg MCHC (32.2-35.5) g/dl RDW Std Deviation (36.4-46.3) fL Plt Count (182-369) K/mm3 MPV (9.4-12.3) fl Neut % (Auto) (34.0-71.1) % Lymph % (Auto) (19.3-51.7) % Bertie % (Auto) (4.7-12.5) % Eos % (Auto) (0.7-5.8) Baso % (Auto) (0.1-1.2) % Neut # (Auto) (1.56-6.13) K/mm3 Lymph # (Auto) (1.18-3.74) K/mm3 Bertie # (Auto) (0.24-0.36) K/mm3 Eos # (Auto) (0.04-0.36) K/mm3 Baso # (Auto) (0.01-0.08) K/mm3 Puncture Site ABG pH (7.35-7.45) ABG pCO2 (35.0-45.0) mmHg ABG pO2 (80.0-100.0) mmHg ABG HCO3 (22.0-26.0) meq/L ABG O2 Saturation (96.0-97.0) % ABG Base Excess (-2-2.0) Eddie Test A-a Gradient mmHg O2 Delivery Device FiO2 (21.00-100.00) % Sodium 138 (136-145) mEq/L Potassium 3.5 (3.5-5.1) mEq/L Chloride 105 (98-107) mEq/L Carbon Dioxide 25 (21-32) mEq/L Anion Gap 11.5 (5-15) BUN 9 (7-18) mg/dL Creatinine 0.7 (0.55-1.02) mg/dL Est Cr Clr Drug Dosing 111.65 mL/min Estimated GFR (MDRD) > 60 (>60) mL/min BUN/Creatinine Ratio 12.9 L (14-18) Glucose 95 (74-106) mg/dL Calcium 7.7 L (8.5-10.1) mg/dL Magnesium 1.9 (1.8-2.4) mg/dl Total Bilirubin 0.7 (0.2-1.0) mg/dL GGT (5-55) U/L AST 85 H (15-37) U/L ALT 137 H (14-59) U/L Alkaline Phosphatase 49 (46-116) U/L C-Reactive Protein < 0.2 (<1.0) mg/dL Total Protein 5.3 L (6.4-8.2) g/dl Albumin 3.0 L (3.4-5.0) g/dl Globulin 2.3 gm/dL Albumin/Globulin Ratio 1.3 (1-2) Lipase 169 (73-393) U/L Free T4 (0.76-1.46) ng/dL TSH 3rd Generation (0.358-3.74) uIU/mL HCG, Quant mIU/mL Urine Color Yellow (Yellow) Urine Appearance Slt cloudy H (Clear) Urine pH 6.0 (5.0-8.0) Ur Specific [place] 1.020 (1.005-1.030) Urine Protein Negative (Negative) Urine Glucose (UA) Negative (Negative) Urine Ketones Negative (Negative) Urine Occult Blood 3+ H (Negative) Urine Nitrite Negative (Negative) Urine Bilirubin Negative (Negative) Urine Urobilinogen 0.2 (0.2-1.0) Ur Leukocyte Esterase Negative (Negative) Urine RBC 0-5 (0-5) /hpf Urine WBC 0-5 (0-5) /hpf Ur Epithelial Cells 0-5 (0-5) /hpf Urine Bacteria Few (FEW) /hpf Urine Mucus Few (FEW) /hpf Urine Other See note Urine Opiates Screen Presumptive positive H (JRUTNL=107) Ur Buprenorphine Scrn Negative (CUTOFF=10) Ur Oxycodone Screen Negative (MQL2WH=889) Urine Methadone Screen Negative (FLQYFV=016) Ur Propoxyphene Screen Negative (COIGDN=335) Ur Barbiturates Screen Negative (DPNUPA=394) Ur Tricyclics Screen Negative (OYPWPI=418) Ur Phencyclidine Scrn Negative (CUTOFF=25) Ur Amphetamine Screen Negative (QRUOXQ=603) U Methamphetamines Scrn Negative (QQXPEA=184) U Benzodiazepines Scrn Presumptive positive H (PPRTQJ=246) U Cocaine Metab Screen Negative (KJDTHD=634) U Marijuana (THC) Screen Presumptive positive H (CUTOFF=50) Ethyl Alcohol (0.00) gm% Blood Type Gel Antibody Screen 03/20/18 03/20/18 Range/Units 06:15 09:15 WBC 4.16 (3.98-10.04) K/mm3 RBC 3.71 L (3.98-5.22) M/mm3 Hgb 11.3 (11.2-15.7) gm/L Hct 34.6 (34.1-44.9) % MCV 93.3 (79.4-94.8) fl MCH 30.5 (25.6-32.2) pg MCHC 32.7 (32.2-35.5) g/dl RDW Std Deviation 40.0 (36.4-46.3) fL Plt Count 214 (182-369) K/mm3 MPV 10.5 (9.4-12.3) fl Neut % (Auto) 55.8 (34.0-71.1) % Lymph % (Auto) 32.9 (19.3-51.7) % Bertie % (Auto) 9.4 (4.7-12.5) % Eos % (Auto) 1.4 (0.7-5.8) Baso % (Auto) 0.5 (0.1-1.2) % Neut # (Auto) 2.32 (1.56-6.13) K/mm3 Lymph # (Auto) 1.37 (1.18-3.74) K/mm3 Bertie # (Auto) 0.39 H (0.24-0.36) K/mm3 Eos # (Auto) 0.06 (0.04-0.36) K/mm3 Baso # (Auto) 0.02 (0.01-0.08) K/mm3 Puncture Site ABG pH (7.35-7.45) ABG pCO2 (35.0-45.0) mmHg ABG pO2 (80.0-100.0) mmHg ABG HCO3 (22.0-26.0) meq/L ABG O2 Saturation (96.0-97.0) % ABG Base Excess (-2-2.0) Eddie Test A-a Gradient mmHg O2 Delivery Device FiO2 (21.00-100.00) % Sodium (136-145) mEq/L Potassium (3.5-5.1) mEq/L Chloride (98-107) mEq/L Carbon Dioxide (21-32) mEq/L Anion Gap (5-15) BUN (7-18) mg/dL Creatinine (0.55-1.02) mg/dL Est Cr Clr Drug Dosing mL/min Estimated GFR (MDRD) (>60) mL/min BUN/Creatinine Ratio (14-18) Glucose (74-106) mg/dL Calcium (8.5-10.1) mg/dL Magnesium (1.8-2.4) mg/dl Total Bilirubin (0.2-1.0) mg/dL GGT (5-55) U/L AST (15-37) U/L ALT (14-59) U/L Alkaline Phosphatase (46-116) U/L C-Reactive Protein (<1.0) mg/dL Total Protein (6.4-8.2) g/dl Albumin (3.4-5.0) g/dl Globulin gm/dL Albumin/Globulin Ratio (1-2) Lipase (73-393) U/L Free T4 (0.76-1.46) ng/dL TSH 3rd Generation (0.358-3.74) uIU/mL HCG, Quant mIU/mL Urine Color Yellow (Yellow) Urine Appearance Clear (Clear) Urine pH 6.0 (5.0-8.0) Ur Specific [place] 1.025 (1.005-1.030) Urine Protein Trace H (Negative) Urine Glucose (UA) Negative (Negative) Urine Ketones Trace H (Negative) Urine Occult Blood Negative (Negative) Urine Nitrite Negative (Negative) Urine Bilirubin 1+ H (Negative) Urine Urobilinogen 1.0 (0.2-1.0) Ur Leukocyte Esterase Negative (Negative) Urine RBC 0-5 (0-5) /hpf Urine WBC 0-5 (0-5) /hpf Ur Epithelial Cells 0-5 (0-5) /hpf Urine Bacteria Few (FEW) /hpf Urine Mucus Many H (FEW) /hpf Urine Other Urine Opiates Screen (POVMFT=619) Ur Buprenorphine Scrn (CUTOFF=10) Ur Oxycodone Screen (QUK5YP=960) Urine Methadone Screen (WAKZKQ=054) Ur Propoxyphene Screen (KGJXCN=073) Ur Barbiturates Screen (THVEHI=282) Ur Tricyclics Screen (AKOSYC=292) Ur Phencyclidine Scrn (CUTOFF=25) Ur Amphetamine Screen (ISEDLA=901) U Methamphetamines Scrn (MQLRJK=193) U Benzodiazepines Scrn (NWVNMG=398) U Cocaine Metab Screen (HOJZUY=615) U Marijuana (THC) Screen (CUTOFF=50) Ethyl Alcohol (0.00) gm% Blood Type Gel Antibody Screen Result Diagrams: 03/20/18 06:15 03/20/18 06:15 Imaging Impressions Last 24 hrs: CT abdomen and pelvis Technique: Multiple axial sections were obtained from above the dome of the diaphragm inferiorly through the pubic symphysis. Intravenous and oral contrast was utilized. Comparison: Prior CT abdomen and pelvis exam of 01/22/18 which is a noncontrast exam renal stone protocol CT. Findings: Nodular subpleural densities are seen within the right lung base. These are felt to be fairly stable from previous exam. Liver shows mild intrahepatic biliary duct dilatation with evidence of prior cholecystectomy. Spleen size is normal. Adrenal glands show no nodule. Kidneys show symmetric contrast enhancement. Small cyst is noted within the mid left kidney measuring approximately 1.2 cm in size. Delayed images were obtained from above the kidneys inferiorly to the pubic symphysis which shows contrast excretion from both kidneys and ureters down to the bladder without evidence of obstruction. Pancreas appears within normal limits. Aorta shows no aneurysm. No retroperitoneal adenopathy or mesenteric abnormalities are seen. Appendix is seen which is normal. No pelvic mass or adenopathy is seen. No free fluid or inflammatory change is seen. No bowel dilatation is seen. Impression: 1. Mild intrahepatic biliary duct dilatation which is likely from previous cholecystectomy. 2. Incidental left renal cyst. 3. Stable subpleural nodularity within the right lung base from recent CT study of 01/22/18. 4. No additional abnormality is appreciated on CT study of the abdomen and pelvis. Diagnostic code #2 Dictated by: Jayy Sauceda MD 03/19/18 at 1656 Pelvic ultrasound: Multiple real-time images were obtained transvaginally. Comparison: Prior pelvic ultrasound of 03/18/18. Uterus is anteverted. No myometrial abnormality is seen. 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 Follicles are seen within both ovaries. Endometrial thickness is normal at 4 mm. No free fluid is seen. Measurements: Uterus: Length 9.7 cm, AP height 5.4 cm, transverse width 6.4 cm Right ovary: 3.4 x 1.6 x 2.7 cm Left ovary: 4.0 x 1.8 x 2.3 cm Impression: 1. Pelvic varicosities are again noted and appear similar to previous study. 2. Pelvic ultrasound is otherwise unremarkable. Diagnostic code #3 I agree with preliminary report from [facility], finalized on 03/19/18, 10:25 PM Central Time Dictated by: Jayy Sauceda MD 03/20/18 at 0703 Consult PN Assessment/Plan Procedures: Procedures APPLY FOREARM SPLINT (10/16/14) ASSAY OF AMYLASE (01/22/18) ASSAY OF ETHANOL (07/04/13) ASSAY OF LIPASE (01/23/18) ASSAY OF MAGNESIUM (01/23/18) ASSAY THYROID STIM HORMONE (08/24/13) BL SMEAR W/DIFF WBC COUNT (01/23/18) BLOOD TYPING SEROLOGIC ABO (08/24/13) BLOOD TYPING SEROLOGIC RH(D) (08/24/13) C-REACTIVE PROTEIN (01/23/18) CHEST X-RAY 1 VIEW FRONTAL (07/04/13) CHORIONIC GONADOTROPIN ASSAY (01/22/18) CHYLMD TRACH DNA AMP PROBE (08/24/13) COMPLETE CBC AUTOMATED (01/23/18) COMPLETE CBC W/AUTO DIFF WBC (01/23/18) COMPREHEN METABOLIC PANEL (01/23/18) CT ABD & PELVIS W/O CONTRAST (01/22/18) CT HEAD/BRAIN W/O DYE (07/04/13) CT NECK SPINE W/O DYE (10/16/14) CULTURE AEROBIC IDENTIFY (11/03/13) DRUG TEST PRSMV INSTRMNT (01/22/18) ECHO EXAM OF ABDOMEN (01/23/18) ELECTROCARDIOGRAM TRACING (07/04/13) EMERGENCY DEPT VISIT (01/23/18) EMERGENCY DEPT VISIT (07/14/15) EMERGENCY DEPT VISIT (07/04/13) EXTREMITY STUDY (09/30/13) NON-STRESS TEST (03/07/14) GLUCOSE TEST (01/06/14) HELICOBACTER PYLORI ANTIBODY (01/23/18) HEMOGLOBIN (01/06/14) HEPATITIS B SURFACE AG IA (08/24/13) HYDRATE IV INFUSION ADD-ON (01/23/18) MEASURE BLOOD OXYGEN LEVEL (01/22/18) MICROBE SUSCEPTIBLE [place] (11/03/13) N.GONORRHOEAE DNA AMP PROB (08/24/13) OB US < 14 WKS SINGLE FETUS (08/24/13) OB US >/= 14 WKS SNGL FETUS (10/22/13) OB US LIMITED FETUS(S) (12/24/13) RBC ANTIBODY SCREEN (08/24/13) ROUTINE VENIPUNCTURE (01/23/18) RUBELLA ANTIBODY (08/24/13) STREP B DNA AMP PROBE (02/02/14) SYPHILIS TEST NON-TREP QUAL (08/24/13) THER/PROPH/DIAG INJ IV PUSH (07/14/15) THER/PROPH/DIAG INJ SC/IM (01/23/18) THER/PROPH/DIAG IV INF ADDON (01/23/18) THER/PROPH/DIAG IV INF INIT (01/23/18) TRANSVAGINAL US NON-OB (01/23/18) TX/PRO/DX INJ NEW DRUG ADDON (01/23/18) TX/PRO/DX INJ SAME DRUG SHEAR OPERATOR AUTOMATIC (01/23/18) TX/PROPH/DG ADDL SEQ IV INF (01/23/18) URINALYSIS AUTO W/O SCOPE (03/08/14) URINALYSIS AUTO W/SCOPE (01/23/18) URINE BACTERIA CULTURE (11/03/13) US EXAM ABDO BACK WALL COMP (11/03/13) X-RAY EXAM ABDOMEN 1 VIEW (01/23/18) X-RAY EXAM OF WRIST (10/16/14) Problem List Initiated/Reviewed/Updated: Yes Plan: 42 yo female, h/o prior nephrolithiasis, presenting with LEFT back and LLQ abdominal pain, associated with nausea. Although she has a prior diagnosis of nephrolithiasis, there was no blood seen on UA performed this morning. CT scan yesterday was performed with IV/PO contrast, and the contrast can make visualization of nephroliths difficult. Would recommend considering repeat CT scan, but without contrast. Mild elevation in lipase on admission (627), but now down to normal (169). Patient already has had her gallbladder removed, and there is no history of chronic alcohol abuse. CT scan images and radiology report were reviewed. No concerning findings. A pelvic U/S was performed, which showed pelvic varicosities. INSPECTOR (Dr. Maldonado) was consulted, and there was no concern for gynecologic etiology of patient's symptoms. Etiology of patient's symptoms remain unclear, but no concern for disease process requiring urgent surgical intervention. Will sign off at this time. Please call with questions. Diogo Hermosillo" Daryl Krueger., F.A.C.S. General Surgery Pager: [phone]
--- NOTE | 2018-03-20 14:15 | CT ---
CT abdomen and pelvis Technique: Multiple axial sections were obtained from above the dome of the diaphragm inferiorly through the pubic symphysis. Contrast seen within the colon from recent CT exam performed one day earlier. No intravenous contrast was utilized. Comparison: Previous CT abdomen and pelvis exam of 03/19/18. Findings: Kidneys show no abnormal calcifications. No ureteral dilatation or ureteral calculi are seen. Noncontrast visualized portions of the liver shows no discrete abnormality. Intrahepatic biliary duct dilatation is seen likely residual from prior cholecystectomy. Spleen appears within normal limits. Adrenal glands show no nodule. Pancreas shows no discrete abnormality. Aorta shows no aneurysm. No retroperitoneal adenopathy is seen. No mesenteric abnormalities are seen. Contrast noted within a normal-appearing appendix. No pelvic mass or adenopathy is seen. Bone window settings were reviewed which shows a anterior wedge deformity within T12 which is felt to be old. Impression: 1. No renal calculi, ureteral dilatation or ureteral stone is seen. 2. Other incidental findings. Nothing acute is appreciated on noncontrast CT study of the abdomen and pelvis. Diagnostic code #2
[2018-03-20 16:31] VITALS: BP 106/67
--- NOTE | 2018-03-20 17:14 | PCM.DCSUM1 ---
Discharge Summary - Hospital Course HPI Initial Comments: 42 year-old female comes in with abdominal pain, nausea, vomiting, hyperventilating. States her pain started several hours ago this morning but also was here to the ED yesterday afternoon with the same type of symptoms. Please see that record for details. She did have a pelvic ultrasound yesterday which is stated to have seen some varicosities "around her uterus". She's been vomiting this morning. There's been no diarrhea fever chills. She did admit to marijuana use yesterday. Urinalysis yesterday was normal, labs were all relatively normal. Diagnosis: Stroke: No Modified [place] Scale: No Symptoms at All Modified [place] Scale Score: 0 - Discharge Data Discharge Date: 03/20/18 (ADMIT 03/19/18) Discharge Disposition: Home, Self-Care 01 Condition: Good - Discharge Diagnosis/Problem(s) (1) Hypokalemia SNOMED Code(s): 98797857 ICD Code: E87.6 - HYPOKALEMIA Status: Acute Priority: High Current Visit: Yes (2) Left lower quadrant abdominal pain of unknown etiology SNOMED Code(s): 626968642, 826655402 ICD Code: R10.32 - LEFT LOWER QUADRANT PAIN Status: Acute Priority: High Current Visit: Yes (3) Nausea & vomiting SNOMED Code(s): 06475318 ICD Code: R11.2 - NAUSEA WITH VOMITING, UNSPECIFIED Status: Acute Priority: High Current Visit: Yes Qualifiers: Vomiting type: unspecified Vomiting Intractability: unspecified Qualified Code(s): R11.2 - Nausea with vomiting, unspecified - Patient Summary/Data Operative Procedure(s) Performed: none Complications: none Consults: Consultations 03/19/18 21:42 Consult to Physician [CONS] Routine Consult to Physician [CONS] Routine Labs Pending at D/C: none Recommended Follow-up Testing/Procedures: F/U with PCP in 7-10 days -Discuss anxiety/need for Ativan at that time Recommend f/u with RECEPTIONIST CLERK for possible endometriosis w/ h/o frequent heavy menses Recommend f/u with Dr. Rivera for endoscopy that was previously scheduled If another episode happens again, recommended going to [place] to get a more complete workup in the future Planned Operative Procedure(s) after DC: none Hospital Course: I/P: Acute: Transaminitis Possibly acute on chronic Risk factors: h/o ETOH abuse, h/o pancreatitis AST 39, ALT 62 Avoid Tylenol IV fluids Recommend f/u with PCP Resolved: S/P LLQ Abdominal pain w/ left flank pain Acute on chronic per pt (has had this type of pain intermittently for 3.5 years, since after the of her son) Was seen in ED yesterday for similar symptoms Risk factor: Pelvic U/S on 03/18/18 shows pelvic varicosities, currently on menses (h/o heavy menses 3x per month; pain tends to occur with menses) Physical exam unremarkable R/O Pancreatitis: Risk factor: h/o pancreatitis Lipase slightly elevated at 627--> 169 Repeat lipase in AM CT Ab/Pelvis: -1. Mild intrahepatic biliary duct dilatation which is likely from previous cholecystectomy. -2. Incidental left renal cyst. -3. Stable subpleural nodularity within the right lung base from recent CT study of 01/22/18. -4. No additional abnormality is appreciated on CT study of the abdomen and pelvis. R/O kidney stones: Risk factor: h/o kidney stones CT and U/S do not show kidney stones There is 3+ RBC in clean catch U/A, but she is currently on her menses Repeat U/A in AM via catheter--> no blood seen in urine Urine culture pending R/O Possible drug-seeking behavior: Risk factor: h/o substance abuse Clinical exam/appearance and reported pain do not match Is asking for pain medication by name and increased frequency/dosage Consult Junior Graphic [employer]er Dr. Maldonado r/o ovarian torsion or ectopic : HCG negative Pelvic exam unremarkable Recommend transvaginal U/S--> nothing acute appreciated Consult General Surgeon Dr. Reynoso: Recommend repeat CT abdomen without contrast to help r/o kidney stones--> negative for stones No concern for disease process requiring urgent surgical intervention IVF, pain management PRN, heating pad PRN Recommend f/u RECEPTIONIST CLERK outpt S/P Nausea and Vomiting 2/2 above Query Cannabinoid hyperemesis syndrome Antiemetics PRN IVF, NPO S/P Hypokalemia K 3--> 3.5 2/2 Inadequate intake Replete and monitor Chronic: HTN Fibroids h/o Substance Abuse Tobacco Addiction Current some day smoker; pt's states 1 cigarette every 3-4 days Smoking cessation counseling given Nicotine patches offered, does not feel she needs h/o ETOH abuse h/o renal stones per pt h/o cholecystectomy ADHD Plan: Admitted to observation She remains stable Other orders as indicated above Routine AM labs NPO DVT Prophylaxis/GI Prophylaxis Code Status: Full Code; PCP: Harper Duarte PA-C Kishan did well here after being admitted for LLQ pain radiating to the left lower flank with N/V. She had a thorough workup here, which helped r/o pancreatitis, ovarian torsion, ectopic , UTI, kidney stones, acute surgical abdomen. However, Pelvic U/S on 03/18/18 does show pelvic varicosities which could be contributing to pain. Her symptoms resolved while here with IVF, pain medication and antiemetics. Pt was seen by Junior Graphic Designer Dr. Maldonado and General Surgeon Dr. Reynoso while here, and workup was essentially negative. It is recommended she f/u outpt with gynecology for workup for possible endometriosis , as she did complain of multiple heavy menses per month that tend to coincide with her pain. She can also f/u with Dr. Rivera outpt for an endoscopy that was previously scheduled as her previous visit was concerning for PUD- she did not exhibit those symptoms at this visit. Also recommend f/u with her PCP for liver enzyme recheck, as her AST/ALT were elevated while here. Also recommend f/u with PCP regarding possible anxiety, as she was asking for Ativan at D/C. She also did request increased frequency/dosage of pain medications while here and her stated pain did appear higher than her appearance on exam. She has been here for similar pain many times and it is recommended that in the future she f/ u in [place] for a more complete workup as we have exhausted all resources here at this time. Pt and agree with this plan. She will be DC'd home today. She will not be sent home with any new medications. - Patient Instructions Diet: Usual Diet as Tolerated Activity: As Tolerated Driving: May Drive Today Showering/Bathing: May Shower Notify Provider of: Fever, Increased Pain, Nausea and/or Vomiting - Discharge Plan *PRESCRIPTION DRUG MONITORING PROGRAM REVIEWED*: Yes *COPY OF PRESCRIPTION DRUG MONITORING REPORT IN PATIENT [place]: Yes Home Medications: Home Meds Amphetamine Sulfate 20 mg PO DAILY 01/23/18 [History] Hydrocodone/Acetaminophen [Hydrocodon-Acetaminophen 5-325] 1 - 2 each PO Q6HR PRN #20 tablet 03/18/18 [Rx] Ondansetron [Zofran ODT] 4 mg PO Q6H PRN #20 tab.dis 03/18/18 [Rx] Oxygen Therapy Mode: Room Air Patient Handouts: Nausea and Vomiting, Adult, [id number], Abdominal Pain, Adult, [id number], What You Need to Know About Marijuana Use, Flank Pain, Adult, [id number], Pain Without a Known Cause, Steps to Quit Smoking Referrals: Harper Duarte PA-C [Primary Care Provider] - 03/31/18 3:30 pm (please attend the scheduled hospital follow up appointment) - Discharge Summary/Plan Comment DC Time >30 min.: Yes (40) - General Info Date of Service: 03/20/18 Admission Dx/Problem (Free Text: Admission Diagnosis/Problem Admission Diagnosis/Problem Abdominal pain Subjective Update: In to see Kishan. She is feeling much better today. No current pain or complaints. All workup was negative. All questions and concerns were answered. Her only concern at this time is "will I be sent home with Ativan?". I told her that she should f/u with her PCP and or psychologist if she is thinking she may have a chronic anxiety issue and they can decide whether she needs future prescriptions of Ativan. No concerns from nursing. She will be D/C'd home today. Recommend f/u with PCP, Gynecology (to r/o endometriosis), and endoscopy with Dr. Rivera that was planned last visit. Functional Status: Reports: Pain Controlled, Tolerating Diet, Ambulating, Urinating - Review of Systems General: Reports: No Symptoms. Denies: Fever, Chills HEENT: Reports: No Symptoms Pulmonary: Reports: No Symptoms. Denies: Shortness of Breath, Cough Cardiovascular: Reports: No Symptoms. Denies: Chest Pain Gastrointestinal: Reports: No Symptoms. Denies: Abdominal Pain, Diarrhea, Nausea, Vomiting Genitourinary: Reports: No Symptoms Musculoskeletal: Reports: No Symptoms Skin: Reports: No Symptoms Neurological: Reports: No Symptoms Psychiatric: Reports: No Symptoms - Patient Data Vitals - Most Recent: Last Vital Signs Temp 98.1 F 03/20/18 16:28 Pulse 53 L 03/20/18 16:28 Resp 16 01/18/19 16:28 BP 106/67 03/20/18 16:28 Pulse Ox 97 03/20/18 16:28 Weight - Most Recent: 176 lb 8 oz I&O - Last 24 hours: Intake & Output 03/20/18 03/20/18 03/20/18 06:59 14:59 22:59 Intake Total 498 360 Balance 498 360 Lab Results - Last 24 hrs: Laboratory Results - last 24 hr 03/19/18 03/19/18 03/19/18 Range/Units 12:25 12:25 12:25 WBC (3.98-10.04) K/mm3 RBC (3.98-5.22) M/mm3 Hgb (11.2-15.7) gm/L Hct (34.1-44.9) % MCV (79.4-94.8) fl MCH (25.6-32.2) pg MCHC (32.2-35.5) g/dl RDW Std Deviation (36.4-46.3) fL Plt Count (182-369) K/mm3 MPV (9.4-12.3) fl Neut % (Auto) (34.0-71.1) % Lymph % (Auto) (19.3-51.7) % [place] % (Auto) (4.7-12.5) % Eos % (Auto) (0.7-5.8) Baso % (Auto) (0.1-1.2) % Neut # (Auto) (1.56-6.13) K/mm3 Lymph # (Auto) (1.18-3.74) K/mm3 [place] # (Auto) (0.24-0.36) K/mm3 Eos # (Auto) (0.04-0.36) K/mm3 Baso # (Auto) (0.01-0.08) K/mm3 Sodium (136-145) mEq/L Potassium (3.5-5.1) mEq/L Chloride (98-107) mEq/L Carbon Dioxide (21-32) mEq/L Anion Gap (5-15) BUN (7-18) mg/dL Creatinine (0.55-1.02) mg/dL Est Cr Clr Drug Dosing mL/min Estimated GFR (MDRD) (>60) mL/min BUN/Creatinine Ratio (14-18) Glucose (74-106) mg/dL Calcium (8.5-10.1) mg/dL Magnesium (1.8-2.4) mg/dl Total Bilirubin (0.2-1.0) mg/dL AST (15-37) U/L ALT (14-59) U/L Alkaline Phosphatase (46-116) U/L C-Reactive Protein (<1.0) mg/dL Total Protein (6.4-8.2) g/dl Albumin (3.4-5.0) g/dl Globulin gm/dL Albumin/Globulin Ratio (1-2) Lipase (73-393) U/L Free T4 1.29 (0.76-1.46) ng/dL TSH 3rd Generation 1.531 (0.358-3.74) uIU/mL HCG, Quant < 1.0 mIU/mL Urine Color (Yellow) Urine Appearance (Clear) Urine pH (5.0-8.0) Ur Specific [place] (1.005-1.030) Urine Protein (Negative) Urine Glucose (UA) (Negative) Urine Ketones (Negative) Urine Occult Blood (Negative) Urine Nitrite (Negative) Urine Bilirubin (Negative) Urine Urobilinogen (0.2-1.0) Ur Leukocyte Esterase (Negative) Urine RBC (0-5) /hpf Urine WBC (0-5) /hpf Ur Epithelial Cells (0-5) /hpf Urine Bacteria (FEW) /hpf Urine Mucus (FEW) /hpf Urine Other Urine Opiates Screen (JZNTPV=099) Ur Buprenorphine Scrn (CUTOFF=10) Ur Oxycodone Screen (FAX1RN=680) Urine Methadone Screen (HQIUOB=803) Ur Propoxyphene Screen (VGDEOV=614) Ur Barbiturates Screen (IYFXXD=489) Ur Tricyclics Screen (AERZLA=471) Ur Phencyclidine Scrn (CUTOFF=25) Ur Amphetamine Screen (VIXNOH=838) U Methamphetamines Scrn (QLHWHR=258) U Benzodiazepines Scrn (VPNQZT=253) U Cocaine Metab Screen (WLPLSH=781) U Marijuana (THC) Screen (CUTOFF=50) Blood Type AB POSITIVE Gel Antibody Screen Negative 03/19/18 03/19/18 03/19/18 Range/Units 12:25 20:35 20:35 WBC (3.98-10.04) K/mm3 RBC (3.98-5.22) M/mm3 Hgb (11.2-15.7) gm/L Hct (34.1-44.9) % MCV (79.4-94.8) fl MCH (25.6-32.2) pg MCHC (32.2-35.5) g/dl RDW Std Deviation (36.4-46.3) fL Plt Count (182-369) K/mm3 MPV (9.4-12.3) fl Neut % (Auto) (34.0-71.1) % Lymph % (Auto) (19.3-51.7) % [place] % (Auto) (4.7-12.5) % Eos % (Auto) (0.7-5.8) Baso % (Auto) (0.1-1.2) % Neut # (Auto) (1.56-6.13) K/mm3 Lymph # (Auto) (1.18-3.74) K/mm3 [place] # (Auto) (0.24-0.36) K/mm3 Eos # (Auto) (0.04-0.36) K/mm3 Baso # (Auto) (0.01-0.08) K/mm3 Sodium (136-145) mEq/L Potassium (3.5-5.1) mEq/L Chloride (98-107) mEq/L Carbon Dioxide (21-32) mEq/L Anion Gap (5-15) BUN (7-18) mg/dL Creatinine (0.55-1.02) mg/dL Est Cr Clr Drug Dosing mL/min Estimated GFR (MDRD) (>60) mL/min BUN/Creatinine Ratio (14-18) Glucose (74-106) mg/dL Calcium (8.5-10.1) mg/dL Magnesium 1.8 (1.8-2.4) mg/dl Total Bilirubin (0.2-1.0) mg/dL AST (15-37) U/L ALT (14-59) U/L Alkaline Phosphatase (46-116) U/L C-Reactive Protein (<1.0) mg/dL Total Protein (6.4-8.2) g/dl Albumin (3.4-5.0) g/dl Globulin gm/dL Albumin/Globulin Ratio (1-2) Lipase (73-393) U/L Free T4 (0.76-1.46) ng/dL TSH 3rd Generation (0.358-3.74) uIU/mL HCG, Quant mIU/mL Urine Color Yellow (Yellow) Urine Appearance Slt cloudy H (Clear) Urine pH 6.0 (5.0-8.0) Ur Specific [place] 1.020 (1.005-1.030) Urine Protein Negative (Negative) Urine Glucose (UA) Negative (Negative) Urine Ketones Negative (Negative) Urine Occult Blood 3+ H (Negative) Urine Nitrite Negative (Negative) Urine Bilirubin Negative (Negative) Urine Urobilinogen 0.2 (0.2-1.0) Ur Leukocyte Esterase Negative (Negative) Urine RBC 0-5 (0-5) /hpf Urine WBC 0-5 (0-5) /hpf Ur Epithelial Cells 0-5 (0-5) /hpf Urine Bacteria Few (FEW) /hpf Urine Mucus Few (FEW) /hpf Urine Other See note Urine Opiates Screen Presumptive positive H (VXBFGD=559) Ur Buprenorphine Scrn Negative (CUTOFF=10) Ur Oxycodone Screen Negative (AHE2JS=655) Urine Methadone Screen Negative (DCEFDT=244) Ur Propoxyphene Screen Negative (TACLIR=460) Ur Barbiturates Screen Negative (NEAPGC=208) Ur Tricyclics Screen Negative (RYGLTQ=421) Ur Phencyclidine Scrn Negative (CUTOFF=25) Ur Amphetamine Screen Negative (VGSPZK=681) U Methamphetamines Scrn Negative (GYKKUW=251) U Benzodiazepines Scrn Presumptive positive H (PWDZWA=129) U Cocaine Metab Screen Negative (SBQGND=643) U Marijuana (THC) Screen Presumptive positive H (CUTOFF=50) Blood Type Gel Antibody Screen 03/20/18 03/20/18 03/20/18 Range/Units 06:15 06:15 09:15 WBC 4.16 (3.98-10.04) K/mm3 RBC 3.71 L (3.98-5.22) M/mm3 Hgb 11.3 (11.2-15.7) gm/L Hct 34.6 (34.1-44.9) % MCV 93.3 (79.4-94.8) fl MCH 30.5 (25.6-32.2) pg MCHC 32.7 (32.2-35.5) g/dl RDW Std Deviation 40.0 (36.4-46.3) fL Plt Count 214 (182-369) K/mm3 MPV 10.5 (9.4-12.3) fl Neut % (Auto) 55.8 (34.0-71.1) % Lymph % (Auto) 32.9 (19.3-51.7) % [place] % (Auto) 9.4 (4.7-12.5) % Eos % (Auto) 1.4 (0.7-5.8) Baso % (Auto) 0.5 (0.1-1.2) % Neut # (Auto) 2.32 (1.56-6.13) K/mm3 Lymph # (Auto) 1.37 (1.18-3.74) K/mm3 [place] # (Auto) 0.39 H (0.24-0.36) K/mm3 Eos # (Auto) 0.06 (0.04-0.36) K/mm3 Baso # (Auto) 0.02 (0.01-0.08) K/mm3 Sodium 138 (136-145) mEq/L Potassium 3.5 (3.5-5.1) mEq/L Chloride 105 (98-107) mEq/L Carbon Dioxide 25 (21-32) mEq/L Anion Gap 11.5 (5-15) BUN 9 (7-18) mg/dL Creatinine 0.7 (0.55-1.02) mg/dL Est Cr Clr Drug Dosing 111.65 mL/min Estimated GFR (MDRD) > 60 (>60) mL/min BUN/Creatinine Ratio 12.9 L (14-18) Glucose 95 (74-106) mg/dL Calcium 7.7 L (8.5-10.1) mg/dL Magnesium 1.9 (1.8-2.4) mg/dl Total Bilirubin 0.7 (0.2-1.0) mg/dL AST 85 H (15-37) U/L ALT 137 H (14-59) U/L Alkaline Phosphatase 49 (46-116) U/L C-Reactive Protein < 0.2 (<1.0) mg/dL Total Protein 5.3 L (6.4-8.2) g/dl Albumin 3.0 L (3.4-5.0) g/dl Globulin 2.3 gm/dL Albumin/Globulin Ratio 1.3 (1-2) Lipase 169 (73-393) U/L Free T4 (0.76-1.46) ng/dL TSH 3rd Generation (0.358-3.74) uIU/mL HCG, Quant mIU/mL Urine Color Yellow (Yellow) Urine Appearance Clear (Clear) Urine pH 6.0 (5.0-8.0) Ur Specific [place] 1.025 (1.005-1.030) Urine Protein Trace H (Negative) Urine Glucose (UA) Negative (Negative) Urine Ketones Trace H (Negative) Urine Occult Blood Negative (Negative) Urine Nitrite Negative (Negative) Urine Bilirubin 1+ H (Negative) Urine Urobilinogen 1.0 (0.2-1.0) Ur Leukocyte Esterase Negative (Negative) Urine RBC 0-5 (0-5) /hpf Urine WBC 0-5 (0-5) /hpf Ur Epithelial Cells 0-5 (0-5) /hpf Urine Bacteria Few (FEW) /hpf Urine Mucus Many H (FEW) /hpf Urine Other Urine Opiates Screen (BHEHZM=263) Ur Buprenorphine Scrn (CUTOFF=10) Ur Oxycodone Screen (QXJ1QP=530) Urine Methadone Screen (BDJKJE=594) Ur Propoxyphene Screen (FKVBYH=897) Ur Barbiturates Screen (PIRJVZ=753) Ur Tricyclics Screen (VDGKXK=857) Ur Phencyclidine Scrn (CUTOFF=25) Ur Amphetamine Screen (VXCWUL=487) U Methamphetamines Scrn (DKIBLC=812) U Benzodiazepines Scrn (SMJNUM=825) U Cocaine Metab Screen (VXHSOK=959) U Marijuana (THC) Screen (CUTOFF=50) Blood Type Gel Antibody Screen Med Orders - Current: Current Medications Famotidine (Pepcid) 20 mg IVPUSH DAILY JOHN Last Admin: 03/20/18 09:18 Dose: 20 mg Hydralazine HCl (Apresoline) 10 mg IVPUSH Q4H PRN PRN Reason: Hypertension Hydromorphone HCl (Dilaudid) 0.5 mg IVPUSH Q2H PRN PRN Reason: Pain (severe 7-10) Last Admin: 03/20/18 11:47 Dose: 0.5 mg Hydroxyzine HCl (Vistaril) 25 mg IM BEDTIME [facility] Sodium Chloride (Normal Saline) 1,000 mls @ 125 mls/hr IV ASDIRECTED [facility] Last Admin: 03/20/18 03:40 Dose: 125 mls/hr Ibuprofen (Motrin) 200 mg PO Q6H PRN PRN Reason: Pain (mild 1-3) Ketorolac Tromethamine (Toradol) 30 mg IV Q6H PRN PRN Reason: Pain (moderate 4-6) Last Admin: 03/20/18 04:09 Dose: 30 mg Lorazepam (Ativan) 0.5 mg PO Q4H PRN PRN Reason: Anxiety Last Admin: 03/20/18 11:49 Dose: 0.5 mg Magnesium Sulfate (Pharmacy To Dose - Magnesium Replacement) 1 dose .XX ASDIRECTED PRN PRN Reason: RX TO WATCH MAG LEVELS Metoprolol Tartrate (Lopressor) 5 mg IVPUSH Q4H PRN PRN Reason: Tachycardia Miscellaneous Information (Remove Patch) 1 ea TRDERM Q72H PRN PRN Reason: IF SCOPE PATCH USED Miscellaneous Information (Remove Patch) 1 ea TRDERM DAILY [facility] Last Admin: 03/20/18 09:19 Dose: Not Given Nicotine (Habitrol) 7 mg TRDERM DAILY [facility] Last Admin: 03/20/18 09:36 Dose: Not Given Ondansetron HCl (Zofran Odt) 4 mg PO Q4H PRN PRN Reason: nausea, able to take PO Ondansetron HCl (Zofran) 4 mg IV Q4H PRN PRN Reason: Nausea/Vomiting Last Admin: 03/20/18 09:46 Dose: 4 mg Potassium Chloride (Pharmacy To Dose - Potassium Replacement) 1 dose .XX ASDIRECTED PRN PRN Reason: RX TO WATCH K LEVELS Scopolamine (Transderm-Scop) 1.5 mg TRDERM Q72H PRN PRN Reason: Nausea/Vomiting Last Admin: 03/19/18 21:08 Dose: 1.5 mg Sodium Chloride (Saline Flush) 10 ml FLUSH ASDIRECTED PRN PRN Reason: Keep Vein Open Last Admin: 03/19/18 12:46 Dose: 10 ml Sodium Chloride (Saline Flush) 10 ml FLUSH ONETIME PRN PRN Reason: KEEP VEIN OPEN Last Admin: 03/19/18 16:24 Dose: 10 ml Discontinued Medications Diatrizoate Meglum/Diatrizoate Sod (Gastrografin 37%) 60 ml PO ONETIME ONE Stop: 03/19/18 14:58 Last Admin: 03/19/18 16:25 Dose: 60 ml Hydromorphone HCl (Dilaudid) 1 mg IVPUSH ONETIME ONE Stop: 03/19/18 12:36 Last Admin: 03/19/18 12:46 Dose: 1 mg Hydromorphone HCl (Dilaudid) 1 mg IVPUSH ONETIME ONE Stop: 03/19/18 14:14 Last Admin: 03/19/18 14:20 Dose: 1 mg Hydromorphone HCl (Dilaudid) 1 mg IVPUSH ONETIME ONE Stop: 03/19/18 17:37 Last Admin: 03/19/18 17:45 Dose: 1 mg Hydromorphone HCl (Dilaudid) 1 mg IVPUSH ONETIME ONE Stop: 03/19/18 20:23 Last Admin: 03/19/18 20:30 Dose: 1 mg Hydroxyzine HCl (Vistaril) 25 mg IM ONETIME ONE Stop: 03/20/18 04:03 Last Admin: 03/20/18 04:14 Dose: 25 mg Sodium Chloride (Normal Saline) 1,000 mls @ 999 mls/hr IV ONETIME JOHN Last Admin: 03/19/18 12:44 Dose: 999 mls/hr Sodium Chloride (Normal Saline) 1,000 mls @ 999 mls/hr IV ONETIME JOHN Last Admin: 03/19/18 17:49 Dose: 999 mls/hr Potassium Chloride 10 meq/ (Premix) 100 mls @ 100 mls/hr IV Q1H JOHN Stop: 03/20/18 03:59 Last Admin: 03/20/18 03:37 Dose: 100 mls/hr Iopamidol (Isovue-300 (61%)) 100 ml IVPUSH ONETIME ONE Stop: 03/19/18 14:58 Last Admin: 03/19/18 16:25 Dose: 100 ml Lorazepam (Ativan) 1 mg IVPUSH ONETIME ONE Stop: 03/19/18 12:36 Last Admin: 03/19/18 12:44 Dose: 1 mg Lorazepam (Ativan) 1 mg IVPUSH ONETIME ONE Stop: 03/19/18 21:38 Last Admin: 03/19/18 21:52 Dose: 1 mg Metoclopramide HCl (Reglan) 5 mg IVPUSH ONETIME ONE Stop: 03/19/18 13:56 Last Admin: 03/19/18 14:00 Dose: 5 mg Ondansetron HCl (Zofran) 4 mg IVPUSH ONETIME ONE Stop: 03/19/18 12:36 Last Admin: 03/19/18 12:43 Dose: 4 mg - Exam Quality Assessment: Reports: DVT Prophylaxis General: Reports: Alert, Oriented, Cooperative, No Acute Distress HEENT: Reports: Pupils Equal, Pupils Reactive, EOMI, Mucous Membr. Moist/[place] Neck: Reports: Supple Lungs: Reports: Clear to Auscultation, Normal Respiratory Effort Cardiovascular: Reports: Regular Rate, Regular Rhythm GI/Abdominal Exam: Normal Bowel Sounds, Soft, Non-Tender, No Organomegaly, No Distention, No Abnormal Bruit, No Mass, Pelvis Stable (Female) Exam: Deferred Rectal (Female) Exam: Deferred Back Exam: Reports: Normal Inspection Extremities: Normal Inspection, Normal Range of Motion, Non-Tender, No Pedal Edema, Normal Capillary Refill Skin: Reports: Warm, Dry, Intact Neurological: Reports: No New Focal Deficit Psy/Mental Status: Reports: Alert, Normal Affect, Normal Mood
[2018-03-20] MEDS ORDERED: hydrOXYzine HCl 25 MG/ML SDV IM SCH (21:00)
== END 2018-03-20 18:50 | disposition home or self-care (01) ==
LOC: JD.ED 12:16 → INTOOBSV 17:56 → JD.MS 17:56
PROVIDERS: ADMIT Internal Medicine; ATTEND Internal Medicine
DX: R10.32 Left lower quadrant pain (principal); R11.2 Nausea with vomiting, unspecified; E87.6 Hypokalemia; R74.0 Nonspecific elevation of levels of transaminase and lactic acid dehydrogenase [LDH]; K83.8 Other specified diseases of biliary tract; F17.210 Nicotine dependence, cigarettes, uncomplicated; F90.9 Attention-deficit hyperactivity disorder, unspecified type; I10 Essential (primary) hypertension; Z79.899 Other long term (current) drug therapy
CPT/HCPCS: 36415; 36600; 74176; 74177; 76830; 80053; 80306; 81001; 82803; 82977; 83690; 83735; 84439; 84443; 84481; 84702; 85025; 86140; 86850; 86900; 86901; 87086; 96361; 96374; 96375; 96376; 99285; A9270; G0378; G0480; J1170; J1885; J2060; J2405; J2765; J3410; J3480; J3490; J7040; Q9963; Q9967; 99284

== ENCOUNTER 2018-07-10 02:03 | Emergency (ER) | payer BC ==
--- NOTE | 2018-07-10 02:59 | EDM.PDOC ---
ED HPI GENERAL MEDICAL PROBLEM - General Chief Complaint: Abdominal Pain Stated Complaint: VOMITING BACK PAIN/ABDOMINAL Time Seen by Provider: 07/10/18 02:54 - History of Present Illness INITIAL COMMENTS - FREE TEXT/NARRATIVE: 42-year-old female presents emergency room with abdominal pain This started several days ago progressively getting worse. This is about a severe episode she has had. The patient has this monthly seems to be related to her cycle she's been advised to have hysterectomy because of her severe endometriosis. She has not been ill get this scheduled yet because of her work schedule. Patient denies any fevers or chills she's had some nausea and vomiting making it difficult to eat over the last couple of days. She has not had any diarrhea or constipation she is currently having her period. Abdomen Pain Score (Numeric/FACES): 10 - Related Data Allergies Allergy/AdvReac Type Severity Reaction Status Date / Time Penicillins Allergy Cannot Verified 07/10/18 02:47 Remember Home Meds: Home Meds Amphetamine Sulfate 20 mg PO DAILY 01/23/18 [History] Hydrocodone/Acetaminophen [Hydrocodon-Acetaminophen 5-325] 1 - 2 each PO Q6HR PRN #20 tablet 03/18/18 [Rx] Ondansetron [Zofran ODT] 4 mg PO Q6H PRN #20 tab.dis 03/18/18 [Rx] Acetaminophen/HYDROcodone [[place] 325-7.5 MG] 1 - 2 tab PO Q6H PRN #30 tab [Rx] Doxycycline [Vibramycin] 100 mg PO Q12H #20 tab 07/10/18 [Rx] Famotidine [Acid Controller] 20 mg PO Q12H #30 tablet 07/10/18 [Rx] Ondansetron [Zofran ODT] 4 mg PO Q4H PRN #15 tab.dis 07/10/18 [Rx] Potassium Chloride [Klor-Con 10] 10 meq PO Q6H #16 tab.er 07/10/18 [Rx] Past Medical History - Past Health History Medical/Surgical History: Denies Medical/Surgical History HEENT History: Reports: Impaired Vision Cardiovascular History: Reports: None Respiratory History: Reports: None Genitourinary History: Reports: Renal Calculus [employer] History: Reports: Psychiatric History: Reports: ADHD Endocrine/Metabolic History: Reports: Other (See Below) Oncologic (Cancer) History: Reports: None - Past Surgical History HEENT Surgical History: Reports: Oral Surgery GI Surgical History: Reports: Cholecystectomy (laparoscopic (about 3 years ago)) - History Comment History Comment: add meds but not taking them routinely Social & Family History - Family History Family Medical History: Noncontributory Cardiac: Reports: [place] Neurological: Reports: CVA Oncologic: Reports: Lung, Lymphoma - Tobacco Use Smoking Status *Q: Current Every Day Smoker Years of Tobacco use: 20 Packs/Tins Daily: 1 - Caffeine Use Caffeine Use: Reports: Coffee, Energy Drinks - Recreational Drug Use Recreational Drug Use: No - Living Situation & Occupation Living situation: Reports: , with Family (Lives with and children.) ED ROS GENERAL - Review of Systems Review Of Systems: See Below Constitutional: Reports: No Symptoms HEENT: Reports: No Symptoms Respiratory: Reports: No Symptoms Cardiovascular: Reports: No Symptoms GI/Abdominal: Reports: Abdominal Pain, Nausea, Vomiting. Denies: Black Stool, Bloody Stool, Constipation, Diarrhea, Decreased Appetite, Difficulty Swallowing , Distension, Hematemesis, Hematochezia, Melena : Denies: Dysuria, Flank Pain, Frequency, Hematuria, Irregular Menses, Urinary Retention Musculoskeletal: Reports: No Symptoms Skin: Reports: No Symptoms Neurological: Reports: No Symptoms Psychiatric: Reports: No Symptoms Hematologic/Lymphatic: Reports: No Symptoms Immunologic: Reports: No Symptoms ED EXAM, GI/ABD - Physical Exam Exam: See Below Exam Limited By: No Limitations General Appearance: Alert, No Apparent Distress Head: Atraumatic, Normocephalic Neck: Normal Inspection, Supple, Non-Tender, Full Range of Motion Respiratory/Chest: No Respiratory Distress, Lungs Clear, Normal Breath Sounds, No Accessory Muscle Use, Chest Non-Tender Cardiovascular: Normal Peripheral Pulses, Regular Rate, Rhythm, No Edema, No Gallop, No JVD, No Murmur, No Rub GI/Abdominal Exam: Normal Bowel Sounds, Other (Marked tenderness throughout especially the lower quadrants) Back Exam: Normal Inspection. No: CVA Tenderness (L), CVA Tenderness (R) Extremities: Normal Inspection, Non-Tender Neurological: Alert, Oriented, Normal Cognition Lymphatic: No Adenopathy Course - Vital Signs Last Recorded V/S: Last Vital Signs Temp 36.8 C 07/10/18 02:26 Pulse 67 07/10/18 02:26 Resp 20 07/10/18 02:26 BP 153/93 H 07/10/18 02:26 Pulse Ox 100 07/10/18 02:26 - Orders/Labs/Meds Labs: Laboratory Tests 07/10/18 07/10/18 07/10/18 Range/Units 02:39 02:39 04:21 WBC 9.58 (3.98-10.04) K/mm3 RBC 4.83 (3.98-5.22) M/mm3 Hgb 14.9 D (11.2-15.7) gm/L Hct 41.9 (34.1-44.9) % MCV 86.7 (79.4-94.8) fl MCH 30.8 (25.6-32.2) pg MCHC 35.6 H (32.2-35.5) g/dl RDW Std Deviation 37.4 (36.4-46.3) fL Plt Count 304 (182-369) K/mm3 MPV 10.8 (9.4-12.3) fl Neutrophils % (Manual) 80 H (40-60) % Band Neutrophils % 1 (0-10) % Lymphocytes % (Manual) 9 L (20-40) % Atypical Lymphs % 0 % Monocytes % (Manual) 8 (2-10) % Eosinophils % (Manual) 0 L (0.7-5.8) % Basophils % (Manual) 2 H (0.1-1.2) Platelet Estimate Adequate Plt Morphology Comment Normal RBC Morph Comment Normal Sodium 133 L (136-145) mEq/L Potassium 2.9 L (3.5-5.1) mEq/L Chloride 94 L (98-107) mEq/L Carbon Dioxide 25 (21-32) mEq/L Anion Gap 16.9 H (5-15) BUN 10 (7-18) mg/dL Creatinine 1.0 (0.55-1.02) mg/dL Est Cr Clr Drug Dosing 80.87 mL/min Estimated GFR (MDRD) > 60 (>60) mL/min BUN/Creatinine Ratio 10.0 L (14-18) Glucose 117 H (74-106) mg/dL Calcium 9.6 D (8.5-10.1) mg/dL Total Bilirubin 0.9 (0.2-1.0) mg/dL AST 33 (15-37) U/L ALT 52 (14-59) U/L Alkaline Phosphatase 59 (46-116) U/L Total Protein 7.8 (6.4-8.2) g/dl Albumin 4.5 (3.4-5.0) g/dl Globulin 3.3 gm/dL Albumin/Globulin Ratio 1.4 (1-2) Urine Color (Yellow) Urine Appearance (Clear) Urine pH (5.0-8.0) Ur Specific [place] (1.005-1.030) Urine Protein (Negative) Urine Glucose (UA) (Negative) Urine Ketones (Negative) Urine Occult Blood (Negative) Urine Nitrite (Negative) Urine Bilirubin (Negative) Urine Urobilinogen (0.2-1.0) Ur Leukocyte Esterase (Negative) Urine RBC (0-5) /hpf Urine WBC (0-5) /hpf Ur Squamous Epith Cells (0-5) /hpf Urine Bacteria (FEW) /hpf Urine Mucus (FEW) /hpf Urine HCG, Qual Negative (NEGATIVE) 07/10/18 Range/Units 04:24 WBC (3.98-10.04) K/mm3 RBC (3.98-5.22) M/mm3 Hgb (11.2-15.7) gm/L Hct (34.1-44.9) % MCV (79.4-94.8) fl MCH (25.6-32.2) pg MCHC (32.2-35.5) g/dl RDW Std Deviation (36.4-46.3) fL Plt Count (182-369) K/mm3 MPV (9.4-12.3) fl Neutrophils % (Manual) (40-60) % Band Neutrophils % (0-10) % Lymphocytes % (Manual) (20-40) % Atypical Lymphs % % Monocytes % (Manual) (2-10) % Eosinophils % (Manual) (0.7-5.8) % Basophils % (Manual) (0.1-1.2) Platelet Estimate Plt Morphology Comment RBC Morph Comment Sodium (136-145) mEq/L Potassium (3.5-5.1) mEq/L Chloride (98-107) mEq/L Carbon Dioxide (21-32) mEq/L Anion Gap (5-15) BUN (7-18) mg/dL Creatinine (0.55-1.02) mg/dL Est Cr Clr Drug Dosing mL/min Estimated GFR (MDRD) (>60) mL/min BUN/Creatinine Ratio (14-18) Glucose (74-106) mg/dL Calcium (8.5-10.1) mg/dL Total Bilirubin (0.2-1.0) mg/dL AST (15-37) U/L ALT (14-59) U/L Alkaline Phosphatase (46-116) U/L Total Protein (6.4-8.2) g/dl Albumin (3.4-5.0) g/dl Globulin gm/dL Albumin/Globulin Ratio (1-2) Urine Color Yellow (Yellow) Urine Appearance Clear (Clear) Urine pH 7.0 (5.0-8.0) Ur Specific [place] 1.015 (1.005-1.030) Urine Protein Negative (Negative) Urine Glucose (UA) Negative (Negative) Urine Ketones Negative (Negative) Urine Occult Blood Trace-lysed H (Negative) Urine Nitrite Negative (Negative) Urine Bilirubin Negative (Negative) Urine Urobilinogen 0.2 (0.2-1.0) Ur Leukocyte Esterase Negative (Negative) Urine RBC 0-5 (0-5) /hpf Urine WBC Not seen (0-5) /hpf Ur Squamous Epith Cells 0-5 (0-5) /hpf Urine Bacteria Few (FEW) /hpf Urine Mucus Rare (FEW) /hpf Urine HCG, Qual (NEGATIVE) Meds: Medications Discontinued Medications Generic Name Dose Route Start Last Admin Trade Name Freq PRN Reason Stop Dose Admin Hydrocodone Bitart/Acetaminophen 2 tab 07/10/18 04:40 07/10/18 05:32 [place] 325-5 Mg PO 07/10/18 04:41 2 tab ONETIME ONE Administration Diatrizoate Meglum/Diatrizoate Sod 90 ml 07/10/18 07:39 07/10/18 08:06 Gastrografin 37% PO 07/10/18 07:40 90 ml ONETIME ONE Administration Fentanyl 100 mcg 07/10/18 03:00 07/10/18 03:10 Sublimaze IVPUSH 07/10/18 03:01 100 mcg ONETIME ONE Administration Fentanyl 100 mcg 07/10/18 04:40 07/10/18 04:47 Sublimaze IVPUSH 07/10/18 04:41 100 mcg ONETIME ONE Administration Hydromorphone HCl 0.5 mg 07/10/18 06:50 07/10/18 07:07 Dilaudid IVPUSH 07/10/18 06:51 0.5 mg ONETIME ONE Administration Lactated Ringer's 1,000 mls @ 999 mls/hr 07/10/18 03:00 07/10/18 03:09 Ringers, Lactated IV 07/10/18 04:00 999 mls/hr .BOLUS ONE Administration Iohexol 100 ml 07/10/18 07:39 07/10/18 08:06 Omnipaque-300 IVPUSH 07/10/18 07:40 100 ml ONETIME ONE Administration Metoclopramide HCl 5 mg 07/10/18 05:19 07/10/18 05:28 Reglan IVPUSH 07/10/18 05:20 5 mg ONETIME ONE Administration Ondansetron HCl 4 mg 07/10/18 03:00 07/10/18 03:09 Zofran IVPUSH 07/10/18 03:01 4 mg ONETIME ONE Administration Ondansetron HCl 4 mg 07/10/18 04:29 07/10/18 04:33 Zofran IVPUSH 07/10/18 04:30 4 mg ONETIME ONE Administration Potassium Chloride 40 meq 07/10/18 04:41 07/10/18 05:28 Klor-Con M20 PO 07/10/18 04:42 40 meq ONETIME ONE Administration Sodium Chloride 10 ml 07/10/18 07:39 07/10/18 08:06 Saline Flush FLUSH 07/10/18 07:40 10 ml ONETIME ONE Administration - Re-Assessments/Exams Free Text/Narrative Re-Assessment/Exam: 07/10/18 06:12 Labs reviewed initially patient and her significant other declined it CT because of had multiple ones done in nature pretty confident diagnosis of endometriosis however with the wish for us to pursue home treatment with medication. We did not have much luck with this. Tried Zofran and Reglan and after the Reglan thought we might be doing okay but it didn't last long at this point we'll check an abdominal pelvic CT anticipate placing her in the hospital for pain management. 07/10/18 08:58 The patient was set up to go to [facility] with Dr. Carcamo, the patient's associate agent insurance sales however at this time the patient is doing much better and thinks she will be okay to go home and we'll get this set up as an outpatient. Departure - Departure Time of Disposition: 06:13 Disposition: Home, Self-Care 01 Clinical Impression: Endometriosis, Hypokalemia Abdominal pain Qualifiers: Abdominal location: left lower quadrant Qualified Code(s): R10.32 - Left lower quadrant pain Nausea & vomiting Qualifiers: Vomiting type: unspecified Vomiting Intractability: unspecified Qualified Code( s): R11.2 - Nausea with vomiting, unspecified - Discharge Information Prescriptions: Acetaminophen/HYDROcodone [[place] 325-7.5 MG] 1 - 2 tab PO Q6H PRN #30 tab PRN Reason: Pain Doxycycline [Vibramycin] 100 mg PO Q12H #20 tab Famotidine [Acid Controller] 20 mg PO Q12H #30 tablet Ondansetron [Zofran ODT] 4 mg PO Q4H PRN #15 tab.dis PRN Reason: Nausea/Vomiting Potassium Chloride [Klor-Con 10] 10 meq PO Q6H #16 tab.er Referrals: Harper Duarte PA-C [Primary Care Provider] - Forms: ED Department Discharge Additional Instructions: Return to the emergency room with any questions or problems. Contact your associate agent insurance sales office today [phone] to schedule an appointment early next week if you do not hear from them first. Take your medications as directed take your amphetamine salts at least 2-3 hours away from the famotidine.
[2018-07-10] MEDS ORDERED: Lactated Ringers 1,000 ML IV ONE (03:00)
[2018-07-10] MEDS ORDERED: Ondansetron 4 MG/2 ML SDV IVPUSH ONE ×2 (03:00→04:29)
[2018-07-10] MEDS ORDERED: fentaNYL 100 MCG/2 ML SDV IVPUSH ONE ×2 (03:00→04:40)
[2018-07-10] MEDS ORDERED: Acetaminophen/HYDROcodone 325-5 MG Tab PO ONE (04:40)
[2018-07-10] MEDS ORDERED: Potassium Chloride 20 MEQ Tab.ER PO ONE (04:41)
[2018-07-10] MEDS ORDERED: Metoclopramide 10 MG/2 ML SDV IVPUSH ONE (05:19)
[2018-07-10] MEDS ORDERED: HYDROmorphone 1 MG/ML Syringe IVPUSH ONE (06:50)
[2018-07-10] MEDS ORDERED: Sodium Chloride 0.9% 10 ML Syringe FLUSH ONE (07:39)
[2018-07-10] MEDS ORDERED: Diatrizoate Meglumine/Diatrizoate Sodium 37% 120 ML Bottle PO ONE (07:39)
[2018-07-10] MEDS ORDERED: Iohexol 647 MG/ML 100 ML Bottle IVPUSH ONE (07:39)
--- NOTE | 2018-07-10 08:41 | CT ---
CT abdomen and pelvis Technique: Multiple axial sections were obtained from above the dome of the diaphragm inferiorly through the pubic symphysis. Intravenous contrast was utilized. No oral contrast has been given. Comparison: Prior renal stone on contrast CT exam of 03/20/18. Findings: Small portion of visualized lung bases shows patchy areas of increased density on the right side which may represent areas of pneumonia. Liver shows mild intrahepatic biliary duct dilatation which is stable from prior exam. Surgical clips are seen from prior cholecystectomy. No other focal abnormality is appreciated within the liver. Spleen appears normal. Adrenal glands show no nodule. Kidneys show symmetric contrast enhancement. Cyst is noted within the mid left kidney measuring about 1.5 cm in size. No additional abnormality is appreciated within the kidneys. Pancreas is within normal limits. Aorta shows no aneurysm. No retroperitoneal adenopathy or mesenteric abnormalities are seen. No pelvic mass or adenopathy is seen. No free fluid or inflammatory change is seen. Appendix is seen and is normal in size. Slight increased stool is noted throughout the colon. Bone window settings were reviewed which show degenerative apophyseal change within the lower lumbar spine. Compression deformity is noted within L1 which appears old. Delayed images show contrast within the distal ureters and within the bladder. Impression: 1. Patchy areas of increased density within the right lung base most likely representing pneumonia., Please correlate if this matches clinically. 2. Mild increased stool within the colon and other incidental findings as noted above. Diagnostic code #3
[2018-07-10 09:35] VITALS: BP 118/73
== END 2018-07-10 09:30 | disposition home or self-care (01) ==
LOC: JD.ED 02:03
DX: N80.9 Endometriosis, unspecified (principal); E87.6 Hypokalemia; R11.2 Nausea with vomiting, unspecified; F17.210 Nicotine dependence, cigarettes, uncomplicated; Z79.899 Other long term (current) drug therapy; Z88.0 Allergy status to penicillin
CPT/HCPCS: 36415; 74177; 80053; 81001; 81025; 85007; 85027; 96361; 96374; 96375; 96376; 99284; A9270; J1170; J2405; J2765; J3010; J7120; Q9963; Q9967

== ENCOUNTER 2019-03-14 17:09 | Emergency (ER) | payer BC ==
[2019-03-14 17:18] VITALS: BP 124/79; PULSE 77
[2019-03-14] MEDS ORDERED: Lactated Ringers 1,000 ML IV ONE ×2 (18:42→20:57)
[2019-03-14] MEDS ORDERED: HYDROmorphone 1 MG/ML Syringe IVPUSH ONE (18:42)
[2019-03-14] MEDS ORDERED: LORazepam 2 MG/ML SDV IVPUSH STA (18:42)
--- NOTE | 2019-03-14 19:00 | EDM.PDOC ---
ED HPI GENERAL MEDICAL PROBLEM - General Chief Complaint: Abdominal Pain Stated Complaint: [facility] Time Seen by Provider: 03/14/19 17:52 Source of Information: Reports: Patient, Family () History Limitations: Reports: Other (THe patient is hyperventilating, not providing a history unless pressed) - History of Present Illness INITIAL COMMENTS - FREE TEXT/NARRATIVE: Mrs. Lloyd is a very pleasant 43 year old woman with a past medical history significant for hypertension, ADHD, anxiety, binge alcoholism, and presumed endometriosis. She states that she has had recurrent abdominal pain around the time of her menstrual periods for years, and was told by her Commissioned [employer] Officer in [place] that she has endometriosis, although she has not undergone a diagnostic laparoscopy. The patient states that she was told that she needed to have a complete hysterectomy, and that hormonal treatment was not an option. The patient now presents to the ED stating that she developed lower abdominal and lower back pain around 08:00 this morning. She is unable to describe the character of her pain. She states that it is constant, and she has not identified any modifiers. She did not take any [id number] or home remedies prior to coming to the ED. The patient's LMP started this past 03/12/2019. The patient is brought by EMS, who gave her 2 mg of morphine, which she states did not help at all. Here in the ED, the patient's vitals are found to be normal , with an oxygen saturation of 99% on room air. She is somewhat hysterical, and has difficulty providing a medical history. She reports having a recent sore throat, otherwise, no recent fever, chills, cough, dyspnea, chest pain, palpitations, nausea, vomiting, constipation, diarrhea, urinary symptoms, recent weight gain or weight loss, recent bloody bowel movements or black bowel movements, recent joint aches, headaches, or rashes. The patient's PCP is Harper Duarte NP. Her Commissioned [employer] Officer is Dr. Nick Smith. She last saw Dr. Smith in December 2018. The patient did not receive an influenza vaccine this season, but agreed to receive one here today. Lower Back Pain Score (Numeric/FACES): 10 - Related Data Allergies Allergy/AdvReac Type Severity Reaction Status Date / Time Penicillins Allergy Cannot Verified 03/14/19 17:18 Remember Home Meds: Home Meds Amphetamine Sulfate 20 mg PO DAILY 01/23/18 [History] Hydrocodone/Acetaminophen [Hydrocodon-Acetaminophen 5-325] 1 - 2 each PO Q6HR PRN #20 tablet 03/18/18 [Rx] Ondansetron [Zofran ODT] 4 mg PO Q6H PRN #20 tab.dis 03/18/18 [Rx] Acetaminophen/HYDROcodone [[place] 325-7.5 MG] 1 - 2 tab PO Q6H PRN #30 tab [Rx] Doxycycline [Vibramycin] 100 mg PO Q12H #20 tab 07/10/18 [Rx] Famotidine [Acid Controller] 20 mg PO Q12H #30 tablet 07/10/18 [Rx] Ondansetron [Zofran ODT] 4 mg PO Q4H PRN #15 tab.dis 07/10/18 [Rx] Potassium Chloride [Klor-Con 10] 10 meq PO Q6H #16 tab.er 07/10/18 [Rx] Ondansetron [Zofran ODT] 1 tab PO Q8H PRN #10 tab.dis 03/14/19 [Rx] Past Medical History HEENT History: Reports: Impaired 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: Endometriosis (presumed, not confirmed), Psychiatric History: Reports: ADHD, Addiction (alcohol), Anxiety - Past Surgical History HEENT Surgical History: Reports: Oral Surgery (wisdom teeth extraction) GI Surgical History: Reports: Cholecystectomy (2006) - History Comment History Comment: add meds but not taking them routinely Social & Family History - Family History Family Medical History: Noncontributory Cardiac: Reports: [place] Neurological: Reports: CVA Oncologic: Reports: Lung, Lymphoma - Tobacco Use Smoking Status *Q: Current Every Day Smoker Years of Tobacco use: 27 Packs/Tins Daily: 0.5 - Caffeine Use Caffeine Use: Reports: Coffee, Energy Drinks - Alcohol Use Alcohol Use History: Yes Date/Time of Last Drink Comment: Sober since 2017 Alcohol Use Frequency: Binges - Recreational Drug Use Recreational Drug Use: Yes Drug Use in Last 12 Months: Yes Recreational Drug Type: Reports: Marijuana/Hashish (smokes a few times a month) - Living Situation & Occupation Living situation: Reports: , with Spouse, with Family (3 sons) Occupation: Employed ([employer]) ED ROS GENERAL - Review of Systems Review Of Systems: Comprehensive ROS is negative, except as noted in HPI. ED EXAM, GI/ABD - Physical Exam Exam: See Below Exam Limited By: Uncooperative (Anxious, will not relax/settle down) General Appearance: Alert, WD/WN, Anxious Eyes: Bilateral: Normal Appearance, EOMI Ears: Normal External Exam, Hearing Grossly Normal Nose: Normal Inspection Throat/Mouth: Normal Inspection, Normal Lips, Normal Voice, No Airway Compromise Head: Atraumatic, Normocephalic Neck: Normal Inspection, Full Range of Motion Respiratory/Chest: No Respiratory Distress, Lungs Clear, Normal Breath Sounds, No Accessory Muscle Use Cardiovascular: Normal Peripheral Pulses, Regular Rate, Rhythm, No Edema, No Gallop, No JVD, No Murmur, No Rub GI/Abdominal Exam: Normal Bowel Sounds, Soft, No Organomegaly, No Distention, No Abnormal Bruit, No Mass, Tender (Unclear. The patient reported tenderness to discrete areas of her abdomen, but as I continue to palpate, she would then complain of numbness to other areas, but not the original areas) (Female) Exam: Deferred Rectal (Female) Exam: Deferred Back Exam: Normal Inspection, Full Range of Motion. No: CVA Tenderness (L), CVA Tenderness (R) Extremities: Normal Inspection, Normal Range of Motion, No Pedal Edema, Normal Capillary Refill Neurological: Alert, Oriented, No Motor/Sensory Deficits Psychiatric: Anxious Skin Exam: Warm, Dry, Intact, Normal Color, No Rash Course - Vital Signs Last Recorded V/S: Last Vital Signs Temp 35.4 C 03/14/19 17:15 Pulse 77 03/14/19 17:15 Resp 20 03/14/19 17:15 BP 124/79 03/14/19 17:15 Pulse Ox 99 03/14/19 17:15 - Orders/Labs/Meds Orders: Active Orders 24 hr Category Date Time Status Influenza Vaccine Charge [RC] .DISCHARGE Care 03/14/19 22:34 Active Labs: Laboratory Tests 03/14/19 03/14/19 03/14/19 Range/Units 16:15 16:15 19:05 WBC 7.81 (3.98-10.04) K/mm3 RBC 4.55 (3.98-5.22) M/mm3 Hgb 14.1 (11.2-15.7) gm/dl Hct 40.4 (34.1-44.9) % MCV 88.8 (79.4-94.8) fl MCH 31.0 (25.6-32.2) pg MCHC 34.9 (32.2-35.5) g/dl RDW Std Deviation 38.8 (36.4-46.3) fL Plt Count 226 D (182-369) K/mm3 MPV 10.4 (9.4-12.3) fl Neutrophils % (Manual) 93 H (40-60) % Band Neutrophils % 0 (0-10) % Lymphocytes % (Manual) 4 L (20-40) % Atypical Lymphs % 0 % Monocytes % (Manual) 3 (2-10) % Eosinophils % (Manual) 0 L (0.7-5.8) % Basophils % (Manual) 0 L (0.1-1.2) Platelet Estimate Adequate Plt Morphology Comment Normal RBC Morph Comment Normal Sodium 135 L (136-145) mEq/L Potassium 3.4 L (3.5-5.1) mEq/L Chloride 100 (98-107) mEq/L Carbon Dioxide 20 L (21-32) mEq/L Anion Gap 18.4 H (5-15) BUN 12 (7-18) mg/dL Creatinine 0.9 (0.55-1.02) mg/dL Est Cr Clr Drug Dosing TNP Estimated GFR (MDRD) > 60 (>60) mL/min BUN/Creatinine Ratio 13.3 L (14-18) Glucose 131 H (74-106) mg/dL Calcium 8.5 (8.5-10.1) mg/dL Magnesium 1.6 L (1.8-2.4) mg/dl Total Bilirubin 0.6 (0.2-1.0) mg/dL AST 25 (15-37) U/L ALT 32 (14-59) U/L Alkaline Phosphatase 49 (46-116) U/L Total Protein 6.9 (6.4-8.2) g/dl Albumin 4.0 (3.4-5.0) g/dl Globulin 2.9 gm/dL Albumin/Globulin Ratio 1.4 (1-2) Lipase 78 (73-393) U/L Urine Color Dark yellow (Yellow) Urine Appearance Clear (Clear) Urine pH 7.0 (5.0-8.0) Ur Specific [place] > or = 1.030 (1.005-1.030) Urine Protein 1+ H (Negative) Urine Glucose (UA) Negative (Negative) Urine Ketones 1+ H (Negative) Urine Occult Blood Negative (Negative) Urine Nitrite Negative (Negative) Urine Bilirubin Negative (Negative) Urine Urobilinogen 0.2 (0.2-1.0) Ur Leukocyte Esterase Negative (Negative) Urine RBC 0-5 (0-5) /hpf Urine WBC 0-5 (0-5) /hpf Ur Squamous Epith Cells 5-10 H (0-5) /hpf Urine Bacteria Rare (FEW) /hpf Urine Mucus Moderate H (FEW) /hpf Urine HCG, Qual (NEGATIVE) Urine Opiates Screen (CJMFNX=798) Ur Buprenorphine Scrn (CUTOFF=10) Ur Oxycodone Screen (YBQ7SD=565) Urine Methadone Screen (RMYZKP=670) Ur Propoxyphene Screen (WTALBF=684) Ur Barbiturates Screen (UXQVDJ=865) Ur Tricyclics Screen (YRSRLI=412) Ur Phencyclidine Scrn (CUTOFF=25) Ur Amphetamine Screen (IHNXEL=071) U Methamphetamines Scrn (BIWBOA=821) U Benzodiazepines Scrn (NEGNYD=040) U Cocaine Metab Screen (CMMOBK=241) U Marijuana (THC) Screen (CUTOFF=50) 03/14/19 03/14/19 Range/Units 19:05 19:05 WBC (3.98-10.04) K/mm3 RBC (3.98-5.22) M/mm3 Hgb (11.2-15.7) gm/dl Hct (34.1-44.9) % MCV (79.4-94.8) fl MCH (25.6-32.2) pg MCHC (32.2-35.5) g/dl RDW Std Deviation (36.4-46.3) fL Plt Count (182-369) K/mm3 MPV (9.4-12.3) fl Neutrophils % (Manual) (40-60) % Band Neutrophils % (0-10) % Lymphocytes % (Manual) (20-40) % Atypical Lymphs % % Monocytes % (Manual) (2-10) % Eosinophils % (Manual) (0.7-5.8) % Basophils % (Manual) (0.1-1.2) Platelet Estimate Plt Morphology Comment RBC Morph Comment Sodium (136-145) mEq/L Potassium (3.5-5.1) mEq/L Chloride (98-107) mEq/L Carbon Dioxide (21-32) mEq/L Anion Gap (5-15) BUN (7-18) mg/dL Creatinine (0.55-1.02) mg/dL Est Cr Clr Drug Dosing Estimated GFR (MDRD) (>60) mL/min BUN/Creatinine Ratio (14-18) Glucose (74-106) mg/dL Calcium (8.5-10.1) mg/dL Magnesium (1.8-2.4) mg/dl Total Bilirubin (0.2-1.0) mg/dL AST (15-37) U/L ALT (14-59) U/L Alkaline Phosphatase (46-116) U/L Total Protein (6.4-8.2) g/dl Albumin (3.4-5.0) g/dl Globulin gm/dL Albumin/Globulin Ratio (1-2) Lipase (73-393) U/L Urine Color (Yellow) Urine Appearance (Clear) Urine pH (5.0-8.0) Ur Specific [place] (1.005-1.030) Urine Protein (Negative) Urine Glucose (UA) (Negative) Urine Ketones (Negative) Urine Occult Blood (Negative) Urine Nitrite (Negative) Urine Bilirubin (Negative) Urine Urobilinogen (0.2-1.0) Ur Leukocyte Esterase (Negative) Urine RBC (0-5) /hpf Urine WBC (0-5) /hpf Ur Squamous Epith Cells (0-5) /hpf Urine Bacteria (FEW) /hpf Urine Mucus (FEW) /hpf Urine HCG, Qual Negative (NEGATIVE) Urine Opiates Screen Presumptive positive H (CXNFYV=528) Ur Buprenorphine Scrn Negative (CUTOFF=10) Ur Oxycodone Screen Negative (WZD1VQ=073) Urine Methadone Screen Negative (ZDYWHS=075) Ur Propoxyphene Screen Negative (NKTEXP=952) Ur Barbiturates Screen Negative (AIEAPS=347) Ur Tricyclics Screen Negative (KVFCWC=172) Ur Phencyclidine Scrn Negative (CUTOFF=25) Ur Amphetamine Screen Presumptive positive H (LIEQFO=832) U Methamphetamines Scrn Negative (RBBLMW=106) U Benzodiazepines Scrn Negative (NEMXOR=336) U Cocaine Metab Screen Negative (VXVXGY=815) U Marijuana (THC) Screen Presumptive positive H (CUTOFF=50) Meds: Medications Discontinued Medications Generic Name Dose Route Start Last Admin Trade Name Markos PRN Reason Stop Dose Admin Hydromorphone HCl 1 mg 03/14/19 18:42 03/14/19 18:50 Dilaudid IVPUSH 03/14/19 18:43 1 mg ONETIME ONE Administration Lactated Ringer's 1,000 mls @ 999 mls/hr 03/14/19 18:42 03/14/19 18:50 Ringers, Lactated IV 03/14/19 19:42 999 mls/hr .BOLUS ONE Administration Magnesium Sulfate 2 gm/ Premix 50 mls @ 50 mls/hr 03/14/19 20:11 03/14/19 20: 19 IV 03/14/19 21:10 50 mls/hr ONETIME ONE Administration Lactated Ringer's 1,000 mls @ 999 mls/hr 03/14/19 20:57 03/14/19 21:05 Ringers, Lactated IV 03/14/19 21:57 999 mls/hr .BOLUS ONE Administration Influenza Virus Vaccine 1 each 03/14/19 22:33 Pharmacy To Dose - Influenza Vaccine IM 03/14/19 22:34 ONETIME ONE Influenza Virus Vaccine 60 mcg 03/14/19 22:45 03/14/19 22:44 Fluzone Quad [id number] Syringe IM 03/14/19 22:46 60 mcg .ONCE ONE Administration Lorazepam 1 mg 03/14/19 18:42 03/14/19 18:52 Ativan IVPUSH 03/14/19 18:43 1 mg ONETIME STA Administration - Re-Assessments/Exams Free Text/Narrative Re-Assessment/Exam: 03/14/19 18:55 As per the HPI, the patient is complaining of lower abdominal pain that she has been told in the past by her [employer] is due to endometriosis. By my review of prior medical records, it appears that the patient has been to the ED on 6 prior occasions for the same type of pain, and has undergone a CT scan of her abdomen and pelvis on 5 prior occasions, all of which were unremarkable. For today's purposes, therefore, I have ordered blood work, a urinalysis, a urine test, and a urine drug screen, however, I have not ordered a repeat CT scan, and do not intend to unless there are some significant abnormalities on her blood work or urine studies. In the meantime, the patient will be given IV lorazepam, IV Dilaudid, and IV fluid, however, I let the patient know upfront that it is not my intention to continue to give her pain medication until she tells me to stop. The patient appears to be hyperventilating, and I suspect that anxiety is playing a significant role in her perception of pain. 03/14/19 20:11 The patient's CBC is unremarkable. Her CMP is remarkable for a sodium at the lower limit of normal of 135, a potassium slightly depressed at 3.4, a bicarbonate depressed at 20 with an anion gap mildly elevated at 18.4, and a blood glucose of 131, with the remainder of her CMP being unremarkable. Her magnesium level is slightly depressed at 1.6. Her lipase level was within normal limits at 78. Her urinalysis is unremarkable. Her urine test is negative. Her urine drug screen is positive for opiates, amphetamine, and marijuana. I have ordered a 2 g Mg-rider. The opiates on her urine drug screens may be from the 2 mg of morphine given by EMS. The amphetamines are from her prescription amphetamine salts, and the marijuana is because she smokes marijuana. 03/14/19 20:57 I checked on the patient shortly after she received the Ativan and Dilaudid and found her to be calm to the point that she needed to be aroused to wake up. I have just checked on her again. She is awake, calm, and pain-free. I discussed her test results with she and her . Since we are waiting for the Mg-rider to infuse, I have ordered a second liter of LR. 03/14/19 22:26 The patient's second liter of LR has finished. She remains calm and pain-free. I explained to the patient that the paramedics gave her pain medication, which did not help, then we gave her pain medication and antianxiety medication , which resolved the patient's symptoms. The only difference was the antianxiety medication, strongly suggesting that a substantial portion of her symptoms were due to to anxiety. The patient agreed, stating that she suggested this to her [employer], but was told that, no, endometriosis alone was responsible for her symptoms. Going forward, I recommended that she proceed with an evaluation for endometriosis, and, if found, receive either surgical or nonsurgical treatment. In addition, however, I would like the patient to follow-up with her PCP to discuss treatment options for anxiety. Patient stated that she would. The patient requested a prescription for anti-nausea medicine and pain medication. I will prescribe Zofran, but I am not in a position to prescribe an opioid for this recurrent issue. The patient will be given an influenza vaccine prior to discharge. Departure - Departure Time of Disposition: 22:31 Disposition: Home, Self-Care 01 Condition: Good Clinical Impression: Recurrent abdominal pain, Anxiety, High anion gap metabolic acidosis, Hypomagnesemia - Discharge Information *PRESCRIPTION DRUG MONITORING PROGRAM REVIEWED*: Not Applicable *COPY OF PRESCRIPTION DRUG MONITORING REPORT IN PATIENT [place]: Not Applicable Prescriptions: Ondansetron [Zofran ODT] 1 tab PO Q8H PRN #10 tab.dis PRN Reason: Nausea/Vomiting Instructions: Generalized Anxiety Disorder, Adult, Abdominal Pain, Adult, Easy- to-Read Referrals: Harper Duarte PA-C [Ordering Only Provider] - Nick Smith MD [Resident] - Forms: ED Department Discharge Additional Instructions: You were seen in the emergency room for recurrent lower abdominal and lower back pain, thought due to endometriosis. Work-up in the ER included blood work, a urinalysis, a urine test, and a urine drug screen. Your work-up found you to have a mild anion gap metabolic acidosis, which was treated with IV fluid. Your work-up also found your magnesium level to be low. You were given replacement IV magnesium. The remainder of your work-up was unremarkable. Your symptoms resolved after you were given both pain medicine and antianxiety medicine. Based on your history, physical exam, and ER tests, your recurrent abdominal is likely due to endometriosis, however, the diagnosis of endometriosis is made by laparoscopy. We recommend that you follow-up with your [employer], Dr. Nick Smith, for further evaluation and treatment. The majority of the symptoms you experienced, however, was likely related to untreated anxiety. We strongly recommend that you follow-up with your PCP, ALISA Tong, to discuss treatment options for anxiety. A prescription for the anti-nausea medicine Zofran has been sent to the [facility], located just south and across the [address] from [facility]. Dissolve 1 tablet of Zofran on your tongue up to every 8 hours, as needed for nausea/vomiting. If any other problems, please do not hesitate to return to the ER. *You received an influenza vaccine during your ER visit.* Sepsis Event Note - Evaluation Sepsis Screening Result: No Definite Risk - Focused Exam Date Exam was Performed: 03/15/19 Time Exam was Performed: 07:57 - My Orders Last 24 Hours: My Active Orders 03/14/19 22:34 Influenza Vaccine Charge [RC] .DISCHARGE - Assessment/Plan Last 24 Hours: My Active Orders 03/14/19 22:34 Influenza Vaccine Charge [RC] .DISCHARGE
[2019-03-14] MEDS ORDERED: Magnesium Sulfate/Water 2 GM in Premix Bag 1 BAG IV ONE (20:11)
[2019-03-14] MEDS ORDERED: FLU Vacc QS2019-20(6MOS+)/PF 60 MCG/0.5 ML SYRINGE IM ONE (22:45)
== END 2019-03-14 22:48 | disposition home or self-care (01) ==
LOC: JD.ED 17:09
DX: R10.30 Lower abdominal pain, unspecified (principal); E83.42 Hypomagnesemia; F41.9 Anxiety disorder, unspecified; M54.5 Low back pain; I10 Essential (primary) hypertension; Z23 Encounter for immunization; F17.210 Nicotine dependence, cigarettes, uncomplicated; Z88.0 Allergy status to penicillin; Z98.890 Other specified postprocedural states; Z90.49 Acquired absence of other specified parts of digestive tract
CPT/HCPCS: 36415; 80053; 80306; 81001; 81025; 83690; 83735; 85007; 85027; 90471; 90686; 96361; 96365; 96375; 99284; J1170; J2060; J3475; J7120; G0008

== ENCOUNTER 2020-04-24 07:19 | Inpatient (IN) | payer BC ==
[2020-04-24] MEDS ORDERED: Metoclopramide 10 MG/2 ML SDV IVPUSH ONE (07:24)
[2020-04-24] MEDS ORDERED: HYDROmorphone 1 MG/ML Syringe IVPUSH ONE (07:24)
--- NOTE | 2020-04-24 07:28 | EDM.PDOC ---
ED HPI GENERAL MEDICAL PROBLEM - General Chief Complaint: Gastrointestinal Problem Stated Complaint: [facility] Time Seen by Provider: 04/24/20 07:23 Source of Information: Reports: Patient, EMS History Limitations: Reports: No Limitations - History of Present Illness INITIAL COMMENTS - FREE TEXT/NARRATIVE: 44-year-old female presents to the emergency department per [facility]. She reports developing right flank pain last evening which has persisted throughout the night associated with intermittent nausea and vomiting of bilious material. Denies any hematemesis. Patient has a history of renal stones but last one was greater than 4 years ago. Pain is constant with a strong colicky component. It is felt mostly in her flank and right upper abdomen. Paramedics did give her fentanyl 50 mcg IV in route to the hospital. Onset: Sudden Onset Date: 04/23/20 Onset Time: 19:00 Duration: Hour(s):, Constant (With a strong colicky component.), Getting Worse Location: Reports: Back Quality: Reports: Ache (Right flank.) Severity: Severe Improves with: Reports: None (10 out of 10.) Worsens with: Reports: None Context: Denies: Activity, Exercise, Lifting, Sick Contact, Trauma, Other Back Pain Score (Numeric/FACES): 10 - Related Data Allergies Allergy/AdvReac Type Severity Reaction Status Date / Time Penicillins Allergy Mild Cannot Verified 04/24/20 12:15 Remember Home Meds: Home Meds Amphetamine/Dextroamphetamine [Adderall XR] 1 cap PO DAILY 04/24/20 [History] hydrOXYzine HCL [hydrOXYzine] 1 tab PO QID PRN 04/24/20 [History] Past Medical History - Past Health History Medical/Surgical History: Denies Medical/Surgical History HEENT History: Reports: Impaired Vision Cardiovascular History: Reports: None Respiratory History: Reports: None Genitourinary History: Reports: Renal Calculus 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: Endometriosis (presumed, not confirmed), Psychiatric History: Reports: ADHD, Addiction (alcohol), Anxiety Endocrine/Metabolic History: Reports: Other (See Below) Oncologic (Cancer) History: Reports: None - Past Surgical History HEENT Surgical History: Reports: Oral Surgery (wisdom teeth extraction) GI Surgical History: Reports: Cholecystectomy (2006) - History Comment History Comment: add meds but not taking them routinely Social & Family History - Family History Family Medical History: No Pertinent Family History Cardiac: Reports: HI Neurological: Reports: CVA Oncologic: Reports: Lung, Lymphoma - Caffeine Use Caffeine Use: Reports: Coffee, Energy Drinks - Living Situation & Occupation Living situation: Reports: , with Spouse, with Family (3 sons) Occupation: Employed ([employer]) ED ROS GENERAL - Review of Systems Review Of Systems: See Below Constitutional: Reports: Malaise, Weakness, Fatigue, Diaphoresis, Decreased Appetite. Denies: Fever, Chills, Weight Loss HEENT: Reports: No Symptoms Respiratory: Reports: Shortness of Breath, Cough (Hyperventilating at the time of initial evaluation). Denies: Wheezing, Pleuritic Chest Pain, Sputum Cardiovascular: Denies: Chest Pain, Blood Pressure Problem, Claudication, Dyspnea on Exertion, Edema, Lightheadedness, Orthopnea, Palpitations Endocrine: Reports: Fatigue GI/Abdominal: Reports: Abdominal Pain (Right upper abdominal pain rating towards the right groin.), Diarrhea (Stools are a bit on the loose side but not diarrhea.), Decreased Appetite, Nausea, Vomiting (She estimates 4 times during the night.) : Reports: No Symptoms, Flank Pain (Constant feeling of need to defecate. Right flank pain), Frequency, Other Musculoskeletal: Reports: No Symptoms Skin: Reports: Diaphoresis Neurological: Reports: No Symptoms Psychiatric: Reports: Anxiety, Other (Alcohol addiction. She is currently wearing an alcohol detection bracelet left ankle) Hematologic/Lymphatic: Reports: No Symptoms Immunologic: Reports: No Symptoms ED EXAM, RENAL/ - Physical Exam Exam: See Below Exam Limited By: No Limitations General Appearance: Alert, WD/WN, Moderate Distress Eye Exam: Bilateral Eye: Conjunctival Injection (Mild bilaterally), Normal Inspection (No scleral icterus or blepharal pallor.), PERRL Throat/Mouth: Normal Inspection, Normal Oropharynx, Other Head: Atraumatic, Normocephalic (Tongue is mildly dry), Other Neck: Normal Inspection (No outward signs of head or facial trauma), Supple, Non-Tender, Full Range of Motion. No: Lymphadenopathy (L), Lymphadenopathy (R) Respiratory/Chest: Lungs Clear (Tachypnea at rest hyperventilating.), Normal Breath Sounds, No Accessory Muscle Use, Respiratory Distress, Splinting Cardiovascular: Normal Peripheral Pulses (Mild splinting respirations on the right side), Regular Rate, Rhythm, No Edema, No Gallop, No Murmur, No Rub GI/Abdominal: Soft, Non-Tender (Bowel sounds are present but few and far between.), No Organomegaly, No Mass, Pelvis Stable, Tender, Abnormal Bowel Sounds. No: Guarding (Mildly tender right upper quadrant of the abdomen with no rebound or guarding), Rigid, Rebound Back Exam: Normal Inspection, Full Range of Motion, CVA Tenderness (R). No: CVA Tenderness (L) Extremities: Normal Inspection, Normal Range of Motion, Non-Tender, No Pedal Edema Neurological: Alert, Oriented, CN II-XII Intact, Normal Cognition, No Motor/Sensory Deficits Psychiatric: Anxious, Tearful Skin Exam: Warm, Dry, Intact, Normal Color, No Rash #1 Interpretation EKG Date: 04/24/20 Time: 10:43 Rhythm: NSR Rate (Beats/Min): 79 [place]: Normal P-Wave: Enlarged (Consider mild left atrial hypertrophy) QRS: Other (Initial poor R wave progression consider anterior septal ischemic change. Nonspecific Q-wave in aVL.) ST-T: Depressed (Mild ST segment depression V4 to V6 cannot rule out ischemia versus repolarization abnormality which also appears to be present in the inferior wall leads.) QT: Prolonged EKG Interpretation Comments: Abnormal ECG Course - Vital Signs Last Recorded V/S: Last Vital Signs Temp 36.7 C 04/24/20 11:47 Pulse 88 04/24/20 11:47 Resp 20 04/24/20 11:47 BP 127/82 04/24/20 11:47 Pulse Ox 100 04/24/20 11:47 - Orders/Labs/Meds Orders: Active Orders 24 hr Category Date Time Status CULTURE BLOOD [BC] Stat Lab 04/24/20 08:55 Received CULTURE BLOOD [BC] Stat Lab 04/24/20 09:10 Received LACTIC ACID [CHEM] Stat Lab 04/24/20 12:25 Received Azithromycin [Zithromax] 500 mg Med 04/24/20 10:15 Active Sodium Chloride 0.9% [Normal Saline (AdvBag)] 250 ml IV Q24H Dextrose 5%-0.9% NaCl [Dextrose 5%-Normal Saline] 1,000 Med 04/24/20 07:30 Active ml IV ASDIRECTED cefTRIAXone [Rocephin] 2 gm Med 04/24/20 10:15 Active Sodium Chloride 0.9% [Normal Saline] 100 ml IV Q24H Blood Culture x2 Reflex Set [OM.PC] Stat Oth 04/24/20 08:21 Ordered Medication Orders Acetaminophen (Tylenol) 650 mg PO Q4H PRN PRN Reason: Pain (Mild 1-3)/fever Albuterol/Ipratropium (Duoneb 3.0-0.5 Mg/3 Ml) 3 ml NEB Q4H PRN PRN Reason: Shortness Of Breath/wheezing Docusate Sodium (Colace) 100 mg PO BID PRN PRN Reason: Constipation Enoxaparin Sodium (Lovenox) 40 mg SUBCUT DAILY [facility] Hydromorphone HCl (Dilaudid) 0.5 mg IVPUSH Q2H PRN PRN Reason: Pain (severe 7-10) Dextrose/Sodium Chloride (Dextrose 5%-Normal Saline) 1,000 mls @ 999 mls/hr IV ASDIRECTED [facility] Last Infusion: 04/24/20 08:00 Dose: 999 mls/hr Documented by: Admin: 04/24/20 07:37 Dose: 150 mls/hr Documented by: NILSON Ceftriaxone Sodium 2 gm/ (Sodium Chloride) 100 mls @ 200 mls/hr IV Q24H [facility] Last Admin: 04/24/20 10:28 Dose: 200 mls/hr Documented by: NILSON Azithromycin 500 mg/ Sodium (Chloride) 250 mls @ 250 mls/hr IV Q24H [facility] Last Admin: 04/24/20 11:04 Dose: 250 mls/hr Documented by: NILSON Sodium Chloride (Normal Saline) 1,000 mls @ 250 mls/hr IV ASDIRECTED [facility] Last Admin: 04/24/20 10:28 Dose: 250 mls/hr Documented by: NILSON Potassium Chloride 10 meq/ (Premix) 100 mls @ 100 mls/hr IV Q1H [facility] Stop: 04/24/20 13:59 Last Admin: 04/24/20 12:10 Dose: 100 mls/hr Documented by: LAMONT Promethazine HCl 12.5 mg/ (Sodium Chloride) 50.5 mls @ 100 mls/hr IV Q6H PRN PRN Reason: Nausea/Vomiting Ketorolac Tromethamine (Toradol) 30 mg IM Q6H PRN PRN Reason: Pain (moderate 4-6) Labs: Laboratory Tests 04/24/20 04/24/20 04/24/20 Range/Units 07:24 08:18 08:20 WBC (3.98-10.04) K/mm3 RBC (3.98-5.22) M/mm3 Hgb (11.2-15.7) gm/dl Hct (34.1-44.9) % MCV (79.4-94.8) fl MCH (25.6-32.2) pg MCHC (32.2-35.5) g/dl RDW Std Deviation (36.4-46.3) fL Plt Count (182-369) K/mm3 MPV (9.4-12.3) fl Neut % (Auto) (34.0-71.1) % Lymph % (Auto) (19.3-51.7) % [place] % (Auto) (4.7-12.5) % Eos % (Auto) (0.7-5.8) Baso % (Auto) (0.1-1.2) % Neut # (Auto) (1.56-6.13) K/mm3 Lymph # (Auto) (1.18-3.74) K/mm3 [place] # (Auto) (0.24-0.36) K/mm3 Eos # (Auto) (0.04-0.36) K/mm3 Baso # (Auto) (0.01-0.08) K/mm3 Manual Slide Review PT (9.7-12.0) SECONDS INR APTT (21.7-31.4) SECONDS Sodium (136-145) mEq/L Potassium (3.5-5.1) mEq/L Chloride (98-107) mEq/L Carbon Dioxide (21-32) mEq/L Anion Gap (5-15) BUN (7-18) mg/dL Creatinine (0.55-1.02) mg/dL Est Cr Clr Drug Dosing mL/min Estimated GFR (MDRD) (>60) mL/min BUN/Creatinine Ratio (14-18) Glucose (74-106) mg/dL Lactic Acid (0.4-2.0) mmol/L Calcium (8.5-10.1) mg/dL Ferritin (8-252) ng/ml Total Bilirubin (0.2-1.0) mg/dL AST (15-37) U/L ALT (14-59) U/L Alkaline Phosphatase (46-116) U/L Lactate Dehydrogenase (81-234) U/L Troponin I (0.00-0.056) ng/mL C-Reactive Protein (<1.0) mg/dL Total Protein (6.4-8.2) g/dl Albumin (3.4-5.0) g/dl Globulin gm/dL Albumin/Globulin Ratio (1-2) Urine Color Yellow (Yellow) Urine Appearance Clear (Clear) Urine pH 8.5 H (5.0-8.0) Ur Specific [place] 1.020 (1.005-1.030) Urine Protein 1+ H (Negative) Urine Glucose (UA) Trace H (Negative) Urine Ketones Negative (Negative) Urine Occult Blood Negative (Negative) Urine Nitrite Negative (Negative) Urine Bilirubin Negative (Negative) Urine Urobilinogen 0.2 (0.2-1.0) Ur Leukocyte Esterase Negative (Negative) Urine RBC 0-5 (0-5) /hpf Urine WBC 0-5 (0-5) /hpf Ur Epithelial Cells 5-10 H (0-5) /hpf Amorphous Sediment Few H (NOT SEEN) /hpf Urine Bacteria Few (FEW) /hpf Urine Mucus Few (FEW) /hpf Urine Opiates Screen Presumptive positive H (BKYEMX=543) Ur Buprenorphine Scrn Negative (CUTOFF=10) Ur Oxycodone Screen Negative (XLJ9WY=707) Urine Methadone Screen Negative (LXOUBB=945) Ur Propoxyphene Screen Negative (CQADWX=787) Ur Barbiturates Screen Negative (BSRGCN=652) Ur Tricyclics Screen Negative (OVYQFD=844) Ur Phencyclidine Scrn Negative (CUTOFF=25) Ur Amphetamine Screen Negative (TCBTLG=179) U Methamphetamines Scrn Negative (JRULFI=354) U Benzodiazepines Scrn Negative (ZNRNQK=731) U Cocaine Metab Screen Negative (WRIEMW=047) U Marijuana (THC) Screen Presumptive positive H (CUTOFF=50) SARS-CoV-2 RNA (GABBY) Negative (NEGATIVE) 04/24/20 04/24/20 04/24/20 Range/Units 08:55 08:55 08:55 WBC (3.98-10.04) K/mm3 RBC (3.98-5.22) M/mm3 Hgb (11.2-15.7) gm/dl Hct (34.1-44.9) % MCV (79.4-94.8) fl MCH (25.6-32.2) pg MCHC (32.2-35.5) g/dl RDW Std Deviation (36.4-46.3) fL Plt Count (182-369) K/mm3 MPV (9.4-12.3) fl Neut % (Auto) (34.0-71.1) % Lymph % (Auto) (19.3-51.7) % [place] % (Auto) (4.7-12.5) % Eos % (Auto) (0.7-5.8) Baso % (Auto) (0.1-1.2) % Neut # (Auto) (1.56-6.13) K/mm3 Lymph # (Auto) (1.18-3.74) K/mm3 [place] # (Auto) (0.24-0.36) K/mm3 Eos # (Auto) (0.04-0.36) K/mm3 Baso # (Auto) (0.01-0.08) K/mm3 Manual Slide Review PT 11.4 (9.7-12.0) SECONDS INR 1.07 APTT 21.9 (21.7-31.4) SECONDS Sodium 142 (136-145) mEq/L Potassium 3.1 L (3.5-5.1) mEq/L Chloride 104 (98-107) mEq/L Carbon Dioxide 25 (21-32) mEq/L Anion Gap 16.1 H (5-15) BUN 18 (7-18) mg/dL Creatinine 1.1 H (0.55-1.02) mg/dL Est Cr Clr Drug Dosing 57.53 mL/min Estimated GFR (MDRD) 54 (>60) mL/min BUN/Creatinine Ratio 16.4 (14-18) Glucose 164 H (74-106) mg/dL Lactic Acid (0.4-2.0) mmol/L Calcium 8.1 L (8.5-10.1) mg/dL Ferritin 94 (8-252) ng/ml Total Bilirubin 1.0 (0.2-1.0) mg/dL AST 25 (15-37) U/L ALT 33 (14-59) U/L Alkaline Phosphatase 46 (46-116) U/L Lactate Dehydrogenase 275 H (81-234) U/L Troponin I < 0.017 (0.00-0.056) ng/mL C-Reactive Protein 0.5 (<1.0) mg/dL Total Protein 6.6 (6.4-8.2) g/dl Albumin 3.8 (3.4-5.0) g/dl Globulin 2.8 gm/dL Albumin/Globulin Ratio 1.4 (1-2) Urine Color (Yellow) Urine Appearance (Clear) Urine pH (5.0-8.0) Ur Specific [place] (1.005-1.030) Urine Protein (Negative) Urine Glucose (UA) (Negative) Urine Ketones (Negative) Urine Occult Blood (Negative) Urine Nitrite (Negative) Urine Bilirubin (Negative) Urine Urobilinogen (0.2-1.0) Ur Leukocyte Esterase (Negative) Urine RBC (0-5) /hpf Urine WBC (0-5) /hpf Ur Epithelial Cells (0-5) /hpf Amorphous Sediment (NOT SEEN) /hpf Urine Bacteria (FEW) /hpf Urine Mucus (FEW) /hpf Urine Opiates Screen (GMAWBA=488) Ur Buprenorphine Scrn (CUTOFF=10) Ur Oxycodone Screen (OJZ4NV=047) Urine Methadone Screen (LSNNTA=248) Ur Propoxyphene Screen (BLCZYO=710) Ur Barbiturates Screen (RPPNMX=594) Ur Tricyclics Screen (JOTQXC=031) Ur Phencyclidine Scrn (CUTOFF=25) Ur Amphetamine Screen (QMIXXG=892) U Methamphetamines Scrn (MNCYCP=317) U Benzodiazepines Scrn (DPORPQ=567) U Cocaine Metab Screen (YVYQDV=068) U Marijuana (THC) Screen (CUTOFF=50) SARS-CoV-2 RNA (GABBY) (NEGATIVE) 04/24/20 04/24/20 Range/Units 09:10 09:10 WBC 9.21 (3.98-10.04) K/mm3 RBC 4.52 (3.98-5.22) M/mm3 Hgb 14.0 (11.2-15.7) gm/dl Hct 42.2 (34.1-44.9) % MCV 93.4 D (79.4-94.8) fl MCH 31.0 (25.6-32.2) pg MCHC 33.2 (32.2-35.5) g/dl RDW Std Deviation 39.8 (36.4-46.3) fL Plt Count 213 (182-369) K/mm3 MPV 10.8 (9.4-12.3) fl Neut % (Auto) 93.5 H (34.0-71.1) % Lymph % (Auto) 2.3 L (19.3-51.7) % [place] % (Auto) 3.7 L (4.7-12.5) % Eos % (Auto) 0.2 L (0.7-5.8) Baso % (Auto) 0.2 (0.1-1.2) % Neut # (Auto) 8.61 H (1.56-6.13) K/mm3 Lymph # (Auto) 0.21 L (1.18-3.74) K/mm3 [place] # (Auto) 0.34 (0.24-0.36) K/mm3 Eos # (Auto) 0.02 L (0.04-0.36) K/mm3 Baso # (Auto) 0.02 (0.01-0.08) K/mm3 Manual Slide Review Abnormal smear PT (9.7-12.0) SECONDS INR APTT (21.7-31.4) SECONDS Sodium (136-145) mEq/L Potassium (3.5-5.1) mEq/L Chloride (98-107) mEq/L Carbon Dioxide (21-32) mEq/L Anion Gap (5-15) BUN (7-18) mg/dL Creatinine (0.55-1.02) mg/dL Est Cr Clr Drug Dosing mL/min Estimated GFR (MDRD) (>60) mL/min BUN/Creatinine Ratio (14-18) Glucose (74-106) mg/dL Lactic Acid 2.4 H* (0.4-2.0) mmol/L Calcium (8.5-10.1) mg/dL Ferritin (8-252) ng/ml Total Bilirubin (0.2-1.0) mg/dL AST (15-37) U/L ALT (14-59) U/L Alkaline Phosphatase (46-116) U/L Lactate Dehydrogenase (81-234) U/L Troponin I (0.00-0.056) ng/mL C-Reactive Protein (<1.0) mg/dL Total Protein (6.4-8.2) g/dl Albumin (3.4-5.0) g/dl Globulin gm/dL Albumin/Globulin Ratio (1-2) Urine Color (Yellow) Urine Appearance (Clear) Urine pH (5.0-8.0) Ur Specific [place] (1.005-1.030) Urine Protein (Negative) Urine Glucose (UA) (Negative) Urine Ketones (Negative) Urine Occult Blood (Negative) Urine Nitrite (Negative) Urine Bilirubin (Negative) Urine Urobilinogen (0.2-1.0) Ur Leukocyte Esterase (Negative) Urine RBC (0-5) /hpf Urine WBC (0-5) /hpf Ur Epithelial Cells (0-5) /hpf Amorphous Sediment (NOT SEEN) /hpf Urine Bacteria (FEW) /hpf Urine Mucus (FEW) /hpf Urine Opiates Screen (KFPXQH=355) Ur Buprenorphine Scrn (CUTOFF=10) Ur Oxycodone Screen (SSC6YT=798) Urine Methadone Screen (NARFIK=902) Ur Propoxyphene Screen (ZEZGVF=208) Ur Barbiturates Screen (OOQHCM=780) Ur Tricyclics Screen (SIZIIY=374) Ur Phencyclidine Scrn (CUTOFF=25) Ur Amphetamine Screen (XLGACM=470) U Methamphetamines Scrn (HKTLFR=563) U Benzodiazepines Scrn (OSUSYI=618) U Cocaine Metab Screen (GTYSUN=766) U Marijuana (THC) Screen (CUTOFF=50) SARS-CoV-2 RNA (GABBY) (NEGATIVE) Meds: Medications Generic Name Dose Route Start Last Admin Trade Name Freq PRN Reason Stop Dose Admin Acetaminophen 650 mg 04/24/20 11:54 Tylenol PO Q4H PRN Pain (Mild 1-3)/fever Albuterol/Ipratropium 3 ml 04/24/20 11:54 Duoneb 3.0-0.5 Mg/3 Ml NEB Q4H PRN Shortness Of Breath/wheezing Docusate Sodium 100 mg 04/24/20 11:54 Colace PO BID PRN Constipation Enoxaparin Sodium 40 mg 04/25/20 09:00 Lovenox SUBCUT DAILY JOHN Hydromorphone HCl 0.5 mg 04/24/20 11:54 Dilaudid IVPUSH Q2H PRN Pain (severe 7-10) Dextrose/Sodium Chloride 1,000 mls @ 999 mls/hr 04/24/20 07:30 04/24/20 08:00 Dextrose 5%-Normal Saline IV 999 mls/hr ASDIRECTED JOHN Infusion Ceftriaxone Sodium 2 gm/ 100 mls @ 200 mls/hr 04/24/20 10:15 04/24/20 10:28 Sodium Chloride IV 200 mls/hr Q24H JOHN Administration Azithromycin 500 mg/ Sodium 250 mls @ 250 mls/hr 04/24/20 10:15 04/24/20 11:04 Chloride IV 250 mls/hr Q24H JOHN Administration Sodium Chloride 1,000 mls @ 250 mls/hr 04/24/20 10:30 04/24/20 10:28 Normal Saline IV 250 mls/hr ASDIRECTED JOHN Administration Potassium Chloride 10 meq/ 100 mls @ 100 mls/hr 04/24/20 11:00 04/24/20 12:10 Premix IV 04/24/20 13:59 100 mls/hr Q1H JOHN Administration Promethazine HCl 12.5 mg/ 50.5 mls @ 100 mls/hr 04/24/20 11:54 Sodium Chloride IV Q6H PRN Nausea/Vomiting Ketorolac Tromethamine 30 mg 04/24/20 13:30 Toradol IM Q6H PRN Pain (moderate 4-6) Discontinued Medications Generic Name Dose Route Start Last Admin Trade Name Freq PRN Reason Stop Dose Admin Acetaminophen 975 mg 04/24/20 10:04 04/24/20 10:30 Tylenol PO 04/24/20 10:05 975 mg ONETIME ONE Administration Hydromorphone HCl 1 mg 04/24/20 07:24 04/24/20 07:37 Dilaudid IVPUSH 04/24/20 07:25 1 mg ONETIME ONE Administration Hydromorphone HCl 0.5 mg 04/24/20 10:04 04/24/20 10:28 Dilaudid IVPUSH 04/24/20 10:05 0.5 mg ONETIME ONE Administration Sodium Chloride 1,000 mls @ 250 mls/hr 04/24/20 10:30 Normal Saline IV ASDIRECTED JOHN Ketorolac Tromethamine 30 mg 04/24/20 07:30 04/24/20 07:37 Toradol IVPUSH 30 mg ONETIME JOHN Administration Metoclopramide HCl 7.5 mg 04/24/20 07:24 04/24/20 07:37 Reglan IVPUSH 04/24/20 07:25 7.5 mg ONETIME ONE Administration - Radiology Interpretation Free Text/Narrative:: 44-year-old female presents to the ED per [facility] with chief complaint of right flank pain rating around to the right lower abdomen. Apparently it started last evening about 1800 hrs. or so on has gradually intensified overnight. Associate with nausea and vomiting x4 bilious material no hematemesis. Stools have been a bit on the looser side but not diarrhea. She has a remote history of renal lithiasis. Denies any possibility of . She does have an ankle monitoring bracelet in place left ankle. Benign abdominal examination. Plan IV Dilaudid 1 mg IV with Reglan 7.5 mg IV and Toradol 30 mg IV for acute pain relief. Urinalysis and CT of the abdomen pelvis per renal protocol to be done. - Re-Assessments/Exams Free Text/Narrative Re-Assessment/Exam: 04/24/20 08:07 CT scan of the abdomen and pelvis has been performed per renal protocol. Visualized portions of the lung bases reveal several infiltrates within both lung jackson compatible with pneumonia. The liver appears to be within normal limits. Gallbladder is absent. Pancreas appears normal. There is very little fat to open up the tissue planes and therefore kidneys are not well visualized. Both kidneys do not appear to contain any stones. No definite ureteric dilatation appreciated. Difficult to follow the ureters on either side down into the pelvis due to numerous slightly dilated loops of small bowel containing fluid. There is no bowel obstruction. Urinary bladder appears to be within normal limits. 04/24/20 08:12m radiology over read of the CT abdomen pelvis identifies diffuse patchy areas of increased density seen within both lungs please correlate if patient has infectious symptoms whose representing multifocal pneumonia. Noncontrast appearance of the liver and spleen shows no focal abnormality. Adrenal glands show no discrete nodules. Kidneys show no abnormal calcifications cyst is noted within the left kidney measuring 1.2 cm in size no abnormal calcifications are seen along the course of the ureters. No bladder calculi are seen. The abdominal aorta shows no aneurysm prior cholecystectomy is appreciated no retroperitoneal adenopathy or mesenteric abnormalities are noted. Pelvic no pelvic mass or adenopathy is identified appendix appears within normal limits. Bone window settings were reviewed. Compression deformity is noted within the L1 vertebral body which is stable from previous examination slight degenerative changes noted within the spine. 04/24/20 08:16 On firm questioning the patient states she had a Covid test about a month ago which was reportedly negative. She admits that she has been coughing however. She is acutely diaphoretic at the time of my exam. Appears to be mildly warm to palpation. Routine labs including COVID-19 test to be done. Her O2 sats are staying between 97 100% on room air. Heart rate is 84 and sinus. Blood pressure 136/87. Patient is diaphoretic with beads of sweat on her forehead and nose. She does not feel warm palpation however. 04/24/20 08:43 chest x-ray done portably suggests an infiltrate left upper peripheral lobe, right upper lobe as well as right lower peripheral lobe infiltrates compatible with pneumonia. 04/24/20 10:07 White count is 9.21 with a left shift and 93.5% neutrophils. Hemoglobin is 14.0 with hematocrit of 42.2. MCV is 93.4. Platelet count 213 ,000. PT is 11.4 with an INR of 1.07 and a PTT of 21.9. Sodium 142 with a potassium slightly low at 3.1. Chloride 104 with a bicarb of 25. Anion gap is 16.1. BUN is 18 with a creatinine of 1.1. GFR is 54. Glucose is elevated 164. Lactic acid elevated at 2.4. Calcium is 8.1 with a serum ferritin of 94 liver function is normal. LDH is slightly elevated at 275 troponin I is less than 0.017. C-reactive protein is 0.5 total protein 6.6 with an albumin fraction of 3.8 COVID-19 screen is negative.. Is very thirsty and she will be allowed to drink Gatorade or fluids of her choice. We will give Tylenol 9 7 5 mg by mouth for fever relief. Repeat Dilaudid 0.5 mg IV for pain full breathing. She will need to be admitted to the hospital. She will be given potassium chloride IV 10 mEq q. hourly x3 to improve her serum potassium from 3.1. Patient has not been able to eat any solids for the last 2 to 3 days. I will discuss case with on- call hospitalist Dr. Molina. 04/24/20 10:16 Case has been discussed with Dr. Molina on-call hospitalist and he has agreed to take the patient. She will be admitted to the med surgery floor without telemetry. Free Text/Narrative Re-Assessment/Exam: 04/24/20 12:15: COVID-19 screen is negative. Urinalysis shows 1+ proteinuria and 5-10 epithelial cells but no signs of infection. The drug screen is positive for opiates and marijuana. The opioids we did prescribe to her in the ED. Departure - Departure Time of Disposition: 12:15 Disposition: Admitted As Inpatient 68 Condition: Fair Clinical Impression: Hypokalemia Bilateral pneumonia Qualifiers: Pneumonia type: due to unspecified organism Lung location: unspecified part of lung Qualified Code(s): J18.9 - Pneumonia, unspecified organism - Discharge Information *PRESCRIPTION DRUG MONITORING PROGRAM REVIEWED*: Not Applicable *COPY OF PRESCRIPTION DRUG MONITORING REPORT IN PATIENT [place]: Not Applicable Sepsis Event Note (ED) - Focused Exam Vital Signs: Vital Signs Temp Pulse Resp BP Pulse Ox 04/24/20 07:25 35.9 C L 76 24 H 143/94 H 100 - My Orders Last 24 Hours: My Active Orders 04/24/20 07:30 Dextrose 5%-0.9% NaCl [Dextrose 5%-Normal Saline] 1,000 ml IV ASDIRECTED 04/24/20 08:21 Blood Culture x2 Reflex Set [OM.PC] Stat 04/24/20 08:55 CULTURE BLOOD [BC] Stat 04/24/20 09:10 CULTURE BLOOD [BC] Stat 04/24/20 10:15 Azithromycin [Zithromax] 500 mg Sodium Chloride 0.9% [Normal Saline (AdvBag)] 250 ml IV Q24H cefTRIAXone [Rocephin] 2 gm Sodium Chloride 0.9% [Normal Saline] 100 ml IV Q24H 04/24/20 12:25 LACTIC ACID [CHEM] Stat - Assessment/Plan Last 24 Hours: My Active Orders 04/24/20 07:30 Dextrose 5%-0.9% NaCl [Dextrose 5%-Normal Saline] 1,000 ml IV ASDIRECTED 04/24/20 08:21 Blood Culture x2 Reflex Set [OM.PC] Stat 04/24/20 08:55 CULTURE BLOOD [BC] Stat 04/24/20 09:10 CULTURE BLOOD [BC] Stat 04/24/20 10:15 Azithromycin [Zithromax] 500 mg Sodium Chloride 0.9% [Normal Saline (AdvBag)] 250 ml IV Q24H cefTRIAXone [Rocephin] 2 gm Sodium Chloride 0.9% [Normal Saline] 100 ml IV Q24H 04/24/20 12:25 LACTIC ACID [CHEM] Stat
[2020-04-24] MEDS ORDERED: Ketorolac 30 MG/ML SDV IVPUSH SCH (07:30)
[2020-04-24] MEDS ORDERED: Dextrose 5%-0.9% NaCl 1,000 ML IV SCH (07:30)
--- NOTE | 2020-04-24 08:06 | CT ---
CT abdomen and pelvis Technique: Multiple axial sections were obtained from above the dome of the diaphragm inferiorly through the pubic symphysis. Intravenous and oral contrast was not utilized. Reconstructed coronal and sagittal images were obtained. Findings: Diffuse patchy areas of increased density are seen within both lung bases. Please correlate if patient has infectious symptoms for this to represent multifocal pneumonia. Noncontrast appearance of the liver and spleen show no focal abnormality. Adrenal glands show no discrete nodule. Kidneys show no abnormal calcifications. Cyst is noted within the left kidney measuring 1.2 cm in size. No abnormal calcifications are seen along the course of the ureters. No bladder calculi are seen. Abdominal aorta shows no aneurysm. Prior cholecystectomy is noted. No retroperitoneal adenopathy or mesenteric abnormalities are appreciated. No pelvic mass or adenopathy is identified. Appendix appears within normal limits. Bone window settings were reviewed. Compression deformity is noted within the L1 vertebral body which is stable from previous exam. Slight degenerative change is noted within the spine. Impression: 1. Multiple areas of increased density within both lung bases raising the possibility of multifocal pneumonia. Please rule out any sign of COVID disease. 2. Prior cholecystectomy. 3. Small cyst within the left kidney. 4. No other acute abnormality is appreciated on CT study of the abdomen and pelvis performed without contrast. Diagnostic code #3
--- NOTE | 2020-04-24 09:16 | CR ---
Chest: Portable view of the chest was obtained. Comparison: Prior CT abdomen and pelvis study performed earlier on the same day. Patchy areas of increased density within the left upper lung and lesser within the right upper lung. Additional densities are noted within both lung bases. Heart size and mediastinum are normal. No acute osseous finding is seen. Impression: 1. Patchy areas of increased density on both sides of the chest. Please correlate if patient has infectious symptoms. Diagnostic code #3
[2020-04-24] MEDS ORDERED: Acetaminophen 325 MG Tab PO ONE (10:04)
[2020-04-24] MEDS ORDERED: HYDROmorphone 0.5 MG/0.5 ML Syringe IVPUSH ONE (10:04)
[2020-04-24] MEDS ORDERED: cefTRIAXone 2 GM in Sodium Chloride 0.9% 100 ML IV SCH (10:15)
[2020-04-24] MEDS ORDERED: Azithromycin 500 MG in Sodium Chloride 0.9% 250 ML IV SCH (10:15)
[2020-04-24] MEDS ORDERED: Sodium Chloride 0.9% 1,000 ML IV SCH ×2 (10:30)
[2020-04-24] MEDS ORDERED: Promethazine 12.5 MG in Sodium Chloride 0.9% 50 ML IV PRN (11:54)
[2020-04-24] MEDS ORDERED: Docusate Sodium 100 MG Cap PO PRN (11:54)
[2020-04-24] MEDS ORDERED: Acetaminophen 325 MG Tab PO PRN (11:54)
[2020-04-24] MEDS ORDERED: Albuterol/Ipratropium 3.0-0.5 MG/3 ML Neb Soln NEB PRN (11:54)
--- NOTE | 2020-04-24 11:54 | PCM.HP.2 ---
H&P History of Present Illness - General Date of Service: 04/24/20 Admit Problem/Dx: Admission Diagnosis/Problem Admission Diagnosis/Problem Pneumonia Source of Information: Patient, Old Records, Provider, RN, RN Notes Reviewed History Limitations: Reports: No Limitations - History of Present Illness Initial Comments - Free Text/Narative: This is a 44-year-old female who presents to ED on 04/24/2020 via [facility] with right flank pain which started yesterday evening and has progressed. She reports it accompanies nausea and vomiting of bilious material. Denies any hematemesis. She does have a history of renal stones but it has been 4 years since her last episode. She reports pain is colicky and felt mostly in her flank and right upper abdomen. She was given 50 mcg of fentanyl in route to the hospital. In the ED twelve-lead EKG was obtained showing a sinus rhythm at 79 bpm. P waves were enlarged and there is initial poor R wave progression with a no nspecific Q-wave in aVL. ST segment is depressed in V4 through V6 with possible ischemia versus repolarization abnormality. Repolarization abnormality also appears to be present in the inferior wall leads. QT is prolonged. Temp is 36.7. Pulse 80. Respirations 20. Blood pressure 127/82. Pulse ox 100%. Labs are obtained: WBC is normal at 9.21. Hemoglobin 14.0. Platelets 213,000. Neutrophils are elevated at 93.5%. INR is 1.07. Sodium 142. Potassium low at 3.1. Chloride 104. Carbon oxide 25. Anion gap is high at 16.1. BUN is 18. Creatinine 1.1. GFR 54. Glucose 164. Calcium 8.1. Ferritin 94. Bilirubin 1.0. AST is 25, ALT 33, alkaline phosphatase 46. LDH is 275. Troponin less than 0.017. CRP is 0.5. Protein 6.6. Albumin 3.8. UA is obtained and is negative however 1+ protein, 5-10 epithelial cells, and few amorphous sediment are noted. Urine drug screen is positive for opioids which is consistent with fentanyl given in the ambulance. Marijuana is also positive. All other drugs and screen are negative. SARS-CoV-2 RNA is negative. Lactic acid is initially 2.4. Blood cultures were obtained and she started on 500 mg azithromycin and 2 g Rocephin. She is given a 1 L bolus of D5 NS and started on normal saline. She is also given Tylenol, Dilaudid, and Toradol for pain. Given Reglan for nausea. CT scan of the abdomen and pelvis shows "1. Multiple areas of increased density within both lung bases raising the possibility of multifocal pneumonia. Please rule out any sign of Covid disease. 2. Prior cholecystectomy. 3. Small cyst within the left kidney. 4. No other acute abnormalities appreciated on CT of the abdomen and pelvis performed without contrast." Chest x-rays obtained and shows "1. Patchy area of increased density on both sides of the chest. Please correlate if patient has infectious symptoms." She is given 310 mill equivalent potassium riders and admitted to the hospital floor inpatient due to bilateral pneumonia. She carries a history of renal calculus, presumed but not confirmed endometriosis, ADHD, alcohol addiction, anxiety. She had a cholecystectomy in 2006. She is a full code. Her PCP is Harper Duarte PA-C. Back Pain Score (Numeric/FACES): 10 - Related Data Allergies/Adverse Reactions: Allergies Allergy/AdvReac Type Severity Reaction Status Date / Time Penicillins Allergy Mild Cannot Verified 04/24/20 12:15 Remember Home Medications: Home Meds Amphetamine/Dextroamphetamine [Adderall XR] 1 cap PO DAILY 04/24/20 [History] hydrOXYzine HCL [hydrOXYzine] 1 tab PO QID PRN 04/24/20 [History] Past Medical History - Past Health History Medical/Surgical History: Denies Medical/Surgical History HEENT History: Reports: Impaired Vision Cardiovascular History: Reports: None Respiratory History: Reports: None Genitourinary History: Reports: Renal Calculus 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, Psychiatric History: Reports: ADHD, Addiction, Anxiety Endocrine/Metabolic History: Reports: Other (See Below) Oncologic (Cancer) History: Reports: None - Past Surgical History HEENT Surgical History: Reports: Oral Surgery (wisdom teeth extraction) GI Surgical History: Reports: Cholecystectomy (2006) - History Comment History Comment: add meds but not taking them routinely Social & Family History - Family History Family Medical History: No Pertinent Family History Cardiac: Reports: [place] Neurological: Reports: CVA Oncologic: Reports: Lung, Lymphoma - Tobacco Use Tobacco Use Status *Q: Current Every Day Tobacco User Years of Tobacco use: 20 Packs/Tins Daily: 1 - Caffeine Use Caffeine Use: Reports: None - Recreational Drug Use Recreational Drug Use: No - Living Situation & Occupation Living situation: Reports: , with Spouse, with Family (3 sons) Occupation: Employed ([employer]) H&P Review of Systems - Review of Systems: Review Of Systems: See Below General: Reports: No Symptoms, Malaise, Weakness, Fatigue, Diaphoresis, Decreased Appetite. Denies: Fever, Chills, Night Sweats, Weight Loss HEENT: Reports: No Symptoms. Denies: Headaches, Sore Throat Pulmonary: Reports: Shortness of Breath, Cough Cardiovascular: Reports: No Symptoms. Denies: Chest Pain, Palpitations, Dyspnea on Exertion, Orthopnea, Edema Gastrointestinal: Reports: Abdominal Pain, Nausea, Vomiting. Denies: Constipation, Diarrhea, Hematemesis, Hematochezia, Melena Genitourinary: Reports: Frequency, Flank Pain Musculoskeletal: Reports: No Symptoms Skin: Reports: No Symptoms. Denies: Cyanosis Psychiatric: Reports: No Symptoms. Denies: Confusion Neurological: Reports: No Symptoms. Denies: Confusion, Pre-Existing Deficit, Difficulty Walking, Gait Disturbance Hematologic/Lymphatic: Reports: No Symptoms Immunologic: Reports: No Symptoms Exam - Exam Exam: See Below - Vital Signs Vital Signs: Last Vital Signs Temp 96.6 F L 04/24/20 07:25 Pulse 76 04/24/20 07:25 Resp 24 H 04/24/20 07:25 BP 143/94 H 04/24/20 07:25 Pulse Ox 100 04/24/20 07:25 Weight: 130 lb - Exam Quality Assessment: DVT Prophylaxis. No: Supplemental Oxygen, Urinary Catheter General: Alert, Oriented, Cooperative. No: Mild Distress HEENT: Conjunctiva Clear, EACs Clear, Mucosa Moist & [place], Posterior Pharynx Clear Neck: Supple, Trachea Midline Lungs: Clear to Auscultation, Normal Respiratory Effort Cardiovascular: Regular Rate, Regular Rhythm GI/Abdominal Exam: Normal Bowel Sounds, Soft, Non-Tender, No Distention (Female) Exam: Deferred Rectal (Female) Exam: Deferred Back Exam: Normal Inspection, Full Range of Motion, CVA Tenderness (R). No: CVA Tenderness (L) Extremities: Normal Inspection, Normal Range of Motion, Non-Tender, No Pedal Edema, Normal Capillary Refill Peripheral Pulses: 3+: Brachial (L), Brachial (R), Dorsalis Pedis (L), Dorsalis Pedis (R) Skin: Warm, Dry, Intact Neurological: Cranial Nerves Intact (Grossly ) Neuro Extensive - Mental Status: Alert, Oriented x3 - Patient Data Lab Results Last 24 hrs: Laboratory Results - last 24 hr 04/24/20 04/24/20 04/24/20 Range/Units 07:24 08:18 08:20 WBC (3.98-10.04) K/mm3 RBC (3.98-5.22) M/mm3 Hgb (11.2-15.7) gm/dl Hct (34.1-44.9) % MCV (79.4-94.8) fl MCH (25.6-32.2) pg MCHC (32.2-35.5) g/dl RDW Std Deviation (36.4-46.3) fL Plt Count (182-369) K/mm3 MPV (9.4-12.3) fl Neut % (Auto) (34.0-71.1) % Lymph % (Auto) (19.3-51.7) % [place] % (Auto) (4.7-12.5) % Eos % (Auto) (0.7-5.8) Baso % (Auto) (0.1-1.2) % Neut # (Auto) (1.56-6.13) K/mm3 Lymph # (Auto) (1.18-3.74) K/mm3 [place] # (Auto) (0.24-0.36) K/mm3 Eos # (Auto) (0.04-0.36) K/mm3 Baso # (Auto) (0.01-0.08) K/mm3 Manual Slide Review PT (9.7-12.0) SECONDS INR APTT (21.7-31.4) SECONDS Sodium (136-145) mEq/L Potassium (3.5-5.1) mEq/L Chloride (98-107) mEq/L Carbon Dioxide (21-32) mEq/L Anion Gap (5-15) BUN (7-18) mg/dL Creatinine (0.55-1.02) mg/dL Est Cr Clr Drug Dosing mL/min Estimated GFR (MDRD) (>60) mL/min BUN/Creatinine Ratio (14-18) Glucose (74-106) mg/dL Lactic Acid (0.4-2.0) mmol/L Calcium (8.5-10.1) mg/dL Ferritin (8-252) ng/ml Total Bilirubin (0.2-1.0) mg/dL AST (15-37) U/L ALT (14-59) U/L Alkaline Phosphatase (46-116) U/L Lactate Dehydrogenase (81-234) U/L Troponin I (0.00-0.056) ng/mL C-Reactive Protein (<1.0) mg/dL Total Protein (6.4-8.2) g/dl Albumin (3.4-5.0) g/dl Globulin gm/dL Albumin/Globulin Ratio (1-2) Urine Color Yellow (Yellow) Urine Appearance Clear (Clear) Urine pH 8.5 H (5.0-8.0) Ur Specific [place] 1.020 (1.005-1.030) Urine Protein 1+ H (Negative) Urine Glucose (UA) Trace H (Negative) Urine Ketones Negative (Negative) Urine Occult Blood Negative (Negative) Urine Nitrite Negative (Negative) Urine Bilirubin Negative (Negative) Urine Urobilinogen 0.2 (0.2-1.0) Ur Leukocyte Esterase Negative (Negative) Urine RBC 0-5 (0-5) /hpf Urine WBC 0-5 (0-5) /hpf Ur Epithelial Cells 5-10 H (0-5) /hpf Amorphous Sediment Few H (NOT SEEN) /hpf Urine Bacteria Few (FEW) /hpf Urine Mucus Few (FEW) /hpf Urine Opiates Screen Presumptive positive H (AZGBWK=420) Ur Buprenorphine Scrn Negative (CUTOFF=10) Ur Oxycodone Screen Negative (NQC3OQ=729) Urine Methadone Screen Negative (SYZIXO=969) Ur Propoxyphene Screen Negative (QDHAMA=998) Ur Barbiturates Screen Negative (ESMWCD=168) Ur Tricyclics Screen Negative (GLMYHL=320) Ur Phencyclidine Scrn Negative (CUTOFF=25) Ur Amphetamine Screen Negative (ROAVSF=580) U Methamphetamines Scrn Negative (ZDJXFZ=654) U Benzodiazepines Scrn Negative (WPADII=907) U Cocaine Metab Screen Negative (HPTAGP=764) U Marijuana (THC) Screen Presumptive positive H (CUTOFF=50) SARS-CoV-2 RNA (GABBY) Negative (NEGATIVE) 04/24/20 04/24/2021 Range/Units 08:55 08:55 08:55 WBC (3.98-10.04) K/mm3 RBC (3.98-5.22) M/mm3 Hgb (11.2-15.7) gm/dl Hct (34.1-44.9) % MCV (79.4-94.8) fl MCH (25.6-32.2) pg MCHC (32.2-35.5) g/dl RDW Std Deviation (36.4-46.3) fL Plt Count (182-369) K/mm3 MPV (9.4-12.3) fl Neut % (Auto) (34.0-71.1) % Lymph % (Auto) (19.3-51.7) % [place] % (Auto) (4.7-12.5) % Eos % (Auto) (0.7-5.8) Baso % (Auto) (0.1-1.2) % Neut # (Auto) (1.56-6.13) K/mm3 Lymph # (Auto) (1.18-3.74) K/mm3 [place] # (Auto) (0.24-0.36) K/mm3 Eos # (Auto) (0.04-0.36) K/mm3 Baso # (Auto) (0.01-0.08) K/mm3 Manual Slide Review PT 11.4 (9.7-12.0) SECONDS INR 1.07 APTT 21.9 (21.7-31.4) SECONDS Sodium 142 (136-145) mEq/L Potassium 3.1 L (3.5-5.1) mEq/L Chloride 104 (98-107) mEq/L Carbon Dioxide 25 (21-32) mEq/L Anion Gap 16.1 H (5-15) BUN 18 (7-18) mg/dL Creatinine 1.1 H (0.55-1.02) mg/dL Est Cr Clr Drug Dosing 57.53 mL/min Estimated GFR (MDRD) 54 (>60) mL/min BUN/Creatinine Ratio 16.4 (14-18) Glucose 164 H (74-106) mg/dL Lactic Acid (0.4-2.0) mmol/L Calcium 8.1 L (8.5-10.1) mg/dL Ferritin 94 (8-252) ng/ml Total Bilirubin 1.0 (0.2-1.0) mg/dL AST 25 (15-37) U/L ALT 33 (14-59) U/L Alkaline Phosphatase 46 (46-116) U/L Lactate Dehydrogenase 275 H (81-234) U/L Troponin I < 0.017 (0.00-0.056) ng/mL C-Reactive Protein 0.5 (<1.0) mg/dL Total Protein 6.6 (6.4-8.2) g/dl Albumin 3.8 (3.4-5.0) g/dl Globulin 2.8 gm/dL Albumin/Globulin Ratio 1.4 (1-2) Urine Color (Yellow) Urine Appearance (Clear) Urine pH (5.0-8.0) Ur Specific [place] (1.005-1.030) Urine Protein (Negative) Urine Glucose (UA) (Negative) Urine Ketones (Negative) Urine Occult Blood (Negative) Urine Nitrite (Negative) Urine Bilirubin (Negative) Urine Urobilinogen (0.2-1.0) Ur Leukocyte Esterase (Negative) Urine RBC (0-5) /hpf Urine WBC (0-5) /hpf Ur Epithelial Cells (0-5) /hpf Amorphous Sediment (NOT SEEN) /hpf Urine Bacteria (FEW) /hpf Urine Mucus (FEW) /hpf Urine Opiates Screen (XYSIZA=756) Ur Buprenorphine Scrn (CUTOFF=10) Ur Oxycodone Screen (PCM3CC=466) Urine Methadone Screen (VIINUW=835) Ur Propoxyphene Screen (COGVIS=569) Ur Barbiturates Screen (BNYRNH=114) Ur Tricyclics Screen (UMFISG=439) Ur Phencyclidine Scrn (CUTOFF=25) Ur Amphetamine Screen (MTWLBR=166) U Methamphetamines Scrn (TKDFFR=327) U Benzodiazepines Scrn (BJJJCS=369) U Cocaine Metab Screen (RZKCSZ=856) U Marijuana (THC) Screen (CUTOFF=50) SARS-CoV-2 RNA (GABBY) (NEGATIVE) 04/24/20 04/24/20 Range/Units 09:10 09:10 WBC 9.21 (3.98-10.04) K/mm3 RBC 4.52 (3.98-5.22) M/mm3 Hgb 14.0 (11.2-15.7) gm/dl Hct 42.2 (34.1-44.9) % MCV 93.4 D (79.4-94.8) fl MCH 31.0 (25.6-32.2) pg MCHC 33.2 (32.2-35.5) g/dl RDW Std Deviation 39.8 (36.4-46.3) fL Plt Count 213 (182-369) K/mm3 MPV 10.8 (9.4-12.3) fl Neut % (Auto) 93.5 H (34.0-71.1) % Lymph % (Auto) 2.3 L (19.3-51.7) % [place] % (Auto) 3.7 L (4.7-12.5) % Eos % (Auto) 0.2 L (0.7-5.8) Baso % (Auto) 0.2 (0.1-1.2) % Neut # (Auto) 8.61 H (1.56-6.13) K/mm3 Lymph # (Auto) 0.21 L (1.18-3.74) K/mm3 [place] # (Auto) 0.34 (0.24-0.36) K/mm3 Eos # (Auto) 0.02 L (0.04-0.36) K/mm3 Baso # (Auto) 0.02 (0.01-0.08) K/mm3 Manual Slide Review Abnormal smear PT (9.7-12.0) SECONDS INR APTT (21.7-31.4) SECONDS Sodium (136-145) mEq/L Potassium (3.5-5.1) mEq/L Chloride (98-107) mEq/L Carbon Dioxide (21-32) mEq/L Anion Gap (5-15) BUN (7-18) mg/dL Creatinine (0.55-1.02) mg/dL Est Cr Clr Drug Dosing mL/min Estimated GFR (MDRD) (>60) mL/min BUN/Creatinine Ratio (14-18) Glucose (74-106) mg/dL Lactic Acid 2.4 H* (0.4-2.0) mmol/L Calcium (8.5-10.1) mg/dL Ferritin (8-252) ng/ml Total Bilirubin (0.2-1.0) mg/dL AST (15-37) U/L ALT (14-59) U/L Alkaline Phosphatase (46-116) U/L Lactate Dehydrogenase (81-234) U/L Troponin I (0.00-0.056) ng/mL C-Reactive Protein (<1.0) mg/dL Total Protein (6.4-8.2) g/dl Albumin (3.4-5.0) g/dl Globulin gm/dL Albumin/Globulin Ratio (1-2) Urine Color (Yellow) Urine Appearance (Clear) Urine pH (5.0-8.0) Ur Specific [place] (1.005-1.030) Urine Protein (Negative) Urine Glucose (UA) (Negative) Urine Ketones (Negative) Urine Occult Blood (Negative) Urine Nitrite (Negative) Urine Bilirubin (Negative) Urine Urobilinogen (0.2-1.0) Ur Leukocyte Esterase (Negative) Urine RBC (0-5) /hpf Urine WBC (0-5) /hpf Ur Epithelial Cells (0-5) /hpf Amorphous Sediment (NOT SEEN) /hpf Urine Bacteria (FEW) /hpf Urine Mucus (FEW) /hpf Urine Opiates Screen (UBLZFC=916) Ur Buprenorphine Scrn (CUTOFF=10) Ur Oxycodone Screen (PKI8YI=066) Urine Methadone Screen (PRUIHA=829) Ur Propoxyphene Screen (BNUICV=744) Ur Barbiturates Screen (RDYGYV=996) Ur Tricyclics Screen (DHGOPD=548) Ur Phencyclidine Scrn (CUTOFF=25) Ur Amphetamine Screen (QAIVHK=859) U Methamphetamines Scrn (MURANB=600) U Benzodiazepines Scrn (IKXSWS=545) U Cocaine Metab Screen (MJCLTS=593) U Marijuana (THC) Screen (CUTOFF=50) SARS-CoV-2 RNA (GABBY) (NEGATIVE) Result Diagrams: 04/24/20 09:10 04/24/20 08:55 Sepsis Event Note - Evaluation Sepsis Screening Result: No Definite Risk - Focused Exam Vital Signs: Vital Signs Temp Pulse Resp BP Pulse Ox 04/24/20 07:25 96.6 F L 76 24 H 143/94 H 100 - Problem List (1) History of alcohol abuse SNOMED Code(s): 569995457 ICD Code: F10.11 - ALCOHOL ABUSE, IN REMISSION Status: Chronic Priority: Low Current Visit: No (2) History of renal calculi SNOMED Code(s): 166820991 ICD Code: Z87.442 - PERSONAL HISTORY OF URINARY CALCULI Status: Chronic Priority: Low Current Visit: No (3) ADHD SNOMED Code(s): 438215292 ICD Code: F90.9 - ATTENTION-DEFICIT HYPERACTIVITY DISORDER, UNSPECIFIED TYPE Status: Chronic Priority: Low Current Visit: No Qualifiers: Attention deficit-hyperactivity disorder type: unspecified Qualified Code(s): F90.9 - Attention-deficit hyperactivity disorder, unspecified type (4) Bilateral pneumonia SNOMED Code(s): 562411365 ICD Code: J18.9 - PNEUMONIA, UNSPECIFIED ORGANISM Status: Acute Priority: High Current Visit: Yes Qualifiers: Pneumonia type: due to unspecified organism Lung location: lower lobe of lung Qualified Code(s): J18.9 - Pneumonia, unspecified organism (5) Hypokalemia SNOMED Code(s): 72960271 ICD Code: E87.6 - HYPOKALEMIA Status: Acute Priority: High Current Visit: Yes (6) Anxiety SNOMED Code(s): 05288602 ICD Code: F41.9 - ANXIETY DISORDER, UNSPECIFIED Status: Chronic Priority: High Current Visit: Yes (7) Nausea & vomiting SNOMED Code(s): 53067714 ICD Code: R11.2 - NAUSEA WITH VOMITING, UNSPECIFIED Status: Acute Priority: High Current Visit: Yes Qualifiers: Vomiting type: unspecified Vomiting Intractability: unspecified Qualified Code(s): R11.2 - Nausea with vomiting, unspecified (8) Lactic acidosis SNOMED Code(s): 13921026 ICD Code: E87.2 - ACIDOSIS Status: Acute Priority: High Current Visit: Yes (9) High anion gap metabolic acidosis SNOMED Code(s): 89796398 ICD Code: E87.2 - ACIDOSIS Status: Acute Priority: High Current Visit: Yes (10) Elevated glucose SNOMED Code(s): 63450470 ICD Code: R73.09 - OTHER ABNORMAL GLUCOSE Status: Acute Priority: Medium Current Visit: Yes (11) Dehydration SNOMED Code(s): 39669182 ICD Code: E86.0 - DEHYDRATION Status: Acute Priority: High Current Visit: Yes Problem List Initiated/Reviewed/Updated: Yes Orders Last 24hrs: Active Orders 24 hr Category Date Time Status Admission Status [Patient Status] [ADT] Routine ADT 04/24/20 10:17 Active CULTURE BLOOD [BC] Stat Lab 04/24/20 08:55 Received CULTURE BLOOD [BC] Stat Lab 04/24/20 09:10 Received LACTIC ACID [CHEM] Stat Lab 04/24/20 12:20 Ordered Azithromycin [Zithromax] 500 mg Med 04/24/20 10:15 Active Sodium Chloride 0.9% [Normal Saline (AdvBag)] 250 ml IV Q24H Dextrose 5%-0.9% NaCl [Dextrose 5%-Normal Saline] 1,000 Med 04/24/20 07:30 Ac tive ml IV ASDIRECTED Ketorolac [Toradol] Med 04/24/20 07:30 Active 30 mg IVPUSH ONETIME Potassium Chloride [KCl in Water 10 MEQ/100 ML] 10 meq Med 04/24/20 11:00 Active Premix Bag 1 bag IV Q1H Sodium Chloride 0.9% [Normal Saline] 1,000 ml Med 04/24/20 10:30 Active IV ASDIRECTED cefTRIAXone [Rocephin] 2 gm Med 04/24/20 10:15 Active Sodium Chloride 0.9% [Normal Saline] 100 ml IV Q24H Blood Culture x2 Reflex Set [OM.PC] Stat Oth 04/24/20 08:21 Ordered Medication Orders Dextrose/Sodium Chloride (Dextrose 5%-Normal Saline) 1,000 mls @ 999 mls/hr IV ASDIRECTED [facility] Last Infusion: 04/24/20 08:00 Dose: 999 mls/hr Documented by: [id number] Admin: 04/24/20 07:37 Dose: 150 mls/hr Documented by: [email or web address] Ceftriaxone Sodium 2 gm/ (Sodium Chloride) 100 mls @ 200 mls/hr IV Q24H JOHN Last Admin: 04/24/20 10:28 Dose: 200 mls/hr Documented by: [email or web address] Azithromycin 500 mg/ Sodium (Chloride) 250 mls @ 250 mls/hr IV Q24H [facility] Last Admin: 04/24/20 11:04 Dose: 250 mls/hr Documented by: [email or web address] Sodium Chloride (Normal Saline) 1,000 mls @ 250 mls/hr IV ASDIRECTED [facility] Last Admin: 04/24/20 10:28 Dose: 250 mls/hr Documented by: [email or web address] Potassium Chloride 10 meq/ (Premix) 100 mls @ 100 mls/hr IV Q1H JOHN Stop: 04/24/20 13:59 Ketorolac Tromethamine (Toradol) 30 mg IVPUSH ONETIME JOHN Last Admin: 04/24/20 07:37 Dose: 30 mg Documented by: [id number] Assessment/Plan Comment:: Assessment - day of admission 04/24/20 * 44 yo female presents to ED via [facility] with right flank pain, nausea, and vomiting of bilious material * History of renal stones, presumed endometriosis, ADHD, ETOH addiction, anxiety, cholecystectomy * Given 50mcg IVP fentanyl enroute for pain * 12-lead EKG shows NSR at 79 BPM with enlarged P-waves, Poor R-wave progression, non-specific Q-wave in aVL, ST segment depression in V4-V6, repolarization abnormality in inferior leads. QT is prolonged * CT scan abdomen/pelvis in ED: * 1. Multiple areas of increased density within both lung bases raising the possibility of multifocal pneumonia. Please rule out any sign of Covid disease. * 2. Prior cholecystectomy * 3. Small cyst within the left kidney * 4. No other acute abnormalities appreciated on CT study of the abdomen and pelvis performed without contrast. * CXR in ED shows patchy area of increased density on both sides of the chest. Please correlate if patient has infectious symptoms. * Labs in ED: * WBC 9.21 * Hemoglobin 14.0 * Platelet 213,000 * Neutrophils elevated at 93.5 * INR is 1.07 * Sodium 142 * Potassium 3.1 * Chloride 104 * Carbon dioxide 25 * Anion gap is 16.1 * Creatinine 1.1 * GFR 54 * Calcium 8.1 * Ferritin 94 * Bilirubin 1.0 * AST 25, ALT 33, alkaline phosphatase 46 * LDH is 275 * Troponin less than 0.017 * CRP 0.5 * Albumin 3.8 * UA is negative however 1+ protein, 5-10 epithelial cells, and few amorphous sediment are noted. * UDS is positive for opioids, which is consistent with fentanyl given in ambulance, and marijuana. * SARS-CoV-2 RNA is negative. * Lactic acid is 2.4--->1.2 * HCG is negative * She is given Dilaudid, Toradol, and Tylenol for pain, along with Reglan for nausea. She is given a 1 L IV fluid bolus and started on NS. * Started on 500 mg azithromycin and 2 g Rocephin in ED * She subsequently admitted to the medical floor inpatient status for management of her bilateral lower lobe pneumonia. * Sepsis screen: * Likely viral pneumonia given no leukocytosis and minimal CRP * Tachypneic but no fever tachycardia or leukocytosis * Does not meet criteria PLAN Bilateral pneumonia Lactic acidosis, Resolved High anion gap metabolic acidosis Dehydration * IV fluids as ordered * Azithromycin 500 mg - day 1 * Rocephin 2gm - day 1 * IS/Acapella * RT consultation * PRN duonebs * Repeat CXR as needed * Repeat AM labs * Viral respiratory panel * Droplet precautions * Tylenol for fevers * Monitor blood cultures * Droplet isolation * O2 as needed Nausea & vomiting Hypokalemia Hyperglycemia * Likely worsened by patients underlying anxiety * Potassium supplementation given in ED * Scopolamine patch * PRN Zofran and Phenergan * Monitor labs * Obtain A1C ADHD Anxiety * Review/reconcile home medications * Dr. Myles consultation History of alcohol abuse * No current concerns History of renal calculi * No current issues - ruled out with CT in ED Code status: Full Code PCP: Harper Duarte PA-C DVT prophylaxis: VTE score of 1 - not indicated Disposition: Admitted to hospital for management of bilateral lower lobe CAP. Likely LOS 3-4 days. - Mortality Measure Prognosis:: Good
[2020-04-24] MEDS: Potassium Chloride 10 MEQ in Premix Bag 1 BAG IV SCH ×3 (12:10→18:18)
[2020-04-24] MEDS ORDERED: Ketorolac 30 MG/ML SDV IM PRN (13:30)
[2020-04-24] MEDS: HYDROmorphone 0.5 MG/0.5 ML Syringe IVPUSH PRN ×3 (13:30→23:47)
[2020-04-24] MEDS: Sodium Chloride 0.9% 1,000 ML IV SCH ×2 (14:49→23:52)
[2020-04-24] MEDS ORDERED: hydrOXYzine HCl 25 MG Tab PO PRN (15:44)
[2020-04-24 15:50] LABS: HEMOGLOBIN A1C 5.3 %
[2020-04-24] MEDS ORDERED: Scopolamine 1.5 MG Transdermal Patch TOP ONE (16:00)
[2020-04-24] MEDS: Ondansetron 4 MG/2 ML SDV IVPUSH PRN ×2 (17:41→23:13)
[2020-04-24] MEDS: Ketorolac 30 MG/ML SDV IVPUSH PRN (17:43)
[2020-04-24 20:42] LABS: BORDETELLA PARAPERT IS1001 Not Detected (Not Detected)
[2020-04-24] MEDS: oxyCODONE 5 MG Tab PO PRN (21:23)
[2020-04-25] MEDS: Potassium Chloride 10 MEQ in Premix Bag 1 BAG IV SCH ×6 (07:57→18:03)
[2020-04-25] MEDS: DEXTROAMPHETAMINE PO SCH (08:02)
[2020-04-25] MEDS: AMPHETAMINE PO SCH (08:02)
[2020-04-25] MEDS: Ondansetron 4 MG/2 ML SDV IVPUSH PRN ×4 (08:09→20:45)
[2020-04-25] MEDS: HYDROmorphone 0.5 MG/0.5 ML Syringe IVPUSH PRN ×5 (08:09→23:23)
[2020-04-25] MEDS ORDERED: Enoxaparin 40 MG/0.4 ML Syringe SUBCUT SCH (09:00)
[2020-04-25] MEDS: Sodium Chloride 0.9% 1,000 ML IV SCH ×2 (09:03→18:04)
--- NOTE | 2020-04-25 09:48 | CR ---
Chest: Portable view of the chest was obtained. Comparison: Prior chest x-ray of 04/24/20. Patchy areas of increased density are seen on both sides of the chest which are stable. Findings worse within the left upper lung. Heart size and mediastinum are normal. Bony structures are unremarkable. Impression: 1. Increased density on both sides of the chest which appear similar to most recent study. 2. Nothing acute is otherwise seen. Diagnostic code #3
[2020-04-25] MEDS ORDERED: cefTRIAXone 2 GM in Sodium Chloride 0.9% 100 ML IV SCH (10:30)
[2020-04-25] MEDS ORDERED: Azithromycin 500 MG in Sodium Chloride 0.9% 250 ML IV SCH (11:00)
--- NOTE | 2020-04-25 11:13 | CONS ---
CONSULTING PHYSICIAN: Renaldo Myles MD DATE OF CONSULTATION: 04/25/2020 This is a 60-minute inpatient clinical event. Site where the services are provided are [facility] in [place], [place]. Site where the services are provided from are offices in [facility]. Length of service for this 60- minute inpatient telemedicine event is 60 minutes. IDENTIFICATION: The patient is a 44-year-old female who was admitted to the inpatient Med/Surg Unit at [facility] in [place], [place]. She is seen for psychiatric consultation per the request of staff attending, Dr. Bauman and his treatment team. CHIEF COMPLAINT: "I was just having super bad back pain and I could not keep anything down." HISTORY OF PRESENT ILLNESS: The patient is a 44-year-old female who is admitted to the inpatient Med/Surg Unit at [facility] in [place], [place] on 04/24/2020. She is coming in for severe back pain which she thought "was endometriosis or kidney stones" and she reports that she was diagnosed with pneumonia and she is being treated for the pneumonia now. She states also complicating her clinical presentation is the fact that she has increased anxiety. She states the anxiety gets really bad "once the pain starts" and she states she has been working with her regular outpatient care provider to get a handle on the anxiety which has been going on "for a couple of years," but which seems worse lately. The patient states that sometimes it is anxiety, but it is also panic episodes and she states over the past year she has become more isolative. She states that she drinks about 3 energy drinks a day and she uses cannabis gummies around the time of her period and she has been using these regularly for about a year. She does state she stays well hydrated. 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 The patient states that she could get something, so she is not so anxious all the time and panicky, that would be great. MEDICATIONS: At the time of presentation: 1. Adderall XR 25 mg q.a.m. 2. Vistaril 25 mg q.i.d. p.r.n. which does help the patient with sleep, but she notes "it just upsets my stomach.". ALLERGIES: Penicillin. PAST MEDICAL HISTORY: 1. Pneumonia. 2. Endometriosis. 3. History of kidney stones. REVIEW OF SYSTEMS: Aside from pulmonary, reproductive, and nephrologic, all other major organ systems are negative at this point in time for acute difficulties or complications. FAMILY PSYCHIATRIC AND CD HISTORY: The patient denies. PAST PSYCHIATRIC AND CD HISTORY: The patient denies any previous psychiatric hospitalizations or chemical dependency treatments. She is a half pack per day smoker. Denies any previous suicide attempts, self-injurious behaviors. She does have a history of getting tattoos. She got a tattoo about a year ago. Before that, it was about 8 years. She has 6 tattoos total. Denies any eating disorder history. Denies any abuse issues while growing up. PAST PSYCHIATRIC MEDICATION HISTORY: Includes Zoloft which was ineffective. PAST PSYCHIATRIC DIAGNOSIS: Attention deficit hyperactivity disorder. Primary outpatient care provider is Harper Duarte out [facility]. SOCIAL HISTORY: The patient was born and raised in [place], [place]. She is the oldest of 3 siblings. The patient's parents were throughout childhood and adolescence. Father was an oil reporting consultant in the oil field. Mother was a homemaker. 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 She has been twice. First marriage was for 10 years. She has 3 children from that marriage. She was for 10 years. Been now for 6 years. She has 1 child, a 6-year-old from this marriage. Her works in maintenance at [facility] [facility] [employer] [facility] in [place], [place]. The patient lives with her and her 2 youngest children in [place], [place]. She denies any prior service. She is denying any legal difficulties and she is not a practicing Worship in terms of her leta formation. She enjoys working and spending time with her children. MENTAL STATUS EXAMINATION: The patient is a 44-year-old, soft-spoken, pleasant white female, in no apparent distress. Speech is of regular rate and rhythm. The patient is cognitively oriented x3. Psychomotor activity is within normal limits. There are no abnormal motor movements or tics observed. Gait and station are not observed. This patient is lying in bed during the course of the interview. Mood is anxious. Affect is cooperative overall for the purposes of the intake interview and somewhat consistent with stated mood. Overall, there is no behavioral or stated evidence of acute suicidal or homicidal ideation or acute psychotic, delusional, or paranoid symptoms. Thought processes are significant for racing thoughts or ruminations. However, there are no acute manic symptoms or loose associations evident. Judgment and insight appear unimpaired at this point in time. Motivation for help is good. VITALS: 125/77, 73, 16, 98.6 degrees. IMPRESSION: [place] I: 1. Obsessive-compulsive disorder, F42. 2. Panic disorder without agoraphobic symptoms, F41. 3. Depression, not otherwise specified, F32.9. 4. Attention deficit hyperactivity disorder, combined type, F90.2. 5. Rule out panic with agoraphobic symptoms. 6. Rule out bipolar affective disease, mixed type. [place] II: None. [place] III: 1. Pneumonia. 2. Endometriosis. 3. History of kidney stones. [place] IV: Severe. [place] V: 60. PLAN: 1. Discontinue Vistaril. 2. Begin trial of Luvox 50 mg at bedtime x7 days increasing to 75 mg at bedtime thereafter to help with symptoms of OCD and depression and anxiety. 3. Begin trial of Topamax 25 mg b.i.d. for mood stability and anxiety reduction. 4. Continue Adderall XR 25 mg q.a.m. for focus, concentration, reduction of any hyperactivity. 5. Recommend the patient phase out her cannabis gummy use to help reduce symptoms of anxiety and depression and mood instability. 6. Also recommend the patient engage in caffeine moderation also to prevent breakthrough symptoms of anxiety. 7. The patient is counseled to maintain good hydration status to help with full function throughout the day. 8. The patient is apprised of benefits and side effects of her newly initiated psychiatric medication regimen. She acknowledges her understanding of these facts. She has no further questions by the end of the interview session. 9. We will continue follow up with the patient on an as-needed basis while she remains on the inpatient Med/Surg Unit at [facility]. 10.We will follow up with the patient sooner if there are any complications in the interim. 11.Recommend the patient follow up with Outpatient Psychiatry when she is medically stabilized and discharged back to the community to assess her overall function, efficacy of her newly initiated adjustment. Continue psychiatric medication regimen. 12.Again, the patient is apprised of benefits and side effects of her newly initiated and adjusted psychiatric medication regimen. She acknowledges her understanding of these facts and had no further questions by the end of the interview session. 13.Medication compliance. 14.Crisis plan is in place. RONY /[id number]
[2020-04-25] MEDS: Topiramate 25 MG Tab PO SCH ×2 (13:38→20:37)
[2020-04-25] MEDS ORDERED: Magnesium Sulfate/Water 2 GM/50 ML BAG IV ONE (14:00)
[2020-04-25] MEDS ORDERED: Magnesium Oxide 400 MG Tab PO ONE (14:22)
[2020-04-25] MEDS ORDERED: Promethazine 25 MG/ML SDV ONE (14:35)
[2020-04-25] MEDS: Ketorolac 30 MG/ML SDV IVPUSH PRN (14:39)
--- NOTE | 2020-04-25 14:39 | PCM.PN ---
- General Info Date of Service: 04/25/20 Admission Dx/Problem (Free Text): Admission Diagnosis/Problem Admission Diagnosis/Problem Pneumonia Functional Status: Reports: Pain Controlled, Ambulating, Urinating, Incentive Spirometry, Other (Acapella ). Denies: Tolerating Diet, New Symptoms - Review of Systems General: Reports: No Symptoms, Weakness, Fatigue, Malaise. Denies: Fever, Chills HEENT: Reports: No Symptoms. Denies: Contact Lenses, Sore Throat Pulmonary: Reports: No Symptoms. Denies: Shortness of Breath, Pleuritic Chest Pain, Cough, Sputum, Wheezing Cardiovascular: Reports: No Symptoms. Denies: Chest Pain, Palpitations, Dyspnea on Exertion, Edema Gastrointestinal: Reports: No Symptoms, Abdominal Pain, Decreased Appetite, Nausea, Vomiting. Denies: Constipation, Diarrhea Genitourinary: Reports: No Symptoms. Denies: Pain Musculoskeletal: Reports: No Symptoms Skin: Reports: No Symptoms. Denies: Cyanosis Neurological: Reports: No Symptoms. Denies: Confusion, Pre-Existing Deficit, Trouble Speaking, Difficulty Walking, Weakness, Gait Disturbance Psychiatric: Reports: No Symptoms - Patient Data Vitals - Most Recent: Last Vital Signs Temp 98.4 F 04/25/20 11:53 Pulse 59 L 04/25/20 11:53 Resp 14 04/25/20 11:53 BP 103/69 04/25/20 11:53 Pulse Ox 96 04/25/20 11:53 Weight - Most Recent: 165 lb I&O - Last 24 Hours: Intake & Output 04/24/20 04/25/20 04/25/20 22:59 06:59 14:59 Intake Total 2290 1934 Output Total 400 1900 Balance 1890 34 Lab Results Last 24 Hours: Laboratory Results - last 24 hr 04/24/20 04/24/20 04/24/20 Range/Units 08:24 09:10 12:25 WBC (3.98-10.04) K/mm3 RBC (3.98-5.22) M/mm3 Hgb (11.2-15.7) gm/dl Hct (34.1-44.9) % MCV (79.4-94.8) fl MCH (25.6-32.2) pg MCHC (32.2-35.5) g/dl RDW Std Deviation (36.4-46.3) fL Plt Count (182-369) K/mm3 MPV (9.4-12.3) fl Neut % (Auto) (34.0-71.1) % Lymph % (Auto) (19.3-51.7) % Pender % (Auto) (4.7-12.5) % Eos % (Auto) (0.7-5.8) Baso % (Auto) (0.1-1.2) % Neut # (Auto) (1.56-6.13) K/mm3 Lymph # (Auto) (1.18-3.74) K/mm3 Pender # (Auto) (0.24-0.36) K/mm3 Eos # (Auto) (0.04-0.36) K/mm3 Baso # (Auto) (0.01-0.08) K/mm3 Manual Slide Review Sodium (136-145) mEq/L Potassium (3.5-5.1) mEq/L Chloride (98-107) mEq/L Carbon Dioxide (21-32) mEq/L Anion Gap (5-15) BUN (7-18) mg/dL Creatinine (0.55-1.02) mg/dL Est Cr Clr Drug Dosing mL/min Estimated GFR (MDRD) (>60) mL/min BUN/Creatinine Ratio (14-18) Glucose (74-106) mg/dL Hemoglobin A1c 5.3 ( - 5.6) % Calcium (8.5-10.1) mg/dL Magnesium (1.8-2.4) mg/dl C-Reactive Protein (<1.0) mg/dL HCG, Qual Negative (NEGATIVE) Adenovirus (PCR) Not detected (Not Detected) B. pertussis DNA (PCR) Not detected (Not Detected) B.parapertussis DNA PCR Not detected (Not Detected) C. pneumoniae DNA (PCR) Not detected (Not Detected) Coronavirus OC43 (PCR) Not detected (Not Detected) Coronavirus HKU1 (PCR) Not detected (Not Detected) Coronavirus 229E (PCR) Not detected (Not Detected) Coronavirus NL63 (PCR) Not detected (Not Detected) Human Metapneumovir PCR Not detected (Not Detected) Influenza A (RT-PCR) Not detected (Not Detected) Influenza B (RT-PCR) Not detected (Not Detected) M. pneumoniae (PCR) Not detected (Not Detected) Parainfluenza 1 (PCR) Not detected (Not Detected) Parainfluenza 2 (PCR) Not detected (Not Detected) Parainfluenza 3 (PCR) Not detected (Not Detected) Parainfluenza 4 (PCR) Not detected (Not Detected) RSV (PCR) Not detected (Not Detected) Entero/Rhino (PCR) Not detected (Not Detected) SARS-CoV-2 (PCR) Not detected (Not Detected) 04/25/20 04/25/20 Range/Units 04:33 04:33 WBC 5.75 (3.98-10.04) K/mm3 RBC 4.11 (3.98-5.22) M/mm3 Hgb 12.8 (11.2-15.7) gm/dl Hct 38.6 (34.1-44.9) % MCV 93.9 (79.4-94.8) fl MCH 31.1 (25.6-32.2) pg MCHC 33.2 (32.2-35.5) g/dl RDW Std Deviation 40.1 (36.4-46.3) fL Plt Count 221 (182-369) K/mm3 MPV 11.7 (9.4-12.3) fl Neut % (Auto) 83.2 H (34.0-71.1) % Lymph % (Auto) 8.9 L (19.3-51.7) % Pender % (Auto) 7.7 (4.7-12.5) % Eos % (Auto) 0 L (0.7-5.8) Baso % (Auto) 0.2 (0.1-1.2) % Neut # (Auto) 4.79 (1.56-6.13) K/mm3 Lymph # (Auto) 0.51 L (1.18-3.74) K/mm3 Pender # (Auto) 0.44 H (0.24-0.36) K/mm3 Eos # (Auto) 0.00 L (0.04-0.36) K/mm3 Baso # (Auto) 0.01 (0.01-0.08) K/mm3 Manual Slide Review Abnormal smear Sodium 140 (136-145) mEq/L Potassium 3.0 L (3.5-5.1) mEq/L Chloride 104 (98-107) mEq/L Carbon Dioxide 24 (21-32) mEq/L Anion Gap 15.0 (5-15) BUN 9 (7-18) mg/dL Creatinine 0.8 (0.55-1.02) mg/dL Est Cr Clr Drug Dosing 89.08 mL/min Estimated GFR (MDRD) > 60 (>60) mL/min BUN/Creatinine Ratio 11.3 L (14-18) Glucose 109 H (74-106) mg/dL Hemoglobin A1c ( - 5.6) % Calcium 8.2 L (8.5-10.1) mg/dL Magnesium 1.8 (1.8-2.4) mg/dl C-Reactive Protein 2.8 H* (<1.0) mg/dL HCG, Qual (NEGATIVE) Adenovirus (PCR) (Not Detected) B. pertussis DNA (PCR) (Not Detected) B.parapertussis DNA PCR (Not Detected) C. pneumoniae DNA (PCR) (Not Detected) Coronavirus OC43 (PCR) (Not Detected) Coronavirus HKU1 (PCR) (Not Detected) Coronavirus 229E (PCR) (Not Detected) Coronavirus NL63 (PCR) (Not Detected) Human Metapneumovir PCR (Not Detected) Influenza A (RT-PCR) (Not Detected) Influenza B (RT-PCR) (Not Detected) M. pneumoniae (PCR) (Not Detected) Parainfluenza 1 (PCR) (Not Detected) Parainfluenza 2 (PCR) (Not Detected) Parainfluenza 3 (PCR) (Not Detected) Parainfluenza 4 (PCR) (Not Detected) RSV (PCR) (Not Detected) Entero/Rhino (PCR) (Not Detected) SARS-CoV-2 (PCR) (Not Detected) Anmol Results Last 24 Hours: Microbiology 04/24/20 08:55 Aerobic Blood Culture - Preliminary Blood - Venous - Lab Draw NO GROWTH AFTER 1 DAY Anaerobic Blood Culture - Preliminary NO GROWTH AFTER 1 DAY 04/24/20 09:10 Aerobic Blood Culture - Preliminary Blood - Venous NO GROWTH AFTER 1 DAY Anaerobic Blood Culture - Preliminary NO GROWTH AFTER 1 DAY Med Orders - Current: Current Medications Acetaminophen (Tylenol) 650 mg PO Q4H PRN PRN Reason: Pain (Mild 1-3)/fever Albuterol/Ipratropium (Duoneb 3.0-0.5 Mg/3 Ml) 3 ml NEB Q4H PRN PRN Reason: Shortness Of Breath/wheezing Docusate Sodium (Colace) 100 mg PO BID PRN PRN Reason: Constipation Fluvoxamine Maleate (Fluvoxamine) 50 mg PO BEDTIME [facility] Stop: 05/01/20 21:01 Fluvoxamine Maleate (Fluvoxamine) 75 mg PO BEDTIME [facility] Hydromorphone HCl (Dilaudid) 0.5 mg IVPUSH Q2H PRN PRN Reason: Pain (severe 7-10) Last Admin: 04/25/20 12:06 Dose: 0.5 mg Documented by: Promethazine HCl 12.5 mg/ (Sodium Chloride) 50.5 mls @ 100 mls/hr IV Q6H PRN PRN Reason: Nausea/Vomiting Sodium Chloride (Normal Saline) 1,000 mls @ 125 mls/hr IV ASDIRECTED [facility] Last Admin: 04/25/20 09:03 Dose: 125 mls/hr Documented by: Magnesium Sulfate (Magnesium Sulfate In Water 2 Gm/50 Ml) 2 gm in 50 mls @ 25 mls/hr IV ONETIME ONE Stop: 04/25/20 15:59 Ketorolac Tromethamine (Toradol) 30 mg IVPUSH Q6H PRN PRN Reason: Pain (moderate 4-6) Last Admin: 04/24/20 17:43 Dose: 30 mg Documented by: Miscellaneous Information (Remove Patch) 0 ea TRDERM ONETIME ONE Stop: 04/27/20 16:01 Ondansetron HCl (Zofran) 4 mg IVPUSH Q4H PRN PRN Reason: Nausea/Vomiting Last Admin: 04/25/20 12:15 Dose: 4 mg Documented by: Oxycodone HCl (Oxycodone) 5 mg PO Q4H PRN PRN Reason: Pain Last Admin: 04/24/20 21:23 Dose: 5 mg Documented by: Amphetamine/Dextroamphetamine [ Adderall Xr] 25 Mg Caps 0 each PO DAILY [facility] Last Admin: 04/25/20 08:02 Dose: Not Given Documented by: Topiramate (Topamax) 25 mg PO BID [facility] Last Admin: 04/25/20 13:38 Dose: 25 mg Documented by: Discontinued Medications Acetaminophen (Tylenol) 975 mg PO ONETIME ONE Stop: 04/24/20 10:05 Last Admin: 04/24/20 10:30 Dose: 975 mg Documented by: Enoxaparin Sodium (Lovenox) 40 mg SUBCUT DAILY [facility] Hydromorphone HCl (Dilaudid) 1 mg IVPUSH ONETIME ONE Stop: 04/24/20 07:25 Last Admin: 04/24/20 07:37 Dose: 1 mg Documented by: Hydromorphone HCl (Dilaudid) 0.5 mg IVPUSH ONETIME ONE Stop: 04/24/20 10:05 Last Admin: 04/24/20 10:28 Dose: 0.5 mg Documented by: Hydroxyzine HCl (Atarax) 25 mg PO QID PRN PRN Reason: Anxiety Dextrose/Sodium Chloride (Dextrose 5%-Normal Saline) 1,000 mls @ 999 mls/hr IV ASDIRECTED [facility] Last Infusion: 04/24/20 08:00 Dose: 999 mls/hr Documented by: Ceftriaxone Sodium 2 gm/ (Sodium Chloride) 100 mls @ 200 mls/hr IV Q24H [facility] Last Admin: 04/24/20 10:28 Dose: 200 mls/hr Documented by: Azithromycin 500 mg/ Sodium (Chloride) 250 mls @ 250 mls/hr IV Q24H [facility] Last Admin: 04/24/20 11:04 Dose: 250 mls/hr Documented by: Sodium Chloride (Normal Saline) 1,000 mls @ 250 mls/hr IV ASDIRECTED [facility] Last Admin: 04/24/20 10:28 Dose: 250 mls/hr Documented by: Sodium Chloride (Normal Saline) 1,000 mls @ 250 mls/hr IV ASDIRECTED [facility] Potassium Chloride 10 meq/ (Premix) 100 mls @ 100 mls/hr IV Q1H [facility] Stop: 04/24/20 13:59 Last Admin: 04/24/20 18:18 Dose: 100 mls/hr Documented by: Azithromycin 500 mg/ Sodium (Chloride) 250 mls @ 250 mls/hr IV Q24H [facility] Last Admin: 04/25/20 13:38 Dose: 250 mls/hr Documented by: Ceftriaxone Sodium 2 gm/ (Sodium Chloride) 100 mls @ 200 mls/hr IV Q24H [facility] Last Admin: 04/25/20 11:04 Dose: 200 mls/hr Documented by: Potassium Chloride 10 meq/ (Premix) 100 mls @ 100 mls/hr IV Q1H [facility] Stop: 04/25/20 13:59 Last Admin: 04/25/20 14:24 Dose: 100 mls/hr Documented by: Ketorolac Tromethamine (Toradol) 30 mg IVPUSH ONETIME [facility] Last Admin: 04/24/20 07:37 Dose: 30 mg Documented by: Ketorolac Tromethamine (Toradol) 30 mg IM Q6H PRN PRN Reason: Pain (moderate 4-6) Magnesium Oxide (Magnesium Oxide) 800 mg PO ONETIME ONE Stop: 04/25/20 14:23 Metoclopramide HCl (Reglan) 7.5 mg IVPUSH ONETIME ONE Stop: 04/24/20 07:25 Last Admin: 04/24/20 07:37 Dose: 7.5 mg Documented by: Scopolamine (Transderm-Scop) 1.5 mg TOP ONETIME ONE Stop: 04/24/20 16:01 Last Admin: 04/24/20 15:40 Dose: 1.5 mg Documented by: - Exam Quality Assessment: No: Supplemental Oxygen, Urine Catheter, DVT Prophylaxis (VTE score of 1 ) General: Alert, Oriented, Cooperative, Mild Distress, Sedated (sleepy ) HEENT: Pupils Equal, Pupils Reactive Neck: Supple, Trachea Midline Lungs: Clear to Auscultation, Normal Respiratory Effort Cardiovascular: Regular Rate, Regular Rhythm GI/Abdominal Exam: Normal Bowel Sounds, Soft, No Mass, Pelvis Stable, Tender (Generalized tenderness most present in upper quadrants ) (Female) Exam: Deferred Back Exam: Normal Inspection, Full Range of Motion Extremities: Normal Inspection, Normal Range of Motion, Non-Tender, No Pedal Edema, Normal Capillary Refill Skin: Warm, Dry, Intact Neurological: No New Focal Deficit Psy/Mental Status: Alert, Anxious - Patient Data Lab Results Last 24 hrs: Laboratory Results - last 24 hr 04/24/20 04/24/20 04/24/20 Range/Units 08:24 09:10 12:25 WBC (3.98-10.04) K/mm3 RBC (3.98-5.22) M/mm3 Hgb (11.2-15.7) gm/dl Hct (34.1-44.9) % MCV (79.4-94.8) fl MCH (25.6-32.2) pg MCHC (32.2-35.5) g/dl RDW Std Deviation (36.4-46.3) fL Plt Count (182-369) K/mm3 MPV (9.4-12.3) fl Neut % (Auto) (34.0-71.1) % Lymph % (Auto) (19.3-51.7) % Pender % (Auto) (4.7-12.5) % Eos % (Auto) (0.7-5.8) Baso % (Auto) (0.1-1.2) % Neut # (Auto) (1.56-6.13) K/mm3 Lymph # (Auto) (1.18-3.74) K/mm3 Pender # (Auto) (0.24-0.36) K/mm3 Eos # (Auto) (0.04-0.36) K/mm3 Baso # (Auto) (0.01-0.08) K/mm3 Manual Slide Review Sodium (136-145) mEq/L Potassium (3.5-5.1) mEq/L Chloride (98-107) mEq/L Carbon Dioxide (21-32) mEq/L Anion Gap (5-15) BUN (7-18) mg/dL Creatinine (0.55-1.02) mg/dL Est Cr Clr Drug Dosing mL/min Estimated GFR (MDRD) (>60) mL/min BUN/Creatinine Ratio (14-18) Glucose (74-106) mg/dL Hemoglobin A1c 5.3 ( - 5.6) % Calcium (8.5-10.1) mg/dL Magnesium (1.8-2.4) mg/dl C-Reactive Protein (<1.0) mg/dL HCG, Qual Negative (NEGATIVE) Adenovirus (PCR) Not detected (Not Detected) B. pertussis DNA (PCR) Not detected (Not Detected) B.parapertussis DNA PCR Not detected (Not Detected) C. pneumoniae DNA (PCR) Not detected (Not Detected) Coronavirus OC43 (PCR) Not detected (Not Detected) Coronavirus HKU1 (PCR) Not detected (Not Detected) Coronavirus 229E (PCR) Not detected (Not Detected) Coronavirus NL63 (PCR) Not detected (Not Detected) Human Metapneumovir PCR Not detected (Not Detected) Influenza A (RT-PCR) Not detected (Not Detected) Influenza B (RT-PCR) Not detected (Not Detected) M. pneumoniae (PCR) Not detected (Not Detected) Parainfluenza 1 (PCR) Not detected (Not Detected) Parainfluenza 2 (PCR) Not detected (Not Detected) Parainfluenza 3 (PCR) Not detected (Not Detected) Parainfluenza 4 (PCR) Not detected (Not Detected) RSV (PCR) Not detected (Not Detected) Entero/Rhino (PCR) Not detected (Not Detected) SARS-CoV-2 (PCR) Not detected (Not Detected) 04/25/20 04/25/20 Range/Units 04:33 04:33 WBC 5.75 (3.98-10.04) K/mm3 RBC 4.11 (3.98-5.22) M/mm3 Hgb 12.8 (11.2-15.7) gm/dl Hct 38.6 (34.1-44.9) % MCV 93.9 (79.4-94.8) fl MCH 31.1 (25.6-32.2) pg MCHC 33.2 (32.2-35.5) g/dl RDW Std Deviation 40.1 (36.4-46.3) fL Plt Count 221 (182-369) K/mm3 MPV 11.7 (9.4-12.3) fl Neut % (Auto) 83.2 H (34.0-71.1) % Lymph % (Auto) 8.9 L (19.3-51.7) % Pender % (Auto) 7.7 (4.7-12.5) % Eos % (Auto) 0 L (0.7-5.8) Baso % (Auto) 0.2 (0.1-1.2) % Neut # (Auto) 4.79 (1.56-6.13) K/mm3 Lymph # (Auto) 0.51 L (1.18-3.74) K/mm3 Pender # (Auto) 0.44 H (0.24-0.36) K/mm3 Eos # (Auto) 0.00 L (0.04-0.36) K/mm3 Baso # (Auto) 0.01 (0.01-0.08) K/mm3 Manual Slide Review Abnormal smear Sodium 140 (136-145) mEq/L Potassium 3.0 L (3.5-5.1) mEq/L Chloride 104 (98-107) mEq/L Carbon Dioxide 24 (21-32) mEq/L Anion Gap 15.0 (5-15) BUN 9 (7-18) mg/dL Creatinine 0.8 (0.55-1.02) mg/dL Est Cr Clr Drug Dosing 89.08 mL/min Estimated GFR (MDRD) > 60 (>60) mL/min BUN/Creatinine Ratio 11.3 L (14-18) Glucose 109 H (74-106) mg/dL Hemoglobin A1c ( - 5.6) % Calcium 8.2 L (8.5-10.1) mg/dL Magnesium 1.8 (1.8-2.4) mg/dl C-Reactive Protein 2.8 H* (<1.0) mg/dL HCG, Qual (NEGATIVE) Adenovirus (PCR) (Not Detected) B. pertussis DNA (PCR) (Not Detected) B.parapertussis DNA PCR (Not Detected) C. pneumoniae DNA (PCR) (Not Detected) Coronavirus OC43 (PCR) (Not Detected) Coronavirus HKU1 (PCR) (Not Detected) Coronavirus 229E (PCR) (Not Detected) Coronavirus NL63 (PCR) (Not Detected) Human Metapneumovir PCR (Not Detected) Influenza A (RT-PCR) (Not Detected) Influenza B (RT-PCR) (Not Detected) M. pneumoniae (PCR) (Not Detected) Parainfluenza 1 (PCR) (Not Detected) Parainfluenza 2 (PCR) (Not Detected) Parainfluenza 3 (PCR) (Not Detected) Parainfluenza 4 (PCR) (Not Detected) RSV (PCR) (Not Detected) Entero/Rhino (PCR) (Not Detected) SARS-CoV-2 (PCR) (Not Detected) Result Diagrams: 04/25/20 04:33 04/25/20 04:33 Anmol Results Last 24 hrs: Microbiology 04/24/20 08:55 Aerobic Blood Culture - Preliminary Blood - Venous - Lab Draw NO GROWTH AFTER 1 DAY Anaerobic Blood Culture - Preliminary NO GROWTH AFTER 1 DAY 04/24/20 09:10 Aerobic Blood Culture - Preliminary Blood - Venous NO GROWTH AFTER 1 DAY Anaerobic Blood Culture - Preliminary NO GROWTH AFTER 1 DAY Sepsis Event Note - Evaluation Sepsis Screening Result: No Definite Risk - Focused Exam Vital Signs: Vital Signs Temp Temp Pulse Pulse Resp BP BP 04/25/20 11:53 98.4 F 59 L 14 103/69 04/25/20 07:56 66 16 04/25/20 07:55 98.6 F 73 16 125/77 04/25/20 03:40 99.1 F 66 18 110/89 Pulse Ox 04/25/20 11:53 96 04/25/20 07:56 97 04/25/20 07:55 97 04/25/20 03:40 96 - Problem List & Annotations (1) History of alcohol abuse SNOMED Code(s): 441120535 Code(s): F10.11 - ALCOHOL ABUSE, IN REMISSION Status: Chronic Priority: Low Current Visit: No (2) History of renal calculi SNOMED Code(s): 051567062 Code(s): Z87.442 - PERSONAL HISTORY OF URINARY CALCULI Status: Chronic Priority: Low Current Visit: No (3) ADHD SNOMED Code(s): 131469530 Code(s): F90.9 - ATTENTION-DEFICIT HYPERACTIVITY DISORDER, UNSPECIFIED TYPE Status: Chronic Priority: Low Current Visit: No Qualifiers: Attention deficit-hyperactivity disorder type: unspecified Qualified Code(s): F90.9 - Attention-deficit hyperactivity disorder, unspecified type (4) Bilateral pneumonia SNOMED Code(s): 370413677 Code(s): J18.9 - PNEUMONIA, UNSPECIFIED ORGANISM Status: Ruled-out Priority: High Current Visit: Yes Qualifiers: Pneumonia type: due to unspecified organism Lung location: lower lobe of lung Qualified Code(s): J18.9 - Pneumonia, unspecified organism (5) Hypokalemia SNOMED Code(s): 45542694 Code(s): E87.6 - HYPOKALEMIA Status: Acute Priority: High Current Visit: Yes (6) Anxiety SNOMED Code(s): 84611193 Code(s): F41.9 - ANXIETY DISORDER, UNSPECIFIED Status: Chronic Priority: High Current Visit: Yes (7) Nausea & vomiting SNOMED Code(s): 77981928 Code(s): R11.2 - NAUSEA WITH VOMITING, UNSPECIFIED Status: Acute Priority: High Current Visit: Yes Qualifiers: Vomiting type: unspecified Vomiting Intractability: unspecified Qualified Code(s): R11.2 - Nausea with vomiting, unspecified (8) Lactic acidosis SNOMED Code(s): 69658071 Code(s): E87.2 - ACIDOSIS Status: Resolved Priority: High Current Visit: Yes (9) High anion gap metabolic acidosis SNOMED Code(s): 40969938 Code(s): E87.2 - ACIDOSIS Status: Resolved Priority: High Current Visit: Yes (10) Elevated glucose SNOMED Code(s): 63673731 Code(s): R73.09 - OTHER ABNORMAL GLUCOSE Status: Acute Priority: Medium Current Visit: Yes (11) Dehydration SNOMED Code(s): 63442960 Code(s): E86.0 - DEHYDRATION Status: Resolved Priority: High Current Visit: Yes (12) Abdominal pain SNOMED Code(s): 05141406 Code(s): R10.9 - UNSPECIFIED ABDOMINAL PAIN Status: Acute Priority: High Current Visit: Yes Qualifiers: Abdominal location: generalized Qualified Code(s): R10.84 - Generalized abdominal pain (13) Hypomagnesemia SNOMED Code(s): 738409746 Code(s): E83.42 - HYPOMAGNESEMIA Status: Acute Priority: High Current Visit: Yes - Problem List Review Problem List Initiated/Reviewed/Updated: Yes - My Orders Last 24 Hours: My Active Orders 04/24/20 13:44 Acapella [RT Chest Physiotherapy] [RC] ASDIRECTED RT Incentive Spirometry [RC] ASDIRECTED 04/24/20 13:58 Ketorolac [Toradol] 30 mg IVPUSH Q6H PRN 04/24/20 14:45 Sodium Chloride 0.9% [Normal Saline] 1,000 ml IV ASDIRECTED 04/24/20 15:29 Ondansetron [Zofran] 4 mg IVPUSH Q4H PRN 04/24/20 16:16 Consult to Physician [CONS] Routine 04/24/20 16:17 Notify Provider Consults [RC] ASDIRECTED 04/25/20 09:00 Patient's Own Medication [Ptom] 0 each PO DAILY 04/25/20 14:00 Magnesium Sulfate/Water [Magnesium Sulfate in Water 2 GM/50 ML] 2 gm in 50 ml IV ONETIME 04/26/20 05:11 BASIC METABOLIC PANEL,BMP [CHEM] AM CBC WITH AUTO DIFF [HEME] AM CRP [C-REACTIVE PROTEIN] [CHEM] AM MAGNESIUM [CHEM] AM 04/26/20 08:00 Chest 2V [CR] Routine 04/27/20 05:11 BASIC METABOLIC PANEL,BMP [CHEM] AM CBC WITH AUTO DIFF [HEME] AM CRP [C-REACTIVE PROTEIN] [CHEM] AM MAGNESIUM [CHEM] AM 04/27/20 16:00 Remove Patch 0 ea TRDERM ONETIME ONE 04/28/20 05:11 BASIC METABOLIC PANEL,BMP [CHEM] AM CBC WITH AUTO DIFF [HEME] AM CRP [C-REACTIVE PROTEIN] [CHEM] AM MAGNESIUM [CHEM] AM - Assessment Assessment:: Assessment - day of admission 04/24/20 * 44 yo female presents to ED via [facility] with right flank pain, nausea, and vomiting of bilious material * History of renal stones, presumed endometriosis, ADHD, ETOH addiction, anxiety, cholecystectomy * Given 50mcg IVP fentanyl enroute for pain * 12-lead EKG shows NSR at 79 BPM with enlarged P-waves, Poor R-wave progression, non-specific Q-wave in aVL, ST segment depression in V4-V6, repolarization abnormality in inferior leads. QT is prolonged * CT scan abdomen/pelvis in ED: * 1. Multiple areas of increased density within both lung bases raising the possibility of multifocal pneumonia. Please rule out any sign of Covid disease. * 2. Prior cholecystectomy * 3. Small cyst within the left kidney * 4. No other acute abnormalities appreciated on CT study of the abdomen and pelvis performed without contrast. * CXR in ED shows patchy area of increased density on both sides of the chest. Please correlate if patient has infectious symptoms. * Labs in ED: * WBC 9.21 * Hemoglobin 14.0 * Platelet 213,000 * Neutrophils elevated at 93.5 * INR is 1.07 * Sodium 142 * Potassium 3.1 * Chloride 104 * Carbon dioxide 25 * Anion gap is 16.1 * Creatinine 1.1 * GFR 54 * Calcium 8.1 * Ferritin 94 * Bilirubin 1.0 * AST 25, ALT 33, alkaline phosphatase 46 * LDH is 275 * Troponin less than 0.017 * CRP 0.5 * Albumin 3.8 * UA is negative however 1+ protein, 5-10 epithelial cells, and few amorphous sediment are noted. * UDS is positive for opioids, which is consistent with fentanyl given in ambulance, and marijuana. * SARS-CoV-2 RNA is negative. * Lactic acid is 2.4--->1.2 * HCG is negative * She is given Dilaudid, Toradol, and Tylenol for pain, along with Reglan for nausea. She is given a 1 L IV fluid bolus and started on NS. * Started on 500 mg azithromycin and 2 g Rocephin in ED * She subsequently admitted to the medical floor inpatient status for management of her bilateral lower lobe pneumonia. * Sepsis screen: * Likely viral pneumonia given no leukocytosis and minimal CRP * Tachypneic but no fever tachycardia or leukocytosis * Does not meet criteria 04/25/20 * Ruled out pneumonia as patient has had increased density in lower lobes on imaging since 2018. * Patient continues to have no infectious symptoms. WBC is within normal limits, CRP is minimal. Not requiring oxygen. Minimal no cough. Blood cultures negative. Viral respiratory panel negative * Discontinue IV antibiotics * Patient did see Dr. Myles who recommended starting 25 mg Topamax twice daily and starting Luvox 50 mg bedtime for 7 days then increasing to 75 mg. * Dr. Myles recommended patient wean off cannabis Gummies and decrease caffeine intake significantly. * Patient continues to request pain medications frequently and reports nausea and vomiting. * In reviewing old charts patient hospitalized and seen in the ED for similar symptoms many time in [id number]. Work-up at that time was unremarkable. * Contacted patient's primary care provider who reports only seeing patient for medication renewals recently. Reports patient had history of alcohol abuse in the past and she is nervous about patient's narcotic use during hospitalization. * Will decrease frequency of Dilaudid. * Patient's potassium and magnesium low today. Patient reports she cannot tolerate p.o. potassium. We will therefore supplement IV. * Plan was to discharge patient today however she becomes acutely nauseous and vomits multiple times. * Plan on keeping patient till tomorrow and then discharging. * Labs today: * WBC 5.75 * Hemoglobin 12.8 * Platelet 221 * Neutrophils 83.2% * Sodium 140 * Potassium 3.0 * Anion gap 15.0 * BUN 9, creatinine 0.1, GFR greater than 60. * Glucose 109 * Calcium 8.2 * Magnesium 1.8 * CRP 2.8 * Viral respiratory panel negative - Plan Plan:: Abdominal pain Nausea & vomiting Hypokalemia Hypomagnesemia Hyperglycemia * Likely worsened by patients underlying anxiety * Potassium and magnesium supplementation * Per patient she is unable to tolerate PO potassium supplementation * Scopolamine patch * PRN Zofran and Phenergan * Monitor labs * Pain mediations as ordered * Obtain lipase given upper quadrant abdominal pain * Decrease diet to clear liquids ADHD Anxiety * Review/reconcile home medications * Dr. Myles consultation * Discontinue Vistaril and continue Adderall * Begin Luvox 50 mg at bedtime for 7 days then increase to 75 mg thereafter * Begin Topamax 25 mg twice daily * Continue Adderall recommend * Phase out cannabis gummy * Encourage patient to engage in caffeine moderation to prevent symptoms of anxiety History of alcohol abuse * No current concerns History of renal calculi * No current issues - ruled out with CT in ED Ruled out: Bilateral pneumonia Resolved: Lactic acidosis, Resolved High anion gap metabolic acidosis, resolved Dehydration, resolved Code status: Full Code PCP: Harper Duarte PA-C DVT prophylaxis: VTE score of 1 - not indicated Disposition: Admitted to hospital for management of bilateral lower lobe CAP. Likely LOS 3-4 days.
[2020-04-25] MEDS ORDERED: Promethazine 25 MG in Sodium Chloride 0.9% 50 ML IV PRN (14:56)
[2020-04-25] MEDS: fluvoxaMINE 50 MG Tab PO SCH (20:37)
[2020-04-25] MEDS ORDERED: Aluminum Hydroxide/Magnesium Hydroxide/Simethicone Susp 30 ML Cup PO PRN (22:38)
[2020-04-26] MEDS: oxyCODONE 5 MG Tab PO PRN ×4 (01:32→21:12)
[2020-04-26] MEDS: Ondansetron 4 MG/2 ML SDV IVPUSH PRN ×4 (02:08→21:10)
[2020-04-26] MEDS: Ketorolac 30 MG/ML SDV IVPUSH PRN ×2 (02:08→17:25)
[2020-04-26] MEDS: Sodium Chloride 0.9% 1,000 ML IV SCH ×2 (02:33→12:01)
[2020-04-26] MEDS: HYDROmorphone 0.5 MG/0.5 ML Syringe IVPUSH PRN ×4 (04:50→22:04)
[2020-04-26] MEDS: Topiramate 25 MG Tab PO SCH ×2 (08:08→21:14)
[2020-04-26] MEDS: Magnesium Oxide 400 MG Tab PO SCH (08:10)
[2020-04-26] MEDS: Potassium Chloride 10 MEQ in Premix Bag 1 BAG IV SCH ×6 (08:10→16:26)
[2020-04-26] MEDS: DEXTROAMPHETAMINE PO SCH (09:58)
[2020-04-26] MEDS: AMPHETAMINE PO SCH (09:58)
--- NOTE | 2020-04-26 11:17 | PCM.PN ---
- General Info Date of Service: 04/26/20 Admission Dx/Problem (Free Text): Admission Diagnosis/Problem Admission Diagnosis/Problem Pneumonia Subjective Update: In to see Kishan. She had a bit of a rough night with significant abdominal pain accompanied with nausea and vomiting. She does report that the symptoms she was experiencing in 2018- resolved. She had had several visits to our facility and reports that she followed up with OB who were thinking it was likely endometriosis related. Today she is given a GI cocktail which she says significantly improved symptoms. We will start her on Protonix and Carafate. Contacted Dr. Guevara, general surgery, who will check in with the patient tomorrow and determine if she needs endoscopy. I will also check a H. pylori breath test on her. Continue IV fluids. We will keep her at a clear liquid diet. If symptoms return tonight can retry GI cocktail. CRP remains within normal limits and there is no leukocytosis. Procalcitonin returned 0.2. There are no signs of any infection. Blood cultures remain negative. Will supplement IV potassium and start p.o. magnesium supplementation daily. Hopeful for di iraj tomorrow pending continued improvement or possible endoscopy. Functional Status: Reports: Tolerating Diet (clear liquids), Ambulating, Urinating. Denies: New Symptoms - Review of Systems General: Reports: No Symptoms. Denies: Fever, Weakness, Fatigue, Malaise, Chills HEENT: Reports: No Symptoms. Denies: Headaches, Sore Throat Pulmonary: Reports: No Symptoms. Denies: Shortness of Breath, Cough, Sputum, Wheezing Cardiovascular: Reports: No Symptoms. Denies: Chest Pain, Palpitations, Dyspnea on Exertion, Edema Gastrointestinal: Reports: Abdominal Pain, Nausea, Vomiting. Denies: Constipation, Diarrhea Genitourinary: Reports: No Symptoms. Denies: Pain Musculoskeletal: Reports: No Symptoms Skin: Reports: No Symptoms. Denies: Cyanosis Neurological: Reports: No Symptoms. Denies: Confusion, Difficulty Walking, Weakness, Gait Disturbance Psychiatric: Reports: No Symptoms - Patient Data Vitals - Most Recent: Last Vital Signs Temp 98.4 F 04/26/20 07:37 Pulse 67 04/26/20 07:37 Resp 16 04/26/20 07:37 BP 127/73 04/26/20 07:37 Pulse Ox 95 04/26/20 07:37 Weight - Most Recent: 165 lb I&O - Last 24 Hours: Intake & Output 04/25/20 04/26/20 04/26/20 22:59 06:59 14:59 Intake Total 2270 2060 Output Total 800 2400 Balance 1470 -340 Lab Results Last 24 Hours: Laboratory Results - last 24 hr 04/24/20 04/25/20 04/26/20 Range/Units 12:25 04:33 04:43 WBC (3.98-10.04) K/mm3 RBC (3.98-5.22) M/mm3 Hgb (11.2-15.7) gm/dl Hct (34.1-44.9) % MCV (79.4-94.8) fl MCH (25.6-32.2) pg MCHC (32.2-35.5) g/dl RDW Std Deviation (36.4-46.3) fL Plt Count (182-369) K/mm3 MPV (9.4-12.3) fl Neut % (Auto) (34.0-71.1) % Lymph % (Auto) (19.3-51.7) % [place] % (Auto) (4.7-12.5) % Eos % (Auto) (0.7-5.8) Baso % (Auto) (0.1-1.2) % Neut # (Auto) (1.56-6.13) K/mm3 Lymph # (Auto) (1.18-3.74) K/mm3 [place] # (Auto) (0.24-0.36) K/mm3 Eos # (Auto) (0.04-0.36) K/mm3 Baso # (Auto) (0.01-0.08) K/mm3 Manual Slide Review Sodium 135 L (136-145) mEq/L Potassium 3.3 L (3.5-5.1) mEq/L Chloride 100 (98-107) mEq/L Carbon Dioxide 22 (21-32) mEq/L Anion Gap 16.3 H (5-15) BUN 5 L (7-18) mg/dL Creatinine 0.7 (0.55-1.02) mg/dL Est Cr Clr Drug Dosing 101.81 mL/min Estimated GFR (MDRD) > 60 (>60) mL/min BUN/Creatinine Ratio 7.1 L (14-18) Glucose 103 (74-106) mg/dL Calcium 8.2 L (8.5-10.1) mg/dL Magnesium 2.0 (1.8-2.4) mg/dl C-Reactive Protein 1.0 (<1.0) mg/dL Triglycerides (<150) mg/dL Cholesterol (<200) mg/dL LDL Cholesterol Direct (<100) mg/dL HDL Cholesterol (40-59) mg/dL Lipase 556 H (73-393) U/L Procalcitonin 0.20 H ng/mL 04/26/20 04/26/20 Range/Units 06:50 06:55 WBC 6.06 (3.98-10.04) K/mm3 RBC 4.25 (3.98-5.22) M/mm3 Hgb 13.1 (11.2-15.7) gm/dl Hct 39.1 (34.1-44.9) % MCV 92.0 (79.4-94.8) fl MCH 30.8 (25.6-32.2) pg MCHC 33.5 (32.2-35.5) g/dl RDW Std Deviation 39.0 (36.4-46.3) fL Plt Count 246 (182-369) K/mm3 MPV 10.6 (9.4-12.3) fl Neut % (Auto) 70.2 (34.0-71.1) % Lymph % (Auto) 17.5 L (19.3-51.7) % [place] % (Auto) 12.0 (4.7-12.5) % Eos % (Auto) 0.3 L (0.7-5.8) Baso % (Auto) 0.0 L (0.1-1.2) % Neut # (Auto) 4.25 (1.56-6.13) K/mm3 Lymph # (Auto) 1.06 L (1.18-3.74) K/mm3 [place] # (Auto) 0.73 H (0.24-0.36) K/mm3 Eos # (Auto) 0.02 L (0.04-0.36) K/mm3 Baso # (Auto) 0.00 L (0.01-0.08) K/mm3 Manual Slide Review Normal smear Sodium (136-145) mEq/L Potassium (3.5-5.1) mEq/L Chloride (98-107) mEq/L Carbon Dioxide (21-32) mEq/L Anion Gap (5-15) BUN (7-18) mg/dL Creatinine (0.55-1.02) mg/dL Est Cr Clr Drug Dosing mL/min Estimated GFR (MDRD) (>60) mL/min BUN/Creatinine Ratio (14-18) Glucose (74-106) mg/dL Calcium (8.5-10.1) mg/dL Magnesium (1.8-2.4) mg/dl C-Reactive Protein (<1.0) mg/dL Triglycerides 65 (<150) mg/dL Cholesterol 142 (<200) mg/dL LDL Cholesterol Direct 69 (<100) mg/dL HDL Cholesterol 58.0 (40-59) mg/dL Lipase (73-393) U/L Procalcitonin ng/mL Anmol Results Last 24 Hours: Microbiology 04/24/20 08:55 Aerobic Blood Culture - Preliminary Blood - Venous - Lab Draw NO GROWTH AFTER 2 DAYS Anaerobic Blood Culture - Preliminary NO GROWTH AFTER 2 DAYS 04/24/20 09:10 Aerobic Blood Culture - Preliminary Blood - Venous NO GROWTH AFTER 2 DAYS Anaerobic Blood Culture - Preliminary NO GROWTH AFTER 2 DAYS Med Orders - Current: Current Medications Acetaminophen (Tylenol) 650 mg PO Q4H PRN PRN Reason: Pain (Mild 1-3)/fever Al Hydroxide/Mg Hydroxide (Mag-Al Plus) 30 ml PO Q4H PRN PRN Reason: Heartburn Last Admin: 04/25/20 23:23 Dose: 30 ml Documented by: Docusate Sodium (Colace) 100 mg PO BID PRN PRN Reason: Constipation Fluvoxamine Maleate (Fluvoxamine) 50 mg PO BEDTIME JOHN Stop: 05/01/20 21:01 Last Admin: 04/25/20 20:37 Dose: 50 mg Documented by: Fluvoxamine Maleate (Fluvoxamine) 75 mg PO BEDTIME JOHN Hydromorphone HCl (Dilaudid) 0.5 mg IVPUSH Q3H PRN PRN Reason: Pain (severe 7-10) Last Admin: 04/26/20 08:36 Dose: 0.5 mg Documented by: Sodium Chloride (Normal Saline) 1,000 mls @ 125 mls/hr IV ASDIRECTED [facility] Last Admin: 04/26/20 02:33 Dose: 125 mls/hr Documented by: Promethazine HCl 25 mg/ Sodium (Chloride) 51 mls @ 100 mls/hr IV Q6H PRN PRN Reason: Nausea/vomiting Potassium Chloride 10 meq/ (Premix) 100 mls @ 100 mls/hr IV Q1H [facility] Stop: 04/26/20 13:44 Last Admin: 04/26/20 09:56 Dose: 100 mls/hr Documented by: Ketorolac Tromethamine (Toradol) 30 mg IVPUSH Q6H PRN PRN Reason: Pain (moderate 4-6) Last Admin: 04/26/20 02:08 Dose: 30 mg Documented by: Magnesium Oxide (Magnesium Oxide) 400 mg PO DAILY [facility] Last Admin: 04/26/20 08:10 Dose: 400 mg Documented by: Miscellaneous Information (Remove Patch) 0 ea TRDERM ONETIME ONE Stop: 04/27/20 16:01 Ondansetron HCl (Zofran) 4 mg IVPUSH Q4H PRN PRN Reason: Nausea/Vomiting Last Admin: 04/26/20 08:08 Dose: 4 mg Documented by: Oxycodone HCl (Oxycodone) 5 mg PO Q4H PRN PRN Reason: Pain Last Admin: 04/26/20 10:43 Dose: 5 mg Documented by: Amphetamine/Dextroamphetamine [ Adderall Xr] 25 Mg Caps 0 each PO DAILY [facility] Last Admin: 04/26/20 09:58 Dose: Not Given Documented by: Topiramate (Topamax) 25 mg PO BID [facility] Last Admin: 04/26/20 08:08 Dose: 25 mg Documented by: Discontinued Medications Acetaminophen (Tylenol) 975 mg PO ONETIME ONE Stop: 04/24/20 10:05 Last Admin: 04/24/20 10:30 Dose: 975 mg Documented by: Albuterol/Ipratropium (Duoneb 3.0-0.5 Mg/3 Ml) 3 ml NEB Q4H PRN PRN Reason: Shortness Of Breath/wheezing Enoxaparin Sodium (Lovenox) 40 mg SUBCUT DAILY [facility] Hydromorphone HCl (Dilaudid) 1 mg IVPUSH ONETIME ONE Stop: 04/24/20 07:25 Last Admin: 04/24/20 07:37 Dose: 1 mg Documented by: Hydromorphone HCl (Dilaudid) 0.5 mg IVPUSH ONETIME ONE Stop: 04/24/20 10:05 Last Admin: 04/24/20 10:28 Dose: 0.5 mg Documented by: Hydromorphone HCl (Dilaudid) 0.5 mg IVPUSH Q2H PRN PRN Reason: Pain (severe 7-10) Last Admin: 04/25/20 12:06 Dose: 0.5 mg Documented by: Hydroxyzine HCl (Atarax) 25 mg PO QID PRN PRN Reason: Anxiety Dextrose/Sodium Chloride (Dextrose 5%-Normal Saline) 1,000 mls @ 999 mls/hr IV ASDIRECTED [facility] Last Infusion: 04/24/20 08:00 Dose: 999 mls/hr Documented by: Ceftriaxone Sodium 2 gm/ (Sodium Chloride) 100 mls @ 200 mls/hr IV Q24H [facility] Last Admin: 04/24/20 10:28 Dose: 200 mls/hr Documented by: Azithromycin 500 mg/ Sodium (Chloride) 250 mls @ 250 mls/hr IV Q24H [facility] Last Admin: 04/24/20 11:04 Dose: 250 mls/hr Documented by: Sodium Chloride (Normal Saline) 1,000 mls @ 250 mls/hr IV ASDIRECTED [facility] Last Admin: 04/24/20 10:28 Dose: 250 mls/hr Documented by: Sodium Chloride (Normal Saline) 1,000 mls @ 250 mls/hr IV ASDIRECTED [facility] Potassium Chloride 10 meq/ (Premix) 100 mls @ 100 mls/hr IV Q1H [facility] Stop: 04/24/20 13:59 Last Admin: 04/24/20 18:18 Dose: 100 mls/hr Documented by: Promethazine HCl 12.5 mg/ (Sodium Chloride) 50.5 mls @ 100 mls/hr IV Q6H PRN PRN Reason: Nausea/Vomiting Last Admin: 04/25/20 14:49 Dose: 100 mls/hr Documented by: Azithromycin 500 mg/ Sodium (Chloride) 250 mls @ 250 mls/hr IV Q24H [facility] Last Admin: 04/25/20 13:38 Dose: 250 mls/hr Documented by: Ceftriaxone Sodium 2 gm/ (Sodium Chloride) 100 mls @ 200 mls/hr IV Q24H [facility] Last Admin: 04/25/20 11:04 Dose: 200 mls/hr Documented by: Magnesium Sulfate (Magnesium Sulfate In Water 2 Gm/50 Ml) 2 gm in 50 mls @ 25 mls/hr IV ONETIME ONE Stop: 04/25/20 15:59 Last Admin: 04/25/20 15:44 Dose: 25 mls/hr Documented by: Potassium Chloride 10 meq/ (Premix) 100 mls @ 100 mls/hr IV Q1H [facility] Stop: 04/25/20 13:59 Last Admin: 04/25/20 18:03 Dose: 100 mls/hr Documented by: Ketorolac Tromethamine (Toradol) 30 mg IVPUSH ONETIME [facility] Last Admin: 04/24/20 07:37 Dose: 30 mg Documented by: Ketorolac Tromethamine (Toradol) 30 mg IM Q6H PRN PRN Reason: Pain (moderate 4-6) Magnesium Oxide (Magnesium Oxide) 800 mg PO ONETIME ONE Stop: 04/25/20 14:23 Last Admin: 04/25/20 14:42 Dose: Not Given Documented by: Metoclopramide HCl (Reglan) 7.5 mg IVPUSH ONETIME ONE Stop: 04/24/20 07:25 Last Admin: 04/24/20 07:37 Dose: 7.5 mg Documented by: Promethazine HCl (Phenergan) Confirm Administered Dose 25 mg .ROUTE .STK-MED ONE Stop: 04/25/20 14:36 Last Admin: 04/25/20 14:50 Dose: Not Given Documented by: Scopolamine (Transderm-Scop) 1.5 mg TOP ONETIME ONE Stop: 04/24/20 16:01 Last Admin: 04/24/20 15:40 Dose: 1.5 mg Documented by: - Exam Quality Assessment: DVT Prophylaxis. No: Supplemental Oxygen, Urine Catheter General: Alert, Oriented, Cooperative HEENT: Pupils Equal, Pupils Reactive, Mucous Membr. Moist/[place] Neck: Supple, Trachea Midline Lungs: Clear to Auscultation, Normal Respiratory Effort Cardiovascular: Regular Rate, Regular Rhythm GI/Abdominal Exam: Normal Bowel Sounds, Soft, No Distention, Tender (Generalized but most severe in upper quadrants. ). No: Rigid, Rebound (Female) Exam: Deferred Back Exam: Normal Inspection, Full Range of Motion Extremities: Normal Inspection, Normal Range of Motion, Non-Tender, No Pedal Edema, Normal Capillary Refill Peripheral Pulses: 2+: Radial (L), Radial (R), Dorsalis Pedis (L), Dorsalis Pedis (R) Skin: Warm, Dry, Intact Neurological: No New Focal Deficit Psy/Mental Status: Alert, Normal Affect, Normal Mood - Patient Data Lab Results Last 24 hrs: Laboratory Results - last 24 hr 04/24/20 04/25/20 04/26/20 Range/Units 12:25 04:33 04:43 WBC (3.98-10.04) K/mm3 RBC (3.98-5.22) M/mm3 Hgb (11.2-15.7) gm/dl Hct (34.1-44.9) % MCV (79.4-94.8) fl MCH (25.6-32.2) pg MCHC (32.2-35.5) g/dl RDW Std Deviation (36.4-46.3) fL Plt Count (182-369) K/mm3 MPV (9.4-12.3) fl Neut % (Auto) (34.0-71.1) % Lymph % (Auto) (19.3-51.7) % [place] % (Auto) (4.7-12.5) % Eos % (Auto) (0.7-5.8) Baso % (Auto) (0.1-1.2) % Neut # (Auto) (1.56-6.13) K/mm3 Lymph # (Auto) (1.18-3.74) K/mm3 [place] # (Auto) (0.24-0.36) K/mm3 Eos # (Auto) (0.04-0.36) K/mm3 Baso # (Auto) (0.01-0.08) K/mm3 Manual Slide Review Sodium 135 L (136-145) mEq/L Potassium 3.3 L (3.5-5.1) mEq/L Chloride 100 (98-107) mEq/L Carbon Dioxide 22 (21-32) mEq/L Anion Gap 16.3 H (5-15) BUN 5 L (7-18) mg/dL Creatinine 0.7 (0.55-1.02) mg/dL Est Cr Clr Drug Dosing 101.81 mL/min Estimated GFR (MDRD) > 60 (>60) mL/min BUN/Creatinine Ratio 7.1 L (14-18) Glucose 103 (74-106) mg/dL Calcium 8.2 L (8.5-10.1) mg/dL Magnesium 2.0 (1.8-2.4) mg/dl C-Reactive Protein 1.0 (<1.0) mg/dL Triglycerides (<150) mg/dL Cholesterol (<200) mg/dL LDL Cholesterol Direct (<100) mg/dL HDL Cholesterol (40-59) mg/dL Lipase 556 H (73-393) U/L Procalcitonin 0.20 H ng/mL 04/26/20 04/26/20 Range/Units 06:50 06:55 WBC 6.06 (3.98-10.04) K/mm3 RBC 4.25 (3.98-5.22) M/mm3 Hgb 13.1 (11.2-15.7) gm/dl Hct 39.1 (34.1-44.9) % MCV 92.0 (79.4-94.8) fl MCH 30.8 (25.6-32.2) pg MCHC 33.5 (32.2-35.5) g/dl RDW Std Deviation 39.0 (36.4-46.3) fL Plt Count 246 (182-369) K/mm3 MPV 10.6 (9.4-12.3) fl Neut % (Auto) 70.2 (34.0-71.1) % Lymph % (Auto) 17.5 L (19.3-51.7) % [place] % (Auto) 12.0 (4.7-12.5) % Eos % (Auto) 0.3 L (0.7-5.8) Baso % (Auto) 0.0 L (0.1-1.2) % Neut # (Auto) 4.25 (1.56-6.13) K/mm3 Lymph # (Auto) 1.06 L (1.18-3.74) K/mm3 [place] # (Auto) 0.73 H (0.24-0.36) K/mm3 Eos # (Auto) 0.02 L (0.04-0.36) K/mm3 Baso # (Auto) 0.00 L (0.01-0.08) K/mm3 Manual Slide Review Normal smear Sodium (136-145) mEq/L Potassium (3.5-5.1) mEq/L Chloride (98-107) mEq/L Carbon Dioxide (21-32) mEq/L Anion Gap (5-15) BUN (7-18) mg/dL Creatinine (0.55-1.02) mg/dL Est Cr Clr Drug Dosing mL/min Estimated GFR (MDRD) (>60) mL/min BUN/Creatinine Ratio (14-18) Glucose (74-106) mg/dL Calcium (8.5-10.1) mg/dL Magnesium (1.8-2.4) mg/dl C-Reactive Protein (<1.0) mg/dL Triglycerides 65 (<150) mg/dL Cholesterol 142 (<200) mg/dL LDL Cholesterol Direct 69 (<100) mg/dL HDL Cholesterol 58.0 (40-59) mg/dL Lipase (73-393) U/L Procalcitonin ng/mL Result Diagrams: 04/26/20 06:55 04/26/20 04:43 Anmol Results Last 24 hrs: Microbiology 04/24/20 08:55 Aerobic Blood Culture - Preliminary Blood - Venous - Lab Draw NO GROWTH AFTER 2 DAYS Anaerobic Blood Culture - Preliminary NO GROWTH AFTER 2 DAYS 04/24/20 09:10 Aerobic Blood Culture - Preliminary Blood - Venous NO GROWTH AFTER 2 DAYS Anaerobic Blood Culture - Preliminary NO GROWTH AFTER 2 DAYS Sepsis Event Note - Evaluation Sepsis Screening Result: No Definite Risk - Focused Exam Vital Signs: Vital Signs Temp Pulse Resp BP Pulse Ox 04/26/20 07:37 98.4 F 67 16 127/73 95 04/26/20 04:55 98.8 F 69 17 146/90 H 97 04/25/20 23:32 97.3 F 72 18 119/82 96 - Problem List & Annotations (1) History of alcohol abuse SNOMED Code(s): 130614462 Code(s): F10.11 - ALCOHOL ABUSE, IN REMISSION Status: Chronic Priority: Low Current Visit: No (2) History of renal calculi SNOMED Code(s): 070023382 Code(s): Z87.442 - PERSONAL HISTORY OF URINARY CALCULI Status: Chronic Priority: Low Current Visit: No (3) ADHD SNOMED Code(s): 949781290 Code(s): F90.9 - ATTENTION-DEFICIT HYPERACTIVITY DISORDER, UNSPECIFIED TYPE Status: Chronic Priority: Low Current Visit: No Qualifiers: Attention deficit-hyperactivity disorder type: unspecified Qualified Code(s): F90.9 - Attention-deficit hyperactivity disorder, unspecified type (4) Bilateral pneumonia SNOMED Code(s): 923384463 Code(s): J18.9 - PNEUMONIA, UNSPECIFIED ORGANISM Status: Ruled-out Priority: High Current Visit: Yes Qualifiers: Pneumonia type: due to unspecified organism Lung location: lower lobe of lung Qualified Code(s): J18.9 - Pneumonia, unspecified organism (5) Hypokalemia SNOMED Code(s): 50924660 Code(s): E87.6 - HYPOKALEMIA Status: Acute Priority: High Current Visit: Yes (6) Anxiety SNOMED Code(s): 18198606 Code(s): F41.9 - ANXIETY DISORDER, UNSPECIFIED Status: Chronic Priority: High Current Visit: Yes (7) Nausea & vomiting SNOMED Code(s): 14738480 Code(s): R11.2 - NAUSEA WITH VOMITING, UNSPECIFIED Status: Acute Priority: High Current Visit: Yes Qualifiers: Vomiting type: unspecified Vomiting Intractability: unspecified Qualified Code(s): R11.2 - Nausea with vomiting, unspecified (8) Lactic acidosis SNOMED Code(s): 09384327 Code(s): E87.2 - ACIDOSIS Status: Resolved Priority: High Current Visit: Yes (9) High anion gap metabolic acidosis SNOMED Code(s): 00599898 Code(s): E87.2 - ACIDOSIS Status: Resolved Priority: High Current Visit: Yes (10) Elevated glucose SNOMED Code(s): 13654791 Code(s): R73.09 - OTHER ABNORMAL GLUCOSE Status: Acute Priority: Medium Current Visit: Yes (11) Dehydration SNOMED Code(s): 09812150 Code(s): E86.0 - DEHYDRATION Status: Resolved Priority: High Current Visit: Yes (12) Abdominal pain SNOMED Code(s): 09813002 Code(s): R10.9 - UNSPECIFIED ABDOMINAL PAIN Status: Acute Priority: High Current Visit: Yes Qualifiers: Abdominal location: generalized Qualified Code(s): R10.84 - Generalized abdominal pain (13) Hypomagnesemia SNOMED Code(s): 062411501 Code(s): E83.42 - HYPOMAGNESEMIA Status: Acute Priority: High Current Visit: Yes (14) Pancreatitis SNOMED Code(s): 25974142 Code(s): K85.90 - ACUTE PANCREATITIS WITHOUT NECROSIS OR INFECTION, UNSP Status: Acute Priority: High Current Visit: No Qualifiers: Chronicity: acute Pancreatitis type: unspecified pancreatitis type Acute pancreatitis complication: unspecified Qualified Code(s): K85.90 - Acute pancreatitis without necrosis or infection, unspecified - Problem List Review Problem List Initiated/Reviewed/Updated: Yes - My Orders Last 24 Hours: My Active Orders 04/25/20 14:32 HYDROmorphone [Dilaudid] 0.5 mg IVPUSH Q3H PRN 04/25/20 14:56 Promethazine [Phenergan] 25 mg Sodium Chloride 0.9% [Normal Saline] 50 ml IV Q6H 04/25/20 Dinner Clear Liquid Diet [DIET] 04/26/20 07:45 Potassium Chloride [KCl in Water 10 MEQ/100 ML] 10 meq Premix Bag 1 bag IV Q1H 04/26/20 09:00 Magnesium Oxide 400 mg PO DAILY 04/27/20 05:11 BASIC METABOLIC PANEL,BMP [CHEM] AM CBC WITH AUTO DIFF [HEME] AM CRP [C-REACTIVE PROTEIN] [CHEM] AM MAGNESIUM [CHEM] AM 04/27/20 16:00 Remove Patch 0 ea TRDERM ONETIME ONE 04/28/20 05:11 BASIC METABOLIC PANEL,BMP [CHEM] AM CBC WITH AUTO DIFF [HEME] AM CRP [C-REACTIVE PROTEIN] [CHEM] AM MAGNESIUM [CHEM] AM - Assessment Assessment:: Assessment - day of admission 04/24/20 * 44 yo female presents to ED via [facility] with right flank pain, nausea, and vomiting of bilious material * History of renal stones, presumed endometriosis, ADHD, ETOH addiction, anxiety, cholecystectomy * Given 50mcg IVP fentanyl enroute for pain * 12-lead EKG shows NSR at 79 BPM with enlarged P-waves, Poor R-wave progression, non-specific Q-wave in aVL, ST segment depression in V4-V6, repolarization abnormality in inferior leads. QT is prolonged * CT scan abdomen/pelvis in ED: * 1. Multiple areas of increased density within both lung bases raising the possibility of multifocal pneumonia. Please rule out any sign of Covid disease. * 2. Prior cholecystectomy * 3. Small cyst within the left kidney * 4. No other acute abnormalities appreciated on CT study of the abdomen and pelvis performed without contrast. * CXR in ED shows patchy area of increased density on both sides of the chest. Please correlate if patient has infectious symptoms. * Labs in ED: * WBC 9.21 * Hemoglobin 14.0 * Platelet 213,000 * Neutrophils elevated at 93.5 * INR is 1.07 * Sodium 142 * Potassium 3.1 * Chloride 104 * Carbon dioxide 25 * Anion gap is 16.1 * Creatinine 1.1 * GFR 54 * Calcium 8.1 * Ferritin 94 * Bilirubin 1.0 * AST 25, ALT 33, alkaline phosphatase 46 * LDH is 275 * Troponin less than 0.017 * CRP 0.5 * Albumin 3.8 * UA is negative however 1+ protein, 5-10 epithelial cells, and few amorphous sediment are noted. * UDS is positive for opioids, which is consistent with fentanyl given in ambulance, and marijuana. * SARS-CoV-2 RNA is negative. * Lactic acid is 2.4--->1.2 * HCG is negative * She is given Dilaudid, Toradol, and Tylenol for pain, along with Reglan for nausea. She is given a 1 L IV fluid bolus and started on NS. * Started on 500 mg azithromycin and 2 g Rocephin in ED * She subsequently admitted to the medical floor inpatient status for management of her bilateral lower lobe pneumonia. * Sepsis screen: * Likely viral pneumonia given no leukocytosis and minimal CRP * Tachypneic but no fever tachycardia or leukocytosis * Does not meet criteria 04/25/20 * Ruled out pneumonia as patient has had increased density in lower lobes on imaging since 2018. * Patient continues to have no infectious symptoms. WBC is within normal limits, CRP is minimal. Not requiring oxygen. Minimal no cough. Blood cultures negative. Viral respiratory panel negative * Discontinue IV antibiotics * Patient did see Dr. Myles who recommended starting 25 mg Topamax twice daily and starting Luvox 50 mg bedtime for 7 days then increasing to 75 mg. * Dr. Myles recommended patient wean off cannabis Gummies and decrease caffeine intake significantly. * Patient continues to request pain medications frequently and reports nausea and vomiting. * In reviewing old charts patient hospitalized and seen in the ED for similar symptoms many time in [phone]. Work-up at that time was unremarkable. * Contacted patient's primary care provider who reports only seeing patient for medication renewals recently. Reports patient had history of alcohol abuse in the past and she is nervous about patient's narcotic use during hospitalization. * Will decrease frequency of Dilaudid. * Patient's potassium and magnesium low today. Patient reports she cannot tolerate p.o. potassium. We will therefore supplement IV. * Plan was to discharge patient today however she becomes acutely nauseous and vomits multiple times. * Plan on keeping patient till tomorrow and then discharging. * Labs today: * WBC 5.75 * Hemoglobin 12.8 * Platelet 221 * Neutrophils 83.2% * Sodium 140 * Potassium 3.0 * Anion gap 15.0 * BUN 9, creatinine 0.1, GFR greater than 60. * Glucose 109 * Calcium 8.2 * Magnesium 1.8 * CRP 2.8 * Viral respiratory panel negative 04/26/20 * Continued significant abdominal pain nausea and vomiting throughout the night * Given GI cocktail this afternoon which improved symptoms substantially * Started on PPI and Carafate scheduled * Consulted Dr. Guevara, general surgery, who will see patient tomorrow for possible inpatient versus outpatient endoscopy. * H pylori breath test ordered * Procalcitonin from admission returned 0.20 essentially ruling out infectious process * Continue clear liquid diet * Continue pain medications as ordered * Continue IV fluids until patient able to tolerate feeds * Potassium remains low and will be supplemented via IV as patient cannot tolerate p.o. supplementation * Lipase returned from yesterday very mildly elevated at 556 * Labs today: * WBC 6.06 * hemoglobin 13.1 * platelet 246,000 * neutrophils 4.25 * sodium 135 * potassium 3.3 * anion gap 16.3 * BUN is 5, creatinine 0.7, GFR greater than 60. * Glucose 103 * magnesium 2.0 * CRP 1.0 * lipid panel: triglycerides 65, total cholesterol 142, LDL 69, HDL 58 * We will continue current treatment plan pending H. pylori test and input from Dr. Guevara. * Hopeful for discharge tomorrow pending further work-up. - Plan Plan:: Abdominal pain Nausea & vomiting Hypokalemia, improving Mild pancreatitis * Likely worsened by patients underlying anxiety * Potassium supplementation * Per patient she is unable to tolerate PO potassium supplementation * Scopolamine patch * PRN Zofran and Phenergan * Monitor labs * Pain mediations as ordered * Continue clear liquids * IV fluids as ordered * GI cocktail Q12hr * Start Carafate Q6h scheduled * Start PPI * Check H. Pylori * Consulted Dr. Guevara, general surgeon for possible inpatient vs outpatient endoscopy ADHD Anxiety * Review/reconcile home medications * Dr. Myles consultation * Discontinue Vistaril and continue Adderall * Begin Luvox 50 mg at bedtime for 7 days then increase to 75 mg thereafter * Begin Topamax 25 mg twice daily * Continue Adderall as recommend * Phase out cannabis gummy * Encourage patient to engage in caffeine moderation to prevent symptoms of anxiety History of alcohol abuse * No current concerns History of renal calculi * No current issues - ruled out with CT in ED Ruled out: Bilateral pneumonia Resolved: Lactic acidosis, Resolved High anion gap metabolic acidosis, resolved Dehydration, resolved Hypomagnesemia, resolved Hyperglycemia, resolved Code status: Full Code PCP: Harper Duarte PA-C DVT prophylaxis: VTE score of 1 - not indicated Disposition: Admitted to hospital for management of bilateral lower lobe CAP. This was ruled out and patient continues to have abdominal pain, nausea, and vomiting. Likely LOS 3-4 days.
[2020-04-26] MEDS ORDERED: Alum Hydrox/Mag Hydrox/Simeth 30 ML, Lidocaine 2% 15 ML PO ONE ×2 (11:18)
[2020-04-26] MEDS: Sucralfate 1 GM Tab PO SCH ×3 (13:53→21:13)
[2020-04-26] MEDS ORDERED: Alum Hydrox/Mag Hydrox/Simeth 30 ML, Lidocaine 2% 15 ML PO PRN ×2 (14:40)
[2020-04-26] MEDS ORDERED: Pantoprazole 40 MG Tab.CR PO ONE (16:30)
[2020-04-26] MEDS: NS + KCl 20mEq/L 1,000 ML IV SCH (18:40)
[2020-04-26] MEDS: fluvoxaMINE 50 MG Tab PO SCH (21:13)
[2020-04-27] MEDS: NS + KCl 20mEq/L 1,000 ML IV SCH (04:45)
[2020-04-27] MEDS ORDERED: Magnesium Hydroxide 400 MG/5 ML Susp 30 ML Cup PO ONE (04:59)
[2020-04-27 08:04] VITALS: PULSE 67
[2020-04-27] MEDS: Sucralfate 1 GM Tab PO SCH ×2 (08:41→12:32)
[2020-04-27] MEDS: Topiramate 25 MG Tab PO SCH (08:41)
[2020-04-27] MEDS: AMPHETAMINE PO SCH (08:42)
[2020-04-27] MEDS: DEXTROAMPHETAMINE PO SCH (08:42)
[2020-04-27] MEDS: Magnesium Oxide 400 MG Tab PO SCH (08:44)
[2020-04-27] MEDS ORDERED: Pantoprazole 40 MG Tab.CR PO SCH (09:00)
[2020-04-27] MEDS: Ondansetron 4 MG/2 ML SDV IVPUSH PRN (09:32)
[2020-04-27] MEDS ORDERED: Gadobenate Dimeglumine 529 MG/ML 15 ML SDV IVPUSH ONE (10:25)
[2020-04-27] MEDS ORDERED: Sodium Chloride 0.9% 10 ML Syringe FLUSH SCH (10:30)
--- NOTE | 2020-04-27 11:23 | MR ---
MRI abdomen (without and with intravenous contrast) Technique: Various coronal and axial images were obtained. Additional post gadolinium axial images were obtained. Comparison: Prior CT abdomen and pelvis study of 04/24/20. Findings: Study shows multiple densities within both lung bases. This correlates to multiple parenchymal densities on the CT study. Liver contains no focal parenchymal abnormality. Two small cysts are noted within the left kidney with largest measuring 1.4 cm. No evidence of edema around the upper abdomen is seen. CHD and CBD show no filling defects to indicate stone. Postcontrast images show nothing acute. Impression: 1. MRCP shows no discrete filling defects. 2. Two cysts within the left kidney. 3. Multiple parenchymal densities within both lung bases. Diagnostic code #3
--- NOTE | 2020-04-27 12:21 | PCM.DCSUM1 ---
Discharge Summary - Hospital Course HPI Initial Comments: This is a 44-year-old female who presents to ED on 04/24/2020 via [facility] with right flank pain which started yesterday evening and has progressed. She reports it accompanies nausea and vomiting of bilious material. Denies any hematemesis. She does have a history of renal stones but it has been 4 years since her last episode. She reports pain is colicky and felt mostly in her flank and right upper abdomen. She was given 50 mcg of fentanyl i n route to the hospital. In the ED twelve-lead EKG was obtained showing a sinus rhythm at 79 bpm. P waves were enlarged and there is initial poor R wave progression with a nonspecific Q-wave in aVL. ST segment is depressed in V4 through V6 with possible ischemia versus repolarization abnormality. Repolarization abnormality also appears to be present in the inferior wall leads. QT is prolonged. Temp is 36.7. Pulse 80. Respirations 20. Blood pressure 127/82. Pulse ox 100%. Labs are obtained: WBC is normal at 9.21. Hemoglobin 14.0. Platelets 213,000. Neutrophils are elevated at 93.5%. INR is 1.07. Sodium 142. Potassium low at 3.1. Chloride 104. Carbon oxide 25. Anion gap is high at 16.1. BUN is 18. Creatinine 1.1. GFR 54. Glucose 164. Calcium 8.1. Ferritin 94. Bilirubin 1.0. AST is 25, ALT 33, alkaline phosphatase 46. LDH is 275. Troponin less than 0.017. CRP is 0.5. Protein 6.6. Albumin 3.8. UA is obtained and is negative however 1+ protein, 5-10 epithelial cells, and few amorphous sediment are noted. Urine drug screen is positive for opioids which is consistent with fentanyl given in the ambulance. Marijuana is also positive. All other drugs and screen are negative. SARS-CoV-2 RNA is negative. Lactic acid is initially 2.4. Blood cultures were obtained and she started on 500 mg azithromycin and 2 g Rocephin. She is given a 1 L bolus of D5 NS and started on normal saline. She is also given Tylenol, Dilaudid, and Toradol for pain. Given Reglan for nausea. CT scan of the abdomen and pelvis shows "1. Multiple areas of increased density within both lung bases raising the possibility of multifocal pneumonia. Please rule out any sign of Covid disease. 2. Prior cholecystectomy. 3. Small cyst within the left kidney. 4. No other acute abnormalities appreciated on CT of the abdomen and pelvis performed without contrast." Chest x-rays obtained and shows "1. Patchy area of increased density on both sides of the chest. Please correlate if patient has infectious symptoms." She is given 310 mill equivalent potassium riders and admitted to the hospital floor inpatient due to bilateral pneumonia. She carries a history of renal calculus, presumed but not confirmed endometriosis, ADHD, alcohol addiction, anxiety. She had a cholecystectomy in 2006. She is a full code. Her PCP is Harper Duarte PA-C. Diagnosis: Stroke: No - Discharge Data Discharge Date: 04/27/20 (Admit date: 04/24/20) Discharge Disposition: Home, Self-Care 01 Condition: Good - Referral to Home Health Primary Care Physician: ALISA Nichole - Discharge Diagnosis/Problem(s) (1) History of alcohol abuse SNOMED Code(s): 821246974 ICD Code: F10.11 - ALCOHOL ABUSE, IN REMISSION Status: Chronic Priority: Low Current Visit: No (2) History of renal calculi SNOMED Code(s): 550537105 ICD Code: Z87.442 - PERSONAL HISTORY OF URINARY CALCULI Status: Chronic Priority: Low Current Visit: No (3) ADHD SNOMED Code(s): 246501019 ICD Code: F90.9 - ATTENTION-DEFICIT HYPERACTIVITY DISORDER, UNSPECIFIED TYPE Status: Chronic Priority: Low Current Visit: No Qualifiers: Attention deficit-hyperactivity disorder type: unspecified Qualified Code(s): F90.9 - Attention-deficit hyperactivity disorder, unspecified type (4) Bilateral pneumonia SNOMED Code(s): 948173094 ICD Code: J18.9 - PNEUMONIA, UNSPECIFIED ORGANISM Status: Ruled-out Priority: High Current Visit: Yes Qualifiers: Pneumonia type: due to unspecified organism Lung location: lower lobe of lung Qualified Code(s): J18.9 - Pneumonia, unspecified organism (5) Hypokalemia SNOMED Code(s): 03449455 ICD Code: E87.6 - HYPOKALEMIA Status: Acute Priority: High Current Visit: Yes (6) Anxiety SNOMED Code(s): 72611911 ICD Code: F41.9 - ANXIETY DISORDER, UNSPECIFIED Status: Chronic Priority: High Current Visit: Yes (7) Nausea & vomiting SNOMED Code(s): 62858500 ICD Code: R11.2 - NAUSEA WITH VOMITING, UNSPECIFIED Status: Resolved Priority: High Current Visit: Yes Qualifiers: Vomiting type: unspecified Vomiting Intractability: unspecified Qualified Code(s): R11.2 - Nausea with vomiting, unspecified (8) Lactic acidosis SNOMED Code(s): 34072831 ICD Code: E87.2 - ACIDOSIS Status: Resolved Priority: High Current Vis it: Yes (9) High anion gap metabolic acidosis SNOMED Code(s): 58296799 ICD Code: E87.2 - ACIDOSIS Status: Resolved Priority: High Current Visit: Yes (10) Elevated glucose SNOMED Code(s): 29460164 ICD Code: R73.09 - OTHER ABNORMAL GLUCOSE Status: Resolved Priority: Medium Current Visit: Yes (11) Dehydration SNOMED Code(s): 55297499 ICD Code: E86.0 - DEHYDRATION Status: Resolved Priority: High Current Visit: Yes (12) Abdominal pain SNOMED Code(s): 21082932 ICD Code: R10.9 - UNSPECIFIED ABDOMINAL PAIN Status: Acute Priority: High Current Visit: Yes Qualifiers: Abdominal location: generalized Qualified Code(s): R10.84 - Generalized abdominal pain (13) Hypomagnesemia SNOMED Code(s): 521056005 ICD Code: E83.42 - HYPOMAGNESEMIA Status: Resolved Priority: High Current Visit: Yes - Patient Summary/Data Consults: Consultations 04/24/20 16:16 Consult to Physician [CONS] Routine 04/26/20 14:23 Consult to Physician [CONS] Routine Labs Pending at D/C: H. Pylori breath test - lab reports may take 1-2 weeks for results. Recommended Follow-up Testing/Procedures: Follow-up with primary care provider within 7 to 10 days of discharge -Recommend repeat CBC, CMP, and magnesium at that appointment -Patient's magnesium and potassium were low here and were supplemented Follow-up with outpatient psychiatry as scheduled Follow-up with GI as scheduled Hospital Course: Kishan is a 44-year-old female who had a rather complex hospitalization. She was originally admitted on 04/24/2020 after presenting via [facility] with right flank pain, nausea and vomiting. CT scan of the abdomen and pelvis was obtained showing increased density within both lung bases with concerns for multifocal pneumonia. Small cyst was also located within the left kidney. Chest x-ray was then obtained that showed increased density on both sides of the chest. Patient denied any shortness of breath but did report a mild cough. Labs showed no leukocytosis and a normal CRP. Potassium was low at 3.1. UDS was positive for opioids, which is expected as patient was given fentanyl in route to the hospital. She was also positive for marijuana which she does report consuming. Lactic acid was elevated at 2.4 and she was given IV fluids which brought it down to 2.1. She was given Dilaudid, Toradol, and Tylenol for pain along with Reglan for nausea. She is given 500 mg of IV azithromycin and started on 2 g of Rocephin. After admission prior charts were reviewed and it was found that patient has had bilateral increased densities in her lower lungs since at least 2018, as it was present on multiple prior scans. Patient reported significant nausea, vomiting, and abdominal pain however there was no demonstrated leukocytosis, fever, CRP was within normal limits, and no other infectious symptoms were noted. Respiratory viral panel was obtained and was negative. Because of this antibiotics were discontinued and treatment for pneumonia was stopped. Magnesium and potassium remained low and were supplemented. Patient continued to have significant abdominal pain which was generalized but most present in upper quadrants. In reviewing prior charts she had similar pain approximately 2 years ago and was hospitalized multiple times for this. She was seen by general surgery and obstetrics/gynecology and nothing was ever found. Per the patient she followed up with [facility] in [place] and was told that she likely has endometriosis but this was never confirmed with laparoscopy. Patient reports she had her menses 1 to 2 weeks ago. Prior notes revealed concerns over drug-seeking behavior. Patient did reportedly have a history of alcohol abuse but no documented drug abuse. Per nursing patient's family was concerned about patient's narcotic use while in the hospital. Patient also reported a significant history of anxiety and stated that she had been trying different medications with no success thus far. She reports that she was being followed by her primary care provider for this. Patient was offered a psychiatry telepsych visit and she did agree. She was ultimately started on 25 mg twice daily Topamax and Luvox 50 mg daily for 7 days. After 7 days she should increase her dosing to [address] Myles, psychiatry, recommended patient continue her Adderall for ADHD but discontinue her hydroxyzine. He recommended patient follow-up with outpatient psychiatry after discharge and this appointment was made. Because of patient's continued abdominal pain lipase was checked and was found to be over 500. Patient does have a history of prior pancreatitis and there is question about whether or not she has some form of chronic pancreatitis. This did return to normal limits of just above 170 the next day. Patient was started on 4 times daily Carafate and a daily PPI. She was given a GI cocktail which greatly improved her symptoms. Dr. Guevara, general surgeon, was brought in and did recommend a MRCP which was obtained today. This showed no signs of any filling defect. 2 cysts were noted within the kidney and parenchymal densities were again noted bilaterally in both lung bases. Nausea and vomiting improved to resolved. Potassium returned to normal limits and magnesium was within normal limits as well. She will be discharged on 50 mg Luvox until 05/02/2020. At that time she should start taking 75 mg daily. She was prescribed as needed Zofran for nausea/vomiting. She was prescribed a daily PPI and 3 times daily Carafate. She was given a short course of oxycodone every 6 hours as needed for severe pain. She was advised not to operate machinery or drive while on this medication and that it may cause constipation and decreasing alertness. Prescription was also sent for twice daily Topamax [address] Myles did recommend patient cut down on energy drinks as this can increase anxiety. He also recommended patient wean off of marijuana as this can worsen symptoms as well. Home medications were continued with the exception of hydroxyzine as noted prior. Recommend follow-up with primary care provider within 7 to 10 days of discharge, sooner if needed. Recommend repeat CBC, CMP, and magnesium at that appointment. Patient was advised to eat raisins as these can help increase potassium. Pay special attention to patient's potassium and magnesium on follow-up as these were low. PCP should also follow patient in regards to chronic bilateral lower lung parenchymal densities. Appointment was scheduled for GI follow-up. Appointment was also made for outpatient psychiatric follow-up. Patient was discharged on clear liquid diet and told to advance as tolerated. She should also avoid fatty, greasy, and spicy foods. H. pylori breath test was sent and lab reports that it can take 1 to 2 weeks for this to results. Will forward results to patient's primary care provider. Patient discharged home today. She was advised to follow-up with her primary care provider or return to the emergency room should symptoms return or worsen. - Patient Instructions Diet: Clear Liquid Diet Diet, Other: Advance diet as tolerated. Avoid spicy, greasy, or fatty foods. Activity: As Tolerated Driving: Do Not Drive (While on narcotic ) Showering/Bathing: May Shower Notify Provider of: Fever, Increased Pain, Nausea and/or Vomiting Other/Special Instructions: Follow-up with primary care provider within 7 to 10 days, sooner if needed. Follow-up with GI as scheduled. We did send out a test called H. pylori. This can take 1 to 2 weeks to return. Results of this will be forwarded to your primary care provider. Follow-up with psychiatry as scheduled. Recommend clear liquid diet for the next day or 2 and then advance as tolerated. Avoid fatty, greasy, or spicy foods as these may upset your stomach. Take all new medications as prescribed. Your potassium was low here and was supplemented via IV. You reports you are unable to tolerate by mouth potassium. Recommend raisins as they are a good source of potassium. Avoid acidic foods due to your stomach problems. You were prescribed a few more days of magnesium as you were low here. Your primary care provider can recheck this in follow-up. It is likely low because of your difficulty eating. Do not operate vehicles or machinery while on oxycodone. You were prescribed this for severe pain. This is a narcotic in it will affect your alertness. It may also cause constipation. You may get a DUI if you operate a vehicle while on this. Try to wean down as able and only take it for very severe pain. Should symptoms return or worsen contact primary care provider or return to the emergency room. - Discharge Plan *PRESCRIPTION DRUG MONITORING PROGRAM REVIEWED*: Not Applicable *COPY OF PRESCRIPTION DRUG MONITORING REPORT IN PATIENT [place]: Not Applicable Prescriptions/Med Rec: Sucralfate [Carafate] 1 gm PO TID #60 tablet fluvoxaMINE 75 mg PO BEDTIME #10 tablet fluvoxaMINE 50 mg PO BEDTIME #4 tablet Magnesium Oxide 400 mg PO DAILY #3 tablet oxyCODONE 5 mg PO Q6H PRN #6 tablet PRN Reason: Severe Pain Pantoprazole [ProTONIX] 40 mg PO DAILY #20 tab.cr Topiramate [Topamax] 25 mg PO BID #40 tablet Ondansetron [Zofran] 4 mg PO Q6H PRN #10 tab PRN Reason: Nausea/Vomiting Home Medications: Home Meds Amphetamine/Dextroamphetamine [Adderall XR] 1 cap PO DAILY 04/24/20 [History] Topiramate [Topamax] 25 mg PO BID #40 tablet 04/25/20 [Rx] Magnesium Oxide 400 mg PO DAILY #3 tablet 04/27/20 [Rx] Ondansetron [Zofran] 4 mg PO Q6H PRN #10 tab 04/27/20 [Rx] Pantoprazole [ProTONIX] 40 mg PO DAILY #20 tab.cr 04/27/20 [Rx] Sucralfate [Carafate] 1 gm PO TID #60 tablet 04/27/20 [Rx] fluvoxaMINE 50 mg PO BEDTIME #4 tablet 04/27/20 [Rx] fluvoxaMINE 75 mg PO BEDTIME #10 tablet 04/27/20 [Rx] oxyCODONE 5 mg PO Q6H PRN #6 tablet 04/27/20 [Rx] Oxygen Therapy Mode: Room Air Patient Handouts: Chronic Pancreatitis, Pancreatitis Eating Plan, Acute Pancreatitis, Steps to Quit Smoking Forms: ED Department Discharge Referrals: Harper Duarte PA-C [Primary Care Provider] - 05/03/20 9:15 am (Hospital follow-up appointment. ) Jessica Woods NP [Ordering Only Provider] - 05/10/20 10:45 am (Gastroenterology appointment (stomach doctor). Go to [facility] main registration desk then left to elevator A and up to 4th floor.) Claudia Montes NP [Ordering Only Provider] - 05/09/20 10:00 am (Psychiatry folow-up appointment. Call [phone] at your appointment time for this virtual appointment. [facility] will also get ahold of you prior to this appointment.) - Discharge Summary/Plan Comment DC Time >30 min.: Yes (45 Mins ) - General Info Date of Service: 04/27/20 Admission Dx/Problem (Free Text: Admission Diagnosis/Problem Admission Diagnosis/Problem Pneumonia Functional Status: Reports: Pain Controlled, Tolerating Diet (Clear liquids ), Ambulating, Urinating. Denies: New Symptoms - Review of Systems General: Reports: No Symptoms. Denies: Fever, Weakness, Fatigue, Malaise, Chills HEENT: Reports: No Symptoms. Denies: Headaches, Sore Throat Pulmonary: Reports: No Symptoms. Denies: Shortness of Breath, Cough, Wheezing Cardiovascular: Reports: No Symptoms. Denies: Chest Pain, Palpitations, Dyspnea on Exertion, Edema Gastrointestinal: Reports: Abdominal Pain (Genealized most obvious in epigastric region radiating to upper quadrants ). Denies: Constipation, Diarrhea, Nausea, Vomiting Genitourinary: Reports: No Symptoms. Denies: Pain Musculoskeletal: Reports: No Symptoms Skin: Reports: No Symptoms. Denies: Cyanosis Neurological: Reports: No Symptoms. Denies: Confusion, Difficulty Walking, Gait Disturbance Psychiatric: Reports: No Symptoms. Denies: Confusion - Patient Data Vitals - Most Recent: Last Vital Signs Temp 97.9 F 04/27/20 04:47 Pulse 67 04/27/20 04:47 Resp 18 04/27/20 04:47 BP 126/93 H 04/27/20 04:47 Pulse Ox 99 04/27/20 04:47 Weight - Most Recent: 161 lb 1.6 oz I&O - Last 24 hours: Intake & Output 04/26/20 04/27/20 04/27/20 22:59 06:59 14:59 Intake Total 4100 1635 Output Total 1900 600 Balance 2200 1035 Lab Results - Last 24 hrs: Laboratory Results - last 24 hr 04/27/20 04/27/20 Range/Units 06:03 06:03 WBC 5.41 (3.98-10.04) K/mm3 RBC 4.49 (3.98-5.22) M/mm3 Hgb 13.9 (11.2-15.7) gm/dl Hct 41.4 (34.1-44.9) % MCV 92.2 (79.4-94.8) fl MCH 31.0 (25.6-32.2) pg MCHC 33.6 (32.2-35.5) g/dl RDW Std Deviation 39.0 (36.4-46.3) fL Plt Count 253 (182-369) K/mm3 MPV 10.6 (9.4-12.3) fl Neut % (Auto) 52.1 (34.0-71.1) % Lymph % (Auto) 33.1 (19.3-51.7) % [place] % (Auto) 13.1 H (4.7-12.5) % Eos % (Auto) 0.9 (0.7-5.8) Baso % (Auto) 0.6 (0.1-1.2) % Neut # (Auto) 2.82 (1.56-6.13) K/mm3 Lymph # (Auto) 1.79 (1.18-3.74) K/mm3 [place] # (Auto) 0.71 H (0.24-0.36) K/mm3 Eos # (Auto) 0.05 (0.04-0.36) K/mm3 Baso # (Auto) 0.03 (0.01-0.08) K/mm3 Sodium 140 (136-145) mEq/L Potassium 3.9 (3.5-5.1) mEq/L Chloride 106 (98-107) mEq/L Carbon Dioxide 22 (21-32) mEq/L Anion Gap 15.9 H (5-15) BUN 6 L (7-18) mg/dL Creatinine 0.8 (0.55-1.02) mg/dL Est Cr Clr Drug Dosing 89.08 mL/min Estimated GFR (MDRD) > 60 (>60) mL/min BUN/Creatinine Ratio 7.5 L (14-18) Glucose 91 (74-106) mg/dL Calcium 8.2 L (8.5-10.1) mg/dL Magnesium 2.1 (1.8-2.4) mg/dl C-Reactive Protein 0.2 (<1.0) mg/dL Lipase 176 (73-393) U/L [place] Results - Last 24 hrs: Microbiology 04/24/20 08:55 Aerobic Blood Culture - Preliminary Blood - Venous - Lab Draw NO GROWTH AFTER 3 DAYS Anaerobic Blood Culture - Preliminary NO GROWTH AFTER 3 DAYS 04/24/20 09:10 Aerobic Blood Culture - Preliminary Blood - Venous NO GROWTH AFTER 3 DAYS Anaerobic Blood Culture - Preliminary NO GROWTH AFTER 3 DAYS Med Orders - Current: Current Medications Acetaminophen (Tylenol) 650 mg PO Q4H PRN PRN Reason: Pain (Mild 1-3)/fever Al Hydroxide/Mg Hydroxide (Mag-Al Plus) 30 ml PO Q4H PRN PRN Reason: Heartburn Last Admin: 04/25/20 23:23 Dose: 30 ml Documented by: Al Hydroxide/Mg Hydroxide 30 (ml/ Lidocaine HCl 15 ml) 0 ml PO Q12H PRN PRN Reason: Abdominal pain Last Admin: 04/26/20 17:25 Dose: 45 ml Documented by: Docusate Sodium (Colace) 100 mg PO BID PRN PRN Reason: Constipation Last Admin: 04/26/20 16:46 Dose: 100 mg Documented by: Fluvoxamine Maleate (Fluvoxamine) 50 mg PO BEDTIME [facility] Stop: 05/01/20 21:01 Last Admin: 04/26/20 21:13 Dose: 50 mg Documented by: Fluvoxamine Maleate (Fluvoxamine) 75 mg PO BEDTIME [facility] Hydromorphone HCl (Dilaudid) 0.5 mg IVPUSH Q3H PRN PRN Reason: Pain (severe 7-10) Last Admin: 04/26/20 22:04 Dose: 0.5 mg Documented by: Promethazine HCl 25 mg/ Sodium (Chloride) 51 mls @ 100 mls/hr IV Q6H PRN PRN Reason: Nausea/vomiting Last Admin: 04/26/20 11:21 Dose: 100 mls/hr Documented by: Potassium Chloride/Sodium Chloride (Normal Saline With 20 Meq Kcl) 1,000 mls @ 125 mls/hr IV ASDIRECTED [facility] Last Admin: 04/27/20 04:45 Dose: 125 mls/hr Documented by: Ketorolac Tromethamine (Toradol) 30 mg IVPUSH Q6H PRN PRN Reason: Pain (moderate 4-6) Last Admin: 04/26/20 17:25 Dose: 30 mg Documented by: Magnesium Oxide (Magnesium Oxide) 400 mg PO DAILY [facility] Last Admin: 04/27/20 08:44 Dose: Not Given Documented by: Magnesium Oxide (Magnesium Oxide) 400 mg PO ONETIME ONE Stop: 04/27/20 13:01 Ondansetron HCl (Zofran) 4 mg IVPUSH Q4H PRN PRN Reason: Nausea/Vomiting Last Admin: 04/27/20 09:32 Dose: 4 mg Documented by: Oxycodone HCl (Oxycodone) 5 mg PO Q4H PRN PRN Reason: Pain Last Admin: 04/26/20 21:12 Dose: 5 mg Documented by: Pantoprazole Sodium (Protonix) 40 mg PO DAILY [facility] Last Admin: 04/27/20 08:44 Dose: Not Given Documented by: Pantoprazole Sodium (Protonix) 40 mg PO ONETIME ONE Stop: 04/27/20 13:01 Amphetamine/Dextroamphetamine [ Adderall Xr] 25 Mg Caps 0 each PO DAILY [facility] Last Admin: 04/27/20 08:42 Dose: Not Given Documented by: Sucralfate (Carafate) 1 gm PO QID [facility] Last Admin: 04/27/20 08:41 Dose: Not Given Documented by: Topiramate (Topamax) 25 mg PO BID [facility] Last Admin: 04/27/20 08:41 Dose: Not Given Documented by: Topiramate (Topamax) 25 mg PO ONETIME ONE Stop: 04/27/20 13:01 Discontinued Medications Acetaminophen (Tylenol) 975 mg PO ONETIME ONE Stop: 04/24/20 10:05 Last Admin: 04/24/20 10:30 Dose: 975 mg Documented by: Albuterol/Ipratropium (Duoneb 3.0-0.5 Mg/3 Ml) 3 ml NEB Q4H PRN PRN Reason: Shortness Of Breath/wheezing Al Hydroxide/Mg Hydroxide 30 (ml/ Lidocaine HCl 15 ml) 0 ml PO ONETIME ONE Stop: 04/26/20 11:19 Last Admin: 04/26/20 11:33 Dose: 45 ml Documented by: Enoxaparin Sodium (Lovenox) 40 mg SUBCUT DAILY [facility] Gadobenate Dimeglumine (Multihance) 15 ml IVPUSH ONETIME ONE Stop: 04/27/20 10:26 Last Admin: 04/27/20 11:08 Dose: 15 ml Documented by: Hydromorphone HCl (Dilaudid) 1 mg IVPUSH ONETIME ONE Stop: 04/24/20 07:25 Last Admin: 04/24/20 07:37 Dose: 1 mg Documented by: Hydromorphone HCl (Dilaudid) 0.5 mg IVPUSH ONETIME ONE Stop: 04/24/20 10:05 Last Admin: 04/24/20 10:28 Dose: 0.5 mg Documented by: Hydromorphone HCl (Dilaudid) 0.5 mg IVPUSH Q2H PRN PRN Reason: Pain (severe 7-10) Last Admin: 04/25/20 12:06 Dose: 0.5 mg Documented by: Hydroxyzine HCl (Atarax) 25 mg PO QID PRN PRN Reason: Anxiety Dextrose/Sodium Chloride (Dextrose 5%-Normal Saline) 1,000 mls @ 999 mls/hr IV ASDIRECTED [facility] Last Infusion: 04/24/20 08:00 Dose: 999 mls/hr Documented by: Ceftriaxone Sodium 2 gm/ (Sodium Chloride) 100 mls @ 200 mls/hr IV Q24H [facility] Last Admin: 04/24/20 10:28 Dose: 200 mls/hr Documented by: Azithromycin 500 mg/ Sodium (Chloride) 250 mls @ 250 mls/hr IV Q24H [facility] Last Admin: 04/24/20 11:04 Dose: 250 mls/hr Documented by: Sodium Chloride (Normal Saline) 1,000 mls @ 250 mls/hr IV ASDIRECTED [facility] Last Admin: 04/24/20 10:28 Dose: 250 mls/hr Documented by: Sodium Chloride (Normal Saline) 1,000 mls @ 250 mls/hr IV ASDIRECTED [facility] Potassium Chloride 10 meq/ (Premix) 100 mls @ 100 mls/hr IV Q1H [facility] Stop: 04/24/20 13:59 Last Admin: 04/24/20 18:18 Dose: 100 mls/hr Documented by: Promethazine HCl 12.5 mg/ (Sodium Chloride) 50.5 mls @ 100 mls/hr IV Q6H PRN PRN Reason: Nausea/Vomiting Last Admin: 04/25/20 14:49 Dose: 100 mls/hr Documented by: Azithromycin 500 mg/ Sodium (Chloride) 250 mls @ 250 mls/hr IV Q24H [facility] Last Admin: 04/25/20 13:38 Dose: 250 mls/hr Documented by: Ceftriaxone Sodium 2 gm/ (Sodium Chloride) 100 mls @ 200 mls/hr IV Q24H [facility] Last Admin: 04/25/20 11:04 Dose: 200 mls/hr Documented by: Sodium Chloride (Normal Saline) 1,000 mls @ 125 mls/hr IV ASDIRECTED [facility] Last Admin: 04/26/20 12:01 Dose: 125 mls/hr Documented by: Magnesium Sulfate (Magnesium Sulfate In Water 2 Gm/50 Ml) 2 gm in 50 mls @ 25 mls/hr IV ONETIME ONE Stop: 04/25/20 15:59 Last Admin: 04/25/20 15:44 Dose: 25 mls/hr Documented by: Potassium Chloride 10 meq/ (Premix) 100 mls @ 100 mls/hr IV Q1H [facility] Stop: 04/25/20 13:59 Last Admin: 04/25/20 18:03 Dose: 100 mls/hr Documented by: Potassium Chloride 10 meq/ (Premix) 100 mls @ 100 mls/hr IV Q1H [facility] Stop: 04/26/20 13:44 Last Admin: 04/26/20 16:26 Dose: 100 mls/hr Documented by: Ketorolac Tromethamine (Toradol) 30 mg IVPUSH ONETIME [facility] Last Admin: 04/24/20 07:37 Dose: 30 mg Documented by: Ketorolac Tromethamine (Toradol) 30 mg IM Q6H PRN PRN Reason: Pain (moderate 4-6) Magnesium Hydroxide (Milk Of Magnesia) 30 ml PO ONETIME ONE Stop: 04/27/20 05:00 Magnesium Oxide (Magnesium Oxide) 800 mg PO ONETIME ONE Stop: 04/25/20 14:23 Last Admin: 04/25/20 14:42 Dose: Not Given Documented by: Metoclopramide HCl (Reglan) 7.5 mg IVPUSH ONETIME ONE Stop: 04/24/20 07:25 Last Admin: 04/24/20 07:37 Dose: 7.5 mg Documented by: Miscellaneous Information (Remove Patch) 0 ea TRDERM ONETIME ONE Stop: 04/27/20 10:46 Pantoprazole Sodium (Protonix) 40 mg PO ONETIME ONE Stop: 04/26/20 16:31 Last Admin: 04/26/20 16:25 Dose: 40 mg Documented by: Promethazine HCl (Phenergan) Confirm Administered Dose 25 mg .ROUTE .STK-MED ONE Stop: 04/25/20 14:36 Last Admin: 02/23/21 14:50 Dose: Not Given Documented by: Scopolamine (Transderm-Scop) 1.5 mg TOP ONETIME ONE Stop: 04/24/20 16:01 Last Admin: 04/24/20 15:40 Dose: 1.5 mg Documented by: Sodium Chloride (Saline Flush) 20 ml FLUSH ASDIRECTED [facility] Stop: 04/27/20 12:00 Last Admin: 04/27/20 11:08 Dose: 20 ml Documented by: - Exam Quality Assessment: Denies: Supplemental Oxygen, Urine Catheter, DVT Prophylaxis (Not indicated ) General: Reports: Alert, Oriented, Cooperative, No Acute Distress HEENT: Reports: Pupils Equal, Pupils Reactive, Mucous Membr. Moist/Bier Neck: Reports: Supple, Trachea Midline Lungs: Reports: Clear to Auscultation, Normal Respiratory Effort Cardiovascular: Reports: Regular Rate, Regular Rhythm GI/Abdominal Exam: Normal Bowel Sounds, Soft, No Distention, Tender (Generalized, most obvious in epigastric region radiating to upper quadrants). No: Rigid, Rebound (Female) Exam: Deferred Rectal (Female) Exam: Deferred Back Exam: Reports: Normal Inspection, Full Range of Motion Extremities: Normal Inspection, Normal Range of Motion, Non-Tender, No Pedal Edema, Normal Capillary Refill Skin: Reports: Warm, Dry, Intact Neurological: Reports: No New Focal Deficit Psy/Mental Status: Reports: Alert, Normal Affect, Normal Mood
--- NOTE | 2020-04-27 12:25 | PCM.CONS ---
H&P History of Present Illness - General Date of Service: 04/27/20 Admit Problem/Dx: Admission Diagnosis/Problem Admission Diagnosis/Problem Pneumonia Source of Information: Patient, Provider History Limitations: Reports: No Limitations - History of Present Illness Initial Comments - Free Text/Narative: Ms. Stover is a 44 yo woman who is being seen by general surgery for epigastric pain, nausea and vomiting. She has a history of chronic episodic pain. She has a history of renal calculi and pancreatitis of unclear etiology. Workup shows the patient has no gallstones (she has had cholecystectomy) and she does have a history of alcohol abuse. She has not had any endoscopy performed that she can recall. After a GI cocktail the patient's symptoms are greatly improved. No ncontrast CT on admission is unrevealing, and an MRCP this morning to further evaluate for pancreatitis shows no significant pathology. Her lipase was around 500 on admission. Back Pain Score (Numeric/FACES): 5 - Related Data Allergies/Adverse Reactions: Allergies Allergy/AdvReac Type Severity Reaction Status Date / Time Penicillins Allergy Mild Cannot Verified 04/24/20 12:15 Remember Home Medications: Home Meds Amphetamine/Dextroamphetamine [Adderall XR] 1 cap PO DAILY 04/24/20 [History] Topiramate [Topamax] 25 mg PO BID #40 tablet 04/25/20 [Rx] Magnesium Oxide 400 mg PO DAILY #3 tablet 04/27/20 [Rx] Ondansetron [Zofran] 4 mg PO Q6H PRN #10 tab 04/27/20 [Rx] Pantoprazole [ProTONIX] 40 mg PO DAILY #20 tab.cr 04/27/20 [Rx] Sucralfate [Carafate] 1 gm PO TID #60 tablet 04/27/20 [Rx] fluvoxaMINE 50 mg PO BEDTIME #4 tablet 04/27/20 [Rx] fluvoxaMINE 75 mg PO BEDTIME #10 tablet 04/27/20 [Rx] oxyCODONE 5 mg PO Q6H PRN #6 tablet 04/27/20 [Rx] Past Medical History - Past Health History Medical/Surgical History: Denies Medical/Surgical History HEENT History: Reports: Impaired Vision Cardiovascular History: Reports: None Respiratory History: Reports: None Genitourinary History: Reports: Renal Calculus [employer] History: Reports: Endometriosis, Psychiatric History: Reports: ADHD, Addiction, Anxiety Endocrine/Metabolic History: Reports: Other (See Below) Oncologic (Cancer) History: Reports: None - Past Surgical History HEENT Surgical History: Reports: Oral Surgery, Other (See Below) Other HEENT Surgeries/Procedures: wisdom teeth removed GI Surgical History: Reports: Cholecystectomy - History Comment History Comment: add meds but not taking them routinely Social & Family History - Family History Family Medical History: No Pertinent Family History Cardiac: Reports: [place] Neurological: Reports: CVA Oncologic: Reports: Lung, Lymphoma - Tobacco Use Tobacco Use Status *Q: Current Every Day Tobacco User Years of Tobacco use: 20 Packs/Tins Daily: 0.5 Used Tobacco, but Quit: No Tobacco Use Comment: Patient states she has about 6 cigarettes per day. - Caffeine Use Caffeine Use: Reports: Coffee - Recreational Drug Use Recreational Drug Use: Yes Drug Use in Last 12 Months: Yes Recreational Drug Type: Reports: Marijuana/Hashish - Living Situation & Occupation Living situation: Reports: , with Spouse, with Family (3 sons) Occupation: Employed ([employer]) H&P Review of Systems - Review of Systems: Review Of Systems: See Below General: Reports: No Symptoms HEENT: Reports: No Symptoms Pulmonary: Reports: No Symptoms Cardiovascular: Reports: No Symptoms Gastrointestinal: Reports: Abdominal Pain, Anorexia, Nausea Genitourinary: Reports: No Symptoms Musculoskeletal: Reports: No Symptoms Skin: Reports: No Symptoms Psychiatric: Reports: No Symptoms Neurological: Reports: No Symptoms Hematologic/Lymphatic: Reports: No Symptoms Immunologic: Reports: No Symptoms Exam - Exam Exam: See Below - Vital Signs Vital Signs: Last Vital Signs Temp 36.6 C 04/27/20 04:47 Pulse 67 04/27/20 04:47 Resp 18 04/27/20 04:47 BP 126/93 H 04/27/20 04:47 Pulse Ox 99 04/27/20 04:47 Weight: 73.074 kg - Exam General: Alert, Oriented, Cooperative HEENT: Conjunctiva Clear Neck: Supple, Trachea Midline Lungs: Normal Respiratory Effort GI/Abdominal Exam: Soft, No Distention, No Mass, Tender, Other (epigastric tenderness on light palpation) Extremities: Normal Inspection Skin: Warm, Dry Neuro Extensive - Mental Status: Alert, Oriented x3 - Patient Data Lab Results Last 24 hrs: Laboratory Results - last 24 hr 04/27/20 04/27/20 Range/Units 06:03 06:03 WBC 5.41 (3.98-10.04) K/mm3 RBC 4.49 (3.98-5.22) M/mm3 Hgb 13.9 (11.2-15.7) gm/dl Hct 41.4 (34.1-44.9) % MCV 92.2 (79.4-94.8) fl MCH 31.0 (25.6-32.2) pg MCHC 33.6 (32.2-35.5) g/dl RDW Std Deviation 39.0 (36.4-46.3) fL Plt Count 253 (182-369) K/mm3 MPV 10.6 (9.4-12.3) fl Neut % (Auto) 52.1 (34.0-71.1) % Lymph % (Auto) 33.1 (19.3-51.7) % [place] % (Auto) 13.1 H (4.7-12.5) % Eos % (Auto) 0.9 (0.7-5.8) Baso % (Auto) 0.6 (0.1-1.2) % Neut # (Auto) 2.82 (1.56-6.13) K/mm3 Lymph # (Auto) 1.79 (1.18-3.74) K/mm3 [place] # (Auto) 0.71 H (0.24-0.36) K/mm3 Eos # (Auto) 0.05 (0.04-0.36) K/mm3 Baso # (Auto) 0.03 (0.01-0.08) K/mm3 Sodium 140 (136-145) mEq/L Potassium 3.9 (3.5-5.1) mEq/L Chloride 106 (98-107) mEq/L Carbon Dioxide 22 (21-32) mEq/L Anion Gap 15.9 H (5-15) BUN 6 L (7-18) mg/dL Creatinine 0.8 (0.55-1.02) mg/dL Est Cr Clr Drug Dosing 89.08 mL/min Estimated GFR (MDRD) > 60 (>60) mL/min BUN/Creatinine Ratio 7.5 L (14-18) Glucose 91 (74-106) mg/dL Calcium 8.2 L (8.5-10.1) mg/dL Magnesium 2.1 (1.8-2.4) mg/dl C-Reactive Protein 0.2 (<1.0) mg/dL Lipase 176 (73-393) U/L Result Diagrams: 04/27/20 06:03 04/27/20 06:03 Anmol Results Last 24 hrs: Microbiology 04/24/20 08:55 Aerobic Blood Culture - Preliminary Blood - Venous - Lab Draw NO GROWTH AFTER 3 DAYS Anaerobic Blood Culture - Preliminary NO GROWTH AFTER 3 DAYS 04/24/20 09:10 Aerobic Blood Culture - Preliminary Blood - Venous NO GROWTH AFTER 3 DAYS Anaerobic Blood Culture - Preliminary NO GROWTH AFTER 3 DAYS Sepsis Event Note - Evaluation Sepsis Screening Result: No Definite Risk - Focused Exam Vital Signs: Vital Signs Temp Pulse Resp BP Pulse Ox 04/27/20 04:47 36.6 C 67 18 126/93 H 99 Consult PN Assessment/Plan Procedures: Procedures APPLY FOREARM SPLINT (10/16/14) ASSAY OF AMYLASE (01/22/18) ASSAY OF ETHANOL (07/04/13) ASSAY OF FREE THYROXINE (03/19/18) ASSAY OF GGT (03/19/18) ASSAY OF LIPASE (03/14/19) ASSAY OF MAGNESIUM (03/14/19) ASSAY THYROID STIM HORMONE (03/19/18) BL SMEAR W/DIFF WBC COUNT (03/14/19) BLOOD GASES ANY COMBINATION (03/19/18) BLOOD TYPING SEROLOGIC ABO (03/19/18) BLOOD TYPING SEROLOGIC RH(D) (03/19/18) C-REACTIVE PROTEIN (03/19/18) CHEST X-RAY 1 VIEW FRONTAL (07/04/13) CHORIONIC GONADOTROPIN ASSAY (03/18/18) CHORIONIC GONADOTROPIN TEST (03/19/18) CHYLMD TRACH DNA AMP PROBE (08/24/13) COMPLETE CBC AUTOMATED (03/14/19) COMPLETE CBC W/AUTO DIFF WBC (03/19/18) COMPREHEN METABOLIC PANEL (03/14/19) CT ABD & PELV W/CONTRAST (07/10/18) CT ABD & PELVIS W/O CONTRAST (03/19/18) CT HEAD/BRAIN W/O DYE (07/04/13) CT NECK SPINE W/O DYE (10/16/14) CULTURE AEROBIC IDENTIFY (11/03/13) DRUG TEST PRSMV INSTRMNT (03/14/19) ECHO EXAM OF ABDOMEN (01/23/18) ELECTROCARDIOGRAM TRACING (07/04/13) EMERGENCY DEPT VISIT (03/14/19) EMERGENCY DEPT VISIT (03/19/18) EMERGENCY DEPT VISIT (07/14/15) EMERGENCY DEPT VISIT (07/04/13) EXTREMITY STUDY (09/30/13) NON-STRESS TEST (03/07/14) FREE ASSAY (FT-3) (03/19/18) GLUCOSE TEST (01/06/14) HELICOBACTER PYLORI ANTIBODY (01/23/18) HEMOGLOBIN (01/06/14) HEPATITIS B SURFACE AG IA (08/24/13) HYDRATE IV INFUSION ADD-ON (03/14/19) IIV4 VACC NO PRSV 0.5 ML IM (03/14/19) IMMUNIZATION ADMIN (03/14/19) MEASURE BLOOD OXYGEN LEVEL (01/22/18) MICROBE SUSCEPTIBLE ANMOL (11/03/13) N.GONORRHOEAE DNA AMP PROB (08/24/13) OB US < 14 WKS SINGLE FETUS (08/24/13) OB US >/= 14 WKS SNGL FETUS (10/22/13) OB US LIMITED FETUS(S) (12/24/13) RBC ANTIBODY SCREEN (03/19/18) ROUTINE VENIPUNCTURE (03/14/19) RUBELLA ANTIBODY (08/24/13) STREP B DNA AMP PROBE (02/02/14) SYPHILIS TEST NON-TREP QUAL (08/24/13) THER/PROPH/DIAG INJ IV PUSH (07/10/18) THER/PROPH/DIAG INJ SC/IM (01/23/18) THER/PROPH/DIAG IV INF ADDON (01/23/18) THER/PROPH/DIAG IV INF INIT (03/14/19) TRANSVAGINAL US NON-OB (03/19/18) TX/PRO/DX INJ NEW DRUG ADDON (03/14/19) TX/PRO/DX INJ SAME DRUG ESCROW CLOSER (07/10/18) TX/PROPH/DG ADDL SEQ IV INF (01/23/18) URINALYSIS AUTO W/O SCOPE (03/08/14) URINALYSIS AUTO W/SCOPE (03/14/19) URINE BACTERIA CULTURE (11/03/13) URINE CULTURE/COLONY COUNT (03/19/18) URINE TEST (03/14/19) US EXAM ABDO BACK WALL COMP (11/03/13) WITHDRAWAL OF ARTERIAL BLOOD (03/19/18) X-RAY EXAM ABDOMEN 1 VIEW (01/23/18) X-RAY EXAM OF WRIST (10/16/14) Problem List Initiated/Reviewed/Updated: Yes Plan: Suspect mild chronic pancreatitis, resolving, though MRI today shows no abnormality. She felt better after GI cocktail, so she may have some gastritis/PUD. She appears well, and if she is now able to tolerate a diet I think she is fit for discharge. She can follow up in the surgery clinic if she has lingering symptoms in order to plan for diagnostic EGD.
[2020-04-27] MEDS ORDERED: Topiramate 25 MG Tab PO ONE (13:00)
[2020-04-27] MEDS ORDERED: Magnesium Oxide 400 MG Tab PO ONE (13:00)
[2020-04-27] MEDS ORDERED: Pantoprazole 40 MG Tab.CR PO ONE (13:00)
[2020-04-27 13:20] VITALS: BP 116/82
[2020-05-02] MEDS ORDERED: fluvoxaMINE 50 MG Tab PO SCH (21:00)
== END 2020-04-27 13:43 | disposition home or self-care (01) | DRG 282 ==
LOC: JD.ED 07:19 → JD.MS 10:17
PROVIDERS: ADMIT Family Medicine; ATTEND Family Medicine
DX: K85.90 Acute pancreatitis without necrosis or infection, unspecified (principal); E87.6 Hypokalemia; F41.9 Anxiety disorder, unspecified; E87.2 Acidosis; R73.09 Other abnormal glucose; E83.42 Hypomagnesemia; F10.11 Alcohol abuse, in remission; E86.0 Dehydration; R73.9 Hyperglycemia, unspecified; F41.0 Panic disorder [episodic paroxysmal anxiety]; F90.2 Attention-deficit hyperactivity disorder, combined type; H54.7 Unspecified visual loss; F17.210 Nicotine dependence, cigarettes, uncomplicated; Z20.822 Contact with and (suspected) exposure to COVID-19; Z88.0 Allergy status to penicillin; Z90.49 Acquired absence of other specified parts of digestive tract; Z87.442 Personal history of urinary calculi
CPT/HCPCS: 36415; 71045; 71045-26; 74176; 74176-26; 74183; 74183-26; 80048; 80053; 80061; 80306; 81001; 82728; 83013; 83036; 83605; 83615; 83690; 83735; 84145; 84484; 84703; 85025; 85610; 85730; 86140; 87040; 87486; 87581; 87633; 87798; 93005; 93010; 94667; 96374; 96375; 99222; 99233; 99239; 99285; 99285-25; A9270-GY; A9577; J0456; J0696; J1170; J1885; J2405; J2550; J2765; J3475; J3480; J7030; J7042; J7050; Q3014; U0002

== ENCOUNTER 2021-08-13 18:19 | Emergency (ER) | payer BC ==
[2021-08-13 18:42] VITALS: BP 139/114; PULSE 80
[2021-08-13] MEDS ORDERED: Ondansetron 4 MG/2 ML SDV IVPUSH ONE ×2 (19:28→22:47)
[2021-08-13] MEDS ORDERED: HYDROmorphone 1 MG/ML Syringe IVPUSH ONE (19:28)
[2021-08-13] MEDS ORDERED: Sodium Chloride 0.9% 1,000 ML IV SCH (19:30)
[2021-08-13] MEDS ORDERED: Sodium Chloride 0.9% 10 ML Syringe FLUSH ONE (20:31)
[2021-08-13] MEDS ORDERED: Iopamidol 755 Mg/ML 100 ML Bottle IVPUSH ONE (20:31)
[2021-08-13] MEDS ORDERED: Sodium Chloride 0.9% 1,000 ML IV ONE ×2 (20:37→22:47)
[2021-08-13] MEDS ORDERED: Sodium Chloride 0.9% 100 ML IV SCH (20:45)
[2021-08-13] MEDS ORDERED: Iopamidol 755 MG/ML 50 ML Bottle IVPUSH ONE (20:49)
[2021-08-13] MEDS ORDERED: HYDROmorphone 0.5 MG/0.5 ML Syringe IVPUSH ONE (22:47)
[2021-08-14] MEDS ORDERED: Sodium Chloride 0.9% 1,000 ML IV SCH (00:15)
[2021-08-14] MEDS ORDERED: HYDROmorphone 0.5 MG/0.5 ML Syringe IVPUSH ONE (04:47)
== END 2021-08-14 07:10 | disposition home or self-care (01) ==
LOC: JD.ED 18:19
DX: R10.9 Unspecified abdominal pain (principal); R79.82 Elevated C-reactive protein (CRP); F17.210 Nicotine dependence, cigarettes, uncomplicated; Z28.310 Unvaccinated for COVID-19; Z88.0 Allergy status to penicillin; Z79.899 Other long term (current) drug therapy; Z20.822 Contact with and (suspected) exposure to COVID-19
CPT/HCPCS: 36415; 71260; 74177; 80053; 81001; 81025; 83605; 83690; 83735; 85007; 85027; 86140; 87040; 87154; 87635; 96374; 96375; 96376; 99284; J1170; J2405; J3490; J7030; Q9967; 36410; 76937; U0002

== ENCOUNTER 2021-12-14 18:44 | Emergency (ER) | payer SELFPAY ==
[2021-12-14] MEDS ORDERED: Naloxone 0.4 MG/ML SDV ONE (18:55)
[2021-12-14] MEDS ORDERED: Ondansetron 4 MG/2 ML SDV IVPUSH ONE (19:42)
[2021-12-14] MEDS ORDERED: LORazepam 2 MG/ML SDV IVPUSH STA (19:42)
[2021-12-14] MEDS ORDERED: Sodium Chloride 0.9% 1,000 ML IV SCH (19:45)
[2021-12-14] MEDS ORDERED: Iopamidol 755 Mg/ML 100 ML Bottle IVPUSH ONE (19:48)
[2021-12-14] MEDS ORDERED: Sodium Chloride 0.9% 10 ML Syringe FLUSH ONE (19:48)
[2021-12-14] MEDS ORDERED: Sodium Chloride 0.9% 100 ML IV SCH (20:00)
[2021-12-14 20:55] LABS: ESTIMATED GFR 71 mL/min (>60)
[2021-12-14 20:59] LABS: ACETAMINOPHEN 0 ug/mL (10-30)
[2021-12-14 23:41] VITALS: BP 145/79; PULSE 86
== END 2021-12-14 22:45 | disposition home or self-care (01) ==
LOC: JD.ED 18:44
DX: R10.9 Unspecified abdominal pain (principal); Z88.0 Allergy status to penicillin; Z79.899 Other long term (current) drug therapy; Z90.49 Acquired absence of other specified parts of digestive tract
CPT/HCPCS: 36415; 36600; 71045; 74177; 80053; 80143; 80179; 80306; 80307; 81001; 81025; 82803; 83605; 83690; 83735; 85007; 85027; 85379; 86140; 96374; 96375; 99284; J2060; J2310; J2405; Q9967

== ENCOUNTER 2022-10-23 16:33 | Emergency (ER) | payer BC ==
[2022-10-23] MEDS ORDERED: Morphine 2 MG/ML SYRINGE IVPUSH ONE (17:52)
[2022-10-23] MEDS ORDERED: Sodium Chloride 0.9% 1,000 ML IV STA ×2 (17:52→18:51)
[2022-10-23] MEDS ORDERED: Ondansetron 4 MG/2 ML SDV IVPUSH ONE (17:52)
[2022-10-23] MEDS ORDERED: Sodium Chloride 0.9% 10 ML Syringe FLUSH PRN (17:52)
[2022-10-23] MEDS ORDERED: Iopamidol 612 MG/ML 100 ML Bottle IVPUSH ONE (18:01)
[2022-10-23 18:04] LABS: BASOPHILS ABSOLUTE AUTO 0.1 K/mm3 (0.0-0.2); BASOPHILS PERCENT AUTO 0.7 % (0.0-1.0); EOSINOPHILS PERCENT AUTO 0.3 % (0.0-6.0); HEMATOCRIT 53.4 % (37.0-47.0); HEMOGLOBIN 18.4 gm/dl (12.0-16.0); IMMATURE GRAN ABSOLUTE AUTO 0.04 K/mm3 (0.00-0.05); IMMATURE GRAN PERCENT AUTO 0.4 % (0.0-0.4); MEAN CORPUSCULAR HGB CONC 34.5 g/dl (32.0-36.0); MEAN CORPUSCULAR VOLUME 95.7 fl (83.0-99.0); MEAN PLATELET VOLUME 10.5 fl (9.4-12.3); MONOCYTES ABSOLUTE AUTO 0.8 K/mm3 (0.0-0.8); MONOCYTES PERCENT AUTO 8.2 % (0.0-8.0); NEUTROPHILS ABSOLUTE AUTO 7.7 K/mm3 (1.8-7.7); NEUTROPHILS PERCENT AUTO 80.4 % (41.0-71.0); PLATELET COUNT,PLT 417 K/mm3 (150-400); RED BLOOD CELL COUNT 5.58 M/mm3 (4.10-5.30); WHITE BLOOD CELL COUNT,WBC 9.58 K/mm3 (3.9-11.3)
[2022-10-23 18:15] LABS: A/G RATIO 1.1 (1-2); ALANINE AMINOTRANSFERASE,ALT 159 U/L (14-59); ALBUMIN 4.8 g/dl (3.4-5.0); ALKALINE PHOSPHATASE 105 U/L (46-116); ANION GAP 22.3 (5-15); ASPARTATE AMNIOTRANSFERASE,AST 163 U/L (15-37); BILIRUBIN TOTAL 0.6 mg/dL (0.2-1.0); BLOOD UREA NITROGEN,BUN 10 mg/dL (7-18); BUN/CREATININE RATIO 4.5 (14-18); C-REACTIVE PROTEIN <0.2 mg/dL (<1.0); CALCIUM 10.5 mg/dL (8.5-10.1); CARBON DIOXIDE,CO2 23 mEq/L (21-32); CHLORIDE,CL 93 mEq/L (98-107); EST CRCL DRUG DOSING (CG) 33.75 mL/min; ESTIMATED GFR 27 mL/min (>60); GLUCOSE RANDOM 130 mg/dL (70-99); POTASSIUM,K 3.3 mEq/L (3.5-5.1); PROTEIN TOTAL,TP 9.1 g/dl (6.4-8.2); SODIUM,NA 135 mEq/L (136-145)
[2022-10-23 18:16] LABS: CREATININE 2.2 mg/dL (0.55-1.02)
[2022-10-23] MEDS ORDERED: HYDROmorphone 0.5 MG/0.5 ML Syringe IVPUSH ONE (19:13)
[2022-10-23] MEDS ORDERED: Famotidine 20 MG/2 ML SDV IVPUSH ONE (19:30)
[2022-10-23] MEDS ORDERED: Metoclopramide 10 MG/2 ML SDV IVPUSH ONE (19:39)
[2022-10-23] MEDS ORDERED: NS + KCl 20mEq/L 1,000 ML IV SCH (20:45)
[2022-10-23] MEDS ORDERED: Lactated Ringers 1,000 ML IV SCH (20:45)
[2022-10-23 23:56] VITALS: BP 126/85; PULSE 112
== END 2022-10-23 22:00 | disposition home or self-care (01) ==
LOC: JD.ED 16:33
DX: R10.84 Generalized abdominal pain (principal); R11.2 Nausea with vomiting, unspecified; F10.120 Alcohol abuse with intoxication, uncomplicated; F17.210 Nicotine dependence, cigarettes, uncomplicated; Z79.899 Other long term (current) drug therapy; Z88.0 Allergy status to penicillin
CPT/HCPCS: 36415; 74176; 80053; 80307; 83690; 85025; 86140; 96361; 96374; 96375; 99284; J1170; J2270; J2405; J2765; J3490; J7030

== ENCOUNTER 2022-10-27 17:36 | Emergency (ER) | payer BC ==
[2022-10-27 17:46] VITALS: BP 142/95
[2022-10-27] MEDS ORDERED: Lidocaine 1% with EPINEPHrine 1:100,000 20 ML MDV INJECT ONE (18:51)
[2022-10-27] MEDS ORDERED: Diphtheria,Pertussis(Acell),Tetanus Vaccine 0.5 ML Syringe IM ONE (18:51)
[2022-10-27] MEDS ORDERED: Lidocaine 2% with EPINEPHrine 1:200,000 20 ML SDV ONE (18:59)
[2022-10-27] MEDS ORDERED: Lidocaine 2% with EPINEPHrine 1:100,000 20 ML MDV INJECT ONE (19:42)
[2022-10-27 19:55] VITALS: PULSE 77
== END 2022-10-27 19:54 | disposition home or self-care (01) ==
LOC: JD.ED 17:36
DX: S61.412A Laceration without foreign body of left hand, initial encounter (principal); F17.210 Nicotine dependence, cigarettes, uncomplicated; Z88.0 Allergy status to penicillin; Z23 Encounter for immunization; Z79.899 Other long term (current) drug therapy; W27.4XXA Contact with kitchen utensil, initial encounter
CPT/HCPCS: 12002; 90471; 90715; 99282; 99282-25; J3490

== ENCOUNTER 2022-11-27 18:54 | Emergency (ER) | payer BC ==
[2022-11-27] MEDS ORDERED: Ketorolac 30 MG/ML SDV IVPUSH ONE (19:23)
[2022-11-27] MEDS ORDERED: Ondansetron 4 MG/2 ML SDV IVPUSH ONE ×2 (19:23→21:15)
[2022-11-27] MEDS ORDERED: Sodium Chloride 0.9% 1,000 ML IV ONE ×2 (19:23→21:03)
[2022-11-27] MEDS ORDERED: LORazepam 2 MG/ML SDV IVPUSH ONE (19:23)
[2022-11-27 19:41] LABS: BASOPHILS PERCENT AUTO 0.2 % (0.0-1.0); HEMATOCRIT 48.9 % (37.0-47.0); HEMOGLOBIN 17.7 gm/dl (12.0-16.0); IMMATURE GRAN ABSOLUTE AUTO 0.06 K/mm3 (0.00-0.05); IMMATURE GRAN PERCENT AUTO 0.5 % (0.0-0.4); LYMPHOCYTES ABSOLUTE AUTO 0.8 K/mm3 (1.0-4.8); MEAN CORPUSCULAR HEMOGLOBIN 33.1 pg (28.0-32.0); MEAN CORPUSCULAR HGB CONC 36.2 g/dl (32.0-36.0); MEAN CORPUSCULAR VOLUME 91.6 fl (83.0-99.0); MEAN PLATELET VOLUME 10.1 fl (9.4-12.3); MONOCYTES PERCENT AUTO 8.7 % (0.0-8.0); NEUTROPHILS PERCENT AUTO 83.6 % (41.0-71.0); PLATELET COUNT,PLT 320 K/mm3 (150-400); RED BLOOD CELL COUNT 5.34 M/mm3 (4.10-5.30); WHITE BLOOD CELL COUNT,WBC 11.96 K/mm3 (3.9-11.3)
[2022-11-27 20:45] LABS: A/G RATIO 1.3 (1-2); ALBUMIN 4.8 g/dl (3.4-5.0); ANION GAP 23.2 (5-15); BILIRUBIN TOTAL 1.6 mg/dL (0.2-1.0); BUN/CREATININE RATIO 17.3 (14-18); CALCIUM 9.5 mg/dL (8.5-10.1); CREATININE 2.2 mg/dL (0.55-1.02); EST CRCL DRUG DOSING (CG) 34.92 mL/min; POTASSIUM,K 3.2 mEq/L (3.5-5.1); PROTEIN TOTAL,TP 8.4 g/dl (6.4-8.2)
[2022-11-27 20:46] LABS: BARBITURATE SCREEN,URINE NEGATIVE (CUTOFF=200); BENZODIAZEPINES SCREEN,URINE NEGATIVE (CUTOFF=150); BUPRENORPHINE SCREEN,URINE NEGATIVE (CUTOFF=10); METHADONE SCREEN, URINE NEGATIVE (CUTOFF=200); METHAMPHETAMINES SCREEN, URINE NEGATIVE (CUTOFF=500); OXYCODONE SCREEN,URINE NEGATIVE (CUT0FF=100); PROPOXYPHENE SCREEN,URINE NEGATIVE (CUTOFF=300); THC SCREEN,URINE 20 NG/ML NEGATIVE (CUTOFF=50)
[2022-11-27 20:53] LABS: AMPHETAMINES SCREEN, URINE PRESUMPTIVE POSITIVE (CUTOFF=500)
[2022-11-27] MEDS ORDERED: Potassium Chloride 20 MEQ Tab.ER PO ONE (21:04)
[2022-11-27 23:27] VITALS: BP 114/74; PULSE 110
== END 2022-11-27 22:20 | disposition home or self-care (01) ==
LOC: JD.ED 18:54
DX: G43.909 Migraine, unspecified, not intractable, without status migrainosus (principal); Z88.0 Allergy status to penicillin; Z79.899 Other long term (current) drug therapy
CPT/HCPCS: 36415; 80053; 80306; 80307; 83690; 85025; 96361; 96374; 96375; 96376; 99284; A9270; J1885; J2060; J2405; J7030

== ENCOUNTER 2022-12-05 05:13 | Emergency (ER) | payer BC ==
[2022-12-05] MEDS ORDERED: Sodium Chloride 0.9% 1,000 ML IV ONE (05:39)
[2022-12-05] MEDS ORDERED: LORazepam 2 MG/ML SDV IVPUSH ONE ×2 (05:40→09:43)
[2022-12-05] MEDS ORDERED: Thiamine 200 MG/2 ML MDV IM ONE (05:41)
[2022-12-05 05:57] LABS: BASOPHILS ABSOLUTE AUTO 0.1 K/mm3 (0.0-0.2); BASOPHILS PERCENT AUTO 0.7 % (0.0-1.0); EOSINOPHILS PERCENT AUTO 0.1 % (0.0-6.0); HEMATOCRIT 45.4 % (37.0-47.0); HEMOGLOBIN 15.3 gm/dl (12.0-16.0); IMMATURE GRAN ABSOLUTE AUTO 0.02 K/mm3 (0.00-0.05); IMMATURE GRAN PERCENT AUTO 0.3 % (0.0-0.4); LYMPHOCYTES ABSOLUTE AUTO 1.2 K/mm3 (1.0-4.8); LYMPHOCYTES PERCENT AUTO 15.6 % (24.0-44.0); MEAN CORPUSCULAR HEMOGLOBIN 33.3 pg (28.0-32.0); MEAN CORPUSCULAR HGB CONC 33.7 g/dl (32.0-36.0); MEAN CORPUSCULAR VOLUME 98.9 fl (83.0-99.0); MEAN PLATELET VOLUME 9.2 fl (9.4-12.3); MONOCYTES ABSOLUTE AUTO 0.8 K/mm3 (0.0-0.8); MONOCYTES PERCENT AUTO 10.4 % (0.0-8.0); NEUTROPHILS ABSOLUTE AUTO 5.5 K/mm3 (1.8-7.7); NEUTROPHILS PERCENT AUTO 72.9 % (41.0-71.0); PLATELET COUNT,PLT 385 K/mm3 (150-400); RED BLOOD CELL COUNT 4.59 M/mm3 (4.10-5.30); WHITE BLOOD CELL COUNT,WBC 7.56 K/mm3 (3.9-11.3)
[2022-12-05 05:58] LABS: APPEARANCE,URINE CLEAR (Clear); BILIRUBIN,URINE NEGATIVE (Negative); COLOR,URINE LIGHT YELLOW (Yellow); GLUCOSE,URINE NEGATIVE (Negative); KETONES,URINE NEGATIVE (Negative); LEUKOCYTE ESTERASE,URINE NEGATIVE (Negative); NITRITE,URINE NEGATIVE (Negative); OCCULT BLOOD,URINE NEGATIVE (Negative); PH,URINE 7.5 (5.0-8.0); PROTEIN,URINE 2+ (Negative); UROBILINOGEN,URINE 0.2 (0.2-1.0)
[2022-12-05 06:25] LABS: BARBITURATE SCREEN,URINE NEGATIVE (CUTOFF=200); BENZODIAZEPINES SCREEN,URINE NEGATIVE (CUTOFF=150); BUPRENORPHINE SCREEN,URINE NEGATIVE (CUTOFF=10); METHADONE SCREEN, URINE NEGATIVE (CUTOFF=200); METHAMPHETAMINES SCREEN, URINE NEGATIVE (CUTOFF=500); OXYCODONE SCREEN,URINE NEGATIVE (CUT0FF=100); PROPOXYPHENE SCREEN,URINE NEGATIVE (CUTOFF=300); THC SCREEN,URINE 20 NG/ML NEGATIVE (CUTOFF=50)
[2022-12-05 06:29] LABS: AMPHETAMINES SCREEN, URINE NEGATIVE (CUTOFF=500)
[2022-12-05 06:31] LABS: A/G RATIO 1.2 (1-2); ALBUMIN 4.4 g/dl (3.4-5.0); ANION GAP 17.6 (5-15); BILIRUBIN TOTAL 0.7 mg/dL (0.2-1.0); BUN/CREATININE RATIO 6.3 (14-18); CALCIUM 8.7 mg/dL (8.5-10.1); CREATININE 0.8 mg/dL (0.55-1.02); EST CRCL DRUG DOSING (CG) 96.03 mL/min; MAGNESIUM 2.3 mg/dL (1.8-2.4); POTASSIUM,K 3.6 mEq/L (3.5-5.1); TSH 2.114 uIU/mL (0.358-3.74)
[2022-12-05 07:21] LABS: BACTERIA,URINE FEW /hpf (FEW); MUCUS,URINE NOT SEEN /hpf (FEW); RBC,URINE 0-5 /hpf (0-5); SQUAMOUS EPITHELIAL CELLS,UR 0-5 /hpf (0-5); WBC,URINE NOT SEEN /hpf (0-5)
[2022-12-05] MEDS ORDERED: Phosphorus #1 250 MG Tab PO ONE (07:32)
[2022-12-05] MEDS ORDERED: LORazepam 1 MG Tab PO ONE (07:54)
[2022-12-05] MEDS ORDERED: Acetaminophen/oxyCODONE 325-5 MG Tab PO ONE (07:54)
[2022-12-05] MEDS ORDERED: Ondansetron 4 MG Tab.DIS PO ONE (07:55)
[2022-12-05 08:18] VITALS: PULSE 95
[2022-12-05] MEDS ORDERED: Ondansetron 4 MG/2 ML SDV IVPUSH ONE (09:43)
[2022-12-05 12:57] VITALS: BP 155/105
== END 2022-12-05 09:23 | disposition home or self-care (01) ==
LOC: JD.ED 05:13
DX: F10.230 Alcohol dependence with withdrawal, uncomplicated (principal); E83.39 Other disorders of phosphorus metabolism; Z79.899 Other long term (current) drug therapy; Z88.0 Allergy status to penicillin; Z90.49 Acquired absence of other specified parts of digestive tract
CPT/HCPCS: 36415; 70450; 80053; 80306; 80307; 81001; 83690; 83735; 84100; 84443; 85025; 96361; 96372; 96374; 96375; 96376; 99284; 99285; A9270; J2060; J2405; J3411; J3490; J7030

== ENCOUNTER 2022-12-05 13:45 | Emergency (ER) | payer BC ==
[2022-12-05] MEDS ORDERED: Sodium Chloride 0.9% 10 ML Syringe FLUSH PRN (14:19)
[2022-12-05] MEDS ORDERED: Ondansetron 4 MG/2 ML SDV IVPUSH ONE (14:19)
[2022-12-05] MEDS ORDERED: Sodium Chloride 0.9% 1,000 ML IV SCH (14:30)
[2022-12-05 15:25] LABS: BARBITURATE SCREEN,URINE NEGATIVE (CUTOFF=200); BENZODIAZEPINES SCREEN,URINE PRESUMPTIVE POSITIVE (CUTOFF=150); BUPRENORPHINE SCREEN,URINE NEGATIVE (CUTOFF=10); METHADONE SCREEN, URINE NEGATIVE (CUTOFF=200); METHAMPHETAMINES SCREEN, URINE NEGATIVE (CUTOFF=500); OXYCODONE SCREEN,URINE NEGATIVE (CUT0FF=100); PROPOXYPHENE SCREEN,URINE NEGATIVE (CUTOFF=300); THC SCREEN,URINE 20 NG/ML NEGATIVE (CUTOFF=50)
[2022-12-05 15:45] LABS: A/G RATIO 1.1 (1-2); ALBUMIN 3.5 g/dl (3.4-5.0); ANION GAP 15.1 (5-15); BILIRUBIN TOTAL 0.4 mg/dL (0.2-1.0); BUN/CREATININE RATIO 5.7 (14-18); CALCIUM 7.9 mg/dL (8.5-10.1); CREATININE 0.7 mg/dL (0.55-1.02); EST CRCL DRUG DOSING (CG) 91.32 mL/min; ETHANOL BLOOD MEDICAL 0.29 gm% (0.00); POTASSIUM,K 3.1 mEq/L (3.5-5.1); PROTEIN TOTAL,TP 6.7 g/dl (6.4-8.2)
[2022-12-05 15:49] LABS: AMPHETAMINES SCREEN, URINE NEGATIVE (CUTOFF=500)
[2022-12-05 16:03] LABS: BASOPHILS ABSOLUTE AUTO 0.1 K/mm3 (0.0-0.2); BASOPHILS PERCENT AUTO 1.1 % (0.0-1.0); EOSINOPHILS ABSOLUTE AUTO 0.1 K/mm3 (0.0-0.4); EOSINOPHILS PERCENT AUTO 1.7 % (0.0-6.0); HEMATOCRIT 39.3 % (37.0-47.0); HEMOGLOBIN 13.1 gm/dl (12.0-16.0); IMMATURE GRAN ABSOLUTE AUTO 0.02 K/mm3 (0.00-0.05); IMMATURE GRAN PERCENT AUTO 0.4 % (0.0-0.4); LYMPHOCYTES ABSOLUTE AUTO 1.1 K/mm3 (1.0-4.8); LYMPHOCYTES PERCENT AUTO 22.4 % (24.0-44.0); MEAN CORPUSCULAR HEMOGLOBIN 33.5 pg (28.0-32.0); MEAN CORPUSCULAR HGB CONC 33.3 g/dl (32.0-36.0); MEAN CORPUSCULAR VOLUME 100.5 fl (83.0-99.0); MEAN PLATELET VOLUME 9.6 fl (9.4-12.3); MONOCYTES ABSOLUTE AUTO 0.6 K/mm3 (0.0-0.8); MONOCYTES PERCENT AUTO 12.5 % (0.0-8.0); NEUTROPHILS ABSOLUTE AUTO 2.9 K/mm3 (1.8-7.7); NEUTROPHILS PERCENT AUTO 61.9 % (41.0-71.0); PLATELET COUNT,PLT 354 K/mm3 (150-400); RED BLOOD CELL COUNT 3.91 M/mm3 (4.10-5.30); WHITE BLOOD CELL COUNT,WBC 4.73 K/mm3 (3.9-11.3)
[2022-12-05 18:33] VITALS: BP 129/89; PULSE 87
== END 2022-12-05 18:37 | disposition home or self-care (01) ==
LOC: JD.ED 13:45
DX: F10.129 Alcohol abuse with intoxication, unspecified (principal); Z88.0 Allergy status to penicillin; Z79.899 Other long term (current) drug therapy; Z90.49 Acquired absence of other specified parts of digestive tract
CPT/HCPCS: 36415; 80053; 80306; 80307; 83690; 85025; 96361; 96374; 99284; J2405; J3490; J7030

== ENCOUNTER 2022-12-08 16:27 | Emergency (ER) | payer BC ==
[2022-12-08] MEDS ORDERED: Lactated Ringers 1,000 ML IV ONE (17:14)
[2022-12-08] MEDS ORDERED: Ondansetron 4 MG/2 ML SDV IVPUSH ONE (17:14)
[2022-12-08 18:01] LABS: BASOPHILS ABSOLUTE AUTO 0.1 K/mm3 (0.0-0.2); EOSINOPHILS ABSOLUTE AUTO 0.1 K/mm3 (0.0-0.4); EOSINOPHILS PERCENT AUTO 1.8 % (0.0-6.0); HEMATOCRIT 41.9 % (37.0-47.0); HEMOGLOBIN 14.2 gm/dl (12.0-16.0); IMMATURE GRAN ABSOLUTE AUTO 0.02 K/mm3 (0.00-0.05); IMMATURE GRAN PERCENT AUTO 0.3 % (0.0-0.4); LYMPHOCYTES PERCENT AUTO 13.5 % (24.0-44.0); MEAN CORPUSCULAR HEMOGLOBIN 34.2 pg (28.0-32.0); MEAN CORPUSCULAR HGB CONC 33.9 g/dl (32.0-36.0); MEAN PLATELET VOLUME 9.1 fl (9.4-12.3); MONOCYTES ABSOLUTE AUTO 0.5 K/mm3 (0.0-0.8); NEUTROPHILS PERCENT AUTO 77.4 % (41.0-71.0); PLATELET COUNT,PLT 340 K/mm3 (150-400); RED BLOOD CELL COUNT 4.15 M/mm3 (4.10-5.30); WHITE BLOOD CELL COUNT,WBC 7.69 K/mm3 (3.9-11.3)
[2022-12-08 18:20] LABS: INR 0.94; PROTHROMBIN TIME 10.1 SECONDS (9.7-12.0)
[2022-12-08 18:31] LABS: A/G RATIO 1.2 (1-2); ALANINE AMINOTRANSFERASE,ALT 88 U/L (14-59); ALKALINE PHOSPHATASE 87 U/L (46-116); ANION GAP 15.1 (5-15); ASPARTATE AMNIOTRANSFERASE,AST 56 U/L (15-37); BILIRUBIN TOTAL 0.4 mg/dL (0.2-1.0); BLOOD UREA NITROGEN,BUN 8 mg/dL (7-18); CALCIUM 9.2 mg/dL (8.5-10.1); CARBON DIOXIDE,CO2 27 mEq/L (21-32); CHLORIDE,CL 103 mEq/L (98-107); CREATININE 0.8 mg/dL (0.55-1.02); ESTIMATED GFR 93 mL/min (>60); ETHANOL BLOOD MEDICAL 0.37 gm% (0.00); GLUCOSE RANDOM 100 mg/dL (70-99); POTASSIUM,K 3.1 mEq/L (3.5-5.1); PROTEIN TOTAL,TP 7.4 g/dl (6.4-8.2); SODIUM,NA 142 mEq/L (136-145)
[2022-12-08] MEDS ORDERED: Acetaminophen 325 MG Tab PO ONE (19:28)
[2022-12-08 20:53] VITALS: BP 118/71; PULSE 91
== END 2022-12-08 20:51 ==
LOC: JD.ED 16:27
DX: F10.129 Alcohol abuse with intoxication, unspecified (principal); Y90.0 Blood alcohol level of less than 20 mg/100 ml; E87.6 Hypokalemia; Z88.0 Allergy status to penicillin
CPT/HCPCS: 36415; 70450; 80053; 80307; 85025; 85610; 96361; 96374; 99284; A9270; J2405; J7120; 99283

== ENCOUNTER 2022-12-18 12:07 | Emergency (ER) | payer BC ==
[2022-12-18] MEDS ORDERED: Ondansetron 4 MG/2 ML SDV IVPUSH ONE (12:42)
[2022-12-18] MEDS ORDERED: Sodium Chloride 0.9% 1,000 ML IV ONE ×2 (12:42→16:56)
[2022-12-18] MEDS ORDERED: Sodium Chloride 0.9% 10 ML Syringe FLUSH PRN (12:42)
[2022-12-18] MEDS ORDERED: HYDROmorphone 0.5 MG/0.5 ML Syringe IVPUSH ONE ×2 (12:42→16:56)
[2022-12-18 14:02] LABS: BASOPHILS PERCENT AUTO 0.4 % (0.0-1.0); HEMATOCRIT 44.9 % (37.0-47.0); HEMOGLOBIN 16.1 gm/dl (12.0-16.0); IMMATURE GRAN ABSOLUTE AUTO 0.12 K/mm3 (0.00-0.05); IMMATURE GRAN PERCENT AUTO 1.1 % (0.0-0.4); LYMPHOCYTES ABSOLUTE AUTO 0.6 K/mm3 (1.0-4.8); LYMPHOCYTES PERCENT AUTO 5.7 % (24.0-44.0); MEAN CORPUSCULAR HEMOGLOBIN 32.5 pg (28.0-32.0); MEAN CORPUSCULAR HGB CONC 35.9 g/dl (32.0-36.0); MEAN CORPUSCULAR VOLUME 90.5 fl (83.0-99.0); MEAN PLATELET VOLUME 9.8 fl (9.4-12.3); MONOCYTES ABSOLUTE AUTO 0.9 K/mm3 (0.0-0.8); MONOCYTES PERCENT AUTO 7.7 % (0.0-8.0); NEUTROPHILS ABSOLUTE AUTO 9.4 K/mm3 (1.8-7.7); NEUTROPHILS PERCENT AUTO 85.1 % (41.0-71.0); PLATELET COUNT,PLT 246 K/mm3 (150-400); RED BLOOD CELL COUNT 4.96 M/mm3 (4.10-5.30); WHITE BLOOD CELL COUNT,WBC 11.08 K/mm3 (3.9-11.3)
[2022-12-18] MEDS ORDERED: LORazepam 2 MG/ML SDV IVPUSH ONE (14:02)
[2022-12-18 14:22] LABS: A/G RATIO 1.2 (1-2); ALANINE AMINOTRANSFERASE,ALT 159 U/L (14-59); ALBUMIN 4.6 g/dl (3.4-5.0); ALKALINE PHOSPHATASE 112 U/L (46-116); ANION GAP 18.3 (5-15); BILIRUBIN TOTAL 2.5 mg/dL (0.2-1.0); BLOOD UREA NITROGEN,BUN 13 mg/dL (7-18); BUN/CREATININE RATIO 16.3 (14-18); C-REACTIVE PROTEIN <0.2 mg/dL (<1.0); CARBON DIOXIDE,CO2 27 mEq/L (21-32); CHLORIDE,CL 81 mEq/L (98-107); CREATININE 0.8 mg/dL (0.55-1.02); EST CRCL DRUG DOSING (CG) 96.03 mL/min; ESTIMATED GFR 93 mL/min (>60); GLUCOSE RANDOM 121 mg/dL (70-99); LIPASE 23 U/L (16-77); MAGNESIUM 1.4 mg/dL (1.8-2.4); PROTEIN TOTAL,TP 8.3 g/dl (6.4-8.2); SODIUM,NA 123 mEq/L (136-145)
[2022-12-18 14:23] LABS: POTASSIUM,K 3.3 mEq/L (3.5-5.1)
[2022-12-18 14:24] LABS: ASPARTATE AMNIOTRANSFERASE,AST 156 U/L (15-37)
[2022-12-18] MEDS ORDERED: Magnesium Sulfate/Water 2 GM in Premix Bag 1 BAG IV ONE (14:26)
[2022-12-18] MEDS ORDERED: Sodium Chloride 0.9% 10 ML Syringe FLUSH ONE (14:58)
[2022-12-18] MEDS ORDERED: Iopamidol 612 MG/ML 100 ML Bottle IVPUSH ONE (14:58)
[2022-12-18] MEDS ORDERED: Metoclopramide 10 MG/2 ML SDV IVPUSH ONE (16:56)
[2022-12-18] MEDS ORDERED: Potassium Chloride 10 MEQ in Premix Bag 1 BAG IV SCH (17:00)
[2022-12-18 17:01] LABS: APPEARANCE,URINE CLEAR (Clear); BILIRUBIN,URINE NEGATIVE (Negative); COLOR,URINE YELLOW (Yellow); GLUCOSE,URINE NEGATIVE (Negative); KETONES,URINE NEGATIVE (Negative); LEUKOCYTE ESTERASE,URINE NEGATIVE (Negative); NITRITE,URINE NEGATIVE (Negative); OCCULT BLOOD,URINE TRACE-LYSED (Negative); PH,URINE 8.5 (5.0-8.0); PROTEIN,URINE 2+ (Negative); UROBILINOGEN,URINE 0.2 (0.2-1.0)
[2022-12-18 18:13] LABS: RBC,URINE 0-5 /hpf (0-5); WBC,URINE 0-5 /hpf (0-5)
[2022-12-18 18:14] LABS: BACTERIA,URINE FEW /hpf (FEW)
[2022-12-18 18:15] LABS: MUCUS,URINE FEW /hpf (FEW)
[2022-12-18 19:18] VITALS: BP 102/71; PULSE 88
== END 2022-12-18 19:15 | disposition home or self-care (01) ==
LOC: JD.ED 12:07
DX: E86.1 Hypovolemia (principal); R11.2 Nausea with vomiting, unspecified; Z90.49 Acquired absence of other specified parts of digestive tract; Z88.0 Allergy status to penicillin; Z79.899 Other long term (current) drug therapy
CPT/HCPCS: 36415; 74177; 80053; 80307; 81001; 82977; 83690; 83735; 84703; 85025; 86140; 96365; 96366; 96367; 96375; 96376; 99284; J1170; J2060; J2405; J2765; J3475; J3480; J3490; J7030; Q9967

== ENCOUNTER 2023-10-27 18:38 | Emergency (ER) | payer BC ==
[2023-10-27 19:59] VITALS: BP 154/106; PULSE 86
[2023-10-27 20:56] LABS: BASOPHILS PERCENT AUTO 0.1 % (0.0-1.0); EOSINOPHILS PERCENT AUTO 0.1 % (0.0-6.0); HEMATOCRIT 43.5 % (37.0-47.0); HEMOGLOBIN 15.5 gm/dl (12.0-16.0); IMMATURE GRAN ABSOLUTE AUTO 0.03 K/mm3 (0.00-0.05); IMMATURE GRAN PERCENT AUTO 0.3 % (0.0-0.4); LYMPHOCYTES ABSOLUTE AUTO 1.3 K/mm3 (1.0-4.8); MEAN CORPUSCULAR HEMOGLOBIN 30.8 pg (28.0-32.0); MEAN CORPUSCULAR HGB CONC 35.6 g/dl (32.0-36.0); MEAN CORPUSCULAR VOLUME 86.3 fl (83.0-99.0); MEAN PLATELET VOLUME 10.1 fl (9.4-12.3); MONOCYTES ABSOLUTE AUTO 0.9 K/mm3 (0.0-0.8); MONOCYTES PERCENT AUTO 9.6 % (0.0-8.0); NEUTROPHILS ABSOLUTE AUTO 6.9 K/mm3 (1.8-7.7); NEUTROPHILS PERCENT AUTO 75.9 % (41.0-71.0); PLATELET COUNT,PLT 343 K/mm3 (150-400); RED BLOOD CELL COUNT 5.04 M/mm3 (4.10-5.30); WHITE BLOOD CELL COUNT,WBC 9.15 K/mm3 (3.9-11.3)
[2023-10-27] MEDS ORDERED: Naloxone 0.4 MG/ML SDV IVPUSH PRN (21:14)
[2023-10-27 21:19] LABS: A/G RATIO 1.4 (1-2); ALBUMIN 4.5 g/dl (3.4-5.0); ANION GAP 19.3 (5-15); BILIRUBIN TOTAL 1.3 mg/dL (0.2-1.0); BUN/CREATININE RATIO 18.8 (14-18); C-REACTIVE PROTEIN 0.09 mg/dL (<0.30); CALCIUM 9.3 mg/dL (8.5-10.1); CREATININE 0.8 mg/dL (0.55-1.02); EST CRCL DRUG DOSING (CG) 95.02 mL/min; POTASSIUM,K 3.3 mEq/L (3.5-5.1); PROTEIN TOTAL,TP 7.7 g/dl (6.4-8.2)
[2023-10-27] MEDS: Sodium Chloride 0.9% 1,000 ML IV ONE (21:30)
[2023-10-27] MEDS: Ondansetron 4 MG/2 ML SDV IVPUSH ONE (21:30)
[2023-10-27] MEDS: Sodium Chloride 0.9% 10 ML Syringe FLUSH PRN (21:30)
[2023-10-27] MEDS: HYDROmorphone 1 MG/ML Syringe IVPUSH ONE (22:11)
[2023-10-28 00:39] LABS: APPEARANCE,URINE CLEAR (Clear); BILIRUBIN,URINE NEGATIVE (Negative); COLOR,URINE YELLOW (Yellow); GLUCOSE,URINE NEGATIVE (Negative); KETONES,URINE 2+ (Negative); LEUKOCYTE ESTERASE,URINE NEGATIVE (Negative); NITRITE,URINE NEGATIVE (Negative); OCCULT BLOOD,URINE NEGATIVE (Negative); PH,URINE 6.5 (5.0-8.0); PROTEIN,URINE 1+ (Negative)
[2023-10-28] MEDS: Sodium Chloride 0.9% 1,000 ML IV ONE (00:39)
[2023-10-28 00:46] LABS: BARBITURATE SCREEN,URINE NEGATIVE (CUTOFF=200); BENZODIAZEPINES SCREEN,URINE NEGATIVE (CUTOFF=150); BUPRENORPHINE SCREEN,URINE NEGATIVE (CUTOFF=10); METHADONE SCREEN, URINE NEGATIVE (CUTOFF=200); METHAMPHETAMINES SCREEN, URINE NEGATIVE (CUTOFF=500); OXYCODONE SCREEN,URINE NEGATIVE (CUT0FF=100); THC SCREEN,URINE 20 NG/ML PRESUMPTIVE POSITIVE (CUTOFF=50)
[2023-10-28 00:55] LABS: BACTERIA,URINE FEW /hpf (FEW); MUCUS,URINE FEW /hpf (FEW); RBC,URINE 0-5 /hpf (0-5); SQUAMOUS EPITHELIAL CELLS,UR 0-5 /hpf (0-5); WBC,URINE 0-5 /hpf (0-5)
[2023-10-28 00:59] LABS: AMPHETAMINES SCREEN, URINE PRESUMPTIVE POSITIVE (CUTOFF=500)
[2023-10-28] MEDS: Ondansetron 4 MG/2 ML SDV IVPUSH ONE (01:54)
== END 2023-10-28 01:54 | disposition home or self-care (01) ==
LOC: JD.ED 18:38
DX: R10.9 Unspecified abdominal pain (principal); F10.10 Alcohol abuse, uncomplicated; Z88.0 Allergy status to penicillin; Z79.899 Other long term (current) drug therapy
CPT/HCPCS: 36415; 74176; 80053; 80306; 80307; 81001; 84703; 85025; 86140; 96361; 96374; 96375; 99284; J1170; J2405; J3490; J7030

== ENCOUNTER 2023-12-04 13:40 | Emergency (ER) | payer BC ==
[2023-12-04] MEDS ORDERED: Ondansetron 4 MG/2 ML SDV IVPUSH ONE (14:09)
[2023-12-04] MEDS ORDERED: Sodium Chloride 0.9% 500 ML IV ONE (14:09)
[2023-12-04 14:45] LABS: BASOPHILS PERCENT AUTO 0.6 % (0.0-1.0); EOSINOPHILS ABSOLUTE AUTO 0.1 K/mm3 (0.0-0.4); EOSINOPHILS PERCENT AUTO 1.5 % (0.0-6.0); HEMATOCRIT 48.5 % (37.0-47.0); HEMOGLOBIN 16.9 gm/dl (12.0-16.0); IMMATURE GRAN ABSOLUTE AUTO 0.01 K/mm3 (0.00-0.05); IMMATURE GRAN PERCENT AUTO 0.1 % (0.0-0.4); LYMPHOCYTES ABSOLUTE AUTO 0.9 K/mm3 (1.0-4.8); LYMPHOCYTES PERCENT AUTO 12.5 % (24.0-44.0); MEAN CORPUSCULAR HGB CONC 34.8 g/dl (32.0-36.0); MEAN CORPUSCULAR VOLUME 91.9 fl (83.0-99.0); MEAN PLATELET VOLUME 9.4 fl (9.4-12.3); MONOCYTES ABSOLUTE AUTO 0.2 K/mm3 (0.0-0.8); MONOCYTES PERCENT AUTO 2.6 % (0.0-8.0); NEUTROPHILS ABSOLUTE AUTO 5.6 K/mm3 (1.8-7.7); NEUTROPHILS PERCENT AUTO 82.7 % (41.0-71.0); PLATELET COUNT,PLT 416 K/mm3 (150-400); RED BLOOD CELL COUNT 5.28 M/mm3 (4.10-5.30); WHITE BLOOD CELL COUNT,WBC 6.82 K/mm3 (3.9-11.3)
[2023-12-04] MEDS: Ondansetron 4 MG Tab.DIS PO ONE (14:48)
[2023-12-04 15:08] LABS: A/G RATIO 1.4 (1-2); ALBUMIN 5.1 g/dl (3.4-5.0); BILIRUBIN TOTAL 0.7 mg/dL (0.2-1.0); BUN/CREATININE RATIO 21.3 (14-18); CALCIUM 9.7 mg/dL (8.5-10.1); CREATININE 0.8 mg/dL (0.55-1.02); EST CRCL DRUG DOSING (CG) 88.64 mL/min; ETHANOL BLOOD MEDICAL 0.2 gm% (0.00); PROTEIN TOTAL,TP 8.7 g/dl (6.4-8.2)
[2023-12-04] MEDS: Potassium Chloride 20 MEQ Tab.ER PO ONE (15:26)
[2023-12-04 15:32] VITALS: BP 136/80; PULSE 80
== END 2023-12-04 15:30 | disposition other institution (70) ==
LOC: JD.ED 13:40
DX: F10.129 Alcohol abuse with intoxication, unspecified (principal); Z90.49 Acquired absence of other specified parts of digestive tract; Z88.0 Allergy status to penicillin
CPT/HCPCS: 36415; 80053; 80307; 85025; 99284; A9270-GY

== ENCOUNTER 2024-01-24 08:59 | Emergency (ER) | payer BC ==
[2024-01-24 11:02] LABS: BASOPHILS ABSOLUTE AUTO 0.1 K/mm3 (0.0-0.2); BASOPHILS PERCENT AUTO 0.8 % (0.0-1.0); EOSINOPHILS PERCENT AUTO 0.3 % (0.0-6.0); HEMATOCRIT 46.3 % (37.0-47.0); HEMOGLOBIN 15.9 gm/dl (12.0-16.0); IMMATURE GRAN ABSOLUTE AUTO 0.02 K/mm3 (0.00-0.05); IMMATURE GRAN PERCENT AUTO 0.3 % (0.0-0.4); LYMPHOCYTES ABSOLUTE AUTO 0.6 K/mm3 (1.0-4.8); LYMPHOCYTES PERCENT AUTO 9.9 % (24.0-44.0); MEAN CORPUSCULAR HEMOGLOBIN 32.1 pg (28.0-32.0); MEAN CORPUSCULAR HGB CONC 34.3 g/dl (32.0-36.0); MEAN CORPUSCULAR VOLUME 93.5 fl (83.0-99.0); MEAN PLATELET VOLUME 9.5 fl (9.4-12.3); MONOCYTES ABSOLUTE AUTO 0.2 K/mm3 (0.0-0.8); MONOCYTES PERCENT AUTO 3.1 % (0.0-8.0); NEUTROPHILS ABSOLUTE AUTO 5.4 K/mm3 (1.8-7.7); NEUTROPHILS PERCENT AUTO 85.6 % (41.0-71.0); PLATELET COUNT,PLT 401 K/mm3 (150-400); RED BLOOD CELL COUNT 4.95 M/mm3 (4.10-5.30); WHITE BLOOD CELL COUNT,WBC 6.35 K/mm3 (3.9-11.3)
[2024-01-24] MEDS: Metoclopramide 10 MG/2 ML SDV IVPUSH ONE (11:03)
[2024-01-24] MEDS: Sodium Chloride 0.9% 1,000 ML IV ONE ×2 (11:03→12:43)
[2024-01-24] MEDS: diphenhydrAMINE 50 MG/ML SDV IVPUSH ONE (11:03)
[2024-01-24 11:26] LABS: A/G RATIO 1.3 (1-2); ALANINE AMINOTRANSFERASE,ALT 118 U/L (14-59); ALBUMIN 4.4 g/dl (3.4-5.0); ALKALINE PHOSPHATASE 85 U/L (46-116); ASPARTATE AMNIOTRANSFERASE,AST 78 U/L (15-37); BILIRUBIN TOTAL 1.5 mg/dL (0.2-1.0); BLOOD UREA NITROGEN,BUN 9 mg/dL (7-18); BUN/CREATININE RATIO 12.9 (14-18); CALCIUM 9.7 mg/dL (8.5-10.1); CARBON DIOXIDE,CO2 25 mEq/L (21-32); CHLORIDE,CL 93 mEq/L (98-107); CREATININE 0.7 mg/dL (0.55-1.02); EST CRCL DRUG DOSING (CG) 97.65 mL/min; ESTIMATED GFR 108 mL/min (>60); ETHANOL BLOOD MEDICAL 0.22 gm% (0.00); GLUCOSE RANDOM 112 mg/dL (70-99); LIPASE 20 U/L (16-77); PROTEIN TOTAL,TP 7.9 g/dl (6.4-8.2); SODIUM,NA 133 mEq/L (136-145)
[2024-01-24 11:30] LABS: C-REACTIVE PROTEIN < 0.05 mg/dL (<0.30)
[2024-01-24] MEDS: Potassium Chloride 10 MEQ in Premix Bag 1 BAG IV SCH (12:43)
[2024-01-24] MEDS: Ondansetron 4 MG/2 ML SDV IVPUSH ONE ×2 (13:27→15:52)
[2024-01-24] MEDS: Ketorolac 30 MG/ML SDV IVPUSH ONE (13:27)
[2024-01-24 13:37] LABS: APPEARANCE,URINE TURBID (Clear); BILIRUBIN,URINE NEGATIVE (Negative); COLOR,URINE YELLOW (Yellow); GLUCOSE,URINE NEGATIVE (Negative); KETONES,URINE NEGATIVE (Negative); LEUKOCYTE ESTERASE,URINE 2+ (Negative); NITRITE,URINE NEGATIVE (Negative); OCCULT BLOOD,URINE TRACE-INTACT (Negative); PROTEIN,URINE 3+ (Negative); UROBILINOGEN,URINE 0.2 (0.2-1.0)
[2024-01-24 13:59] LABS: BACTERIA,URINE MANY /hpf (FEW); MUCUS,URINE FEW /hpf (FEW); SQUAMOUS EPITHELIAL CELLS,UR 0-5 /hpf (0-5); WBC,URINE 75-100 /hpf (0-5)
[2024-01-24] MEDS: Magnesium Citrate Solution 296 ML Bottle PO ONE (15:42)
[2024-01-24] MEDS: Cefdinir 300 MG Cap PO ONE (18:01)
[2024-01-24] MEDS ORDERED: Magnesium Citrate Solution 296 ML Bottle PO ONE (18:31)
[2024-01-24 19:08] VITALS: BP 135/85; PULSE 80
== END 2024-01-24 19:09 | disposition home or self-care (01) ==
LOC: JD.ED 08:59
DX: R51.9 Headache, unspecified (principal); R10.84 Generalized abdominal pain; Z90.49 Acquired absence of other specified parts of digestive tract; Z88.0 Allergy status to penicillin; Z79.899 Other long term (current) drug therapy
CPT/HCPCS: 36415; 70450; 74176; 80053; 80307; 81001; 81025; 83690; 83735; 85025; 86140; 87086; 87428; 96361; 96365; 96366; 96375; 96376; 99284; A9270; J1200; J1885; J2405; J2765; J3480; J7030; 87088; 87186

== ENCOUNTER 2024-03-15 15:59 | Inpatient (IN) | payer BC ==
[2024-03-15] MEDS: Sodium Chloride 0.9% 1,000 ML IV ONE (17:33)
[2024-03-15] MEDS: Ondansetron 4 MG/2 ML SDV IVPUSH ONE ×2 (17:33→20:14)
[2024-03-15 18:03] LABS: BASOPHILS PERCENT AUTO 0.3 % (0.0-1.0); EOSINOPHILS ABSOLUTE AUTO 0.1 K/mm3 (0.0-0.4); EOSINOPHILS PERCENT AUTO 1.2 % (0.0-6.0); HEMATOCRIT 48.6 % (37.0-47.0); HEMOGLOBIN 17.4 gm/dl (12.0-16.0); IMMATURE GRAN ABSOLUTE AUTO 0.04 K/mm3 (0.00-0.05); IMMATURE GRAN PERCENT AUTO 0.4 % (0.0-0.4); LYMPHOCYTES ABSOLUTE AUTO 0.7 K/mm3 (1.0-4.8); LYMPHOCYTES PERCENT AUTO 7.8 % (24.0-44.0); MEAN CORPUSCULAR HEMOGLOBIN 32.8 pg (28.0-32.0); MEAN CORPUSCULAR HGB CONC 35.8 g/dl (32.0-36.0); MEAN CORPUSCULAR VOLUME 91.7 fl (83.0-99.0); MONOCYTES ABSOLUTE AUTO 0.6 K/mm3 (0.0-0.8); MONOCYTES PERCENT AUTO 5.9 % (0.0-8.0); NEUTROPHILS ABSOLUTE AUTO 7.8 K/mm3 (1.8-7.7); NEUTROPHILS PERCENT AUTO 84.4 % (41.0-71.0); PLATELET COUNT,PLT 362 K/mm3 (150-400); WHITE BLOOD CELL COUNT,WBC 9.26 K/mm3 (3.9-11.3)
[2024-03-15 18:24] LABS: A/G RATIO 1.4 (1-2); ALBUMIN 4.8 g/dl (3.4-5.0); ANION GAP 25.4 (5-15); BILIRUBIN TOTAL 2.9 mg/dL (0.2-1.0); BUN/CREATININE RATIO 9.2 (14-18); CALCIUM 10.3 mg/dL (8.5-10.1); CREATININE 1.2 mg/dL (0.55-1.02); EST CRCL DRUG DOSING (CG) 63.35 mL/min; MAGNESIUM 1.1 mg/dL (1.8-2.4); POTASSIUM,K 3.4 mEq/L (3.5-5.1); PROTEIN TOTAL,TP 8.2 g/dl (6.4-8.2)
[2024-03-15 19:28] LABS: BARBITURATE SCREEN,URINE NEGATIVE (CUTOFF=200); BENZODIAZEPINES SCREEN,URINE NEGATIVE (CUTOFF=150); BUPRENORPHINE SCREEN,URINE NEGATIVE (CUTOFF=10); METHADONE SCREEN, URINE NEGATIVE (CUTOFF=200); METHAMPHETAMINES SCREEN, URINE NEGATIVE (CUTOFF=500); OXYCODONE SCREEN,URINE NEGATIVE (CUT0FF=100); THC SCREEN,URINE 20 NG/ML NEGATIVE (CUTOFF=50)
[2024-03-15 19:29] LABS: AMPHETAMINES SCREEN, URINE PRESUMPTIVE POSITIVE (CUTOFF=500)
[2024-03-15] MEDS ORDERED: Naloxone 0.4 MG/ML SDV IVPUSH PRN ×2 (20:07→21:37)
[2024-03-15] MEDS: HYDROmorphone 0.5 MG/0.5 ML Syringe IVPUSH ONE (20:14)
[2024-03-15] MEDS: Iopamidol 612 MG/ML 100 ML Bottle IVPUSH ONE (20:36)
[2024-03-15 21:13] LABS: APPEARANCE,URINE CLEAR (Clear); BILIRUBIN,URINE NEGATIVE (Negative); COLOR,URINE YELLOW (Yellow); GLUCOSE,URINE NEGATIVE (Negative); KETONES,URINE 2+ (Negative); LEUKOCYTE ESTERASE,URINE NEGATIVE (Negative); NITRITE,URINE NEGATIVE (Negative); OCCULT BLOOD,URINE TRACE-LYSED (Negative); PROTEIN,URINE 2+ (Negative); UROBILINOGEN,URINE 0.2 (0.2-1.0)
[2024-03-15 21:19] LABS: BACTERIA,URINE FEW /hpf (FEW); HYALINE CASTS,URINE 0-5 /lpf (0-5); MUCUS,URINE FEW /hpf (FEW); RBC,URINE 0-5 /hpf (0-5); WBC,URINE 0-5 /hpf (0-5)
[2024-03-15 21:54] LABS: PHOSPHORUS 3.5 mg/dL (2.6-4.7); TSH 1.503 uIU/mL (0.358-3.74)
[2024-03-16] MEDS: Sodium Chloride 0.9% 1,000 ML IV ONE (00:32)
[2024-03-16] MEDS: HYDROmorphone 0.5 MG/0.5 ML Syringe IVPUSH ONE ×3 (00:33→00:55)
[2024-03-16] MEDS: Levofloxacin/Dextrose 5%-Water 750 MG in Premix Bag 1 BAG IV ONE ×2 (00:34)
[2024-03-16] MEDS: Magnesium Sulfate/Water Premix 2 GM in Premix Bag 1 BAG IV ONE ×2 (00:39→02:04)
[2024-03-16] MEDS ORDERED: Naloxone 0.4 MG/ML SDV IVPUSH PRN ×2 (00:43→02:25)
[2024-03-16] MEDS: Alum Hydrox/Mag Hydrox/Simeth 30 ML, Lidocaine 2% 15 ML PO ONE (02:20)
[2024-03-16 02:36] LABS: A/G RATIO 1.2 (1-2); ALBUMIN 3.9 g/dl (3.4-5.0); ANION GAP 15.8 (5-15); BILIRUBIN TOTAL 2.1 mg/dL (0.2-1.0); CALCIUM 9.2 mg/dL (8.5-10.1); EST CRCL DRUG DOSING (CG) 76.02 mL/min; POTASSIUM,K 2.8 mEq/L (3.5-5.1); PROTEIN TOTAL,TP 7.1 g/dl (6.4-8.2)
[2024-03-16] MEDS: Metoprolol Tartrate 5 MG/5 ML SDV IVPUSH ONE (05:27)
[2024-03-16] MEDS ORDERED: D5 1/2 NS w/ 40 mEq/L KCl 1,000 ML IV SCH (05:30)
[2024-03-16] MEDS: NS with KCl 40mEq 1,000 ML IV SCH ×2 (05:31→19:43)
[2024-03-16 05:47] LABS: BASOPHILS PERCENT AUTO 0.2 % (0.0-1.0); EOSINOPHILS PERCENT AUTO 0.1 % (0.0-6.0); HEMATOCRIT 44.8 % (37.0-47.0); HEMOGLOBIN 15.8 gm/dl (12.0-16.0); IMMATURE GRAN ABSOLUTE AUTO 0.04 K/mm3 (0.00-0.05); IMMATURE GRAN PERCENT AUTO 0.4 % (0.0-0.4); LYMPHOCYTES ABSOLUTE AUTO 1.1 K/mm3 (1.0-4.8); LYMPHOCYTES PERCENT AUTO 9.9 % (24.0-44.0); MEAN CORPUSCULAR HGB CONC 35.3 g/dl (32.0-36.0); MEAN CORPUSCULAR VOLUME 93.5 fl (83.0-99.0); MEAN PLATELET VOLUME 10.2 fl (9.4-12.3); MONOCYTES PERCENT AUTO 9.5 % (0.0-8.0); NEUTROPHILS ABSOLUTE AUTO 8.6 K/mm3 (1.8-7.7); NEUTROPHILS PERCENT AUTO 79.9 % (41.0-71.0); PLATELET COUNT,PLT 327 K/mm3 (150-400); RED BLOOD CELL COUNT 4.79 M/mm3 (4.10-5.30); WHITE BLOOD CELL COUNT,WBC 10.76 K/mm3 (3.9-11.3)
[2024-03-16 05:57] LABS: A/G RATIO 1.3 (1-2); ALBUMIN 3.8 g/dl (3.4-5.0); BILIRUBIN TOTAL 1.8 mg/dL (0.2-1.0); CALCIUM 8.8 mg/dL (8.5-10.1); EST CRCL DRUG DOSING (CG) 76.02 mL/min; POTASSIUM,K 2.9 mEq/L (3.5-5.1); PROTEIN TOTAL,TP 6.8 g/dl (6.4-8.2)
[2024-03-16 06:15] LABS: ANION GAP 12.9 (5-15)
[2024-03-16] MEDS: HYDROmorphone 0.5 MG/0.5 ML Syringe IM ONE (07:18)
[2024-03-16] MEDS: Ondansetron 4 MG/2 ML SDV IVPUSH PRN (12:33)
[2024-03-16] MEDS ORDERED: Acetaminophen 325 MG Tab PO PRN (13:36)
[2024-03-16] MEDS: oxyCODONE 5 MG Tab PO PRN (14:11)
[2024-03-16] MEDS: traMADol 50 MG Tab PO PRN (19:43)
[2024-03-16] MEDS: Magnesium Sulfate/Water Premix 4 GM in Premix Bag 1 BAG IV ONE (21:36)
[2024-03-17] MEDS: Pantoprazole 40 MG Tab.CR PO SCH (09:13)
[2024-03-17] MEDS ORDERED: NS + KCl 20mEq/L 1,000 ML IV SCH (09:15)
[2024-03-17] MEDS: Potassium Chloride 10 MEQ in Premix Bag 1 BAG IV SCH (09:23)
[2024-03-17 10:18] LABS: A/G RATIO 1.2 (1-2); ALBUMIN 3.3 g/dl (3.4-5.0); BILIRUBIN TOTAL 0.9 mg/dL (0.2-1.0); BUN/CREATININE RATIO 12.9 (14-18); C-REACTIVE PROTEIN 0.06 mg/dL (<0.30); CALCIUM 8.3 mg/dL (8.5-10.1); CREATININE 0.7 mg/dL (0.55-1.02); EST CRCL DRUG DOSING (CG) 108.59 mL/min; MAGNESIUM 1.9 mg/dL (1.8-2.4); PROTEIN TOTAL,TP 6.1 g/dl (6.4-8.2)
[2024-03-17 10:19] LABS: BASOPHILS ABSOLUTE AUTO 0.1 K/mm3 (0.0-0.2); BASOPHILS PERCENT AUTO 0.7 % (0.0-1.0); EOSINOPHILS ABSOLUTE AUTO 0.1 K/mm3 (0.0-0.4); EOSINOPHILS PERCENT AUTO 0.8 % (0.0-6.0); HEMOGLOBIN 15.3 gm/dl (12.0-16.0); IMMATURE GRAN ABSOLUTE AUTO 0.02 K/mm3 (0.00-0.05); IMMATURE GRAN PERCENT AUTO 0.3 % (0.0-0.4); LYMPHOCYTES ABSOLUTE AUTO 2.4 K/mm3 (1.0-4.8); LYMPHOCYTES PERCENT AUTO 31.9 % (24.0-44.0); MEAN CORPUSCULAR HEMOGLOBIN 32.6 pg (28.0-32.0); MEAN CORPUSCULAR HGB CONC 33.3 g/dl (32.0-36.0); MEAN PLATELET VOLUME 11.4 fl (9.4-12.3); MONOCYTES ABSOLUTE AUTO 0.9 K/mm3 (0.0-0.8); MONOCYTES PERCENT AUTO 11.7 % (0.0-8.0); NEUTROPHILS PERCENT AUTO 54.6 % (41.0-71.0); RED BLOOD CELL COUNT 4.69 M/mm3 (4.10-5.30); WHITE BLOOD CELL COUNT,WBC 7.37 K/mm3 (3.9-11.3)
[2024-03-17 10:29] LABS: MEAN CORPUSCULAR VOLUME 98.1 fl (83.0-99.0); PLATELET COUNT,PLT 252 K/mm3 (150-400)
[2024-03-17] MEDS: Folic Acid 1 MG Tab PO SCH (10:29)
[2024-03-17] MEDS: Thiamine 100 MG Tab PO SCH (10:29)
[2024-03-17] MEDS: Polyethylene Glycol 3350 Powder 17 GM Packet PO SCH (12:30)
[2024-03-17] MEDS: Docusate Sodium 100 MG Cap PO SCH (20:08)
[2024-03-18] MEDS: Thiamine 100 MG Tab PO SCH (08:46)
[2024-03-18] MEDS: Polyethylene Glycol 3350 Powder 17 GM Packet PO SCH (08:46)
[2024-03-18] MEDS: Folic Acid 1 MG Tab PO SCH (08:46)
[2024-03-18] MEDS ORDERED: Polyethylene Glycol 3350 Powder 17 GM Packet PO SCH (09:00)
[2024-03-18 12:41] VITALS: BP 141/79; PULSE 93
== END 2024-03-18 12:26 | disposition home or self-care (01) | DRG 241 ==
LOC: JD.ED 15:59 → JD.MS 03-16 09:31
PROVIDERS: ADMIT Family Medicine; ATTEND Family Medicine
DX: K27.9 Peptic ulcer, site unspecified, unspecified as acute or chronic, without hemorrhage or perforation (principal); K52.9 Noninfective gastroenteritis and colitis, unspecified; K76.0 Fatty (change of) liver, not elsewhere classified; E87.1 Hypo-osmolality and hyponatremia; K75.9 Inflammatory liver disease, unspecified; E87.6 Hypokalemia; E87.8 Other disorders of electrolyte and fluid balance, not elsewhere classified; E83.42 Hypomagnesemia; E80.6 Other disorders of bilirubin metabolism; H54.7 Unspecified visual loss; R55 Syncope and collapse; M54.9 Dorsalgia, unspecified; G89.29 Other chronic pain; G43.909 Migraine, unspecified, not intractable, without status migrainosus; F41.8 Other specified anxiety disorders; F15.90 Other stimulant use, unspecified, uncomplicated; E86.0 Dehydration; F90.9 Attention-deficit hyperactivity disorder, unspecified type; F32.A Depression, unspecified; R53.81 Other malaise; E87.21 Acute metabolic acidosis; K59.00 Constipation, unspecified; N80.9 Endometriosis, unspecified; F10.11 Alcohol abuse, in remission; Z72.0 Tobacco use; Z90.49 Acquired absence of other specified parts of digestive tract; Z79.899 Other long term (current) drug therapy; Z87.01 Personal history of pneumonia (recurrent); Z87.19 Personal history of other diseases of the digestive system; Z88.0 Allergy status to penicillin; Z87.440 Personal history of urinary (tract) infections
CPT/HCPCS: 36415; 74177; 74177-26; 76700; 76700-26; 80053; 80306; 81001; 83605; 83690; 83735; 84100; 84443; 84703; 85025; 86140; 87040; 96361; 96365; 96366; 96367; 96375; 96376; 99285-25; A9270-GY; J1956; J2405; J3475; J3480; J3490; J7030; Q9967

== ENCOUNTER 2024-06-30 22:50 | Emergency (ER) | payer BC, OTHER ==
[2024-06-30] MEDS ORDERED: Sodium Chloride 0.9% 10 ML Syringe FLUSH PRN (23:55)
[2024-07-01] MEDS: Sodium Chloride 0.9% 1,000 ML IV ONE (00:04)
[2024-07-01] MEDS: Ketorolac 15 MG/ML SDV IVPUSH ONE (00:04)
[2024-07-01 00:13] LABS: BASOPHILS ABSOLUTE AUTO 0.1 K/mm3 (0.0-0.2); BASOPHILS PERCENT AUTO 0.6 % (0.0-1.0); EOSINOPHILS ABSOLUTE AUTO 0.1 K/mm3 (0.0-0.4); EOSINOPHILS PERCENT AUTO 1.2 % (0.0-6.0); HEMATOCRIT 43.9 % (37.0-47.0); HEMOGLOBIN 15.4 gm/dl (12.0-16.0); IMMATURE GRAN ABSOLUTE AUTO 0.01 K/mm3 (0.00-0.05); IMMATURE GRAN PERCENT AUTO 0.1 % (0.0-0.4); LYMPHOCYTES ABSOLUTE AUTO 0.9 K/mm3 (1.0-4.8); LYMPHOCYTES PERCENT AUTO 11.4 % (24.0-44.0); MEAN CORPUSCULAR HEMOGLOBIN 33.7 pg (28.0-32.0); MEAN CORPUSCULAR HGB CONC 35.1 g/dl (32.0-36.0); MEAN CORPUSCULAR VOLUME 96.1 fl (83.0-99.0); MONOCYTES ABSOLUTE AUTO 0.6 K/mm3 (0.0-0.8); MONOCYTES PERCENT AUTO 6.6 % (0.0-8.0); NEUTROPHILS ABSOLUTE AUTO 6.6 K/mm3 (1.8-7.7); NEUTROPHILS PERCENT AUTO 80.1 % (41.0-71.0); PLATELET COUNT,PLT 296 K/mm3 (150-400); RED BLOOD CELL COUNT 4.57 M/mm3 (4.10-5.30); WHITE BLOOD CELL COUNT,WBC 8.28 K/mm3 (3.9-11.3)
[2024-07-01 00:15] LABS: A/G RATIO 1.4 (1-2); ALANINE AMINOTRANSFERASE,ALT 78 U/L (14-59); ALBUMIN 4.3 g/dl (3.4-5.0); ALKALINE PHOSPHATASE 80 U/L (46-116); ANION GAP 17.6 (5-15); ASPARTATE AMNIOTRANSFERASE,AST 77 U/L (15-37); BILIRUBIN TOTAL 1.1 mg/dL (0.2-1.0); BLOOD UREA NITROGEN,BUN 11 mg/dL (7-18); BUN/CREATININE RATIO 15.7 (14-18); CALCIUM 8.5 mg/dL (8.5-10.1); CARBON DIOXIDE,CO2 21 mEq/L (21-32); CHLORIDE,CL 96 mEq/L (98-107); CREATININE 0.7 mg/dL (0.55-1.02); ESTIMATED GFR 108 mL/min (>60); GLUCOSE RANDOM 112 mg/dL (70-99); LIPASE 34 U/L (16-77); POTASSIUM,K 2.6 mEq/L (3.5-5.1); PROTEIN TOTAL,TP 7.4 g/dl (6.4-8.2); SODIUM,NA 132 mEq/L (136-145)
[2024-07-01 01:30] LABS: APPEARANCE,URINE CLEAR (Clear); BILIRUBIN,URINE NEGATIVE (Negative); COLOR,URINE YELLOW (Yellow); GLUCOSE,URINE NEGATIVE (Negative); KETONES,URINE 2+ (Negative); LEUKOCYTE ESTERASE,URINE NEGATIVE (Negative); NITRITE,URINE NEGATIVE (Negative); OCCULT BLOOD,URINE TRACE-INTACT (Negative); PH,URINE 6.5 (5.0-8.0); PROTEIN,URINE 2+ (Negative); UROBILINOGEN,URINE 0.2 (0.2-1.0)
[2024-07-01 01:37] LABS: BARBITURATE SCREEN,URINE NEGATIVE (CUTOFF=200); BENZODIAZEPINES SCREEN,URINE NEGATIVE (CUTOFF=150); BUPRENORPHINE SCREEN,URINE NEGATIVE (CUTOFF=10); METHADONE SCREEN, URINE NEGATIVE (CUTOFF=200); METHAMPHETAMINES SCREEN, URINE NEGATIVE (CUTOFF=500); OXYCODONE SCREEN,URINE NEGATIVE (CUT0FF=100); THC SCREEN,URINE 20 NG/ML NEGATIVE (CUTOFF=50)
[2024-07-01 01:40] LABS: BACTERIA,URINE FEW /hpf (FEW); EPITHELIAL CELLS,URINE 0-5 /hpf (0-5); HYALINE CASTS,URINE 0-5 /lpf (0-5); RBC,URINE 0-5 /hpf (0-5); WBC,URINE 0-5 /hpf (0-5)
[2024-07-01 01:41] LABS: MUCUS,URINE FEW /hpf (FEW)
[2024-07-01] MEDS: Iopamidol 612 MG/ML 100 ML Bottle IVPUSH ONE (01:44)
[2024-07-01 01:48] LABS: AMPHETAMINES SCREEN, URINE PRESUMPTIVE POSITIVE (CUTOFF=500)
[2024-07-01] MEDS: diphenhydrAMINE 50 MG/ML SDV IVPUSH ONE (02:28)
[2024-07-01] MEDS: droPERidol 2.5 MG/ML SDV IV ONE (02:28)
[2024-07-01] MEDS: Potassium Chloride 10 MEQ in Premix Bag 1 BAG IV SCH (02:29)
[2024-07-01] MEDS: Sodium Chloride 0.9% 1,000 ML ONE (02:37)
[2024-07-01] MEDS: Sodium Chloride 0.9% 1,000 ML IV SCH (03:00)
[2024-07-01] MEDS: Magnesium Sulfate 2 GM/50 mL 2 GM in Premix Bag 1 BAG IV ONE (04:39)
[2024-07-01 07:54] VITALS: BP 138/79; PULSE 105
== END 2024-07-01 07:35 | disposition home or self-care (01) ==
LOC: JD.ED 22:50
DX: R10.84 Generalized abdominal pain (principal); M54.50 Low back pain, unspecified; E87.6 Hypokalemia; E83.42 Hypomagnesemia; Z79.899 Other long term (current) drug therapy; Z88.0 Allergy status to penicillin
CPT/HCPCS: 36415; 74177; 80053; 80306; 81001; 83690; 83735; 84703; 85025; 96361; 96365; 96366; 96368; 96375; 99285; J1200; J1790; J1885; J3475; J3480; J7030; Q9967; 99284

== ENCOUNTER 2024-10-31 17:09 | Emergency (ER) | payer BC, OTHER ==
[2024-10-31] MEDS: droPERidol 2.5 MG/ML SDV IV STA (17:56)
[2024-10-31 18:07] LABS: BASOPHILS ABSOLUTE AUTO 0.0 K/mm3 (0.0-0.2); BASOPHILS PERCENT AUTO 0.3 % (0.0-1.0); EOSINOPHILS ABSOLUTE AUTO 0.0 K/mm3 (0.0-0.4); EOSINOPHILS PERCENT AUTO 0.0 % (0.0-6.0); IMMATURE GRAN ABSOLUTE AUTO 0.03 K/mm3 (0.00-0.05); IMMATURE GRAN PERCENT AUTO 0.4 % (0.0-0.4); LYMPHOCYTES ABSOLUTE AUTO 0.8 K/mm3 (1.0-4.8); LYMPHOCYTES PERCENT AUTO 12.1 % (24.0-44.0); MEAN PLATELET VOLUME 10.9 fl (9.4-12.3); MONOCYTES ABSOLUTE AUTO 0.7 K/mm3 (0.0-0.8); MONOCYTES PERCENT AUTO 10.2 % (0.0-8.0); NEUTROPHILS ABSOLUTE AUTO 5.4 K/mm3 (1.8-7.7); NEUTROPHILS PERCENT AUTO 77.0 % (41.0-71.0); NRBC ABSOLUTE 0.00 (0.00-0.02); NRBC PERCENT 0.0 % (0.0-0.2); PLATELET COUNT,PLT 245 K/mm3 (150-400); RED BLOOD CELL COUNT 5.06 M/mm3 (4.10-5.30); WHITE BLOOD CELL COUNT,WBC 6.95 K/mm3 (3.9-11.3)
[2024-10-31 18:28] LABS: A/G RATIO 1.2 (1-2); ALANINE AMINOTRANSFERASE,ALT 111.0 U/L (14-59); ASPARTATE AMNIOTRANSFERASE,AST 116.0 U/L (15-37); BILIRUBIN TOTAL 0.7 mg/dL (0.2-1.0); BLOOD UREA NITROGEN,BUN 5.0 mg/dL (7-18); CARBON DIOXIDE,CO2 28.0 mEq/L (21-32); CREATINE KINASE,CK 400.0 U/L (26-192); CREATININE 0.8 mg/dL (0.55-1.02); EST CRCL DRUG DOSING (CG) 94.01 mL/min; ESTIMATED GFR 91.0 mL/min (>60); ETHANOL BLOOD MEDICAL 0.14 gm% (0.00); GLUCOSE RANDOM 119.0 mg/dL (70-99); PROTEIN TOTAL,TP 7.6 g/dl (6.4-8.2); SODIUM,NA 124.0 mEq/L (136-145)
[2024-10-31 18:47] LABS: CHLORIDE,CL 81.0 mEq/L (98-107)
[2024-10-31 18:52] LABS: POTASSIUM,K 2.5 mEq/L (3.5-5.1)
[2024-10-31 18:57] LABS: BUPRENORPHINE SCREEN,URINE NEGATIVE (CUTOFF=10); METHADONE SCREEN, URINE NEGATIVE (CUTOFF=200); METHAMPHETAMINES SCREEN, URINE NEGATIVE (CUTOFF=500); OXYCODONE SCREEN,URINE NEGATIVE (CUT0FF=100); THC SCREEN,URINE 20 NG/ML NEGATIVE (CUTOFF=50)
[2024-10-31 18:58] LABS: AMPHETAMINES SCREEN, URINE PRESUMPTIVE POSITIVE (CUTOFF=500)
[2024-10-31] MEDS: Potassium Chloride 20 MEQ Tab.ER PO ONE (19:00)
[2024-10-31] MEDS ORDERED: Magnesium Sulf/Wat 4 GM/50 mL 4 GM in Premix Bag 1 BAG IV ONE (20:10)
[2024-10-31] MEDS: Magnesium Sulf/Wat 4 GM/50 mL 4 GM in Premix Bag 1 BAG IV ONE (21:28)
[2024-10-31] MEDS: Aluminum Hydroxide/Magnesium Hydroxide/Simethicone Susp 30 ML Cup PO ONE (21:52)
[2024-10-31 23:06] VITALS: BP 112/82; PULSE 106
== END 2024-10-31 23:36 | disposition home or self-care (01) ==
LOC: JD.ED 17:09
DX: A05.9 Bacterial foodborne intoxication, unspecified (principal); E87.6 Hypokalemia; E83.42 Hypomagnesemia; K52.9 Noninfective gastroenteritis and colitis, unspecified; E86.9 Volume depletion, unspecified; F17.200 Nicotine dependence, unspecified, uncomplicated; Z79.899 Other long term (current) drug therapy; Z88.0 Allergy status to penicillin; Z90.49 Acquired absence of other specified parts of digestive tract
CPT/HCPCS: 36415; 80053; 80306; 80307; 82550; 83690; 83735; 85025; 96361; 96365; 96366; 96367; 96368; 96375; 99284; A9270; J1790; J2405; J3475; J3480; J7030

== ENCOUNTER 2024-11-13 10:54 | Inpatient (IN) | payer BC, OTHER ==
[2024-11-13] MEDS ORDERED: Sodium Chloride 0.9% 10 ML Syringe FLUSH PRN (11:11)
[2024-11-13 11:33] LABS: BASOPHILS ABSOLUTE AUTO 0.1 K/mm3 (0.0-0.2); BASOPHILS PERCENT AUTO 1.1 % (0.0-1.0); EOSINOPHILS ABSOLUTE AUTO 0.0 K/mm3 (0.0-0.4); EOSINOPHILS PERCENT AUTO 0.1 % (0.0-6.0); IMMATURE GRAN ABSOLUTE AUTO 0.02 K/mm3 (0.00-0.05); IMMATURE GRAN PERCENT AUTO 0.3 % (0.0-0.4); LYMPHOCYTES ABSOLUTE AUTO 0.8 K/mm3 (1.0-4.8); LYMPHOCYTES PERCENT AUTO 11.0 % (24.0-44.0); MEAN PLATELET VOLUME 10.6 fl (9.4-12.3); MONOCYTES ABSOLUTE AUTO 0.3 K/mm3 (0.0-0.8); MONOCYTES PERCENT AUTO 3.8 % (0.0-8.0); NEUTROPHILS ABSOLUTE AUTO 6.0 K/mm3 (1.8-7.7); NEUTROPHILS PERCENT AUTO 83.7 % (41.0-71.0); NRBC ABSOLUTE 0.00 (0.00-0.02); NRBC PERCENT 0.0 % (0.0-0.2); PLATELET COUNT,PLT 282 K/mm3 (150-400); RED BLOOD CELL COUNT 4.89 M/mm3 (4.10-5.30); WHITE BLOOD CELL COUNT,WBC 7.19 K/mm3 (3.9-11.3)
[2024-11-13] MEDS: Sodium Chloride 0.9% 10 ML Syringe FLUSH ONE (11:50)
[2024-11-13] MEDS: Iopamidol 612 MG/ML 100 ML Bottle IVPUSH ONE (11:50)
[2024-11-13 11:56] LABS: A/G RATIO 1.3 (1-2); ALANINE AMINOTRANSFERASE,ALT 168 U/L (14-59); ASPARTATE AMNIOTRANSFERASE,AST 139 U/L (15-37); BILIRUBIN TOTAL 1.5 mg/dL (0.2-1.0); BLOOD UREA NITROGEN,BUN 8 mg/dL (7-18); CARBON DIOXIDE,CO2 24 mEq/L (21-32); CHLORIDE,CL 89 mEq/L (98-107); CREATININE 0.8 mg/dL (0.55-1.02); EST CRCL DRUG DOSING (CG) 90.85 mL/min; ESTIMATED GFR 91 mL/min (>60); GLUCOSE RANDOM 191 mg/dL (70-99); PROTEIN TOTAL,TP 8.7 g/dl (6.4-8.2); SODIUM,NA 134 mEq/L (136-145)
[2024-11-13] MEDS: droPERidol 2.5 MG/ML SDV IVPUSH ONE ×2 (12:05→16:03)
[2024-11-13 12:13] LABS: POTASSIUM,K 2.5 mEq/L (3.5-5.1)
[2024-11-13] MEDS: Magnesium Sulf/Wat 4 GM/50 mL 4 GM in Premix Bag 1 BAG IV ONE (12:40)
[2024-11-13] MEDS: Potassium Chloride 20 MEQ Tab.ER PO SCH (12:50)
[2024-11-13 14:06] LABS: APPEARANCE,URINE CLEAR (Clear); GLUCOSE,URINE NEGATIVE (Negative); OCCULT BLOOD,URINE 1+ (Negative)
[2024-11-13 14:15] LABS: BUPRENORPHINE SCREEN,URINE NEGATIVE (CUTOFF=10); METHADONE SCREEN, URINE NEGATIVE (CUTOFF=200); METHAMPHETAMINES SCREEN, URINE NEGATIVE (CUTOFF=500); OXYCODONE SCREEN,URINE NEGATIVE (CUT0FF=100); SQUAMOUS EPITHELIAL CELLS,UR 0-5 /hpf (0-5); THC SCREEN,URINE 20 NG/ML NEGATIVE (CUTOFF=50)
[2024-11-13 14:17] LABS: AMPHETAMINES SCREEN, URINE PRESUMPTIVE POSITIVE (CUTOFF=500)
[2024-11-13] MEDS: Ketorolac 30 MG/ML SDV IVPUSH ONE (16:03)
[2024-11-13] MEDS: diphenhydrAMINE 50 MG/ML SDV IVPUSH ONE (18:56)
[2024-11-13] MEDS: LORazepam 2 MG/ML SDV IVPUSH ONE ×2 (19:05→19:30)
[2024-11-13] MEDS: PHENobarbitaL sodium 260 MG in Sodium Chloride 0.9% 100 ML IV ONE (19:21)
[2024-11-13] MEDS ORDERED: Ondansetron 4 MG/2 ML SDV IV PRN (19:31)
[2024-11-13] MEDS: LORazepam 2 MG/ML SDV IM ONE (19:35)
[2024-11-13] MEDS: LORazepam 2 MG/ML SDV ONE ×3 (20:06→20:12)
[2024-11-13 20:11] LABS: BLOOD UREA NITROGEN,BUN 6.0 mg/dL (7-18); CARBON DIOXIDE,CO2 20.0 mEq/L (21-32); CHLORIDE,CL 93.0 mEq/L (98-107); CREATININE 1.1 mg/dL (0.55-1.02); EST CRCL DRUG DOSING (CG) 66.07 mL/min; ESTIMATED GFR 62.0 mL/min (>60); GLUCOSE RANDOM 189.0 mg/dL (70-99); POTASSIUM,K 3.9 mEq/L (3.5-5.1); SODIUM,NA 130.0 mEq/L (136-145)
[2024-11-13] MEDS: Thiamine 200 MG/2 ML MDV IVPUSH SCH (21:30)
[2024-11-13] MEDS: Folic Acid 50 MG/10 ML MDV IV SCH (21:30)
[2024-11-14 00:09] VITALS: PULSE 100
[2024-11-14] MEDS: LORazepam 2 MG/ML SDV IV PRN ×2 (00:13→03:49)
[2024-11-14 05:32] LABS: BASOPHILS ABSOLUTE AUTO 0.0 K/mm3 (0.0-0.2); BASOPHILS PERCENT AUTO 0.7 % (0.0-1.0); EOSINOPHILS ABSOLUTE AUTO 0.1 K/mm3 (0.0-0.4); EOSINOPHILS PERCENT AUTO 1.0 % (0.0-6.0); IMMATURE GRAN ABSOLUTE AUTO 0.01 K/mm3 (0.00-0.05); IMMATURE GRAN PERCENT AUTO 0.2 % (0.0-0.4); LYMPHOCYTES ABSOLUTE AUTO 1.2 K/mm3 (1.0-4.8); LYMPHOCYTES PERCENT AUTO 19.8 % (24.0-44.0); MEAN PLATELET VOLUME 11.0 fl (9.4-12.3); MONOCYTES ABSOLUTE AUTO 0.5 K/mm3 (0.0-0.8); MONOCYTES PERCENT AUTO 8.7 % (0.0-8.0); NEUTROPHILS ABSOLUTE AUTO 4.1 K/mm3 (1.8-7.7); NEUTROPHILS PERCENT AUTO 69.6 % (41.0-71.0); NRBC ABSOLUTE 0.00 (0.00-0.02); NRBC PERCENT 0.0 % (0.0-0.2); RED BLOOD CELL COUNT 4.01 M/mm3 (4.10-5.30); WHITE BLOOD CELL COUNT,WBC 5.87 K/mm3 (3.9-11.3)
[2024-11-14 05:36] LABS: PLATELET COUNT,PLT 197 K/mm3 (150-400)
[2024-11-14 06:20] LABS: A/G RATIO 1.1 (1-2); ALANINE AMINOTRANSFERASE,ALT 96.0 U/L (14-59); ASPARTATE AMNIOTRANSFERASE,AST 64.0 U/L (15-37); BILIRUBIN TOTAL 1.4 mg/dL (0.2-1.0); BLOOD UREA NITROGEN,BUN 7.0 mg/dL (7-18); CARBON DIOXIDE,CO2 25.0 mEq/L (21-32); CHLORIDE,CL 101.0 mEq/L (98-107); CREATININE 0.6 mg/dL (0.55-1.02); EST CRCL DRUG DOSING (CG) 116.93 mL/min; ESTIMATED GFR 111.0 mL/min (>60); GLUCOSE RANDOM 98.0 mg/dL (70-99); PHOSPHORUS 2.3 mg/dL (2.6-4.7); POTASSIUM,K 3.0 mEq/L (3.5-5.1); PROTEIN TOTAL,TP 6.0 g/dl (6.4-8.2); SODIUM,NA 136.0 mEq/L (136-145)
[2024-11-14] MEDS: Potassium Chloride 20 MEQ Tab.ER PO ONE (11:23)
[2024-11-14 19:15] VITALS: BP 144/84
== END 2024-11-14 20:43 | disposition left against medical advice (07) | DRG 770 ==
LOC: JD.ED 10:54 → EEVIPCON 19:31 → JD.ICU 19:31
PROVIDERS: ADMIT Family Medicine; ATTEND Family Medicine
DX: F10.139 Alcohol abuse with withdrawal, unspecified (principal); G92.8 Other toxic encephalopathy; E87.1 Hypo-osmolality and hyponatremia; H54.7 Unspecified visual loss; G43.909 Migraine, unspecified, not intractable, without status migrainosus; F41.9 Anxiety disorder, unspecified; F32.A Depression, unspecified; F17.210 Nicotine dependence, cigarettes, uncomplicated; G40.89 Other seizures; E87.6 Hypokalemia; E83.42 Hypomagnesemia; R74.01 Elevation of levels of liver transaminase levels; E86.0 Dehydration; E87.8 Other disorders of electrolyte and fluid balance, not elsewhere classified; I10 Essential (primary) hypertension; Z88.0 Allergy status to penicillin; Z79.899 Other long term (current) drug therapy; Z98.890 Other specified postprocedural states; Z90.49 Acquired absence of other specified parts of digestive tract
CPT/HCPCS: 36410; 36415; 70450; 70450-26; 74177; 74177-26; 80048; 80053; 80306; 80307; 81001; 82550; 83036; 83690; 83735; 84100; 85025; 86140; A9270-GY; J0696; J1200; J1790; J1808; J1885; J2060; J2560; J2765; J3411; J3475; J3480; J7030; Q9967

== ENCOUNTER 2024-12-21 13:57 | Emergency (ER) | payer BC ==
[2024-12-21] MEDS ORDERED: Naloxone 0.4 MG/ML SDV IVPUSH PRN (14:22)
[2024-12-21] MEDS: LORazepam 2 MG/ML SDV IVPUSH ONE (14:47)
[2024-12-21] MEDS: fentaNYL 100 MCG/2 ML SDV IVPUSH ONE (14:49)
[2024-12-21] MEDS: Thiamine 200 MG/2 ML MDV IVPUSH ONE (15:00)
[2024-12-21 15:02] LABS: BASOPHILS ABSOLUTE AUTO 0.1 K/mm3 (0.0-0.2); BASOPHILS PERCENT AUTO 1.0 % (0.0-1.0); EOSINOPHILS ABSOLUTE AUTO 0.4 K/mm3 (0.0-0.4); EOSINOPHILS PERCENT AUTO 5.2 % (0.0-6.0); IMMATURE GRAN ABSOLUTE AUTO 0.01 K/mm3 (0.00-0.05); IMMATURE GRAN PERCENT AUTO 0.1 % (0.0-0.4); LYMPHOCYTES ABSOLUTE AUTO 2.0 K/mm3 (1.0-4.8); LYMPHOCYTES PERCENT AUTO 29.7 % (24.0-44.0); MEAN PLATELET VOLUME 10.1 fl (9.4-12.3); MONOCYTES ABSOLUTE AUTO 0.3 K/mm3 (0.0-0.8); MONOCYTES PERCENT AUTO 4.3 % (0.0-8.0); NEUTROPHILS ABSOLUTE AUTO 4.0 K/mm3 (1.8-7.7); NEUTROPHILS PERCENT AUTO 59.7 % (41.0-71.0); NRBC ABSOLUTE 0.00 (0.00-0.02); NRBC PERCENT 0.0 % (0.0-0.2); PLATELET COUNT,PLT 326 K/mm3 (150-400); RED BLOOD CELL COUNT 4.92 M/mm3 (4.10-5.30); WHITE BLOOD CELL COUNT,WBC 6.76 K/mm3 (3.9-11.3)
[2024-12-21 15:26] LABS: A/G RATIO 1.5 (1-2); ALANINE AMINOTRANSFERASE,ALT 393 U/L (14-59); ASPARTATE AMNIOTRANSFERASE,AST 268 U/L (15-37); BILIRUBIN TOTAL 0.7 mg/dL (0.2-1.0); BLOOD UREA NITROGEN,BUN 12 mg/dL (7-18); CARBON DIOXIDE,CO2 24 mEq/L (21-32); CHLORIDE,CL 102 mEq/L (98-107); CREATININE 0.7 mg/dL (0.55-1.02); ESTIMATED GFR 107 mL/min (>60); ETHANOL BLOOD MEDICAL 0.29 gm% (0.00); GLUCOSE RANDOM 113 mg/dL (70-99); POTASSIUM,K 3.5 mEq/L (3.5-5.1); PROTEIN TOTAL,TP 7.4 g/dl (6.4-8.2); SODIUM,NA 142 mEq/L (136-145); TROPONIN I HIGH SENSITIVITY 5 pg/mL (<=51)
[2024-12-21] MEDS: Iopamidol 612 MG/ML 30 ML SDV IVPUSH ONE (15:39)
[2024-12-21] MEDS: Iopamidol 612 MG/ML 100 ML Bottle IVPUSH ONE (15:39)
[2024-12-21] MEDS: Sodium Chloride 0.9% 10 ML Syringe FLUSH PRN (15:40)
[2024-12-21 18:57] VITALS: BP 126/81; PULSE 88
== END 2024-12-21 17:52 | disposition home or self-care (01) ==
LOC: JD.ED 13:57
DX: R51.9 Headache, unspecified (principal); R10.84 Generalized abdominal pain; M79.10 Myalgia, unspecified site; F45.0 Somatization disorder; Y90.8 Blood alcohol level of 240 mg/100 ml or more; Z79.899 Other long term (current) drug therapy; Z88.0 Allergy status to penicillin
CPT/HCPCS: 36415; 70450; 71260; 74177; 80053; 80307; 83605; 83690; 83735; 84484; 84703; 85025; 93005; 96361; 96365; 96375; 99285; A9270; J2060; J2470; J3010; J3411; J3475; J7030; Q9967; 93010; 99284